=== PATIENT | female | born 1950 | race Hispanic/Latino ===

== ENCOUNTER 2018-08-18 08:43 | Inpatient (IN) | payer OTHER ==
[2018-08-18 09:17] LABS: Basophils % 0.2 % (0-1.3); Eosinophils % 0.4 % (0-4.4); Hematocrit 36.1 % (36.0-45.0); Lymphocytes % 44.2 % (15.3-44.8); Monocytes % 10.4 % (3.3-12.3); RBC Red Blood Cell Count 4.43 M/uL (3.86-4.86)
[2018-08-18 09:39] LABS: Albumin 2.5 g/dL (3.4-5.0); Bilirubin Direct 0.2 mg/dL (0-0.2); Bilirubin Total 0.6 mg/dL (0.2-1.0); Potassium 3.6 mmol/L (3.5-5.1); Protein, Total 7.6 g/dL (6.4-8.2)
[2018-08-18] MEDS ORDERED: ONDANSETRON 4 MG/2 ML VIAL ONE (10:20)
[2018-08-18] MEDS ORDERED: NA CHLORIDE 0.9% 500 ML ONE ×2 (10:20→11:58)
[2018-08-18] MEDS ORDERED: MORPHINE 2 MG/ML SYR ONE (10:20)
[2018-08-18 10:33] LABS: Urine Blood 3+ (NEG); Urine Glucose NEGATIVE (NEG); Urine Protein 2+ (NEG); Urine Specific Gravity 1.015 (1.005-1.030)
[2018-08-18 10:40] LABS: Platelet Estimate ADEQ
[2018-08-18 10:41] LABS: Blood Morphology Comment NOT SEEN (NOT SEEN)
--- NOTE | 2018-08-18 11:13 | RAD REPORT ---
EXAM DESCRIPTION: CT - Abdomen Pelvis W Contrast - 08/18/2018 10:42 am CLINICAL HISTORY: Abdominal pain with nausea. COMPARISON: none. TECHNIQUE: Computed axial tomography of the abdomen pelvis was obtained. 100 cc Isovue-300 was admin istered intravenously. Oral contrast was not requested which limits evaluation of bowel. All CT scans are performed using dose optimization technique as appropriate and may include automated exposure control or mA/KV adjustment according to patient size. FINDINGS: Fatty liver Spleen, pancreas, adrenal and right kidney appear unremarkable. A left ureteral stent has been placed with decompression of the hydronephrosis. The stranding adjacent to the sigmoid colon has diminished. 5 centimeter fluid collection abutting th e left aspect of the the sigmoid has diminished in size. Previously it measured 5.7 centimeters. A 2. 4 centimeter fluid collection to the right of the cecum has also diminished in size. 3 centimeter flu id collection superior to the sigmoid has mildly diminished in size. Extraluminal air adjacent to the sigmoid is without significant change. Free-flowing pneumoperitoneum is not seen. IMPRESSION: Improvement in the sigmoid diverticulitis. The thin wall fluid collections have mildly d ecreased in size. Extraluminal air is without significant change. No free-flowing pneumoperitoneum se en.
--- NOTE | 2018-08-18 14:15 | ER ---
Nurse's Notes [facility] Name: Madeline Celaya Age: 67 yrs Sex: Female : 1950 Arrival Date: 08/18/2018 Time: 08:46 Bed 13 Private MD: None, None Diagnosis: Abdominal and pelvic pain Presentation: 08/18 09:02 Presenting complaint: Patient states: Sent by Dr. Lock after follow up appointment ss for probable dehydration. Patient was recently diagnosed with diverticulitis and has finished oral antibiotic therapy, but reports she is still weak, and began having N/V and sweating last night. Patient states that the pain subsided in her LLQ until she began vomiting last night. Transition of care: Dr. Lock's office. Onset of symptoms was August 11, 2018. Risk Assessment: Do you want to hurt yourself or someone else? Patient reports no desire to harm self or others. Initial Sepsis Screen: Does the patient meet any 2 criteria? HR > 90 bpm. Does the patient have a suspected source of infection? Yes: No. Patient's initial sepsis screen is negative. Care prior to arrival: None. 09:02 Method Of Arrival: Wheelchair ss 09:02 Acuity: RUBEN 3 ss Historical: - Allergies: 09:06 Amoxicillin; ss - PMHx: 09:06 osteoarthritis; Diverticulitis; ss - PSHx: 09:06 Tubal ligation; bunionectomy; ss - Immunization history:: Adult Immunizations up to date. - Social history:: Smoking status: Patient/guardian denies using tobacco. - Ebola Screening: : Patient denies exposure to infectious person Patient denies travel to an Ebola-affected area in the 21 days before illness onset. Screenin:30 Abuse screen: Denies threats or abuse. Denies injuries from another. Nutritional sg screening: No deficits noted. Tuberculosis screening: No symptoms or risk factors identified. Never had TB. Fall Risk None identified. Assessment: 09:29 General: Appears in no apparent distress. uncomfortable, ill, slender, well groomed, sg well developed, well nourished, Behavior is calm, cooperative, appropriate for age. Pain: Complains of pain in left lower quadrant Quality of pain is described as sore, began after vomiting. Neuro: Level of Consciousness is awake, alert, obeys commands, Oriented to person, place, time, situation. Cardiovascular: Capillary refill is brisk in bilateral fingers Patient's skin is warm and dry. Respiratory: Airway is patent Respiratory effort is even, unlabored, Respiratory pattern is regular, symmetrical. GI: Abdomen is flat, non-distended, Bowel sounds present X 4 quads. Abd is soft and non tender X 4 quads. Reports. GI: Reports nausea, vomiting. : No signs and/or symptoms were reported regarding the genitourinary system. EENT: No signs and/or symptoms were reported regarding the EENT system. Derm: Skin is intact, is healthy with good turgor, Skin is dry, Skin is pale, Skin temperature is warm. Musculoskeletal: No signs and/or symptoms reported regarding the musculoskeletal system. 10:51 Reassessment: Patient appears in no apparent distress at this time. pt requesting sg glycerin mouth swabs at this time, swabs provided, feels better per pt. 11:36 Reassessment: Patient appears in no apparent distress at this time. Patient and/or sg family updated on plan of care and expected duration. Pain level reassessed. Patient is alert, oriented x 3, equal unlabored respirations, skin warm/dry/pink. Vital Signs: 09:06 BP 102 / 71; Pulse 115; Resp 19; Temp 98.0(TE); Pulse Ox 98% on R/A; Weight 62.6 kg; ss Height 5 ft. 4 in. (162.56 cm); 10:52 Pulse 96; Resp 16; Pulse Ox 96% on R/A; sg 11:30 BP 112 / 70; Pulse 86; Resp 18; Temp 98.0; Pulse Ox 98% on R/A; sg 12:30 BP 102 / 64; Pulse 82; Resp 17; Pulse Ox 98% on R/A; sg 13:30 BP 104 / 62; Pulse 82; Resp 18; Pulse Ox 98% on R/A; sg 16:13 BP 96 / 63; Pulse 95; Resp 16; Pulse Ox 97% on R/A; Pain 3/10; ss 09:06 Body Mass Index 23.69 (62.60 kg, 162.56 cm) ED Course: 08:46 Patient arrived in ED. as 08:47 None, None is Private Physician. as 08:49 Jose Daniels MD is Attending Physician. kdr 08:57 Kenroy Bedoya, RN is Primary Nurse. sg 09:05 Triage completed. ss 09:06 Arm band placed on right wrist. ss 09:11 Initial lab(s) drawn, by me, sent to lab. Inserted saline lock: 22 gauge in left jb1 antecubital area, using aseptic technique. Blood collected. 09:29 Patient has correct armband on for positive identification. Bed in low position. Call sg light in reach. Side rails up X2. Pulse ox on. NIBP on. 10:[address] via stretcher. [email or web address] 10:46 CT Abd/Pelvis - IV Contrast Only In Process Unspecified. EDMS 14:14 Aidee Richmond MD is Hospitalizing Provider. kdr Administered Medications: 10:15 Drug: morphine 2 mg Route: IVP; Site: left antecubital; sg 11:34 Follow up: Response: No adverse reaction sg 10:15 Drug: Zofran 4 mg Route: IVP; Site: left antecubital; sg 11:30 Follow up: Response: No adverse reaction sg 10:15 Drug: NS 0.9% 500 ml Route: IV; Rate: bolus; Site: left antecubital; sg 11:33 Follow up: Response: No adverse reaction; IV Status: Completed infusion; IV Intake: sg 500ml 11:48 Drug: NS 0.9% 500 ml Route: IV; Rate: bolus; Site: left antecubital; sg Intake: 11:33 IV: 500ml; Total: 500ml. sg Outcome: 14:15 Decision to Hospitalize by Provider. kdr 16:32 Patient left the ED. sg Signatures: Dispatcher [employer] EDMS German Jo [email or web address] Kenroy Bedoya RN RN Jose Daniels MD MD kdr Dorothy Kuo Shelby, RN RN Meenakshi Pepe [email or web address]
--- NOTE | 2018-08-18 14:16 | EDPHYS ---
Physician Documentation [facility] Name: Madeline Celaya Age: 67 yrs Sex: Female : 1950 Arrival Date: 08/18/2018 Time: 08:46 Bed 13 Private MD: None, None ED Physician Jose Daniels HPI: 08/18 10:06 This 67 yrs old Female presents to ER via Wheelchair with complaints of kdr Abdominal Pain, Nausea. 10:06 The patient presents to the emergency department with nausea, that is mild, abdominal kdr pain, of the left lower quadrant. Onset: The symptoms/episode began/occurred This is an ongoing problem that became worse today when she had n/v. She went to Dr. Lock's office and was then sent to the ED for re-evaluation of possible worsening of a diverticular abscess. Possible causes: unknown, Diverticulitis. The symptoms are aggravated by movement, pressure, The symptoms are alleviated by nothing. Associated signs and symptoms: Pertinent positives: abdominal pain, No BM in three days. Severity of symptoms: At their worst the symptoms were mild in the emergency department the symptoms are unchanged. The patient has experienced similar episodes in the past, Recently admitted for same problem and had . Historical: - Allergies: 09:06 Amoxicillin; ss - PMHx: 09:06 osteoarthritis; Diverticulitis; ss - PSHx: 09:06 Tubal ligation; bunionectomy; ss - Immunization history:: Adult Immunizations up to date. - Social history:: Smoking status: Patient/guardian denies using tobacco. - Ebola Screening: : Patient denies exposure to infectious person Patient denies travel to an Ebola-affected area in the 21 days before illness onset. ROS: 10:47 Constitutional: Negative for fever, chills, and weight loss, Eyes: Negative for injury, kdr pain, redness, and discharge, ENT: Negative for injury, pain, and discharge, Neck: Negative for injury, pain, and swelling, Cardiovascular: Negative for chest pain, palpitations, and edema, Respiratory: Negative for shortness of breath, cough, wheezing, and pleuritic chest pain, Back: Negative for injury and pain, MS/Extremity: Negative for injury and deformity, Skin: Negative for injury, rash, and discoloration, Neuro: Negative for headache, weakness, numbness, tingling, and seizure activity. Psych: Negative for depression, anxiety, suicide ideation, homicidal ideation, and hallucinations, Allergy/Immunology: Negative for hives, rash, and allergies, Endocrine: Negative for neck swelling, polydipsia, polyuria, polyphagia, and marked weight changes, Hematologic/Lymphatic: Negative for swollen nodes, abnormal bleeding, and unusual bruising. 10:47 Abdomen/GI: Positive for abdominal pain, nausea, constipation, Negative for vomiting, diarrhea, abdominal cramps, abdominal distension, anorexia, dysphagia, hematemesis, black/tarry stool, rectal pain, rectal bleeding, bowel incontinence. Exam: 10:47 Constitutional: This is a well developed, well nourished patient who is awake, alert, kdr and in no acute distress. Head/Face: Normocephalic, atraumatic. Eyes: Pupils equal round and reactive to light, extra-ocular motions intact. Lids and lashes normal. Conjunctiva and sclera are non-icteric and not injected. Cornea within normal limits. Periorbital areas with no swelling, redness, or edema. Neck: Trachea midline, no thyromegaly or masses palpated, and no cervical lymphadenopathy. Supple, full range of motion without nuchal rigidity, or vertebral point tenderness. No Meningismus. Chest/axilla: Normal chest wall appearance and motion. Nontender with no deformity. No lesions are appreciated. Cardiovascular: Regular rate and rhythm with a normal S1 and S2. No gallops, murmurs, or rubs. Normal PMI, no JVD. No pulse deficits. Respiratory: Lungs have equal breath sounds bilaterally, clear to auscultation and percussion. No rales, rhonchi or wheezes noted. No increased work of breathing, no retractions or nasal flaring. Back: No spinal tenderness. No costovertebral tenderness. Full range of motion. Skin: Warm, dry with normal turgor. Normal color with no rashes, no lesions, and no evidence of cellulitis. MS/ Extremity: Pulses equal, no cyanosis. Neurovascular intact. Full, normal range of motion. Neuro: Awake and alert, GCS 15, oriented to person, place, time, and situation. Cranial nerves II-XII grossly intact. Motor strength 5/5 in all extremities. Sensory grossly intact. Cerebellar exam normal. Normal gait. Psych: Awake, alert, with orientation to person, place and time. Behavior, mood, and affect are within normal limits. 10:47 Abdomen/GI: Inspection: abdomen appears normal, Bowel sounds: diminished, in all quadrants, Palpation: soft, mild abdominal tenderness, in the left lower quadrant, mass, is not appreciated, rebound tenderness, is not appreciated, voluntary guarding, is not appreciated. Vital Signs: 09:06 BP 102 / 71; Pulse 115; Resp 19; Temp 98.0(TE); Pulse Ox 98% on R/A; Weight 62.6 kg; ss Height 5 ft. 4 in. (162.56 cm); 10:52 Pulse 96; Resp 16; Pulse Ox 96% on R/A; sg 11:30 BP 112 / 70; Pulse 86; Resp 18; Temp 98.0; Pulse Ox 98% on R/A; sg 12:30 BP 102 / 64; Pulse 82; Resp 17; Pulse Ox 98% on R/A; sg 13:30 BP 104 / 62; Pulse 82; Resp 18; Pulse Ox 98% on R/A; sg 16:13 BP 96 / 63; Pulse 95; Resp 16; Pulse Ox 97% on R/A; Pain 3/10; ss 09:06 Body Mass Index 23.69 (62.60 kg, 162.56 cm) ss MDM: 10:47 Data reviewed: vital signs, nurses notes, lab test result(s), radiologic studies. kdr Counseling: I had a detailed discussion with the patient and/or guardian regarding: the historical points, exam findings, and any diagnostic results supporting the discharge/admit diagnosis, lab results, radiology results. 14:15 Patient medically screened. kdr 08/18 08:49 Order name: Basic Metabolic Panel; Complete Time: 09:59 kdr 08/18 08:49 Order name: CBC with Diff; Complete Time: 10:46 kdr 08/18 08:49 Order name: Creatinine for Radiology; Complete Time: 09:42 kdr 08/18 08:49 Order name: Hepatic Function; Complete Time: 09:59 kdr 08/18 08:49 Order name: Lipase; Complete Time: 09:59 kdr 08/18 10:29 Order name: Urine Dipstick--Ancillary (enter results); Complete Time: 10:46 ms 08/18 08:49 Order name: IV Saline Lock; Complete Time: 09:11 kdr 08/18 08:49 Order name: Labs collected and sent; Complete Time: : kdr 08/18 09:31 Order name: CT Abd/Pelvis - IV Contrast Only; Complete Time: 11:30 kdr 08/18 10:42 Order name: Manual Differential; Complete Time: 10:46 EDMS Administered Medications: 10:15 Drug: morphine 2 mg Route: IVP; Site: left antecubital; sg 11:34 Follow up: Response: No adverse reaction sg 10:15 Drug: Zofran 4 mg Route: IVP; Site: left antecubital; sg 11:30 Follow up: Response: No adverse reaction sg 10:15 Drug: NS 0.9% 500 ml Route: IV; Rate: bolus; Site: left antecubital; sg 11:33 Follow up: Response: No adverse reaction; IV Status: Completed infusion; IV Intake: sg 500ml 11:48 Drug: NS 0.9% 500 ml Route: IV; Rate: bolus; Site: left antecubital; sg Disposition: 08/18/18 14:15 Hospitalization ordered by Aidee Richmond for Observation. Preliminary diagnosis is Abdominal and pelvic pain. - Bed requested for Telemetry/MedSurg (observation). - Status is Observation. sg - Condition is Fair. - Problem is an acute exacerbation. - Symptoms have improved. UTI on Admission? No Signatures: Dispatcher [employer] EDMS Kenroy Bedoya RN RN Jose Daniels MD MD [facility] Leonor Johnson, FINGER LIFT OPERATOR-C FINGER LIFT OPERATOR-[employer] Ivett Marks RN RN Corrections: (The following items were deleted from the chart) 15:56 14:15 Hospitalization Ordered by Aidee Richmond MD for Observation. Preliminary diagnosis sg is Abdominal and pelvic pain. Bed requested for Telemetry/MedSurg (observation). Status is Observation. Condition is Fair. Problem is an acute exacerbation. Symptoms have improved. UTI on Admission? No. kdr 16:32 15:56 08/18/2018 14:15 Hospitalization Ordered by Aidee Richmond MD for Observation. sg Preliminary diagnosis is Abdominal and pelvic pain. Bed requested for Telemetry/MedSurg (observation). Status is Observation. Condition is Fair. Problem is an acute exacerbation. Symptoms have improved. UTI on Admission? No. sg
[2018-08-18] MEDS ORDERED: MORPHINE 2 MG/ML SYR IV PRN (16:38)
[2018-08-18] MEDS ORDERED: ACETAMINOPHEN 650MG/RECT SUPP PR PRN (16:38)
[2018-08-18] MEDS ORDERED: Meropenem 1000 MG/VIAL IV SCH (17:00)
[2018-08-18 17:29] VITALS: BMI 23.6
[2018-08-18] MEDS: Meropenem 1,000 MG in NA CHLORIDE 0.9% 100 ML IV SCH (17:41)
[2018-08-18] MEDS: ENOXAPARIN 40 MG/0.4 ML SQ SCH (17:42)
[2018-08-18] MEDS: D5 0.45 NS 1,000 ML IV SCH (17:42)
[2018-08-18] MEDS ORDERED: KCL 20 MEQ/100 mL IVPB 20 MEQ/100 ML BAG IV SCH (21:00)
[2018-08-19] MEDS: Meropenem 1,000 MG in NA CHLORIDE 0.9% 100 ML IV SCH ×3 (01:20→17:55)
--- NOTE | 2018-08-19 03:26 | HP ---
Date of Admission: 08/18/2018 Consultants: Dr. Lock with General Surgery. Chief Complaint: Abdominal pain, nausea, vomiting, fever. Code Status: Full. History Of Present Illness: The patient is a 67-year-old female with past medical history of osteoarthritis, recent admission for diverticulitis with abscess. The patient has been going through multiple episodes of diverticulitis with treatment and recurrent abdominal pain. She was last discharged on 08/05/2018, on oral antibiotics prior to that. All of her symptoms have started in the beginning of July. The patient was seen by the surgeon yesterday for a followup from the hospital stay and was found to be dehydrated, tachycardic, appearing ill and therefore was sent to the ER for further evaluation. The patient had completed her antibiotics. Son stated that the Flagyl gave her significant amount of nausea and the antibiotics combined including the Levaquin caused significant amount of diarrhea. The patient since then has not been able to eat a significant amount of food. Her p.o. intake has decreased recently in the past couple of days. She also had some episodes of nausea and vomiting along with fever as high as 103, night prior to admission. The patient's symptoms are constant, moderate, progressively worsening. Therefore, the patient came into the ER for further evaluation. She does report some abdominal pain and discomfort largely along the left lower quadrant, especially after vomiting. In the ER, her workup revealed white count of 11.4. Her liver enzymes were significantly elevated. UA was positive. CT scan of the abdomen showed improvement in the sigmoid diverticulitis. Thin-walled collections have mildly decreased in size. Extraluminal areas without significant change. No free-flowing pneumoperitoneum seen. When seen in the ER, she was awake, alert, oriented x3, in some mild distress. Past Medical History: Osteoarthritis and diverticulitis. Past Surgical History: None. Allergies: TO AMOXICILLIN WHICH CAUSES HIVES. Medications: List reviewed. Social History: The patient denies any tobacco use, alcohol use, or illicit drug use. The patient is , has a son. Independent in her activities of daily living. Review of Systems: Ten-point system reviewed, negative except as per HPI. Physical Examination: Vital Signs: T-max was 101 at home. T current is 98. Respirations 19, pulse 115, blood pressure 102/71, O2 98% on room air. General: Awake, alert, oriented x3. Elderly female, ill-appearing. HEENT: Normocephalic, atraumatic. PERRLA. EOMI. Dry mucous membranes. Oropharynx is clear. Poor dentition. Conjunctivae are anicteric. Neck: Supple. No JVD. Trachea midline. CV: S1, S2. Sinus tachycardia. Peripheral pulses present. Respiratory: Moving air well bilaterally. No wheezing or stridor. No use of accessory muscles. Gastrointestinal: Abdomen is soft. Tenderness to palpation in the left lower quadrant. No rebound or guarding. No rigidity. Bowel sounds are hyperactive. Extremities: No clubbing, cyanosis, or edema. No calf tenderness. Neuro: Cranial nerves 2-12 intact grossly. No focal neurological deficit. Speech is normal. Laboratory Data: UA; 3+ blood, positive nitrite, 2+ leukocyte esterase. Microscopy is pending. Sodium 136, potassium 3.6, chloride 98, CO2 30, BUN 8, creatinine 0.71, glucose 162, calcium 8.1. AST 714, ALT 444, total bilirubin 0.2. Alkaline phosphatase is 210, albumin 2.5, lipase 89. WBC 11.4, H and H 11.7 and 36.1, platelets 235, neutrophils 44%, 2% bands. CT scan of the abdomen and pelvis shows improvement in the sigmoid diverticulitis. Thin- walled fluid collections have mildly decreased in size. Extraluminal areas without significant change. No free-flowing pneumoperitoneum seen. Assessment And Plan: A 67-year-old female with: 1. Subacute sigmoid diverticulitis with abscess. Compared to previous, the abscess have improved. However, the patient continues to have intractable nausea, vomiting, fever, chills, and has an elevated white count with bandemia. Due to the patient's adverse reaction to Flagyl and allergies to penicillin, we will start on meropenem. Surgical consultation with Dr. Lock. He did not recommend percutaneous drainage at this time. We will keep n.p.o. for now. Start on IV fluids and pain medications. 2. Generalized osteoarthritis. 3. Elevated liver enzymes, unclear etiology. CT scan did not show any abnormalities of the liver. Bilirubin is normal. Doubt obstruction 4. Hyperglycemia, likely acute phase reactant. 5. Moderate protein-calorie malnutrition. Albumin is 2.5. 6. DVT prophylaxis with Lovenox. Admit the patient to med/surg, place as inpatient. Length of stay, greater than 2 midnights. FABY Voice ID: [id number] KARYNA
[2018-08-19 04:36] LABS: Absolute Lymphocytes (CBC) 3.2 K/uL (0.7-4.9); Basophils % 0.7 % (0-1.3); Eosinophils % 0.1 % (0-4.4); Hematocrit 32.3 % (36.0-45.0); MPV 9.1 fL (7.6-11.3); Monocytes % 12.7 % (3.3-12.3); RBC Red Blood Cell Count 3.95 M/uL (3.86-4.86)
[2018-08-19 04:47] LABS: Lymphocytes % 30.4 % (15.3-44.8)
[2018-08-19 05:05] LABS: Albumin 2.1 g/dL (3.4-5.0); Alkaline Phosphatase 233 U/L (45-117); BUN Blood Urea Nitrogen 6 mg/dL (7-18); Bicarbonate 31 mmol/L (21-32); Bilirubin Total 0.6 mg/dL (0.2-1.0); Glucose Level 136 mg/dL (74-106); Magnesium 2.3 mg/dL (1.8-2.4); Phosphorus 2.4 mg/dL (2.5-4.9); Potassium 4.2 mmol/L (3.5-5.1); Protein, Total 6.4 g/dL (6.4-8.2); Sodium Level 142 mmol/L (136-145)
[2018-08-19 05:06] LABS: ALT/SGPT 393 U/L (12-78); AST/SGOT 651 U/L (15-37)
[2018-08-19] MEDS: D5 0.45 NS 1,000 ML IV SCH ×2 (05:17→17:54)
[2018-08-19 08:27] VITALS: O2SAT 93
[2018-08-19] MEDS: ENOXAPARIN 40 MG/0.4 ML SQ SCH (10:36)
--- NOTE | 2018-08-19 12:32 | RAD REPORT ---
EXAM DESCRIPTION: MRI - Cholangiogram - 08/19/2018 12:21 pm CLINICAL HISTORY: elevated transaminases, normal biliruben Abdominal pain COMPARISON: Abdomen Pelvis W Contrast dated 08/18/2018; Abdomen Pelvis W Contrast dated 07/30/2018 FINDINGS: Three-dimensional MRCP was performed using maximum intensity projection reconstruction on the same work station. No intrahepatic biliary tree dilatation is seen. Several small 4-5 mm filling defects seen in within the distal common bile duct is suspicious for choledocholithiasis. The pancreatic duct is not patholo gically dilated. Small amount of fluid is seen near the pancreatic head. Multiple gallstones are present in the gallbladder with gallbladder distention identified. Hydronephrosis of the left kidney is noted. Trace amount of free fluid is seen about the hepatic edge . IMPRESSION: Cholelithiasis with gallbladder distention. Multiple small stones in the distal common b ile duct seen compatible with choledocholithiasis. Moderate left hydronephrosis.
--- NOTE | 2018-08-19 13:06 | CON ---
Date of Consultation: 08/19/2018 Brief History Of Present Illness: The patient is a 67-year-old, female with a history of os teoarthritis, recently admitted several weeks ago with diverticulitis with diverticular abscess in th e pelvis. She has been having multiple episodes of diverticulitis treatment with recurrent abdominal pain. She was discharged on 08/05/2018 on oral antibiotic. She had been doing quite well for the f irst 10 days. She states after discharge, but as of the last 3 or 4 day, she started having addition al left lower quadrant abdominal pain and some nausea and vomiting. She states that she has been anup ble to tolerate much p.o. intake and has been feeling weak and fatigued. She came to my office on with the above-stated complaints and as such I saw and evaluated her, found her to be what appear ed to be quite dehydrated and I sent her to the emergency room. I recommend she go to the emergency room by ambulance; however, her son took her to the emergency room manually in his car. She was admi tted and had a CT scan of the abdomen and pelvis, which showed actual improvement of the abscess in t he left lower quadrant. No other acute findings. However, her liver enzymes were significantly elev ated. Past Medical History: Significant for osteoarthritis and diverticulitis. Past Surgical History: Negative. Allergies: TO AMOXICILLIN, WHICH CAUSES HIVES. Social History: She denies smoking, alcohol, or recreational drug use. Home Medications: Included Cipro, clindamycin, dicyclomine, Levaquin, Flagyl and Zofran. Review of Systems: Other than HPI she denies. She actually feels quite better today and significant improvement of her left lower quadrant abdomina l pain and has some minimal soreness in the epigastrium, but she states no pain specifically and this is only with nausea. Physical Examination: Vital Signs: Her vital Signs at time of my examination were pulse of 103, respiratory rate is 18, tem perature 98.9. She has been afebrile since admission. Blood pressure 104/59. General: She is awake, alert, and oriented. Psychiatric: She is appropriate and conversive HEENT: She is normocephalic. Sclerae icteric. Muco us membranes are moist. Oropharynx clear. Neck: Supple. No JVD. Chest: Normal expansion and excursion. Cardiovascular: Regular rate and rhythm. Pulmonary: Clear to auscultation bilaterally. Abdomen: Soft with minimal epigastric tenderness to deep palpation. Negative right upper quadrant t enderness to palpation. Negative Smart sign. She does have tenderness to the left lower quadrant; however, it is mild and there is no focal peritonitis. No rebound. No guarding. She does not have a surgical abdomen at this time. Extremities: No clubbing, cyanosis, or edema. Laboratory Data: Reveals a white blood count of 10.5, hemoglobin 10.5, hematocrit 32.3, platelet cou nt is 196. Her sodium was 142, potassium 4.2, chloride 106, carbon dioxide 31, BUN 6, creatinine 0.6 . Her glucose was 136. Her calcium 7.6. Her phos was 2.4, magnesium 2.3, total bilirubin was 0.6, direct component 0.2. Her AST was 714 on admission, now 651. Her ALT was 444, now 393. Her alkalin e phosphatase was 210 now 233. Her lipase was 89 on admission. She had 3+ blood, positive nitrites, 2+ leukocyte esterase, 2+ protein in her urine. She had a CT scan performed of the abdomen and pelv is, which was officially read as improvement in the sigmoid diverticulitis. The thin wall fluid david ections are mildly decreased in size. Extraluminal air is without significant change. No free flowi ng pneumoperitoneum seen. A left ureteral stent has been placed with decompression of the hydronephr osis. The stranding in the sigmoid colon has diminished. A 5 cm fluid collection abuts the left asp ect of the sigmoid colon, dimension size previously 5.7 cm, now 5 cm. A 2.4 cm fluid collection to t he cecum has also diminished. A 3 cm fluid collection. It was appeared that the sigmoid colon was 3 cm prior. Extraluminal air adjacent to the sigmoid colon without significant change. Free-flowing pneumoperitoneum is not seen. Assessment And Plan: This is a 67-year-old woman who comes into the hospital with what appears to be dehydration and elevation of her liver transaminases, but improvement of her diverticulitis and/dive rticular abscesses. 1.IV fluid hydration. 2.Antibiotic coverage. 3.I recommend GI consultation for elevation of LFTs. 4.We will get an MRCP to evaluate the biliary tree. I do not find that the patient has evidence of cholecystitis; however, we will get MRCP to better evaluate the right upper quadrant, liver and bilia ry system. 5.I have explained the risks, benefits, and alternatives of the above stated plan. The patient agre es to proceed as indicated. One of my colleagues will be covering for me this weekend. I have expla ined the risks, benefits, and alternatives and the above-stated plan to the patient. They agree to p roceed as indicated. KRISHNA/CRISTELA Voice ID: [id number] Report ID: [id number]
[2018-08-19] MEDS: ONDANSETRON 4 MG/2 ML VIAL IV PRN ×2 (14:20→19:16)
[2018-08-19] MEDS ORDERED: NA CHLORIDE 0.9% 500 ML IV SCH (15:00)
--- NOTE | 2018-08-19 16:27 | PN ---
Date of Progress Note: 08/19/2018 Subjective: The patient seen and examined. Chart reviewed and case discussed with RN. The patient doing better today, still complaining of some pain, has some nausea but no vomiting. The patient flagging for sepsis due to her elevated heart rate. Lactate was normal. Medications: List reviewed. Physical Examination: Vital Signs: Temperature 99.8, heart rate 107, blood pressure 116/61, respirations 20, O2 94% on room air. General: Awake, alert, and oriented x3. Elderly female, mild distress. CV: S1 and S2. No murmurs. Respiratory: Moving air well bilaterally. Abdomen: Soft. Tenderness to palpation. No rebound or guarding. Mildly distended. Positive bowel sounds. Extremities: No clubbing, cyanosis, or edema. Neurologic: Nonfocal. Laboratory Data: Sodium 142, potassium 4.2, chloride 106, CO2 31, BUN 6, creatinine 0.61, glucose 136, lactate 1, calcium 7.6, phosphorus 2.4, magnesium 2.3. AST 661, ALT 393, alkaline phosphatase 33, albumin 2.1. WBC 10.5, H and H 10.5 and 32.3, platelets 196, neutrophils 56%. Assessment And Plan: A 67-year-old female with: 1. Subacute sigmoid diverticulitis with abscess, improving. The patient still has mild pain and nausea. We will start on clear liquids. Appreciate Dr. Lock's input. No surgical intervention at this time. 2. Severe protein-calorie malnutrition. Albumin is 2.1. 3. Elevated liver enzymes along with alkaline phosphatase elevation, unclear etiology, possible malignancy. The patient certainly needs a colonoscopy, unfortunately no GI is available and regardless with her current diverticulitis , she is not a candidate for scope at this time. She will need a scope once the infection has subsided in the next 6-8 weeks, minimum. 4. Generalized osteoarthritis. 5. Acute cystitis with hematuria. Nitrite and leukocyte esterase positive. We will continue on antibiotics and follow up on urine culture. ADDENDUM: MRCP positive for ductal stones. Spoke w Dr. Lock he agrees with transfer to higher level of care for ERCP. No GI electronics mechanic or available for procedure. Family agrees with transfer. Charge nurse Cher at bedside while discussing options with family including son and . /CRISTELA Voice ID: [id number] Report ID: [id number] KARYNA
[2018-08-19] MEDS ORDERED: KETOROLAC 30 MG/ML INJ IV ONE (19:58)
[2018-08-19 21:19] VITALS: BP 105/66; TEMP 99.1
--- NOTE | 2018-08-21 05:09 | DS ---
Date of Discharge: 08/20/2018 Consultants: Dr. Lock with General Surgery. Procedures: None. Admitting Diagnoses: 1.Subacute sigmoid diverticulitis with abscess. 2.Abdominal pain, generalized. 3.Generalized osteoarthritis. 4.Elevated liver enzymes. 5.Hyperglycemia. Discharge Diagnoses: 1.Choledocholithiasis. 2.Subacute sigmoid diverticulitis with abscess. 3.Severe protein-calorie malnutrition, albumin 2.1. 4.Elevated liver enzymes secondary to choledocholithiasis. 5.Generalized osteoarthritis. 6.UTI, acute cystitis with hematuria. Hospital Course: The patient is a 67-year-old female with past medical history of osteoarthritis and diverticulitis, who comes in after being recently discharged on 08/05/2018 and completing oral cours e of antibiotics after discharge with nausea, vomiting, and recurrent abdominal pain. The patient wa s having some loose bowel movement, unable to tolerate p.o., had abdominal pain. CT scan of the abdo men was repeated, which showed improvement in the sigmoid diverticulitis and abscess collections, whi ch were improving. UA was positive for UTI and the patient was started on IV antibiotics. As she polk d recently completed a course of Levaquin and Flagyl, she was placed on meropenem due to her allergie s to penicillin excluding Zosyn for treatment. The patient responded well. Her WBC count normalized . Her pain improved, however, she continued to have abdominal pain and elevated liver enzymes. Ther efore, MRCP was done to evaluate her biliary function. There were no signs of acute cholecystitis. No abnormality seen on CT of the abdomen. Dr. Lock with General Surgery was also consulted. He d id not recommend any surgical intervention for the diverticulitis or abscess as they were improving a nd decreasing in size. The MRCP showed multiple small stones in the common bile duct and the patient would require ERCP. No GI was available orthodontic assistant and reached out to GI, Dr. Pat, who stated that he was leaving town, therefore would not be able to perform the procedure. Therefore, the family was informed regarding option of transfer to [facility] for higher level of care. Family under stands that the patient requires ERCP which the GI doctor from [facility] and Dr. Lock agreed with . The patient understands that not having ERCP may lead to further worsening of her condition, sepsi s, bacteremia, possible perforation, and even . They understood the risks versus benefits, agre ed to be transferred to [facility] for further evaluation and treatment and ERCP. They were also giv en the option of transfer to [facility] or other [facility], however, they agreed with [facility]. The patient was then accepted by GI and hospitalist service at [facility] and was tra nsferred in a stable condition. For physical exam findings, please see progress note dictated on day of discharge. Total time spent transferring the patient was 45 minutes. /CRISTELA Voice ID: [id number] Report ID: [id number]
[2018-08-21 14:55] LABS: HBsAG Nonreactive (Nonreactive); Hepatitis A IgM Antibody Nonreactive
== END 2018-08-20 00:36 | disposition short-term general hospital (02) | DRG 391 ==
LOC: ER 08:43 → ERHOLD 14:23 → 4TH 16:19
PROVIDERS: ADMIT Family Medicine; ATTEND Family Medicine
DX: K57.20 Diverticulitis of large intestine with perforation and abscess without bleeding (principal); E43 Unspecified severe protein-calorie malnutrition; N30.01 Acute cystitis with hematuria; K80.50 Calculus of bile duct without cholangitis or cholecystitis without obstruction; E86.0 Dehydration; M15.9 Polyosteoarthritis, unspecified; R73.9 Hyperglycemia, unspecified; Z68.23 Body mass index [BMI] 23.0-23.9, adult; Z88.0 Allergy status to penicillin
CPT/HCPCS: 36415; 74177; 74181; 80048; 80053; 80074; 80076; 81003; 82962; 83605; 83690; 83735; 84100; 85025; 87040; 94760; 96361; 96374; 96375; 99284; J1650; J2270; J2405; Q9967

== ENCOUNTER 2018-10-05 20:42 | Emergency (ER) | payer OTHER, SELFPAY ==
--- OUTSIDE RECORDS SUMMARY | 2018-10-05 20:47 | XMS REPORT | Clinical Summary ---
:1950 Author Organization [facility] Address [address] [place] [address] Care Team Providers Name Role Phone Unavailable Primary Care Provider Unavailable Allergies Active Allergy Reactions Severity Noted Date Comments Amoxicillin Hives Low 08/20/2018 Ciprofloxacin 09/02/2018 Drug induced liver injury Milk Containing Products 08/20/2018 Medications Medication Sig Dispensed Refills Start Date End Date Status lidocaine (LIDODERM) Place 1 patch 30 patch 0 09/14/2018 Active 5 % patch onto the skin 9 daily for 30 days Remove & Discard patch within 12 hours or as directed by MD. pantoprazole Take 1 tablet 30 tablet 0 09/14/2018 Active (PROTONIX) 40 MG (40 mg total) tablet by mouth daily. senna (SENOKOT) 8.6 Take 1 tablet 30 tablet 0 09/13/2018 Active mg tablet (8.6 mg total) 0 by mouth every night as needed for Constipation. ibuprofen Take 200 mg by 0 Discontinued (ADVIL,MOTRIN) 200 MG mouth every 6 9 tablet (six) hours as needed for Pain. cyclobenzaprine Take 1 tablet 30 tablet 0 09/13/2018 (FLEXERIL) 10 MG (10 mg total) 9 tablet by mouth 3 (three) times daily as needed for Muscle spasms for up to 10 days. ondansetron Take 1 tablet 20 tablet 0 09/13/2018 (ZOFRAN-ODT) 4 MG (4 mg total) 9 disintegrating tablet by mouth every 4 (four) hours as needed for up to 7 days. traMADol (ULTRAM) 50 Take 1 tablet 30 tablet 0 09/13/2018 mg tablet (50 mg total) 9 by mouth every 6 (six) hours as needed for up to 10 days. Max Daily Amount: 200 mg Active Problems Problem Noted Date Osteoarthritis 08/23/2018 Hydronephrosis 08/23/2018 Colonic diverticular abscess 08/23/2018 Acute diverticulitis 08/23/2018 Severe protein-calorie malnutrition 08/23/2018 Anemia 08/23/2018 Hyponatremia 08/23/2018 Hypocalcemia 08/23/2018 Transaminitis 08/23/2018 Choledocholithiasis 08/20/2018 Encounters Date Type Specialty Care Team Description 10/01/2018 Abstract Hepatology Patricia Theodore RN 09/29/2018 Telephone Hepatology Patricia Theodore, labs needed RN 09/29/2018 Telephone Hepatology Patricia Theodore, Labs Only RN 09/15/2018 Documentation Hepatology Romina Edwards PA-C 09/09/2018 Orders Only Hepatology Romina Edwards Abnormal liver RICHARD Welsh function test (Primary Dx) 09/07/2018 Travel 09/03/2018 Surgery Naseem Jimenez COLECTOMY,SIGMOID MD Galileo 09/03/2018 Anesthesia Event Adam Contreras MD 09/01/2018 Orders Only Hepatology Garcia Sousa MD (Primary Dx) 08/31/2018 Anesthesia Event Génesis Li 08/26/2018 Anesthesia Event Griffin Gonzales MD 08/26/2018 Surgery Chiquita Liu CHOLECY F., MD STECTOMY 08/20/2018 Anesthesia Event Gastroenterology Quoc Liz MD 08/20/2018 Surgery Gastroenterology Timothy Paula ERCP,PAPILLOTOMY Gail 08/20/2018 Hospital Encounter General Internal Naheed Gonsalves Choledocholithiasis; - Clemente El MD Diverticulitis of both large and small intestine with abscess without bleeding ; 09/14/2018 Brann, Other urinary incontinence; Blu Acute diverticulitis; MD Jason Severe protein-calorie malnutrition (HCC); [place], Transaminitis; MD Sabas Colonic diverticular abscess; Anitha Kaur Calculus of gallbladder and bile duct with obstruction without cholecystitis; MD Hortencia Drug-induced liver injury John Callejas MD 08/19/2018 Documentation Gastroenterology Timothy Paulaed after 10/04/2017 Family History Medical History Relation Name Comments Diabetes Father Relation Name Status Comments Father Social History Tobacco Use Types Packs/Day Years Used Date Never Smoker Smokeless Tobacco: Never Used Alcohol Use Drinks/Week oz/Week Comments No Alcohol Habits Answer Date Recorded How often do you have a drink containing alcohol? Never 08/20/2018 How many drinks containing alcohol do you have on a typical Not asked day when you are drinking? How often do you have six or more drinks on one occasion? Not asked Sex Assigned at Date Recorded Not on file Job Start Date Occupation Industry Not on file Not on file Not on file Travel History Travel Start Travel End No recent travel history available. Last Filed Vital Signs Vital Sign Reading Time Taken Blood Pressure 117/64 09/14/2018 12:45 PM CDT Pulse 85 09/14/2018 12:45 PM CDT Temperature 36.3 C (97.3 F) 09/14/2018 12:45 PM CDT Respiratory Rate 20 09/14/2018 12:45 PM CDT Oxygen Saturation 98% 09/14/2018 12:45 PM CDT Inhaled Oxygen Concentration 21% 08/31/2018 5:34 PM CDT Weight 64.8 kg (142 lb 13.7 oz) 09/13/2018 5:55 AM CDT Height 162.6 cm (5' 4") 08/21/2018 4:49 AM CDT Body Mass Index 24.52 09/13/2018 5:55 AM CDT Plan of Treatment Date Type Specialty Care Team Description 10/07/2018 Office Visit Hepatology Garcia Sousa MD [address] [address] [phone] Resource, [facility] D Procedures Procedure Name Priority Date/Time Associated Diagnosis Comments RHYTHM STRIP - SCAN 09/16/2018 10:21 AM CDT POCT-GLUCOSE METER Routine 09/14/2018 Results for 12:38 PM CDT this procedure are in the results section. POCT-GLUCOSE METER Routine 09/14/2018 Results for 8:35 AM CDT this procedure are in the results section. CBC W/PLT COUNT & AUTO STAT 09/14/2018 Results for DIFFERENTIAL 5:29 AM CDT this procedure are in the results section. HEPATIC FUNCTION PANEL Routine 09/14/2018 Results for 5:29 AM CDT this procedure are in the results section. BASIC METABOLIC PANEL Routine 09/14/2018 Results for (7) 5:29 AM CDT this procedure are in the results section. MAGNESIUM Routine 09/14/2018 Results for 5:29 AM CDT this procedure are in the results section. PHOSPHORUS Routine 09/14/2018 Results for 5:29 AM CDT this procedure are in the results section. CBC W/PLT COUNT & AUTO STAT 09/14/2018 Results for DIFFERENTIAL 5:29 AM CDT this procedure are in the results section. POCT-GLUCOSE METER Routine 09/13/2018 Results for 9:26 PM CDT this procedure are in the results section. POCT-GLUCOSE METER Routine 09/13/2018 Results for 4:45 PM CDT this procedure are in the results section. POCT-GLUCOSE METER Routine 09/13/2018 Results for 11:42 AM CDT this procedure are in the results section. POCT-GLUCOSE METER Routine 09/13/2018 Results for 7:11 AM CDT this procedure are in the results section. CBC W/PLT COUNT & AUTO STAT 09/13/2018 Results for DIFFERENTIAL 6:27 AM CDT this procedure are in the results section. HEPATIC FUNCTION PANEL Routine 09/13/2018 Results for 6:27 AM CDT this procedure are in the results section. BASIC METABOLIC PANEL Routine 09/13/2018 Results for (7) 6:27 AM CDT this procedure are in the results section. MAGNESIUM Routine 09/13/2018 Results for 6:27 AM CDT this procedure are in the results section. PHOSPHORUS Routine 09/13/2018 Results for 6:27 AM CDT this procedure are in the results section. CBC W/PLT COUNT & AUTO STAT 09/13/2018 Results for DIFFERENTIAL 6:27 AM CDT this procedure are in the results section. POCT-GLUCOSE METER Routine 09/12/2018 Results for 11:20 PM CDT this procedure are in the results section. POCT-GLUCOSE METER Routine 09/12/2018 Results for 4:59 PM CDT this procedure are in the results section. POCT-GLUCOSE METER Routine 09/12/2018 Results for 11:33 AM CDT this procedure are in the results section. CBC W/PLT COUNT & AUTO STAT 09/12/2018 Results for DIFFERENTIAL 4:07 AM CDT this procedure are in the results section. HEPATIC FUNCTION PANEL Routine 09/12/2018 Results for 4:07 AM CDT this procedure are in the results section. BASIC METABOLIC PANEL Routine 09/12/2018 Results for (7) 4:07 AM CDT this procedure are in the results section. MAGNESIUM Routine 09/12/2018 Results for 4:07 AM CDT this procedure are in the results section. PHOSPHORUS Routine 09/12/2018 Results for 4:07 AM CDT this procedure are in the results section. CBC W/PLT COUNT & AUTO STAT 09/12/2018 Results for DIFFERENTIAL 4:07 AM CDT this procedure are in the results section. POCT-GLUCOSE METER Routine 09/11/2018 Results for 5:08 PM CDT this procedure are in the results section. POCT-GLUCOSE METER Routine 09/11/2018 Results for 12:07 PM CDT this procedure are in the results section. POCT-GLUCOSE METER Routine 09/11/2018 Results for 4:49 AM CDT this procedure are in the results section. CBC W/PLT COUNT & AUTO STAT 09/11/2018 Results for DIFFERENTIAL 4:22 AM CDT this procedure are in the results section. CBC W/PLT COUNT & AUTO STAT 09/11/2018 Results for DIFFERENTIAL 4:22 AM CDT this procedure are in the results section. HEPATIC FUNCTION PANEL Routine 09/11/2018 Results for 4:21 AM CDT this procedure are in the results section. BASIC METABOLIC PANEL Routine 09/11/2018 Results for (7) 4:21 AM CDT this procedure are in the results section. MAGNESIUM Routine 09/11/2018 Results for 4:21 AM CDT this procedure are in the results section. PHOSPHORUS Routine 09/11/2018 Results for 4:21 AM CDT this procedure are in the results section. POCT-GLUCOSE METER Routine 09/11/2018 Results for 12:34 AM CDT this procedure are in the results section. URINALYSIS W/ REFLEX Routine 09/10/2018 Results for URINE CULTURE 1:43 PM CDT this procedure are in the results section. POCT-GLUCOSE METER Routine 09/10/2018 Results for 12:36 PM CDT this procedure are in the results section. POCT-GLUCOSE METER Routine 09/10/2018 Results for 8:09 AM CDT this procedure are in the results section. POCT-GLUCOSE METER Routine 09/10/2018 Results for 5:57 AM CDT this procedure are in the results section. HEPATIC FUNCTION PANEL Routine 09/10/2018 Results for 4:45 AM CDT this procedure are in the results section. BASIC METABOLIC PANEL Routine 09/10/2018 Results for (7) 4:45 AM CDT this procedure are in the results section. MAGNESIUM Routine 09/10/2018 Results for 4:45 AM CDT this procedure are in the results section. PHOSPHORUS Routine 09/10/2018 Results for 4:45 AM CDT this procedure are in the results section. CT ABDOMEN/PELVIS WITH STAT 09/10/2018 Results for IV CONTRAST 2:30 AM CDT this procedure are in the results section. (CELLAVISION MANUAL STAT 09/10/2018 Results for DIFF) 2:06 AM CDT this procedure are in the results section. CBC W/PLT COUNT & AUTO STAT 09/10/2018 Results for DIFFERENTIAL 2:06 AM CDT this procedure are in the results section. CBC W/PLT COUNT & AUTO STAT 09/10/2018 Results for DIFFERENTIAL 2:06 AM CDT this procedure are in the results section. POCT-GLUCOSE METER Routine 09/09/2018 Results for 11:29 PM CDT this procedure are in the results section. POCT-GLUCOSE METER Routine 09/09/2018 Results for 6:43 PM CDT this procedure are in the results section. POCT-GLUCOSE METER Routine 09/09/2018 Results for 3:17 PM CDT this procedure are in the results section. POCT-GLUCOSE METER Routine 09/09/2018 Results for 12:32 PM CDT this procedure are in the results section. HEPATIC FUNCTION PANEL Routine 09/09/2018 Results for 8:05 AM CDT this procedure are in the results section. BASIC METABOLIC PANEL Routine 09/09/2018 Results for (7) 8:05 AM CDT this procedure are in the results section. MAGNESIUM Routine 09/09/2018 Results for 8:05 AM CDT this procedure are in the results section. PHOSPHORUS Routine 09/09/2018 Results for 8:05 AM CDT this procedure are in the results section. (MANUAL DIFFERENTIAL) Routine 09/09/2018 Results for 6:40 AM CDT this procedure are in the results section. CBC W/PLT COUNT & AUTO STAT 09/09/2018 Results for DIFFERENTIAL 6:40 AM CDT this procedure are in the results section. CBC W/PLT COUNT & AUTO STAT 09/09/2018 Results for DIFFERENTIAL 6:40 AM CDT this procedure are in the results section. POCT-GLUCOSE METER Routine 09/08/2018 Results for 9:17 PM CDT this procedure are in the results section. POCT-GLUCOSE METER Routine 09/08/2018 Results for 6:41 PM CDT this procedure are in the results section. POCT-GLUCOSE METER Routine 09/08/2018 Results for 4:55 PM CDT this procedure are in the results section. POCT-GLUCOSE METER Routine 09/08/2018 Results for 12:16 PM CDT this procedure are in the results section. POCT-GLUCOSE METER Routine 09/08/2018 Results for 8:55 AM CDT this procedure are in the results section. XR ABDOMEN 1 VIEW Routine 09/08/2018 Results for 8:06 AM CDT this procedure are in the results section. (CELLAVISION MANUAL STAT 09/08/2018 Results for DIFF) 4:21 AM CDT this procedure are in the results section. CBC W/PLT COUNT & AUTO STAT 09/08/2018 Results for DIFFERENTIAL 4:21 AM CDT this procedure are in the results section. BASIC METABOLIC PANEL STAT 09/08/2018 Results for (7) 4:21 AM CDT this procedure are in the results section. MAGNESIUM Routine 09/08/2018 Results for 4:21 AM CDT this procedure are in the results section. PHOSPHORUS Routine 09/08/2018 Results for 4:21 AM CDT this procedure are in the results section. CBC W/PLT COUNT & AUTO STAT 09/08/2018 Results for DIFFERENTIAL 4:21 AM CDT this procedure are in the results section. POCT-GLUCOSE METER Routine 09/07/2018 Results for 9:40 PM CDT this procedure are in the results section. POCT-GLUCOSE METER Routine 09/07/2018 Results for 5:26 PM CDT this procedure are in the results section. POCT-GLUCOSE METER Routine 09/07/2018 Results for 11:50 AM CDT this procedure are in the results section. POCT-GLUCOSE METER Routine 09/07/2018 Results for 7:58 AM CDT this procedure are in the results section. (CELLAVISION MANUAL STAT 09/07/2018 Results for DIFF) 4:08 AM CDT this procedure are in the results section. CBC W/PLT COUNT & AUTO STAT 09/07/2018 Results for DIFFERENTIAL 4:08 AM CDT this procedure are in the results section. MAGNESIUM Routine 09/07/2018 Results for 4:08 AM CDT this procedure are in the results section. PHOSPHORUS Routine 09/07/2018 Results for 4:08 AM CDT this procedure are in the results section. CBC W/PLT COUNT & AUTO STAT 09/07/2018 Results for DIFFERENTIAL 4:08 AM CDT this procedure are in the results section. POCT-GLUCOSE METER Routine 09/06/2018 Results for 9:02 PM CDT this procedure are in the results section. TROPONIN I Routine 09/06/2018 Results for 6:01 PM CDT this procedure are in the results section. POCT-GLUCOSE METER Routine 09/06/2018 Results for 4:21 PM CDT this procedure are in the results section. POCT-GLUCOSE METER Routine 09/06/2018 Results for 11:36 AM CDT this procedure are in the results section. POCT-GLUCOSE METER Routine 09/06/2018 Results for 8:36 AM CDT this procedure are in the results section. (MANUAL DIFFERENTIAL) Routine 09/06/2018 Results for 4:45 AM CDT this procedure are in the results section. CBC W/PLT COUNT & AUTO STAT 09/06/2018 Results for DIFFERENTIAL 4:45 AM CDT this procedure are in the results section. MAGNESIUM Routine 09/06/2018 Results for 4:45 AM CDT this procedure are in the results section. PHOSPHORUS Routine 09/06/2018 Results for 4:45 AM CDT this procedure are in the results section. COMPREHENSIVE Routine 09/06/2018 Results for METABOLIC PANEL 4:45 AM CDT this procedure are in the results section. CBC W/PLT COUNT & AUTO STAT 09/06/2018 Results for DIFFERENTIAL 4:45 AM CDT this procedure are in the results section. POCT-GLUCOSE METER Routine 09/05/2018 Results for 9:19 PM CDT this procedure are in the results section. PHOSPHORUS STAT 09/05/2018 Results for 6:28 PM CDT this procedure are in the results section. MAGNESIUM STAT 09/05/2018 Results for 6:28 PM CDT this procedure are in the results section. TRANSFUSION SERVICE 09/05/2018 REPORT - SCAN 5:50 PM CDT POCT-GLUCOSE METER Routine 09/05/2018 Results for 4:25 PM CDT this procedure are in the results section. POCT-GLUCOSE METER Routine 09/05/2018 Results for 12:49 PM CDT this procedure are in the results section. POCT-GLUCOSE METER Routine 09/05/2018 Results for 9:23 AM CDT this procedure are in the results section. (CELLAVISION MANUAL STAT 09/05/2018 Results for DIFF) 5:30 AM CDT this procedure are in the results section. CBC W/PLT COUNT & AUTO STAT 09/05/2018 Results for DIFFERENTIAL 5:30 AM CDT this procedure are in the results section. COMPREHENSIVE Routine 09/05/2018 Results for METABOLIC PANEL 5:30 AM CDT this procedure are in the results section. CBC W/PLT COUNT & AUTO STAT 09/05/2018 Results for DIFFERENTIAL 5:30 AM CDT this procedure are in the results section. POCT-GLUCOSE METER Routine 09/05/2018 Results for 12:11 AM CDT this procedure are in the results section. PREPARE RBC STAT 09/04/2018 Results for 11:54 PM CDT this procedure are in the results section. POCT-GLUCOSE METER Routine 09/04/2018 Results for 6:26 PM CDT this procedure are in the results section. TRANSFUSION SERVICE 09/04/2018 REPORT - SCAN 5:50 PM CDT POCT-GLUCOSE METER Routine 09/04/2018 Results for 12:06 PM CDT this procedure are in the results section. POCT-GLUCOSE METER Routine 09/04/2018 Results for 5:50 AM CDT this procedure are in the results section. (CELLAVISION MANUAL STAT 09/04/2018 Results for DIFF) 3:52 AM CDT this procedure are in the results section. CBC W/PLT COUNT & AUTO STAT 09/04/2018 Results for DIFFERENTIAL 3:52 AM CDT this procedure are in the results section. COMPREHENSIVE Routine 09/04/2018 Results for METABOLIC PANEL 3:52 AM CDT this procedure are in the results section. CBC W/PLT COUNT & AUTO STAT 09/04/2018 Results for DIFFERENTIAL 3:52 AM CDT this procedure are in the results section. POCT-GLUCOSE METER Routine 09/03/2018 Results for 11:30 PM CDT this procedure are in the results section. TRANSFUSION SERVICE 09/03/2018 REPORT - SCAN 5:50 PM CDT HEMOGLOBIN AND Routine 09/03/2018 Results for HEMATOCRIT 5:43 PM CDT this procedure are in the results section. BLOOD GAS, ARTERIAL STAT 09/03/2018 Results for 5:41 PM CDT this procedure are in the results section. TRANSFUSE Routine 09/03/2018 LEUKO-REDUCED RED 4:55 PM CDT BLOOD CELLS CALCIUM, IONIZED STAT 09/03/2018 Results for 4:15 PM CDT this procedure are in the results section. BLOOD GAS, ARTERIAL STAT 09/03/2018 Results for 4:15 PM CDT this procedure are in the results section. HGB/HCT (H&H) - STAT STAT 09/03/2018 Results for LAB 4:15 PM CDT this procedure are in the results section. GLUCOSE-STAT LAB STAT 09/03/2018 Results for 4:15 PM CDT this procedure are in the results section. POTASSIUM-STAT LAB STAT 09/03/2018 Results for 4:15 PM CDT this procedure are in the results section. SODIUM NA-STAT LAB STAT 09/03/2018 Results for 4:15 PM CDT this procedure are in the results section. TRANSFUSE Routine 09/03/2018 LEUKO-REDUCED RED 3:46 PM CDT BLOOD CELLS CALCIUM, IONIZED STAT 09/03/2018 Results for 2:57 PM CDT this procedure are in the results section. HGB/HCT (H&H) - STAT Routine 09/03/2018 Results for LAB 2:57 PM CDT this procedure are in the results section. GLUCOSE-STAT LAB Routine 09/03/2018 Results for 2:57 PM CDT this procedure are in the results section. POTASSIUM-STAT LAB Routine 09/03/2018 Results for 2:57 PM CDT this procedure are in the results section. SODIUM NA-STAT LAB Routine 09/03/2018 Results for 2:57 PM CDT this procedure are in the results section. BLOOD GAS, ARTERIAL Routine 09/03/2018 Results for 2:57 PM CDT this procedure are in the results section. RRL CRITICAL LABS Routine 09/03/2018 Results for (ABG,NA,K,H&H,GLUCOSE) 2:57 PM CDT this procedure are in the results section. TISSUE EXAM AP Routine 09/03/2018 Results for 1:47 PM CDT this procedure are in the results section. POCT-GLUCOSE METER Routine 09/03/2018 Results for 1:06 PM CDT this procedure are in the results section. SURGICALLY OBTAINED Routine 09/03/2018 Results for CULTURE + GRAM STAIN 12:10 PM CDT this procedure are in the results section. FUNGUS CULTURE + Routine 09/03/2018 Results for SMEAR 12:10 PM CDT this procedure are in the results section. ANAEROBIC CULTURE Routine 09/03/2018 Results for 12:10 PM CDT this procedure are in the results section. RESECTION,SMALL 09/03/2018 Diverticulitis INTESTINE 12:00 PM CDT RESECTION,ILIO-CECUM 09/03/2018 Diverticulitis 12:00 PM CDT COLECTOMY,SIGMOID 09/03/2018 Diverticulitis 12:00 PM CDT POCT-GLUCOSE METER Routine 09/03/2018 Results for 11:03 AM CDT this procedure are in the results section. POCT-GLUCOSE METER Routine 09/03/2018 Results for 9:41 AM CDT this procedure are in the results section. (CELLAVISION MANUAL STAT 09/03/2018 Results for DIFF) 4:51 AM CDT this procedure are in the results section. CBC W/PLT COUNT & AUTO STAT 09/03/2018 Results for DIFFERENTIAL 4:51 AM CDT this procedure are in the results section. CBC W/PLT COUNT & AUTO STAT 09/03/2018 Results for DIFFERENTIAL 4:51 AM CDT this procedure are in the results section. COMPREHENSIVE Routine 09/03/2018 Results for METABOLIC PANEL 4:50 AM CDT this procedure are in the results section. POCT-GLUCOSE METER Routine 09/02/2018 Results for 9:33 PM CDT this procedure are in the results section. POCT-GLUCOSE METER Routine 09/02/2018 Results for 4:24 PM CDT this procedure are in the results section. POCT-GLUCOSE METER Routine 09/02/2018 Results for 12:21 PM CDT this procedure are in the results section. POCT-GLUCOSE METER Routine 09/02/2018 Results for 9:22 AM CDT this procedure are in the results section. TYPE AND SCREEN, Routine 09/02/2018 Results for AUTOMATED 4:59 AM CDT this procedure are in the results section. URINE CULTURE Routine 09/02/2018 Results for 4:59 AM CDT this procedure are in the results section. (CELLAVISION MANUAL STAT 09/02/2018 Results for DIFF) 4:58 AM CDT this procedure are in the results section. CBC W/PLT COUNT & AUTO STAT 09/02/2018 Results for DIFFERENTIAL 4:58 AM CDT this procedure are in the results section. COMPREHENSIVE Routine 09/02/2018 Results for METABOLIC PANEL 4:58 AM CDT this procedure are in the results section. CBC W/PLT COUNT & AUTO STAT 09/02/2018 Results for DIFFERENTIAL 4:58 AM CDT this procedure are in the results section. POCT-GLUCOSE METER Routine 09/01/2018 Results for 9:56 PM CDT this procedure are in the results section. POCT-GLUCOSE METER Routine 09/01/2018 Results for 8:51 AM CDT this procedure are in the results section. URINALYSIS W/ REFLEX Routine 09/01/2018 Results for URINE CULTURE 6:21 AM CDT this procedure are in the results section. BLOOD CULTURE Routine 09/01/2018 Results for 3:54 AM CDT this procedure are in the results section. MISCELLANEOUS LAB Routine 09/01/2018 ORDER 3:42 AM CDT MISCELLANEOUS LAB Routine 09/01/2018 ORDER 3:42 AM CDT (CELLAVISION MANUAL STAT 09/01/2018 Results for DIFF) 3:40 AM CDT this procedure are in the results section. CBC W/PLT COUNT & AUTO STAT 09/01/2018 Results for DIFFERENTIAL 3:40 AM CDT this procedure are in the results section. EBV VIRAL LOAD Routine 09/01/2018 Results for 3:40 AM CDT this procedure are in the results section. CMV PCR, QUANTITATIVE Routine 09/01/2018 Results for 3:40 AM CDT this procedure are in the results section. CBC W/PLT COUNT & AUTO STAT 09/01/2018 Results for DIFFERENTIAL 3:40 AM CDT this procedure are in the results section. COMPREHENSIVE Routine 09/01/2018 Results for METABOLIC PANEL 3:40 AM CDT this procedure are in the results section. HEPATITIS E ABS Routine 09/01/2018 Results for IGG/IGM EIA 3:39 AM CDT this procedure are in the results section. HERPES VIRUS ANTIBODY, Routine 09/01/2018 Results for IGM 3:39 AM CDT this procedure are in the results section. HSV 1 AND 2 IGG Routine 09/01/2018 Results for 3:39 AM CDT this procedure are in the results section. EBV ANTIBODY, IGM Routine 09/01/2018 Results for 3:39 AM CDT this procedure are in the results section. EBV ANTIBODY, IGG Routine 09/01/2018 Results for 3:39 AM CDT this procedure are in the results section. CYTOMEGALOVIRUS Routine 09/01/2018 Results for ANTIBODY, IGM 3:39 AM CDT this procedure are in the results section. CYTOMEGALOVIRUS Routine 09/01/2018 Results for ANTIBODY, IGG 3:39 AM CDT this procedure are in the results section. BLOOD CULTURE Routine 09/01/2018 Results for 3:38 AM CDT this procedure are in the results section. POCT-GLUCOSE METER Routine 08/31/2018 Results for 10:45 PM CDT this procedure are in the results section. POCT-GLUCOSE METER Routine 08/31/2018 Results for 4:43 PM CDT this procedure are in the results section. POCT-GLUCOSE METER Routine 08/31/2018 Results for 11:51 AM CDT this procedure are in the results section. POCT-GLUCOSE METER Routine 08/31/2018 Results for 8:29 AM CDT this procedure are in the results section. CBC W/PLT COUNT & AUTO STAT 08/31/2018 Results for DIFFERENTIAL 4:27 AM CDT this procedure are in the results section. CBC W/PLT COUNT & AUTO STAT 08/31/2018 Results for DIFFERENTIAL 4:27 AM CDT this procedure are in the results section. COMPREHENSIVE Routine 08/31/2018 Results for METABOLIC PANEL 4:27 AM CDT this procedure are in the results section. CT ABDOMEN/PELVIS WITH [place] 08/31/2018 Results for IV CONTRAST 12:36 AM CDT this procedure are in the results section. POCT-GLUCOSE METER Routine 08/30/2018 Results for 9:14 PM CDT this procedure are in the results section. SOLUBLE LIVER ANTIGEN Routine 08/30/2018 Results for (SLA) 6:44 PM CDT this procedure are in the results section. LIVER-KIDNEY MICROSOME Routine 08/30/2018 Results for AB 6:44 PM CDT this procedure are in the results section. POCT-GLUCOSE METER Routine 08/30/2018 Results for 4:33 PM CDT this procedure are in the results section. POCT-GLUCOSE METER Routine 08/30/2018 Results for 11:33 AM CDT this procedure are in the results section. POCT-GLUCOSE METER Routine 08/30/2018 Results for 7:52 AM CDT this procedure are in the results section. CBC W/PLT COUNT & AUTO STAT 08/30/2018 Results for DIFFERENTIAL 6:11 AM CDT this procedure are in the results section. CBC W/PLT COUNT & AUTO STAT 08/30/2018 Results for DIFFERENTIAL 6:11 AM CDT this procedure are in the results section. COMPREHENSIVE Routine 08/30/2018 Results for METABOLIC PANEL 2:54 AM CDT this procedure are in the results section. POCT-GLUCOSE METER Routine 08/29/2018 Results for 8:49 PM CDT this procedure are in the results section. POCT-GLUCOSE METER Routine 08/29/2018 Results for 5:21 PM CDT this procedure are in the results section. POCT-GLUCOSE METER Routine 08/29/2018 Results for 11:52 AM CDT this procedure are in the results section. POCT-GLUCOSE METER Routine 08/29/2018 Results for 8:55 AM CDT this procedure are in the results section. CBC (HEMOGRAM ONLY) Routine 08/29/2018 Results for 7:54 AM CDT this procedure are in the results section. COMPREHENSIVE Routine 08/29/2018 Results for METABOLIC PANEL 6:21 AM CDT this procedure are in the results section. PHOSPHORUS Routine 08/29/2018 Results for 6:21 AM CDT this procedure are in the results section. MAGNESIUM Routine 08/29/2018 Results for 6:21 AM CDT this procedure are in the results section. POCT-GLUCOSE METER Routine 08/28/2018 Results for 9:03 PM CDT this procedure are in the results section. POCT-GLUCOSE METER Routine 08/28/2018 Results for 5:25 PM CDT this procedure are in the results section. POCT-GLUCOSE METER Routine 08/28/2018 Results for 12:32 PM CDT this procedure are in the results section. POCT-GLUCOSE METER Routine 08/28/2018 Results for 8:51 AM CDT this procedure are in the results section. COMPREHENSIVE Routine 08/28/2018 Results for METABOLIC PANEL 4:51 AM CDT this procedure are in the results section. PHOSPHORUS Routine 08/28/2018 Results for 4:51 AM CDT this procedure are in the results section. MAGNESIUM Routine 08/28/2018 Results for 4:51 AM CDT this procedure are in the results section. POCT-GLUCOSE METER Routine 08/27/2018 Results for 11:53 PM CDT this procedure are in the results section. POCT-GLUCOSE METER Routine 08/27/2018 Results for 5:16 PM CDT this procedure are in the results section. POCT-GLUCOSE METER Routine 08/27/2018 Results for 12:12 PM CDT this procedure are in the results section. (CELLAVISION MANUAL Routine 08/27/2018 Results for DIFF) 4:31 AM CDT this procedure are in the results section. CBC W/PLT COUNT & AUTO Routine 08/27/2018 Results for DIFFERENTIAL 4:31 AM CDT this procedure are in the results section. COMPREHENSIVE Routine 08/27/2018 Results for METABOLIC PANEL 4:31 AM CDT this procedure are in the results section. CBC W/PLT COUNT & AUTO Routine 08/27/2018 Results for DIFFERENTIAL 4:31 AM CDT this procedure are in the results section. MAGNESIUM Routine 08/27/2018 Results for 4:31 AM CDT this procedure are in the results section. PHOSPHORUS Routine 08/27/2018 Results for 4:31 AM CDT this procedure are in the results section. POCT-GLUCOSE METER Routine 08/26/2018 Results for 10:58 PM CDT this procedure are in the results section. POCT-GLUCOSE METER Routine 08/26/2018 Results for 1:13 PM CDT this procedure are in the results section. TISSUE EXAM AP Routine 08/26/2018 Results for 12:25 PM CDT this procedure are in the results section. BIOPSY,LIVER 08/26/2018 Choledocholithiasis 9:55 AM CDT LAPAROSCOPY,CHOLECYSTE 08/26/2018 Choledocholithiasis CTOMY 9:55 AM CDT POCT-GLUCOSE METER Routine 08/26/2018 Results for 5:37 AM CDT this procedure are in the results section. (CELLAVISION MANUAL Routine 08/26/2018 Results for DIFF) 4:04 AM CDT this procedure are in the results section. CBC W/PLT COUNT & AUTO Routine 08/26/2018 Results for DIFFERENTIAL 4:04 AM CDT this procedure are in the results section. COMPREHENSIVE Routine 08/26/2018 Results for METABOLIC PANEL 4:04 AM CDT this procedure are in the results section. CBC W/PLT COUNT & AUTO Routine 08/26/2018 Results for DIFFERENTIAL 4:04 AM CDT this procedure are in the results section. US ABDOMEN LIMITED [place] 08/26/2018 Results for 12:45 AM CDT this procedure are in the results section. POCT-GLUCOSE METER Routine 08/25/2018 Results for 10:31 PM CDT this procedure are in the results section. POCT-GLUCOSE METER Routine 08/25/2018 Results for 5:42 PM CDT this procedure are in the results section. POCT-GLUCOSE METER Routine 08/25/2018 Results for 12:19 PM CDT this procedure are in the results section. POCT-GLUCOSE METER Routine 08/25/2018 Results for 5:41 AM CDT this procedure are in the results section. CBC W/PLT COUNT & AUTO Routine 08/25/2018 Results for DIFFERENTIAL 3:47 AM CDT this procedure are in the results section. CALCIUM, IONIZED Routine 08/25/2018 Results for 3:47 AM CDT this procedure are in the results section. TRIGLYCERIDES Routine 08/25/2018 Results for 3:47 AM CDT this procedure are in the results section. MAGNESIUM Routine 08/25/2018 Results for 3:47 AM CDT this procedure are in the results section. PHOSPHORUS Routine 08/25/2018 Results for 3:47 AM CDT this procedure are in the results section. COMPREHENSIVE Routine 08/25/2018 Results for METABOLIC PANEL 3:47 AM CDT this procedure are in the results section. CBC W/PLT COUNT & AUTO Routine 08/25/2018 Results for DIFFERENTIAL 3:47 AM CDT this procedure are in the results section. POCT-GLUCOSE METER Routine 08/24/2018 Results for 11:04 PM CDT this procedure are in the results section. FERRITIN Routine 08/24/2018 Results for 6:51 PM CDT this procedure are in the results section. IRON, TIBC, % SAT. Routine 08/24/2018 Results for (WITHOUT FERRITIN) 6:51 PM CDT this procedure are in the results section. IMMUNOGLOBULIN G (IGG) Routine 08/24/2018 Results for 6:51 PM CDT this procedure are in the results section. ALPHA FETOPROTEIN Routine 08/24/2018 Results for (AFP), TUMOR MARKER 6:51 PM CDT this procedure are in the results section. CERULOPLASMIN Routine 08/24/2018 Results for 6:51 PM CDT this procedure are in the results section. HEPATITIS C ANTIBODY Routine 08/24/2018 Results for 6:51 PM CDT this procedure are in the results section. HEPATITIS A ANTIBODY, Routine 08/24/2018 Results for IGM 6:51 PM CDT this procedure are in the results section. HEPATITIS B CORE Routine 08/24/2018 Results for ANTIBODY, IGM 6:51 PM CDT this procedure are in the results section. HEPATITIS B SURFACE Routine 08/24/2018 Results for ANTIGEN 6:51 PM CDT this procedure are in the results section. HEPATITIS B SURFACE Routine 08/24/2018 Results for ANTIBODY 6:51 PM CDT this procedure are in the results section. HEPATITIS A ANTIBODY, Routine 08/24/2018 Results for IGG 6:51 PM CDT this procedure are in the results section. ACTIN (SMOOTH MUSCLE) Routine 08/24/2018 Results for ANTIBODY, IGG 6:51 PM CDT this procedure are in the results section. ANTI-NUCLEAR ANTIBODY Routine 08/24/2018 Results for (ALINE) 6:51 PM CDT this procedure are in the results section. TSELV-4-ZNUDNAQVDLY\\, Routine 08/24/2018 Results for SERUM 6:50 PM CDT this procedure are in the results section. ANTI-MITOCHONDRIAL AB, Routine 08/24/2018 Results for REFLEX TO TITER 6:50 PM CDT this procedure are in the results section. TRANSFUSION SERVICE 08/24/2018 REPORT - SCAN 6:00 PM CDT (CELLAVISION MANUAL Routine 08/24/2018 Results for DIFF) 5:35 AM CDT this procedure are in the results section. CBC W/PLT COUNT & AUTO Routine 08/24/2018 Results for DIFFERENTIAL 5:35 AM CDT this procedure are in the results section. AMYLASE Routine 08/24/2018 Results for 5:35 AM CDT this procedure are in the results section. LIPASE Routine 08/24/2018 Results for 5:35 AM CDT this procedure are in the results section. COMPREHENSIVE Routine 08/24/2018 Results for METABOLIC PANEL 5:35 AM CDT this procedure are in the results section. CBC W/PLT COUNT & AUTO Routine 08/24/2018 Results for DIFFERENTIAL 5:35 AM CDT this procedure are in the results section. C. DIFFICILE GDH TOXIN Routine 08/23/2018 Results for 1:47 PM CDT this procedure are in the results section. ABORH, MANUAL STAT 08/23/2018 Results for 7:08 AM CDT this procedure are in the results section. TYPE AND SCREEN, Routine 08/23/2018 Results for AUTOMATED 5:04 AM CDT this procedure are in the results section. CT ABDOMEN/PELVIS WITH Routine 08/22/2018 Results for IV CONTRAST 4:39 PM CDT this procedure are in the results section. URINALYSIS W/ REFLEX Routine 08/22/2018 Results for URINE CULTURE 2:31 PM CDT this procedure are in the results section. (CELLAVISION MANUAL Routine 08/22/2018 Results for DIFF) 3:37 AM CDT this procedure are in the results section. CBC W/PLT COUNT & AUTO Routine 08/22/2018 Results for DIFFERENTIAL 3:37 AM CDT this procedure are in the results section. CBC W/PLT COUNT & AUTO Routine 08/22/2018 Results for DIFFERENTIAL 3:37 AM CDT this procedure are in the results section. PROTHROMBIN TIME/INR Routine 08/22/2018 Results for 3:37 AM CDT this procedure are in the results section. HEPATIC FUNCTION PANEL Routine 08/22/2018 Results for 3:37 AM CDT this procedure are in the results section. BASIC METABOLIC PANEL Routine 08/22/2018 Results for (7) 3:37 AM CDT this procedure are in the results section. (CELLAVISION MANUAL Routine 08/21/2018 Results for DIFF) 5:26 AM CDT this procedure are in the results section. CBC W/PLT COUNT & AUTO Routine 08/21/2018 Results for DIFFERENTIAL 5:26 AM CDT this procedure are in the results section. PHOSPHORUS Routine 08/21/2018 Results for 5:26 AM CDT this procedure are in the results section. MAGNESIUM Routine 08/21/2018 Results for 5:26 AM CDT this procedure are in the results section. CBC W/PLT COUNT & AUTO Routine 08/21/2018 Results for DIFFERENTIAL 5:26 AM CDT this procedure are in the results section. PROTHROMBIN TIME/INR Routine 08/21/2018 Results for 5:26 AM CDT this procedure are in the results section. HEPATIC FUNCTION PANEL Routine 08/21/2018 Results for 5:26 AM CDT this procedure are in the results section. BASIC METABOLIC PANEL Routine 08/21/2018 Results for (7) 5:26 AM CDT this procedure are in the results section. REPORT OF PROCEDURE - 08/20/2018 ENDOSCOPY URL 5:50 PM CDT FL ERCP Routine 08/20/2018 Results for 3:45 PM CDT this procedure are in the results section. ERCP,BALLOON SWEEPING 08/20/2018 Bile duct obstruction 2:00 PM CDT Special Needs ercp w/ anes and fluoro PROCEDURE W/ C-ARM 08/20/2018 2:00 PM CDT Bile duct obstruction Special Needs ercp w/ anes and fluoro ERCP,PAPILLOTOMY 08/20/2018 2:00 PM CDT Bile duct obstruction Special Needs ercp w/ anes and fluoro BLOOD CULTURE Routine 08/20/2018 4:32 AM CDT (CELLAVISION MANUAL DIFF) Routine 08/20/2018 4:23 AM CDT CBC W/PLT COUNT & AUTO Routine 08/20/2018 4:23 AM CDT Results for this DIFFERENTIAL procedure are in the results section. CBC W/PLT COUNT & AUTO Routine 08/20/2018 4:23 AM CDT Results for this DIFFERENTIAL procedure are in the results section. PROTHROMBIN TIME/INR Routine 08/20/2018 4:23 AM CDT HEPATIC FUNCTION PANEL Routine 08/20/2018 4:23 AM CDT BASIC METABOLIC PANEL (7) Routine 08/20/2018 4:23 AM CDT BLOOD CULTURE Routine 08/20/2018 4:23 AM CDT after 10/04/2017 Results RHYTHM STRIP - SCAN (09/16/2018 10:21 AM CDT) Narrative Performed At POC-Glucose meter (09/14/2018 12:38 PM CDT)Only the most recent of78 resultswithin the time period is included. POC-Glucose Meter 102Comment: TESTED AT 70 - 110 mg/dL [facility] [address] [facility] [id number] Specimen Blood Performing Organization Address City/State/Zipcode Phone Number [address] [address] [phone] CENTER CBC with platelet count + automated diff (09/14/2018 5:29 AM CDT)Only the most recent of23 resultswithin the time period is included. WBC 7.7 3.5 - 10.5 K/L [facility] RBC 3.44 (L) 3.93 - 5.22 M/L [facility] Hemoglobin 9.6 (L) 11.2 - 15.7 GM/DL [facility] Hematocrit 31.5 (L) 34.1 - 44.9 % [facility] MCV 91.6 79.4 - 94.8 fL [facility] MCH 27.9 25.6 - 32.2 pg [facility] MCHC 30.5 (L) 32.2 - 35.5 GM/DL [facility] RDW 18.3 (H) 11.7 - 14.4 % [facility] Platelets 270 150 - 450 K/CU MM [facility] MPV 9.8 9.4 - 12.3 fL [facility] nRBC 0 0 - 0 /100 WBC [facility] % Neutros 55 % [facility] % Lymphs 30 % [facility] % Monos 9 % [facility] % Eos 4 % [facility] % Baso 1 % [facility] # Neutros 4.26 1.56 - 6.13 K/L [facility] # Lymphs 2.30 1.18 - 3.74 K/L [facility] # Monos 0.66 (H) 0.24 - 0.36 K/L [facility] # Eos 0.34 0.04 - 0.36 K/L [facility] # Baso 0.08 0.01 - 0.08 K/L [facility] Immature Granulocytes-Relative 1 0 - 1 % [facility] Specimen Blood Performing Organization Address City/State/Zipcode Phone Number [facility] [address] [place] [address] CENTER Phosphorus (09/14/2018 5:29 AM CDT)Only the most recent of15 resultswithin the time period is included. Phosphorus 2.3 2.3 - 4.7 mg/dL [facility] Specimen Blood Performing Organization Address City/[facility]/[place] Phone Number [address] [address] CENTER Magnesium (09/14/2018 5:29 AM CDT)Only the most recent of15 resultswithin the time period is included. Magnesium 1.7 1.6 - 2.6 mg/dL [facility] Specimen Blood Performing Organization Address [facility] Phone Number [address] [address] [place] Hepatic function panel (09/14/2018 5:29 AM CDT)Only the most recent of9 resultswithin the time period is included. Protein, Total 5.4 (L) 6.0 - 8.3 gm/dL [facility] Albumin 1.9 (L) 3.5 - 5.0 g/dL [facility] Total Bilirubin 1.0 0.2 - 1.2 mg/dL [facility] Bilirubin, Direct 0.7 (H) 0.1 - 0.5 mg/dL [facility] Alkaline Phosphatase 201 (H) 40 - 150 U/L [facility] AST 142 (H) 5 - 34 U/L [facility] ALT 70 (H) 6 - 55 U/L [facility] Specimen Blood Performing Organization Address City/[facility]/[place] Phone Number [address] [address] [phone] [place] Basic Metabolic Panel (09/14/2018 5:29 AM CDT)Only the most recent of10 resultswithin the time period is included. Sodium 136 136 - 145 meq/L [facility] Potassium 3.9 3.5 - 5.1 meq/L [facility] Chloride 107 98 - 107 meq/L [facility] CO2 27 22 - 29 meq/L [facility] BUN 3 (L) 7 - 21 mg/dL [facility] Creatinine 0.49 (L) 0.57 - 1.25 mg/dL [facility] Glucose 105 70 - 105 mg/dL [facility] Calcium 7.3 (L) 8.4 - 10.2 mg/dL [facility] EGFR 126Comment: ESTIMATED GFR IS mL/min/1.73 sq m [facility] NOT ACCURATE CREATININE [facility] CENTER CLEARANCE IN PREDICTING GLOMERULAR FILTRATION RATE. ESTIMATED GFR IS NOT APPLICABLE FOR DIALYSIS PATIENTS. Specimen Blood Performing Organization Address City/State/Zipcode Phone Number [facility] [address] [place] [phone] CENTER Urinalysis w/Microscopic + Reflex to Culture (09/10/2018 1:43 PM CDT)Only the most recent of3 resultswithin the time period is included. Color, UA Yellow [facility] Clarity, UA Clear [facility] Specific [place], UA 1.016 1.001 - 1.035 [facility] pH, UA 8.0 5.0 - 8.0 [facility] Protein, UA 10 mg/dL (A) Negative [facility] Glucose, UA Negative Negative [facility] Ketones, UA Negative Negative [facility] Bilirubin, UA Negative Negative [facility] Blood, UA Small (A) Negative [facility] Nitrite, UA Negative Negative [facility] Leukocytes, UA Negative Negative [facility] Urobilinogen, UA 0.2 0.2 - 1.0 mg/dL [facility] RBC, UA 29 /HPF [facility] WBC, UA 2 /HPF [facility] Mucus Rare [facility] Squam Epithel, UA 1 /HPF [facility] Specimen Source [facility] Specimen Urine Performing Organization Address City/State/Zipcode Phone Number [facility] [address] [place] [address] abdomen/pelvis with IV contrast (09/10/2018 2:30 AM CDT)Only the most recent of3 resultswithin the time period is included. Specimen Narrative Performed At FINAL REPORT [facility] TECHNIQUE: CT of the abdomen and pelvis WITH intravenous contrast and WITH oral contrast. Dose modulation, iterative reconstruction, and/or weight-based adjustment of the mA/kV was utilized to reduce the radiation dose to as low as reasonably achievable. INDICATION: Abdominal pain and emesis. History of complicated diverticulitis status post bowel resection. COMPARISON: 08/31/2018 CT. FINDINGS: LOWER THORAX: Small left greater than right pleural effusions with associated mild passive atelectasis. HEPATOBILIARY: No focal hepatic lesions. Mild periportal edema similar to prior. Postsurgical changes from cholecystectomy with small amount of pneumobilia within the common bile duct and intrahepatic biliary ducts suggestive of prior sphincterectomy. No biliary ductal dilatation. SPLEEN: No splenomegaly. PANCREAS: No focal masses or ductal dilatation. ADRENALS: No adrenal nodules. KIDNEYS/URETERS: Unchanged caliber of the mildly dilated right renal collecting system and interval decreased left hydronephroureter. The left ureteral stent is satisfactory in position. PELVIC ORGANS/BLADDER: Bladder is unremarkable. Unchanged cystic structure in the left pelvis with axial dimensions of 4.3 x 3.5 cm likely representing a left ovarian cyst. PERITONEUM/RETROPERITONEUM: There is a small amount of free air within the dependent pelvis and lower abdomen likely related to recent postsurgical changes. A left percutaneous drain tip terminates in the right aspect of the pelvis. Interval decreased size of the pelvic ring-enhancing collections. There is a residual fluid collection extending from the presacral region superiorly with measurements of approximately 1.5 x 2.3 x 6.8 cm (axial images [id number]). LYMPH NODES: No lymphadenopathy. VESSELS: Mild atherosclerosis. GI TRACT: Extensive postsurgical changes from resection of the sigmoid colon and low anterior resection as well as evidence of small bowel resection with several bowel anastomoses and diverting ileostomy in the right lower quadrant. There are several loops of mildly dilated proximal small bowel loops in the left upper quadrant with tapering distally. The residual colon is filled with fluid and is decompressed. BONES AND SOFT TISSUES: Postsurgical subcutaneous gas is within the abdominal soft tissues. Mild anasarca. Osseous structures are unremarkable. IMPRESSION: 1. Postsurgical changes from sigmoidectomy, small bowel resections, and right lower quadrant diverting ileostomy. A left percutaneous drain terminates in the pelvis with interval decreased size of the rim-enhancing pelvic collections. There is residual small organizing fluid collection extending superiorly from the presacral region which may be postsurgical related or residual abscess. 2. Mildly dilated loops of small bowel in the left upper quadrant with tapering distally suggestive of adynamic ileus versus a low-grade obstruction. 3. Orthotopic left ureteral stent with interval decreased mild left hydronephroureter. 4. Postsurgical changes from cholecystectomy and ERCP. 5. Unchanged circumscribed cystic lesion in the left pelvis likely arising from the left adnexa. Signed: Zoran Chase MD Report Verified Date/Time:09/10/2018 03:30:03 Reading Location: [address] Transitional Reading Room Procedure Note Interface, External Ris In - 09/10/2018 3:32 AM CDT FINAL REPORT TECHNIQUE: CT of the abdomen and pelvis WITH intravenous contrast and WITH oral contrast. Dose modulation, iterative reconstruction, and/or weight-based adjustment of the mA/kV was utilized to reduce the radiation dose to as low as reasonably achievable. INDICATION: Abdominal pain and emesis. History of complicated diverticulitis status post bowel resection. COMPARISON: 08/31/2018 CT. FINDINGS: LOWER THORAX: Small left greater than right pleural effusions with associated mild passive atelectasis. HEPATOBILIARY: No focal hepatic lesions. Mild periportal edema similar to prior. Postsurgical changes from cholecystectomy with small amount of pneumobilia within the common bile duct and intrahepatic biliary ducts suggestive of prior sphincterectomy. No biliary ductal dilatation. SPLEEN: No splenomegaly. PANCREAS: No focal masses or ductal dilatation. ADRENALS: No adrenal nodules. KIDNEYS/URETERS: Unchanged caliber of the mildly dilated right renal collecting system and interval decreased left hydronephroureter. The left ureteral stent is satisfactory in position. PELVIC ORGANS/BLADDER: Bladder is unremarkable. Unchanged cystic structure in the left pelvis with axial dimensions of 4.3 x 3.5 cm likely representing a left ovarian cyst. PERITONEUM/RETROPERITONEUM: There is a small amount of free air within the dependent pelvis and lower abdomen likely related to recent postsurgical changes. A left percutaneous drain tip terminates in the right aspect of the pelvis. Interval decreased size of the pelvic ring-enhancing collections. There is a residual fluid collection extending from the presacral region superiorly with measurements of approximately 1.5 x 2.3 x 6.8 cm (axial images 53-66). LYMPH NODES: No lymphadenopathy. VESSELS: Mild atherosclerosis. GI TRACT: Extensive postsurgical changes from resection of the sigmoid colon and low anterior resection as well as evidence of small bowel resection with several bowel anastomoses and diverting ileostomy in the right lower quadrant. There are several loops of mildly dilated proximal small bowel loops in the left upper quadrant with tapering distally. The residual colon is filled with fluid and is decompressed. BONES AND SOFT TISSUES: Postsurgical subcutaneous gas is within the abdominal soft tissues. Mild anasarca. Osseous structures are unremarkable. IMPRESSION: 1. Postsurgical changes from sigmoidectomy, small bowel resections, and right lower quadrant diverting ileostomy. A left percutaneous drain terminates in the pelvis with interval decreased size of the rim-enhancing pelvic collections. There is residual small organizing fluid collection extending superiorly from the presacral region which may be postsurgical related or residual abscess. 2. Mildly dilated loops of small bowel in the left upper quadrant with tapering distally suggestive of adynamic ileus versus a low-grade obstruction. 3. Orthotopic left ureteral stent with interval decreased mild left hydronephroureter. 4. Postsurgical changes from cholecystectomy and ERCP. 5. Unchanged circumscribed cystic lesion in the left pelvis likely arising from the left adnexa. Signed: Zoran Chase MD Report Verified Date/Time: 09/10/2018 03:30:03 Reading Location: [facility] [id number] Transitional Reading Room Performing Organization Address City/State/Zipcode Phone Number GE RIS Manual Differential (09/10/2018 2:06 AM CDT)Only the most recent of14 resultswithin the time period is included. % Neutros 65 % [facility] % Lymphs 6 % [facility] % Monos 6 % [facility] % Eos 2 % [facility] % Myelo 1 (H) 0 - 0 % [facility] % Bands 17 (H) 0 - 10 % [facility] % Atypical Lymphs 2 (H) 0 - 0 % [facility] # Neutros 6.63 (H) 1.56 - 6.13 K/ul [facility] # Lymphs 0.61 (L) 1.18 - 3.74 K/ul [facility] # Monos 0.61 (H) 0.24 - 0.36 K/uL [facility] # Eos 0.20 0.04 - 0.36 K/uL [facility] # Myelo 0.10 (H) 0.00 - 0.00 K/uL [facility] # Bands 1.73 (H) 0.00 - 0.80 K/uL [facility] # Atypical Lymphs 0.20 (H) 0.00 - 0.00 K/uL [facility] Total Counted 100 [facility] Smudge Cells Present [facility] Giant Platelet Present [facility] Polychromasia 3+ many [facility] Hypochromia 1+ few [facility] Anisocytosis 1+ few [facility] Poikilocytes 2+ moderate [facility] Target Cells 1+ few [facility] Elliptocytes 1+ few [facility] Tear Drop Cells 1+ few [facility] Stomatocytes 1+ few [facility] Platelet Conc Adequate [facility] Specimen Blood Narrative Performed At Received comment: [facility] User comments: Slide comments: Performing Organization Address City/State/Zipcode Phone Number [facility] [address] [place] [address] CENTER Manual Differential (09/09/2018 6:40 AM CDT)Only the most recent of2 resultswithin the time period is included. % Neutros (manual) 68 % [facility] % Lymphs (manual) 14 % [facility] % Monos (manual) 9 % [facility] % Eos (manual) 1 % [facility] % Metamyelo (manual) 2 (H) 0 - 0 % [facility] % Myelo (manual) 3 (H) 0 - 0 % [facility] % Bands (manual) 3 0 - 10 % [facility] # Neutros (manual) 6.05 1.80 - 8.00 K/L [facility] # Lymphs (manual) 1.25 (L) 1.48 - 4.50 K/L [facility] # Monos (manual) 0.80 0.00 - 1.30 K/L [facility] # Eos (manual) 0.09 0.00 - 0.50 K/L [facility] # Metamyelo (manual) 0.18 (H) 0.00 - 0.00 K/L [facility] # Bands (manual) 0.3 0.0 - 0.8 K/L [facility] # Myelo (manual) 0.27 (H) 0.00 - 0.00 K/L [facility] Total Counted 100 [facility] Bands plus Segmented 6.32 [facility] Neutrophils [facility] WBC Morphology Normal [facility] Platelet Morphology Normal [facility] RBC Morphology Normal [facility] Specimen Blood Performing Organization Address City/State/Zipcode Phone Number [facility] [address] [place] [address] CENTER XR abdomen / KUB 1 view (09/08/2018 8:06 AM CDT) Specimen Narrative Performed At FINAL REPORT RIS RAD, ABDOMEN/KUB, 1 VIEW AP CLINICAL INDICATION: abd distention, vomiting COMPARISON: CT abdomen and pelvis 08/31/2018 TECHNIQUE: AP supine view of the abdomen FINDINGS: Left nephroureteral stent, right upper quadrant surgical clips, and pelvic drains in place. Supine positioning limits evaluation for free air. There is an air-filled mildly distended loop of small bowel in the left upper abdomen. Transverse colon is also air-filled without significant stool burden. Air is present distally in the rectum. No acute osseous abnormality. Extensive soft tissue swelling/anasarca, more than expected based on prior CT. IMPRESSION: 1.Mildly distended air-filled loop of small bowel within the left upper abdomen, overall nonobstructive bowel gas pattern. 2.Interval development of marked abdominal wall soft tissue swelling/anasarca. Signed: Jet Jaramillo MD Report Verified Date/Time:09/08/2018 08:46:30 Reading Location: [facility] Radiology Reading Room Procedure Note Interface, External Ris In - 09/08/2018 8:48 AM CDT FINAL REPORT RAD, ABDOMEN/KUB, 1 VIEW AP CLINICAL INDICATION: abd distention, vomiting COMPARISON: CT abdomen and pelvis 08/31/2018 TECHNIQUE: AP supine view of the abdomen FINDINGS: Left nephroureteral stent, right upper quadrant surgical clips, and pelvic drains in place. Supine positioning limits evaluation for free air. There is an air-filled mildly distended loop of small bowel in the left upper abdomen. Transverse colon is also air-filled without significant stool burden. Air is present distally in the rectum. No acute osseous abnormality. Extensive soft tissue swelling/anasarca, more than expected based on prior CT. IMPRESSION: 1.Mildly distended air-filled loop of small bowel within the left upper abdomen, overall nonobstructive bowel gas pattern. 2.Interval development of marked abdominal wall soft tissue swelling/anasarca. Signed: Jet Jaramillo MD Report Verified Date/Time: 09/08/2018 08:46:30 Reading Location: [facility] Radiology Reading Room Performing Organization Address City/State/Zipcode Phone Number GE RIS Troponin I (09/06/2018 6:01 PM CDT) Troponin I <0.01 0.00 - 0.03 ng/mL [facility] Specimen Blood Narrative Performed At Troponin I (TnI) levels must be interpreted [facility] in the context of the presenting symptoms and the clinical findings. Elevated TnI levels indicate myocardial damage, but are not specific for ischemic heart disease. Elevated TnI levels are seen in patients with other cardiac conditions (including myocarditis and congestive heart failure), and slight TnI elevations occur in patients with other conditions, including sepsis, renal failure, acidosis, acute neurological disease, and persistent tachyarrhythmia. Performing Organization Address City/State/Zipcode Phone Number [address] [address] [phone] CENTER Comprehensive metabolic panel (09/06/2018 4:45 AM CDT)Only the most recent of14 resultswithin the time period is included. Protein, Total 4.7 (L) 6.0 - 8.3 gm/dL [facility] Albumin 2.1 (L) 3.5 - 5.0 g/dL [facility] Alkaline Phosphatase 197 (H) 40 - 150 U/L [facility] Total Bilirubin 1.1 0.2 - 1.2 mg/dL [facility] Sodium 135 (L) 136 - 145 meq/L [facility] Potassium 3.4 (L) 3.5 - 5.1 meq/L [facility] Chloride 106 98 - 107 meq/L [facility] CO2 25 22 - 29 meq/L [facility] BUN 6 (L) 7 - 21 mg/dL [facility] Creatinine 0.44 (L) 0.57 - 1.25 mg/dL [facility] Glucose 78 70 - 105 mg/dL [facility] Calcium 7.4 (L) 8.4 - 10.2 mg/dL [facility] AST 258 (H) 5 - 34 U/L [facility] ALT 150 (H) 6 - 55 U/L [facility] EGFR 142Comment: ESTIMATED mL/min/1.73 sq m [facility] GFR IS NOT ACCURATE [facility] CREATININE CLEARANCE IN PREDICTING GLOMERULAR FILTRATION RATE. ESTIMATED GFR IS NOT APPLICABLE FOR DIALYSIS PATIENTS. Specimen Blood Performing Organization Address City/State/Zipcode Phone Number [facility] [address] [place] [address] CENTER TRANSFUSION SERVICE REPORT - SCAN (09/05/2018 5:50 PM CDT)Only the most recent of4 resultswithin the time period is included. Narrative Performed At Prepare RBC (09/04/2018 11:54 PM CDT) CROSSMATCH COMPATIBLE [place] Unit ABO O Pos [facility] [place] UNIT NUMBER [id number] [place] Status TX_TIMEINCHART [facility] [place] Blood Bank Product RED BLOOD CELLS [place] PRODUCT CODE [id number] [facility] [place] CROSSMATCH COMPATIBLE SAFETRACE TX Unit ABO O Pos [facility]ETR[facility] TX UNIT NUMBER [id number] SAFETRACE TX Status TX_TIMEINCHART [facility] [place] Blood Bank Product RED BLOOD CELLS [place] PRODUCT CODE [id number] [facility] [place] Performing Organization Address [facility] Phone Number SAFETRACE [place] Hemoglobin and hematocrit (09/03/2018 5:43 PM CDT) Hemoglobin 10.4 (L) 11.2 - 15.7 GM/DL [facility] Hematocrit 32.3 (L) 34.1 - 44.9 % [facility] Specimen Blood Performing Organization Address [facility] Phone Number [address] [address] [place] Blood gas, arterial (09/03/2018 5:41 PM CDT)Only the most recent of3 resultswithin the time period is included. pH, Arterial 7.40 7.35 - 7.45 [facility] pCO2, Arterial 37 35 - 45 mmHg [facility] pO2, Arterial 280 (H) 80 - 90 mmHg [facility] O2 Sat, Arterial 99.7 (H) 96.0 - 97.0 % [facility] HCO3, Arterial 23 21 - 29 mmol/L [facility] Base Excess, Arterial -2.1 (L) -2.0 - 3.0 mmol/L [facility] Patient Temperature 36.6 C [facility] FIO2 44.0 % [facility] Specimen Blood, Arterial Performing Organization Address [facility] Phone Number [address] [address] CENTER Transfuse Leuko-Red RBC (09/03/2018 4:55 PM CDT)Only the most recent of3 resultswithin the time period is included.Potassium-Stat Lab (09/03/2018 4:15 PM CDT)Only the most recent of2 resultswithin the time period is included. Potassium 3.9 3.6 - 5.5 meq/L [facility] Specimen Blood, Arterial Narrative Performed At [address] [place] [address] Performing Organization Address [facility]/[place] Phone Number [address] [address] [place] Sodium Na-Stat Lab (09/03/2018 4:15 PM CDT)Only the most recent of2 resultswithin the time period is included. Sodium 134 (L) 135 - 148 meq/L [facility] Specimen Blood, Arterial Narrative Performed At [address] [place] [address] Performing Organization Address [facility]/[place] Phone Number [address] [address] [phone] [place] Glucose-Stat Lab (09/03/2018 4:15 PM CDT)Only the most recent of2 resultswithin the time period is included. Glucose 151 (H) 70 - 110 mg/dL [facility] Specimen Blood, Arterial Narrative Performed At [address] [place] [address] Performing Organization Address [facility]/[place] Phone Number [address] [address] [place] HGB/HCT (H&H)-Stat Lab (09/03/2018 4:15 PM CDT)Only the most recent of2 resultswithin the time period is included. Hemoglobin 10.1 (L) 12.0 - 15.0 g/dL [facility] Hematocrit 30.0 (L) 36.0 - 45.0 % [facility] Specimen Blood, Arterial Narrative Performed At 36.6 [facility] Performing Organization Address [facility]/Zipcode Phone Number [facility] [address] [place] [address] [place] Calcium, Ionized (09/03/2018 4:15 PM CDT)Only the most recent of3 resultswithin the time period is included. Calcium, Ion 1.26 1.12 - 1.27 mmol/L [facility] pH, Blood 7.22 [facility] Specimen Blood Performing Organization Address City/[facility]/Zipcode Phone Number [facility] [address] [place] [address] [place] Tissue Exam (09/03/2018 1:47 PM CDT)Only the most recent of2 resultswithin the time period is included. Case Report Surgical Pathology Report Case: [id number] [facility] Authorizing Provider:Naseem Jimenez MD Collected: 09/03/2018 1347 [facility] Ordering Location: [facility] PERIOPERATIVE Received: 09/03/2018 1636 SERVICES Pathologist: Stella Krishnan MD Specimens: A) - Small Bowel, NOS B) - Large Intestine, Colon - Sigmoid DIAGNOSIS A. SMALL BOWEL, SEGMENTAL RESECTION: [facility] - ABSCESSES, GRANULATION TISSUE, CHRONIC INFLAMMATION AND FOREIGNJ BODY REACTION TO EXOGENOUS MATERIAL [facility] - FAT NECROSIS IN SUBSEROSAL FAT - SEROSAL ADHESIONS - ONE MARGIN OF RESECTION WITH SEROSAL ADHESIONS - A BENIGN LYMPH NODE - NEGATIVE FOR DYSPLASIA OR MALIGNANCY B. SIGMOID COLON, RESECTION: - RUPTURED DIVERTICULITIS WITH ABSCESSES, ACUTE AND CHRONIC INFLAMMATION, GRANULATION TISSUE, FOREIGN BODY REACTION AND FIBROSIS - DIVERTICULOSIS - SEROSAL ADHESIONS - UNREMARKABLE SURGICAL MARGINS - FIFTEEN BENIGN LYMPH NODES (0/15) - NEGATIVE FOR DYSPLASIA OR MALIGNANCY Signing Pathologist Direct Phone Line: [phone] CPT Code(s) 87463 X 2 [facility] CLINICAL HISTORY Diverticulitis [facility] SPECIMEN SOURCE A. Small bowel. B. Large [facility] intestine, colon-sigmoid [facility] GROSS DESCRIPTION A. Received fresh labeled with the patient's name, accession number and "small bowel, NOS" is an unoriented segment of small bowel measuring 15 cm in length and 2.5 cm in diameter. There is a moderate amount of attached mesenteric adipose tissue. [facility] There is an area of adhesion surrounded by hemorrhage on the mesenteric side extending to the serosa. This area is 5 cm from one margin and 6 cm from the opposite margin. The remaining serosa is dusky, lavender to maroon and smooth to shaggy. No perforation site is identified. The specimen is opened to reveal mock-pink smooth mucosa with normal architecture. There is fat necrosis present in the mesente ry adjacent to the area of adhesion. There is one possible pink lymph node measuring 0.4 x 0.3 x 0.3 cm. [employer] sections are submitted. Section code: A1, margin closest to area of adhesion, en face, in its entirety A2, margin further away from area of adhesion, en face, in its entirety A3-A4, field representatives director of area of adhesion A5-A6, field representatives director of area of adhesion to mucosa A7, uninvolved mucosa and one possible lymph node bisected B. Received fresh labeled with the patient's name, accession number and "large intestine, colon-sigmoid" is a 29.5 cm in length x 3.5 cm in diameter segment of colon. There is a minimal amount of attached mesenteric adipose tissue. The serosa displays a focal area of adhesions surrounded by hemorrhage and exudate located 6.5 cm from the proximal margin. Located 3 cm distal to this area is a firm area with adhesions, which is 10.5 cm from the proximal margin and 8.5 cm from the distal margin. The remaining serosa is dusky, lavender-pink and smooth to shaggy. The specimen is opened to reveal numerous diverticula throughout. The di verticula involve both areas of adhesions. The wall is markedly thickened, up to 1.6 cm. No areas of perforation are identified. The remaining mucosa is mock-pink and smooth with normal architecture. The re are multiple pink-rogel lymph nodes ranging 0.3-0.8 cm. [employer] sections are submitted. Ink code: Blue-area of adhesion closest to proximal margin, black-area of adhesion closest to distal margin. Section code: B1, field representatives director of proximal margin, en face B2, field representatives director of distal margin, en face B3-B4, field representatives director of diverticula with area of adhesion closest to proximal margin, full-thickness B5-B6, field representatives director of diverticula with area of adhesion closest to proximal margin, full-thickness B7-B8, field representatives director of diverticula with area of adhesion closest to distal margin, full-thickness B9-B10, field representatives director of diverticula with area of adhesion closest to distal margin, full-thickness B11, uninvolved mucosa B12-B18, one lymph node bisected in each cassette B19, four possible intact lymph nodes B20, two possible intact lymph nodes CG/ew MICROSCOPIC DESCRIPTION performed [facility] Specimen Tissue Tissue - Sigmoid colon structure (body structure) Performing Organization Address City/State/[place] Phone Number [address] [address] [place] Anaerobic culture (09/03/2018 12:10 PM CDT) Result No anaerobes isolated [facility] Specimen Abscess Performing Organization Address City/State/Zipcode Phone Number [facility] [address] [place] [address] CENTER Surgically obtained culture + gram stain (09/03/2018 12:10 PM CDT) Result <1+ Escherichia coli (A) [facility] Result <1+ Omaira albicans (A) [facility] Result <1+ Enterococcus avium (A) [facility] Result 2+ Lactobacillus species (A) [facility] Gram Stain Result <1+ WBCs [facility] Gram Stain Result No organisms seen [facility] Specimen Abscess Narrative Performed At [facility] Organism Antibiotic Method Susceptibility Escherichia coli Amikacin <=2: Susceptible Escherichia coli Ampicillin + Sulbactam 4: Susceptible Escherichia coli Aztreonam <=1: Susceptible Escherichia coli Cefepime <=1: Susceptible Escherichia coli Cefoxitin 16: Resistant Escherichia coli Ceftazidime <=1: Susceptible Escherichia coli Ceftriaxone <=1: Susceptible Escherichia coli Ertapenem <=0.5: Susceptible Escherichia coli Gentamicin <=1: Susceptible Escherichia coli Levofloxacin >=8: Resistant Escherichia coli Meropenem <=0.25: Susceptible Escherichia coli Piperacillin + Tazobactam <=4: Susceptible Escherichia coli Tetracycline >=16: Resistant Escherichia coli Tobramycin <=1: Susceptible Escherichia coli Trimethoprim + Sulfamethoxazole <=20: Susceptible Enterococcus avium Ampicillin 2: Susceptible Enterococcus avium Daptomycin 0.5: Susceptible Enterococcus avium Linezolid 2.0: Susceptible Enterococcus avium Vancomycin 0.75: Susceptible Performing Organization Address City/[facility]/[place] Phone Number [address] [address] [phone] CENTER Fungus culture + smear (09/03/2018 12:10 PM CDT) Result <1+ Omaira albicans (A) [facility] Fungus Smear No fungi seen [facility] Specimen Abscess Performing Organization Address City/[facility]/[place] Phone Number [address] [address] [phone] CENTER Type and screen, automated (09/02/2018 4:59 AM CDT)Only the most recent of2 resultswithin the time period is included. ABO/RH AUTOMATED (BEAKER) O POSITIVE [facility] Ab Scrn NEGATIVE [facility] Specimen Blood Performing Organization Address City/[facility]/[place] Phone Number [address] [address] Urine culture (09/02/2018 4:59 AM CDT) Result No growth [facility] Gram Stain Result No White blood cells seen [facility] Gram Stain Result No organisms seen [facility] Specimen Urine Performing Organization Address City/[facility]/Zipcode Phone Number [address] [address] CENTER Blood Culture - Routine (Left Venipuncture) (09/01/2018 3:54 AM CDT)Only the most recent of4 resultswithin the time period is included. Result No growth in 5 days [facility] Specimen Blood Performing Organization Address City/State/Zipcode Phone Number [facility] [address] [place] [address] [place] HSV 1/2 PCR (09/01/2018 3:42 AM CDT)Only the most recent of2 resultswithin the time period is included. Scan Result [facility] Specimen Blood Narrative Performed At Performing Organization Address City/State/Zipcode Phone Number [facility] [address] [place], [place] EBV VIRAL LOAD (09/01/2018 3:40 AM CDT) EBV Viral Load Negative or below the linear [facility] range of the assay (<500 [facility] copies/mL) Specimen Blood Narrative Performed At "The blood volume for this specimen did not [facility] meet the minimum threshold (3 mL) and, therefore, may affect result accuracy. Correlation with other clinical results are recommended for this specimen." This assay was performed by real-time PCR for the detection of the Katarina-Stokes virus (EBV) gene EBNA-1.The test is composed of (1) DNA extraction from patient specimen, and (2) real-time PCR amplification and detection with [id number] primers and probes. A well-conserved region of the EBNA-1 gene is targeted, along with an internal control sequence used to confirm PCR amplification. Asymptomatic carriers and viral genetic variation, among other factors, can affect the accuracy of nucleic acid testing; therefore, results should be interpreted in light of clinical data. This test was developed and its performance characteristics determined by the [facility] Pathology Department, Section of Molecular Pathology. It has not been cleared or approved by the U.S. Food and Drug Administration (FDA), since FDA approval is not required for clinical use of the test. Validation was done as required by The Clinical Laboratory Improvement Amendments of 1988. This assay was performed by real-time PCR for the detection of the Katarina-Stokes virus (EBV) gene EBNA-1.The test is composed of (1) DNA extraction from patient specimen, and (2) real-time PCR amplification and detection with [id number] primers and probes. A well-conserved region of the EBNA-1 gene is targeted, along with an internal control sequence used to confirm PCR amplification. Asymptomatic carriers and viral genetic variation, among other factors, can affect the accuracy of nucleic acid testing; therefore, results should be interpreted in light of clinical data. This test was developed and its performance characteristics determined by the [facility] Pathology Department, Section of Molecular Pathology. It has not been cleared or approved by the U.S. Food and Drug Administration (FDA), since FDA approval is not required for clinical use of the test. Validation was done as required by The Clinical Laboratory Improvement Amendments of 1987. Performing Organization Address City/State/Zipcode Phone Number [facility] [address] [place] [address] CENTER CMV PCR, quantitative (09/01/2018 3:40 AM CDT) CMV DNA Viral Load Negative or below the linear [facility] range of the assay (<375 [facility] copies/mL) Specimen Blood Narrative Performed At Cytomegalovirus (CMV) infection can cause [facility] significant disease in immunosuppressed patients. However, it is common for CMV to manifest as a limited infection which is of no clinical significance in immunosuppressed patients or in healthy individuals. Viral load measurements are helpful to identify clinical CMV infection and to guide the pre-emptive management of antiviral therapy.For treatment of CMV infection due to reactivation in transplant recipients, a threshold between 4,000 and 5,000 copies/mL is suggested.For treatment of primary CMV infection, a lower threshold can be used. CMV infection may also be monitored using weekly serial measurements. Serial measurements of CMV DNA viral load can be evaluated by identifying a 10-fold change, as well as assessing the CMV DNA viral load and the clinical context for each patient. The plasma CMV DNA viral load was detected using quantitative polymerase chain reaction and fluorescent monitoring of a specific hybridized probe. Genetic variation and other factors can affect the accuracy of nucleic acid testing. Therefore, the results should be interpreted in light of clinical data. A negative result may not exclude the presence of CMV disease. This test was developed and its performance characteristics determined by the [facility] Pathology Department, Section of Molecular Pathology. It has not been cleared or approved by the U.S. Food and Drug Administration (FDA), since FDA approval is not required for clinical use of the test. Validation was done as required by The Clinical Laboratory Improvement Amendments of 1988. Performing Organization Address City/State/Zipcode Phone Number [address] [address] [phone] [place] Herpes virus antibody, IgG (09/01/2018 3:39 AM CDT) HSV1 IgG >8.0 (H) <0.9 Al [facility] HSV2 IgG 5.9 (H) <0.9 Al [facility] Specimen Blood Narrative Performed At Herpes Simplex Virus 1 IgG Result [facility] Interpretation: <0.9 Al Normal 0.9-1.0 Al [place] >/=1.1 Al Positive Herpes Simplex Virus 2 IgG Result Interpretation <0.9 Al Normal 0.9-1.0 Al [place] >/=1.1 Al Positive Performing Organization Address City/[facility]/[place] Phone Number [address] [address] [place] HEPATITIS E ABS IGG/IGM EIA (09/01/2018 3:39 AM CDT) HEV IgG NOT DETECTED [facility] HEV IgM NOT DETECTED [facility] Comment: REFERENCE RANGE: NOT DETECTED Hepatitis E virus (HEV) is a major cause of enteric non-A hepatitis worldwide. Both HEV IgM and IgG are typically detected within one month after infection; IgM persists for about two months, whereas IgG levels persist for months to years after recovery. Approximately 20% of the [place] population is positive for HEV IgG, indicating that HEV exposure is more common than previously thought. This test was developed and its analytical performance characteristics have been determined by [email or web address]. It has not been cleared or approved by FDA. This assay has been validated pursuant to the CLIA regulations and is used for clinical purposes. Specimen Blood Narrative Performed At Performing Lab [facility] *QDID [email or web address] [address] [place] [address] Mick Odom MD Performing Organization Address City/[facility]/[place] Phone Number [place] [address] INCORPORATED [address] [facility] Cytomegalovirus antibody, IgM (09/01/2018 3:39 AM CDT) CMV IGM Negative Negative, Equivocal [facility] Specimen Blood Narrative Performed At CMV IgM Result Interpretation: [facility] </=0.8 Al Negative 0.9-1.0 Al [place] >/=1.1 Al Positive Performing Organization Address [facility]/[place] Phone Number [address] [address] [place] Herpes virus antibody, IgM (09/01/2018 3:39 AM CDT) Herpes Virus IGM Negative [facility] Specimen Blood Narrative Performed At TEST PERFORMED BY [employer] [facility] Performing Organization Address City/[facility]/[place] Phone Number [address] [address] [place] EBV-VCA antibody, IgM (09/01/2018 3:39 AM CDT) [facility]IR[facility] CAPSID Negative Negative, Equivocal [facility] ANTIGEN IGM [facility] Specimen Blood Narrative Performed At Katarina Stokes Viral Capsid Antigen IgM Result [facility] Interpretation: </=0.8 Al Negative 0.9-1.0 Al [place] >/=1.1 Al Positive Performing Organization Address [facility]/[place] Phone Number [address] [address] [phone] [place] EBV-VCA antibody, IgG (09/01/2018 3:39 AM CDT) [facility] STOK[facility] VIRAL CAPSID Positive (A) Negative, Equivocal [facility] ANTIGEN IGG [facility] CENTER Specimen Blood Narrative Performed At Katarina Stokes Viral Capsid Antigen IgG Result [facility] Interpretation: </=0.8 Al Negative 0.9-1.0 Al [place] >/=1.1 Al Positive Performing Organization Address [facility] Phone Number [address] [address] [phone] [place] Cytomegalovirus antibody, IgG (09/01/2018 3:39 AM CDT) CYTOMEGALOVIRUS, IGG Positive (A) Negative, Equivocal [facility] Specimen Blood Narrative Performed At CMV IgG Result Interpretation: [facility] </=0.8 Al Negative 0.9-1.0 Al [place] >/=1.1 AlPositive Performing Organization Address [facility] Phone Number [address] [address] [place] LIVER-KIDNEY MICROSOME AB (08/30/2018 6:44 PM CDT) LKM-1 Antibody (IgG) <20.0 See Note: [facility] Comment: [facility] Reference Range: <=20.0 NEGATIVE 20.1-24.9EQUIVOCAL >=25.0 POSITIVE Anti-liver/kidney microsomal antibodies (Anti-LKM-1) were previously tested by indirect immunofluorescence (IF) using rodent liver/kidney substrate. Identification of a specific antibody target as cytochrome P450 IID6 has led to the current recombinant based JANEEN. Antibodies to this cytochrome are present in approximately 70% of patients with autoimmune hepatitis type 2. This antibody is also present in approximately 10% of patients with hepatitis C infection. Specimen Blood Narrative Performed At Performing Lab [facility] [place] [id number] [place] [address] Nando Jacobs MD, PhD, THOM Performing Organization Address [facility] Phone Number [facility] [place] [address] [place] [address] SOLUBLE LIVER ANTIGEN (SLA) (08/30/2018 6:44 PM CDT) Soluble Liver Antigen <20.1 See Note: [facility] (SLA) [facility] Comment: INCORPORATED Reference Range: NEGATIVE:0.0-20.0 EQUIVOCAL:20.1-24.9 POSITIVE:>=25.0 Antibodies to soluble liver antigen (SLA) appear to be directed against the UGA-suppressor tRNA associated protein. These antibodies are highly specific for autoimmune hepatitis (AIH) and may, rarely, be the only autoantibodies detected in serum from such patients. Antibodies to SLA are most closely associated with AIH type 1; the presence of these antibodies in patients with cryptogenic hepatitis suggests that these patients may have AIH type 1. Anti-SLA antibodies may be detected in some patients with the primary biliary cirrhosis-AIH overlap syndrome, but not in healthy controls. Specimen Blood Narrative Performed At Performing Lab [email or web address] [address] [address] Nando Jacobs MD, PhD, THOM Performing Organization Address City/State/Zipcode Phone [place] [address] [place] [address] CBC (Hemogram only) (08/29/2018 7:54 AM CDT) WBC 6.5 3.5 - 10.5 K/L [facility] RBC 4.11 3.93 - 5.22 M/L [facility] Hemoglobin 10.8 (L) 11.2 - 15.7 GM/DL [facility] Hematocrit 34.5 34.1 - 44.9 % [facility] MCV 83.9 79.4 - 94.8 fL [facility] MCH 26.3 25.6 - 32.2 pg [facility] MCHC 31.3 (L) 32.2 - 35.5 GM/DL [facility] RDW 16.5 (H) 11.7 - 14.4 % [facility] Platelets 263 150 - 450 K/CU MM [facility] MPV 9.5 9.4 - 12.3 fL [facility] nRBC 0 0 - 0 /100 WBC [facility] Specimen Blood Performing Organization Address City/State/Zipcode Phone Number [facility] [address] [place] [address] [phone] CENTER US abdomen limited (08/26/2018 12:45 AM CDT) Specimen Narrative Performed At FINAL REPORT [facility] INDICATION: rising LFTs, recent ERCP with sphincterotomy; eval GB for signs of cholecystitis, CBD size, ?intrahepatic bile duct dilation seen on recent CT scan, thanks COMPARISON: None. TECHNIQUE:Real-time transabdominal rogel scale and color Doppler ultrasound of the abdomen. FINDINGS: Liver: Size: 13.9cm. Echogenicity: Normal. Masses/lesions: None. Surface Nodularity: None. Intrahepatic bile ducts: Normal. Common bile duct: 0.4 cm. MPV: 1.3cm. Gallbladder: Stones: Multiple echogenic stones are seen within the gallbladder lumen. Sludge: None. Wall thickness: 0.3 cm. The gallbladder is distended. Pericholecystic fluid: Trace pericholecystic fluid. Sonographic Smart's sign: No sonographic Smart's sign. Pancreas: Head and uncinate process: Not well-seen secondary to poor acoustic windowing. Body and tail: Not well-seen. Right kidney: Size: 12.3 x 4.6 x 4.9 cm. Parenchyma: Normal echogenicity. No cysts. No stones. Hydronephrosis: None. Ascites: None. Regional Vasculature: The visible abdominal aorta, IVC and hepatic veins are patent. The aorta measures 2.1 cm proximally, 1.5 cm in the midportion 1.3 cm distally. Additional findings: None. IMPRESSION: Cholelithiasis with gallbladder wall thickening and trace pericholecystic fluid. Findings are concerning for acute cholecystitis. HIDA scan could be helpful for confirmation. No intra or extrahepatic biliary ductal dilatation is identified as clinically queried. Signed: Ronna Le MD Report Verified Date/Time:08/26/2018 02:54:13 Procedure Note Interface, External Ris In - 08/26/2018 2:56 AM CDT FINAL REPORT INDICATION: rising LFTs, recent ERCP with sphincterotomy; eval GB for signs of cholecystitis, CBD size, ?intrahepatic bile duct dilation seen on recent CT scan, thanks COMPARISON: None. TECHNIQUE: Real-time transabdominal rogel scale and color Doppler ultrasound of the abdomen. FINDINGS: Liver: Size: 13.9cm. Echogenicity: Normal. Masses/lesions: None. Surface Nodularity: None. Intrahepatic bile ducts: Normal. Common bile duct: 0.4 cm. MPV: 1.3cm. Gallbladder: Stones: Multiple echogenic stones are seen within the gallbladder lumen. Sludge: None. Wall thickness: 0.3 cm. The gallbladder is distended. Pericholecystic fluid: Trace pericholecystic fluid. Sonographic Smart's sign: No sonographic Smart's sign. Pancreas: Head and uncinate process: Not well-seen secondary to poor acoustic windowing. Body and tail: Not well-seen. Right kidney: Size: 12.3 x 4.6 x 4.9 cm. Parenchyma: Normal echogenicity. No cysts. No stones. Hydronephrosis: None. Ascites: None. Regional Vasculature: The visible abdominal aorta, IVC and hepatic veins are patent. The aorta measures 2.1 cm proximally, 1.5 cm in the midportion 1.3 cm distally. Additional findings: None. IMPRESSION: Cholelithiasis with gallbladder wall thickening and trace pericholecystic fluid. Findings are concerning for acute cholecystitis. HIDA scan could be helpful for confirmation. No intra or extrahepatic biliary ductal dilatation is identified as clinically queried. Signed: Ronna Le MD Report Verified Date/Time: 08/26/2018 02:54:13 Performing Organization Address City/State/Zipcode Phone Number [place] [facility] Triglycerides (08/25/2018 3:47 AM CDT) Triglycerides 169 mg/dL [facility] Specimen Blood Narrative Performed At TRIGLYCERIDE REFERENCE RANGE [facility] Low Risk<150 Borderline Risk 150-199 High [id number] Very High Risk >=500 Performing Organization Address [facility]/Zipcode Phone Number [address] [address] [place] Hepatitis A antibody, IgG (08/24/2018 6:51 PM CDT) Hep A IgG Reactive (A) Nonreactive [facility] Specimen Blood Performing Organization Address City/[facility]/[place] Phone Number [facility] [address] [place] [address] CENTER Iron, TIBC, % sat. (without ferritin) (08/24/2018 6:51 PM CDT) Iron 33.0 (L) 40.0 - 160.0 ug/dL [facility] TIBC 153 (L) 250 - 450 ug/dL [facility] Iron % Saturation 22 20 - 55 % [facility] Specimen Blood Performing Organization Address [facility]/[place] Phone Number [address] [address] [place] Hepatitis C antibody (08/24/2018 6:51 PM CDT) Hepatitis C Ab Nonreactive Nonreactive [facility] Specimen Blood Performing Organization Address [facility]/[place] Phone Number [address] [address] [phone] [place] Actin (Smooth Muscle) Antibody, IgG (08/24/2018 6:51 PM CDT) Anti-Smooth Muscle Ab <20 See Note: U [facility] Comment: INC[facility]PORATED Reference Range: <20 NEGATIVE > OR=20 POSITIVE Antibodies recognizing actin are the main component of smooth muscle antibodies associated with autoimmune liver disease. Actin antibodies are found in approximately 75% of patients with autoimmune hepatitis (AIH) type 1, approximately 65% of patients with autoimmune cholangitis, approximately 30% of patients with primary biliary cirrhosis, and approximately 2% of healthy people. High values are closely correlated with AIH type 1. Specimen Blood Narrative Performed At Performing Lab [facility] [place] [address] [place] [address] Nando Jacobs MD, PhD, THOM Performing Organization Address City/State/Zipcode Phone Number [place] [address] INCORPORATED [address] [facility] Hepatitis A antibody, IgM (08/24/2018 6:51 PM CDT) Hep A IgM Nonreactive Nonreactive [facility] Specimen Blood Performing Organization Address [facility]/[place] Phone Number [facility] [address] [place] [address] [phone] CENTER Ceruloplasmin (08/24/2018 6:51 PM CDT) Ceruloplasmin 35 18 - 53 mg/dL [facility] Comment: Adults:Males: 18-36 mg/dL Females: 18-53 mg/dL Pediatrics:Males (mg/dL)Females (mg/dL) 0-30 Days 8-25 3-28 31 Days-11 Month [id number] 1-3 [id number] 4-6 [id number] 7-9 Lugxa27-0435-89 10-12 [id number] 13-15 [id number] 16-18 [id number] The pediatric ranges are derived from the following criteria: Surendra SJ, Leah OROURKE, Angelika J et al Pediatric reference ranges for Camv-7-Gfekhmdlonxpt and ceruloplasmin. Clin. Chem 1997; 43:S1999 Pediatric Reference Ranges, 2nd., [place] Surendraet al. editors. [employer], [place], [place] 1997. Specimen Blood Narrative Performed At Performing Lab [facility] *SPL [facility], [address] [place] [phone] Parth Enciso MD, PhD Performing Organization Address [facility]/[place] Phone Number [place] [address] INCORPORATED [address] [facility] Alpha fetoprotein (AFP), tumor marker (08/24/2018 6:51 PM CDT) Alpha-Fetoprotein 3.0 <10.0 ng/mL [facility] Specimen Blood Performing Organization Address City/[facility]/Zipcode Phone Number [address] [address] [phone] [place] Hepatitis B core antibody, IgM (08/24/2018 6:51 PM CDT) Hep B C IgM Nonreactive Nonreactive [facility] Specimen Blood Performing Organization Address City/[facility]/[place] Phone Number [address] [address] [phone] [place] Hepatitis B surface antibody (08/24/2018 6:51 PM CDT) Hep B S Ab <8.0 <8.0 mIU/mL [facility] Specimen Blood Performing Organization Address [facility]/[place] Phone Number [address] [address] [phone] [place] Hepatitis B surface antigen (08/24/2018 6:51 PM CDT) hepatitis B Surface Ag Nonreactive Nonreactive [facility] Specimen Blood Performing Organization Address [facility]/[place] Phone Number [address] [address] [place] Anti-Nuclear Antibody (ALINE) (08/24/2018 6:51 PM CDT) ALINE Negative Negative [facility] Specimen Blood Narrative Performed At Test performed by IFA method. [facility] Performing Organization Address City/[facility]/[place] Phone Number [address] [address] [phone] CENTER Immunoglobulin G (IgG) (08/24/2018 6:51 PM CDT) IgG 1,722 540-1,822 mg/dL [facility] Specimen Blood Performing Organization Address [facility]/[place] Phone Number [address] [address] CENTER Ferritin (08/24/2018 6:51 PM CDT) Ferritin 8,721 (H) 5 - 275 ng/mL [facility] Specimen Blood Performing Organization Address [facility]/[place] Phone Number [address] [address] CENTER Anti-Mitochondrial Ab, reflex to titer (08/24/2018 6:50 PM CDT) Anti-Mitochond Abs NEGATIVE NEGATIVE [facility] Comment: INC[facility]PORATED This test was developed and its analytical performance characteristics have been determined by [facility]. It has not been cleared or approved by FDA. This assay has been validated pursuant to the CLIA regulations and is used for clinical purposes. Mitochondrial Ab Titer TNP <1:20 [facility] Comment: INC[facility]PORATED Test Not Performed. Screening test Negative or Not Detected. Titer not performed. Specimen Blood Narrative Performed At Performing Lab [facility] [address] [address] Nando Jacobs MD, PhD, THOM Performing Organization Address [facility] Phone Number [place] [address] [place] [address] [id number] (08/24/2018 6:50 PM CDT) A-1 Antitrypsin 211.10 (H) 90.00 - 200.00 mg/dL [facility] Specimen Blood Performing Organization Address [facility]/[place] Phone Number [address] [address] [phone] CENTER Lipase (08/24/2018 5:35 AM CDT) Lipase 12 8 - 78 U/L [facility] Specimen Blood Narrative Performed At Run on blood drawn this am [facility] Performing Organization Address [facility]/Zipcode Phone Number [address] [address] CENTER Amylase (08/24/2018 5:35 AM CDT) Amylase 35 25 - 125 U/L [facility] Specimen Blood Narrative Performed At Run on blood drawn this am [facility] Performing Organization Address [facility]/[place] Phone Number [address] [address] [phone] CENTER Clostridium difficile [facility] Toxin (08/23/2018 1:47 PM CDT) C. Difficle Toxin Negative Negative [facility] C. Difficile [facility] Antigen Positive (A)Comment: C. Negative [facility] difficile present but toxin [facility] not detected. Indicates colonization with non-toxigenic strain or level of toxin below detectable levels. No need for enteric isolation. Treatment is rarely needed (only when strong clinical suspicion for Clostridium difficile infection) Specimen Stool Narrative Performed At Testing performed by [employer] [facility] Assay.For [facility], published sensitivity of the assay is 98.7% compared to cytotoxicity testing.For Toxin AB, published sensitivity is 87.8% and specificity 99.4% compared to cytotoxicity testing. Verification of kit performance was done by the [facility] Microbiology Lab prior to clinical use. Performing Organization Address [facility]/[place] Phone Number [address] [address] [phone] CENTER ABORH, manual (08/23/2018 7:08 AM CDT) ABO Grouping O [facility] Rh Factor POS [facility] Specimen Blood Performing Organization Address City/[facility]/[place] Phone Number [address] [address] [phone] Prothrombin time/INR (08/22/2018 3:37 AM CDT)Only the most recent of3 resultswithin the time period is included. Protime 15.9 (H) 11.9 - 14.2 seconds [facility] INR 1.3 <=5.9 [facility] Specimen Blood Narrative Performed At Effective 07/07/2018: PT Reference Range [facility] Change New: 11.9-14.2Previous: 11.7-14.7 RECOMMENDED COUMADIN/WARFARIN INR THERAPY RANGES STANDARD DOSE: 2.0-3.0Includes: PROPHYLAXIS for venous thrombosis, systemic embolization; TREATMENT for venous thrombosis and/or pulmonary embolus. HIGH RISK: Target INR is 2.5-3.5 for patients wiht mechanical heart valves. Performing Organization Address City/State/Zipcode Phone Number [facility] [address] [place] [address] [phone] CENTER REPORT OF PROCEDURE - ENDOSCOPY URL (08/20/2018 5:50 PM CDT) Narrative Performed At [place] Endoscopic Retrograde Cholangiopancreatography (08/20/2018 3:45 PM CDT) Specimen Narrative Performed At FINAL REPORT [facility] ERCP, 08/20/2018 Seven images of the abdomen are submitted along with an information images indicates a fluoroscopy time of 184 seconds. Contrast was injected into the distal common bile duct with opacification of what appears to be a normal biliary system without dilatation. The gallbladder is not opacified. There are images indicating a sweeping of the common bile duct with a balloon. Signed: Renetta Davenport MD Report Verified Date/Time:08/20/2018 18:02:08 Reading Location: [address] Consult Reading Room Procedure Note Interface, External Ris In - 10/05/2018 9:57 AM CDT FINAL REPORT [facility], 08/20/2018 Seven images of the abdomen are submitted along with an information images indicates a fluoroscopy time of 184 seconds. Contrast was injected into the distal common bile duct with opacification of what appears to be a normal biliary system without dilatation. The gallbladder is not opacified. There are images indicating a sweeping of the common bile duct with a balloon. Signed: Renetta Davenport MD Report Verified Date/Time: 08/20/2018 18:02:08 Reading Location: [address] Consult Reading Room Performing Organization Address City/State/Zipcode Phone Number [place] R[place] after 10/04/2017 Insurance Payer Benefit Plan / Group Subscriber ID Type Phone Address MEDICARE MEDICARE PART A xxxxxxxxxxx Medicare Advance Directives For more information, please contact:[address] [phone] Code Status Date Activated Date Inactivated Comments Full Code 08/20/2018 3:46 AM 09/14/2018 5:21 PM This code status was determined by: Patient
--- OUTSIDE RECORDS SUMMARY | 2018-10-05 20:50 | XMS REPORT ---
:1950 [facility] Address [address] [place] [address] Care Team Providers Name Role Phone ANTON HERNANDEZ BIA Unavailable Unavailable Problems This patient has no known problems. Allergies, Adverse Reactions, Alerts This patient has no known allergies or adverse reactions. Medications This patient has no known medications. Results Test Description Test Time Test Comments Text Results Atomic Results Result Comments FUNGUS CULTURE + SMEAR 2018-09-14 17:45:00 Test Item Value Reference Range Comments CULTURE (BEAKER) (test iiyf=6854) <1+ Omaira albicans FUNGUS SMEAR (BEAKER) (test rrcl=4256) No fungi seen POCT-GLUCOSE [id number] 12:40:00 Test Item Value Reference Range Comments POC-GLUCOSE METER (BEAKER) 102 mg/dL 70-[address] [facility] [address] [facility] (test fgwk=9167) [facility] [address] POCT-GLUCOSE [id number] 08:37:00 Test Item Value Reference Range Comments POC-GLUCOSE METER (BEAKER) 112 mg/dL 70-[address] [facility] [address] [facility] (test hktm=8038) [facility] [address] HEPATIC FUNCTION [id number] 06:49:00 Test Item Value Reference Range Comments TOTAL PROTEIN (BEAKER) (test tigb=006) 5.4 gm/dL 6.0-8.3 ALBUMIN (BEAKER) (test ukok=7111) 1.9 g/dL 3.5-5.0 BILIRUBIN TOTAL (BEAKER) (test hlyr=695) 1.0 mg/dL 0.2-1.2 BILIRUBIN DIRECT (BEAKER) (test eiin=724) 0.7 mg/dL 0.1-0.5 ALKALINE PHOSPHATASE (BEAKER) (test fxwm=864) 201 U/L 40-150 AST (SGOT) (BEAKER) (test mafm=208) 142 U/L 5-34 ALT (SGPT) (BEAKER) (test oyoi=009) 70 U/L 6-55 BASIC METABOLIC [id number] 06:49:00 Test Item Value Reference Range Comments SODIUM (BEAKER) (test 136 meq/L 136-145 amke=190) POTASSIUM (BEAKER) (test 3.9 meq/L 3.5-5.1 jqnt=204) CHLORIDE (BEAKER) (test 107 meq/L 98-107 mgli=756) CO2 (BEAKER) (test 27 meq/L 22-29 tpko=079) BLOOD UREA NITROGEN 3 mg/dL 7-21 (BEAKER) (test lowp=331) CREATININE (BEAKER) (test 0.49 mg/dL 0.57-1.25 wlru=217) GLUCOSE RANDOM (BEAKER) 105 mg/dL 70-105 (test ntwq=770) CALCIUM (BEAKER) (test 7.3 mg/dL 8.4-10.2 nmmi=926) EGFR (BEAKER) (test 126 mL/min/1.73 sq m ESTIMATED GFR IS NOT uwca=6424) ACCURATE CREATININE CLEARANCE IN PREDICTING GLOMERULAR FILTRATION RATE. ESTIMATED GFR IS NOT APPLICABLE FOR DIALYSIS PATIENTS. [id number] 06:48:00 Test Item Value Reference Range Comments PHOSPHORUS (BEAKER) (test crfg=112) 2.3 mg/dL 2.3-4.7 [id number] 06:48:00 Test Item Value Reference Range Comments MAGNESIUM (BEAKER) (test nvgl=572) 1.7 mg/dL 1.6-2.6 CBC W/PLT COUNT & AUTO [id number] 05:46:00 Test Item Value Reference Range Comments WHITE BLOOD CELL COUNT (BEAKER) (test djpx=867) 7.7 K/ L 3.5-10.5 RED BLOOD CELL COUNT (BEAKER) (test jjbv=215) 3.44 M/ L 3.93-5.22 HEMOGLOBIN (BEAKER) (test oixu=686) 9.6 GM/DL 11.2-15.7 HEMATOCRIT (BEAKER) (test tyjw=260) 31.5 % 34.1-44.9 MEAN CORPUSCULAR VOLUME (BEAKER) (test qund=734) 91.6 fL 79.4-94.8 MEAN CORPUSCULAR HEMOGLOBIN (BEAKER) (test 27.9 pg 25.6-32.2 jecw=239) MEAN CORPUSCULAR HEMOGLOBIN CONC (BEAKER) (test 30.5 GM/DL 32.2-35.5 qlgw=966) RED CELL DISTRIBUTION WIDTH (BEAKER) (test 18.3 % 11.7-14.4 svyb=791) PLATELET COUNT (BEAKER) (test bjpa=676) 270 K/CU MM 150-450 MEAN PLATELET VOLUME (BEAKER) (test emfu=918) 9.8 fL 9.4-12.3 NUCLEATED RED BLOOD CELLS (BEAKER) (test 0 /100 WBC 0-0 yfhd=979) NEUTROPHILS RELATIVE PERCENT (BEAKER) (test 55 % utai=832) LYMPHOCYTES RELATIVE PERCENT (BEAKER) (test 30 % arsf=255) MONOCYTES RELATIVE PERCENT (BEAKER) (test 9 % sjlv=919) EOSINOPHILS RELATIVE PERCENT (BEAKER) (test 4 % xfgh=213) BASOPHILS RELATIVE PERCENT (BEAKER) (test 1 % bewg=203) NEUTROPHILS ABSOLUTE COUNT (BEAKER) (test 4.26 K/ L 1.56-6.13 sqom=931) LYMPHOCYTES ABSOLUTE COUNT (BEAKER) (test 2.30 K/ L 1.18-3.74 wfuy=877) MONOCYTES ABSOLUTE COUNT (BEAKER) (test 0.66 K/ L 0.24-0.36 difd=699) EOSINOPHILS ABSOLUTE COUNT (BEAKER) (test 0.34 K/ L 0.04-0.36 eqnv=980) BASOPHILS ABSOLUTE COUNT (BEAKER) (test 0.08 K/ L 0.01-0.08 volx=225) IMMATURE GRANULOCYTES-RELATIVE PERCENT (BEAKER) 1 % 0-1 (test qqht=5677) POCT-GLUCOSE [id number] 21:37:00 Test Item Value Reference Range Comments POC-GLUCOSE METER (BEAKER) 101 mg/dL 70-110 TESTED AT [address] (test bljj=6649) [facility] [address] POCT-GLUCOSE [id number] 16:58:00 Test Item Value Reference Range Comments POC-GLUCOSE METER (BEAKER) 107 mg/dL 70-110 TESTED AT [address] (test yhuu=5068) [place] [id number] POCT-GLUCOSE [id number] 13:05:00 Test Item Value Reference Range Comments POC-GLUCOSE METER (BEAKER) 99 mg/dL 70-[address] [facility] [address] [facility] (test sajx=1437) [facility] [address] BASIC METABOLIC [id number] 07:40:00 Test Item Value Reference Range Comments SODIUM (BEAKER) (test 135 meq/L 136-145 nukn=661) POTASSIUM (BEAKER) (test 3.7 meq/L 3.5-5.1 vdcf=652) CHLORIDE (BEAKER) (test 107 meq/L 98-107 utab=705) CO2 (BEAKER) (test 25 meq/L 22-29 wtly=579) BLOOD UREA NITROGEN 4 mg/dL 7-21 (BEAKER) (test rdfc=138) CREATININE (BEAKER) (test 0.50 mg/dL 0.57-1.25 tcif=195) GLUCOSE RANDOM (BEAKER) 105 mg/dL 70-105 (test owqk=298) CALCIUM (BEAKER) (test 7.2 mg/dL 8.4-10.2 kalb=469) EGFR (BEAKER) (test 123 mL/min/1.73 sq m ESTIMATED GFR IS NOT nbun=5406) ACCURATE CREATININE CLEARANCE IN PREDICTING GLOMERULAR FILTRATION RATE. ESTIMATED GFR IS NOT APPLICABLE FOR DIALYSIS PATIENTS. HEPATIC FUNCTION [id number] 07:40:00 Test Item Value Reference Range Comments TOTAL PROTEIN (BEAKER) (test ecti=277) 5.3 gm/dL 6.0-8.3 ALBUMIN (BEAKER) (test nkuv=5715) 1.9 g/dL 3.5-5.0 BILIRUBIN TOTAL (BEAKER) (test skwn=685) 1.0 mg/dL 0.2-1.2 BILIRUBIN DIRECT (BEAKER) (test oahg=280) 0.8 mg/dL 0.1-0.5 ALKALINE PHOSPHATASE (BEAKER) (test pift=519) 184 U/L 40-150 AST (SGOT) (BEAKER) (test rtsd=295) 135 U/L 5-34 ALT (SGPT) (BEAKER) (test mtbh=544) 69 U/L 6-55 [id number] 07:39:00 Test Item Value Reference Range Comments PHOSPHORUS (BEAKER) (test vcsv=753) 2.4 mg/dL 2.3-4.7 [id number] 07:39:00 Test Item Value Reference Range Comments MAGNESIUM (BEAKER) (test wpmt=328) 1.8 mg/dL 1.6-2.6 POCT-GLUCOSE [id number] 07:13:00 Test Item Value Reference Range Comments POC-GLUCOSE METER (BEAKER) 109 mg/dL 70-[address] [facility] [address] [facility] (test dlub=6498) [place] [address] CBC W/PLT COUNT & AUTO [id number] 06:45:00 Test Item Value Reference Range Comments WHITE BLOOD CELL COUNT (BEAKER) (test bvwh=100) 8.1 K/ L 3.5-10.5 RED BLOOD CELL COUNT (BEAKER) (test xgys=940) 3.34 M/ L 3.93-5.22 HEMOGLOBIN (BEAKER) (test rofw=645) 9.4 GM/DL 11.2-15.7 HEMATOCRIT (BEAKER) (test khek=802) 30.3 % 34.1-44.9 MEAN CORPUSCULAR VOLUME (BEAKER) (test gfys=604) 90.7 fL 79.4-94.8 MEAN CORPUSCULAR HEMOGLOBIN (BEAKER) (test 28.1 pg 25.6-32.2 xxvl=907) MEAN CORPUSCULAR HEMOGLOBIN CONC (BEAKER) (test 31.0 GM/DL 32.2-35.5 owjc=079) RED CELL DISTRIBUTION WIDTH (BEAKER) (test 18.6 % 11.7-14.4 oclz=012) PLATELET COUNT (BEAKER) (test gaac=360) 267 K/CU MM 150-450 MEAN PLATELET VOLUME (BEAKER) (test xlgm=851) 9.5 fL 9.4-12.3 NUCLEATED RED BLOOD CELLS (BEAKER) (test 0 /100 WBC 0-0 cfaa=471) NEUTROPHILS RELATIVE PERCENT (BEAKER) (test 56 % qvfh=540) LYMPHOCYTES RELATIVE PERCENT (BEAKER) (test 30 % bgnc=952) MONOCYTES RELATIVE PERCENT (BEAKER) (test 8 % efcz=624) EOSINOPHILS RELATIVE PERCENT (BEAKER) (test 5 % lgak=373) BASOPHILS RELATIVE PERCENT (BEAKER) (test 1 % keeh=949) NEUTROPHILS ABSOLUTE COUNT (BEAKER) (test 4.49 K/ L 1.56-6.13 qxqv=843) LYMPHOCYTES ABSOLUTE COUNT (BEAKER) (test 2.39 K/ L 1.18-3.74 tauj=776) MONOCYTES ABSOLUTE COUNT (BEAKER) (test 0.67 K/ L 0.24-0.36 rtkc=447) EOSINOPHILS ABSOLUTE COUNT (BEAKER) (test 0.38 K/ L 0.04-0.36 umti=130) BASOPHILS ABSOLUTE COUNT (BEAKER) (test 0.07 K/ L 0.01-0.08 ybji=998) IMMATURE GRANULOCYTES-RELATIVE PERCENT (BEAKER) 1 % 0-1 (test sinp=2568) POCT-GLUCOSE [id number] 23:36:00 Test Item Value Reference Range Comments POC-GLUCOSE METER (BEAKER) 109 mg/dL 70-110 TESTED AT [address] (test mgds=8616) [facility] [address] POCT-GLUCOSE [id number] 17:11:00 Test Item Value Reference Range Comments POC-GLUCOSE METER (BEAKER) 126 mg/dL 70-110 TESTED AT [address] (test ukae=1682) [facility] [address] POCT-GLUCOSE [id number] 12:17:00 Test Item Value Reference Range Comments POC-GLUCOSE METER (BEAKER) 119 mg/dL 70-110 TESTED AT [address] (test rtcm=6971) [facility] [address] BASIC METABOLIC [id number] 08:25:00 Test Item Value Reference Range Comments SODIUM (BEAKER) (test 139 meq/L 136-145 wkgv=288) POTASSIUM (BEAKER) (test 4.0 meq/L 3.5-5.1 Specimen slightly seim=191) hemolyzed CHLORIDE (BEAKER) (test 111 meq/L 98-107 cryh=352) CO2 (BEAKER) (test 25 meq/L 22-29 vchs=488) BLOOD UREA NITROGEN 3 mg/dL 7-21 (BEAKER) (test nrpz=151) CREATININE (BEAKER) (test 0.46 mg/dL 0.57-1.25 Specimen slightly ieje=078) hemolyzed GLUCOSE RANDOM (BEAKER) 98 mg/dL 70-105 (test lwiz=346) CALCIUM (BEAKER) (test 7.4 mg/dL 8.4-10.2 dqvs=154) EGFR (BEAKER) (test 135 mL/min/1.73 sq m ESTIMATED GFR IS NOT locc=5386) ACCURATE CREATININE CLEARANCE IN PREDICTING GLOMERULAR FILTRATION RATE. ESTIMATED GFR IS NOT APPLICABLE FOR DIALYSIS PATIENTS. HEPATIC FUNCTION [id number] 08:25:00 Test Item Value Reference Range Comments TOTAL PROTEIN (BEAKER) (test 5.5 gm/dL 6.0-8.3 Specimen slightly hemolyzed sdqz=763) ALBUMIN (BEAKER) (test 1.9 g/dL 3.5-5.0 Specimen slightly hemolyzed spjm=1382) BILIRUBIN TOTAL (BEAKER) (test 1.1 mg/dL 0.2-1.2 Specimen slightly hemolyzed fown=339) BILIRUBIN DIRECT (BEAKER) (test 0.6 mg/dL 0.1-0.5 Specimen slightly hemolyzed ojxj=673) ALKALINE PHOSPHATASE (BEAKER) 156 U/L 40-150 (test pqlm=051) AST (SGOT) (BEAKER) (test 111 U/L 5-34 Specimen slightly hemolyzed qvmh=752) ALT (SGPT) (BEAKER) (test 71 U/L 6-55 Specimen slightly hemolyzed kssv=048) [id number] 08:22:00 Test Item Value Reference Range Comments MAGNESIUM (BEAKER) (test 2.2 mg/dL 1.6-2.6 Specimen slightly hemolyzed wdze=297) [id number] 08:22:00 Test Item Value Reference Range Comments PHOSPHORUS (BEAKER) (test 2.7 mg/dL 2.3-4.7 Specimen slightly hemolyzed yxqv=446) CBC W/PLT COUNT & AUTO [id number] 05:53:00 Test Item Value Reference Range Comments WHITE BLOOD CELL COUNT (BEAKER) (test ztsu=165) 7.9 K/ L 3.5-10.5 RED BLOOD CELL COUNT (BEAKER) (test sbbu=461) 3.50 M/ L 3.93-5.22 HEMOGLOBIN (BEAKER) (test uikf=653) 9.8 GM/DL 11.2-15.7 HEMATOCRIT (BEAKER) (test guhl=639) 31.8 % 34.1-44.9 MEAN CORPUSCULAR VOLUME (BEAKER) (test nvik=215) 90.9 fL 79.4-94.8 MEAN CORPUSCULAR HEMOGLOBIN (BEAKER) (test 28.0 pg 25.6-32.2 iftq=317) MEAN CORPUSCULAR HEMOGLOBIN CONC (BEAKER) (test 30.8 GM/DL 32.2-35.5 xbry=632) RED CELL DISTRIBUTION WIDTH (BEAKER) (test 18.9 % 11.7-14.4 njyw=945) PLATELET COUNT (BEAKER) (test gebp=383) 179 K/CU MM 150-450 MEAN PLATELET VOLUME (BEAKER) (test effm=851) 11.1 fL 9.4-12.3 NUCLEATED RED BLOOD CELLS (BEAKER) (test 0 /100 WBC 0-0 omij=943) NEUTROPHILS RELATIVE PERCENT (BEAKER) (test 62 % hucg=133) LYMPHOCYTES RELATIVE PERCENT (BEAKER) (test 25 % jplg=207) MONOCYTES RELATIVE PERCENT (BEAKER) (test 9 % xcms=232) EOSINOPHILS RELATIVE PERCENT (BEAKER) (test 3 % mtak=776) BASOPHILS RELATIVE PERCENT (BEAKER) (test 1 % anol=851) NEUTROPHILS ABSOLUTE COUNT (BEAKER) (test 4.84 K/ L 1.56-6.13 pcgk=038) LYMPHOCYTES ABSOLUTE COUNT (BEAKER) (test 1.93 K/ L 1.18-3.74 ykrg=521) MONOCYTES ABSOLUTE COUNT (BEAKER) (test 0.73 K/ L 0.24-0.36 wgqk=259) EOSINOPHILS ABSOLUTE COUNT (BEAKER) (test 0.22 K/ L 0.04-0.36 vwul=440) BASOPHILS ABSOLUTE COUNT (BEAKER) (test 0.07 K/ L 0.01-0.08 zfhi=786) IMMATURE GRANULOCYTES-RELATIVE PERCENT (BEAKER) 1 % 0-1 (test mujg=4545) POCT-GLUCOSE [id number] 17:47:00 Test Item Value Reference Range Comments POC-GLUCOSE METER (BEAKER) 120 mg/dL 70-110 TESTED AT [address] (test eetn=8669) [facility] [address] POCT-GLUCOSE [id number] 12:41:00 Test Item Value Reference Range Comments POC-GLUCOSE METER (BEAKER) 123 mg/dL 70-110 TESTED AT [address] (test rpfl=0192) [facility] [address] SURGICALLY OBTAINED CULTURE + GRAM [id number] 09:30:00 Test Item Value Reference Range Comments CULTURE (BEAKER) (test ESCHERICHIA COLI <1+ Escherichia coli ugmw=6004) Amikacin (test code=1) Ampicillin + Sulbactam (test code=6) Aztreonam (test code=32) Cefepime (test code=51) Cefoxitin (test code=68) Ceftazidime (test code=27) Ceftriaxone (test code=52) Ertapenem (test code=38) Gentamicin (test code=18) Levofloxacin (test code=22) Meropenem (test code=34) Nitrofurantoin (test code=23) Piperacillin + Tazobactam (test code=29) Tetracycline (test code=2) Tobramycin (test code=25) Trimethoprim + Sulfamethoxazole (test code=47) CULTURE (BEAKER) (test <1+ Omaira albicans mzsa=9280) CULTURE (BEAKER) (test <1+ Enterococcus avium bldc=9713) CULTURE (BEAKER) (test 2+ Lactobacillus species rgsp=6182) GRAM STAIN RESULT (BEAKER) <1+ WBCs (test oisd=7030) GRAM STAIN RESULT (BEAKER) No organisms seen (test twzb=841392) BASIC METABOLIC [id number] 06:19:00 Test Item Value Reference Range Comments SODIUM (BEAKER) (test 137 meq/L 136-145 eznq=808) POTASSIUM (BEAKER) (test 3.6 meq/L 3.5-5.1 fsgs=455) CHLORIDE (BEAKER) (test 107 meq/L 98-107 vzhf=165) CO2 (BEAKER) (test 27 meq/L 22-29 kqrl=120) BLOOD UREA NITROGEN 3 mg/dL 7-21 (BEAKER) (test lnyi=194) CREATININE (BEAKER) (test 0.47 mg/dL 0.57-1.25 wyad=782) GLUCOSE RANDOM (BEAKER) 123 mg/dL 70-105 (test muto=766) CALCIUM (BEAKER) (test 7.0 mg/dL 8.4-10.2 qpcj=042) EGFR (BEAKER) (test 132 mL/min/1.73 sq m ESTIMATED GFR IS NOT anxe=7073) ACCURATE CREATININE CLEARANCE IN PREDICTING GLOMERULAR FILTRATION RATE. ESTIMATED GFR IS NOT APPLICABLE FOR DIALYSIS PATIENTS. HEPATIC FUNCTION [id number] 06:19:00 Test Item Value Reference Range Comments TOTAL PROTEIN (BEAKER) (test kncm=657) 4.9 gm/dL 6.0-8.3 ALBUMIN (BEAKER) (test fqbe=3646) 1.8 g/dL 3.5-5.0 BILIRUBIN TOTAL (BEAKER) (test bffc=124) 0.9 mg/dL 0.2-1.2 BILIRUBIN DIRECT (BEAKER) (test auul=660) 0.6 mg/dL 0.1-0.5 ALKALINE PHOSPHATASE (BEAKER) (test zdny=707) 160 U/L 40-150 AST (SGOT) (BEAKER) (test paih=152) 72 U/L 5-34 ALT (SGPT) (BEAKER) (test qnbb=659) 64 U/L 6-55 POCT-GLUCOSE [id number] 06:18:00 Test Item Value Reference Range Comments POC-GLUCOSE METER (BEAKER) 127 mg/dL 70-[address] [facility] [address] [facility] (test xqum=0561) [facility] [address] [id number] 06:12:00 Test Item Value Reference Range Comments PHOSPHORUS (BEAKER) (test pkit=696) 2.0 mg/dL 2.3-4.7 [id number] 06:12:00 Test Item Value Reference Range Comments MAGNESIUM (BEAKER) (test aavn=817) 1.7 mg/dL 1.6-2.6 CBC W/PLT COUNT & AUTO [id number] 04:53:00 Test Item Value Reference Range Comments WHITE BLOOD CELL COUNT (BEAKER) (test fecy=839) 8.2 K/ L 3.5-10.5 RED BLOOD CELL COUNT (BEAKER) (test bcpq=905) 3.23 M/ L 3.93-5.22 HEMOGLOBIN (BEAKER) (test wpmk=392) 9.1 GM/DL 11.2-15.7 HEMATOCRIT (BEAKER) (test nrtq=995) 28.7 % 34.1-44.9 MEAN CORPUSCULAR VOLUME (BEAKER) (test dnes=796) 88.9 fL 79.4-94.8 MEAN CORPUSCULAR HEMOGLOBIN (BEAKER) (test 28.2 pg 25.6-32.2 rbjm=621) MEAN CORPUSCULAR HEMOGLOBIN CONC (BEAKER) (test 31.7 GM/DL 32.2-35.5 hoou=531) RED CELL DISTRIBUTION WIDTH (BEAKER) (test 18.6 % 11.7-14.4 lhdk=587) PLATELET COUNT (BEAKER) (test qvdy=181) 293 K/CU MM 150-450 MEAN PLATELET VOLUME (BEAKER) (test uqwx=890) 9.5 fL 9.4-12.3 NUCLEATED RED BLOOD CELLS (BEAKER) (test 0 /100 WBC 0-0 yopi=545) NEUTROPHILS RELATIVE PERCENT (BEAKER) (test 60 % ovzw=200) LYMPHOCYTES RELATIVE PERCENT (BEAKER) (test 25 % igap=874) MONOCYTES RELATIVE PERCENT (BEAKER) (test 9 % imxf=150) EOSINOPHILS RELATIVE PERCENT (BEAKER) (test 3 % sinx=541) BASOPHILS RELATIVE PERCENT (BEAKER) (test 1 % qfbm=658) NEUTROPHILS ABSOLUTE COUNT (BEAKER) (test 4.91 K/ L 1.56-6.13 jazi=695) LYMPHOCYTES ABSOLUTE COUNT (BEAKER) (test 2.06 K/ L 1.18-3.74 gfnj=193) MONOCYTES ABSOLUTE COUNT (BEAKER) (test 0.77 K/ L 0.24-0.36 xpev=634) EOSINOPHILS ABSOLUTE COUNT (BEAKER) (test 0.24 K/ L 0.04-0.36 ikde=827) BASOPHILS ABSOLUTE COUNT (BEAKER) (test 0.08 K/ L 0.01-0.08 tgps=444) IMMATURE GRANULOCYTES-RELATIVE PERCENT (BEAKER) 1 % 0-1 (test qvsk=9996) POCT-GLUCOSE [id number] 00:46:00 Test Item Value Reference Range Comments POC-GLUCOSE METER (BEAKER) 130 mg/dL 70-[address] [facility] [address] [facility] (test ylsb=8930) [facility] [address] URINALYSIS W/ REFLEX URINE [id number] 14:46:00 Test Item Value Reference Range Comments COLOR (BEAKER) (test pcwy=073) Yellow CLARITY (BEAKER) (test kbeu=508) Clear SPECIFIC GRAVITY UA (BEAKER) (test lzma=606) 1.016 1.001-1.035 PH UA (BEAKER) (test vsie=095) 8.0 5.0-8.0 PROTEIN UA (BEAKER) (test hbvl=343) 10 mg/dL Negative GLUCOSE UA (BEAKER) (test kkbp=173) Negative Negative KETONES UA (BEAKER) (test zucb=050) Negative Negative BILIRUBIN UA (BEAKER) (test grpf=662) Negative Negative BLOOD UA (BEAKER) (test mlbe=940) Small Negative NITRITE UA (BEAKER) (test qxbw=800) Negative Negative LEUKOCYTE ESTERASE UA (BEAKER) (test zmfi=115) Negative Negative UROBILINOGEN UA (BEAKER) (test rngb=413) 0.2 mg/dL 0.2-1.0 RBC UA (BEAKER) (test jeui=730) 29 /HPF WBC UA (BEAKER) (test xwnq=356) 2 /HPF MUCUS (BEAKER) (test grus=3073) Rare SQUAMOUS EPITHELIAL (BEAKER) (test frho=742) 1 /HPF SOURCE(BEAKER) (test umku=3943) POCT-GLUCOSE [id number] 12:47:00 Test Item Value Reference Range Comments POC-GLUCOSE METER (BEAKER) 141 mg/dL 70-110 TESTED AT [address] (test gvet=7531) [place] [address] POCT-GLUCOSE [id number] 09:07:00 Test Item Value Reference Range Comments POC-GLUCOSE METER (BEAKER) 131 mg/dL 70-110 TESTED AT [address] (test sdsm=2826) [place] [address] BASIC METABOLIC [id number] 06:19:00 Test Item Value Reference Range Comments SODIUM (BEAKER) (test 134 meq/L 136-145 jzju=562) POTASSIUM (BEAKER) (test 3.3 meq/L 3.5-5.1 civf=514) CHLORIDE (BEAKER) (test 102 meq/L 98-107 hfif=299) CO2 (BEAKER) (test 25 meq/L 22-29 kdpa=431) BLOOD UREA NITROGEN 3 mg/dL 7-21 (BEAKER) (test gekp=457) CREATININE (BEAKER) (test 0.47 mg/dL 0.57-1.25 iwao=148) GLUCOSE RANDOM (BEAKER) 132 mg/dL 70-105 (test refs=789) CALCIUM (BEAKER) (test 7.2 mg/dL 8.4-10.2 jtnb=622) EGFR (BEAKER) (test 132 mL/min/1.73 sq m ESTIMATED GFR IS NOT zbff=9896) ACCURATE CREATININE CLEARANCE IN PREDICTING GLOMERULAR FILTRATION RATE. ESTIMATED GFR IS NOT APPLICABLE FOR DIALYSIS PATIENTS. HEPATIC FUNCTION [id number] 06:19:00 Test Item Value Reference Range Comments TOTAL PROTEIN (BEAKER) (test bpaa=587) 5.1 gm/dL 6.0-8.3 ALBUMIN (BEAKER) (test cnuo=8419) 1.9 g/dL 3.5-5.0 BILIRUBIN TOTAL (BEAKER) (test woxm=876) 1.1 mg/dL 0.2-1.2 BILIRUBIN DIRECT (BEAKER) (test zwey=133) 0.8 mg/dL 0.1-0.5 ALKALINE PHOSPHATASE (BEAKER) (test hhbv=932) 177 U/L 40-150 AST (SGOT) (BEAKER) (test lkkk=292) 85 U/L 5-34 ALT (SGPT) (BEAKER) (test ilpy=553) 75 U/L 6-55 [id number] 06:18:00 Test Item Value Reference Range Comments PHOSPHORUS (BEAKER) (test jwoz=096) 1.9 mg/dL 2.3-4.7 [id number] 06:18:00 Test Item Value Reference Range Comments MAGNESIUM (BEAKER) (test gjdf=588) 1.8 mg/dL 1.6-2.6 POCT-GLUCOSE [id number] 06:06:00 Test Item Value Reference Range Comments POC-GLUCOSE METER (BEAKER) 139 mg/dL 70-[address] [facility] [address] [facility] (test jbcm=9679) [place] [address] CBC W/PLT COUNT & AUTO [id number] 03:40:00 Test Item Value Reference Range Comments WHITE BLOOD CELL COUNT (BEAKER) (test cjvo=953) 10.2 K/ L 3.5-10.5 RED BLOOD CELL COUNT (BEAKER) (test iipc=535) 3.78 M/ L 3.93-5.22 HEMOGLOBIN (BEAKER) (test sane=483) 10.7 GM/DL 11.2-15.7 HEMATOCRIT (BEAKER) (test lpne=128) 33.4 % 34.1-44.9 MEAN CORPUSCULAR VOLUME (BEAKER) (test ykdw=485) 88.4 fL 79.4-94.8 MEAN CORPUSCULAR HEMOGLOBIN (BEAKER) (test 28.3 pg 25.6-32.2 cifd=495) MEAN CORPUSCULAR HEMOGLOBIN CONC (BEAKER) (test 32.0 GM/DL 32.2-35.5 qnet=231) RED CELL DISTRIBUTION WIDTH (BEAKER) (test 18.4 % 11.7-14.4 qibj=535) PLATELET COUNT (BEAKER) (test bzbd=045) 341 K/CU MM 150-450 MEAN PLATELET VOLUME (BEAKER) (test ijmo=234) 9.1 fL 9.4-12.3 NUCLEATED RED BLOOD CELLS (BEAKER) (test 0 /100 WBC 0-0 ebzh=770) (CELLAVISION MANUAL DIFF)[id number] 03:40:00 Test Item Value Reference Range Comments NEUTROPHILS - REL (CELLAVISION)(BEAKER) (test 65 % fqpq=5690) LYMPHOCYTES - REL (CELLAVISION)(BEAKER) (test 6 % czmp=4727) MONOCYTES - REL (CELLAVISION)(BEAKER) (test 6 % xxbj=9982) EOSINOPHILS - REL (CELLAVISION)(BEAKER) (test 2 % qomp=2726) MYELOCYTES - REL (CELLAVISION)(BEAKER) (test 1 % 0-0 slqs=6837) BANDS - REL (CELLAVISION)(BEAKER) (test 17 % 0-10 sabs=1453) ATYPICAL LYMPHOCYTES - REL (CELLAVISION)(BEAKER) 2 % 0-0 (test qwxs=3016) NEUTROPHILS - ABS (CELLAVISION)(BEAKER) (test 6.63 K/ul 1.56-6.13 iqxs=8350) LYMPHOCYTES - ABS (CELLAVISION)(BEAKER) (test 0.61 K/ul 1.18-3.74 rjpf=7940) MONOCYTES - ABS (CELLAVISION)(BEAKER) (test 0.61 K/uL 0.24-0.36 fmtd=2887) EOSINOPHILS - ABS (CELLAVISION)(BEAKER) (test 0.20 K/uL 0.04-0.36 hihp=4051) MYELOCYTES-ABS (CELLAVISION)(BEAKER) (test 0.10 K/uL 0.00-0.00 dqdm=8225) BANDS - ABS (CELLAVISION)(BEAKER) (test 1.73 K/uL 0.00-0.80 woei=8409) ATYPICAL LYMPHOCYTES - ABS (CELLAVISION)(BEAKER) 0.20 K/uL 0.00-0.00 (test mcib=8236) TOTAL COUNTED (BEAKER) (test vems=3187) 100 SMUDGE CELLS (BEAKER) (test edkp=8427) Present GIANT PLATELETS (BEAKER) (test liwa=253) Present POLYCHROMATOPHILLIC RBCS(BEAKER) (test lnef=977) 3+ many HYPOCHROMIA (BEAKER) (test shrf=250) 1+ few ANISOCYTOSIS (BEAKER) (test ztyx=596) 1+ few POIKILOCYTES (BEAKER) (test egyb=017) 2+ moderate TARGET CELLS (BEAKER) (test uuds=374) 1+ few ELLIPTOCYTES (BEAKER) (test migf=971) 1+ few TEAR DROP CELLS (BEAKER) (test zwtf=325) 1+ few STOMATOCYTES (BEAKER) (test sbyy=994) 1+ few PLATELET CONCENTRATION (CELLAVISION)(BEAKER) Adequate (test xhdx=3416) Received comment: User comments: Slide comments:CT, [id number] 03:30: 00FINAL REPORT TECHNIQUE: CT of the abdomen and [...] ducts suggestive of prior sphincterectomy. No biliary ductaldilatation.SPLEEN: No splenomegaly.PANCREAS: No focal masses or ductal dilatation. ADRENALS: No adrenal nodules.KIDNEYS/URETERS: Unchanged caliber of the mildly dilated right renal collecting system and interval decreased left hydronephroureter. The left ureteral stent is satisfactory in position.PELVIC ORGANS/BLADDER: Bladder is unremarkable. Unchanged cystic structure in the left pelvis with axial dimensions of 4.3 x 3.5 cm likely representing a left ovarian cyst. PERITONEUM/ RETROPERITONEUM: Thereis a small amount of free air within the dependent pelvis and lower abdomen likely related to recentpostsurgical changes. A left percutaneous drain tip terminates in the right aspect of the pelvis. Interval decreased size of the pelvic ring-enhancing collections. There is a residual fluid collection extending from the presacral region superiorly with measurements of approximately 1.5 x 2.3 x 6.8 cm (axial images 53-66).LYMPH NODES: No lymphadenopathy.VESSELS: Mild atherosclerosis. GI TRACT: Extensive postsurgical changes [...] tissues. Mild anasarca. Osseous structures are unremarkable. IMPRESSION:1. Postsurgical changes from sigmoidectomy, small bowel resections , and right lower quadrant diverting ileostomy. A left percutaneous drain terminates in the pelvis with interval decreased size of the rim-enhancing pelvic collections. There is residual small organizing fluid collection extending superiorly from the presacral region which may be postsurgical related or residual abscess.2. Mildly dilated loops of small bowel in the left upper quadrant with tapering distally suggestive of adynamic ileus versus a low- grade obstruction.3. Orthotopic left ureteral stent with interval decreased mild left hydronephroureter.4. Postsurgical changes from cholecystectomy and ERCP.5. Unchanged circumscribed cystic lesion in the left pelvis likely arising from theleft adnexa. Signed: Zoran Chase MDReport Verified Date/Time: 2018 03:30:03 Reading Location: [facility] C013T Transitional Reading Room POCT-GLUCOSE [id number] 23:32:00 Test Item Value Reference Range Comments POC-GLUCOSE METER (BEAKER) 123 mg/dL 70-110 TESTED AT [address] (test lebp=7982) [facility] [address] POCT-GLUCOSE [id number] 18:48:00 Test Item Value Reference Range Comments POC-GLUCOSE METER (BEAKER) 113 mg/dL 70-110 TESTED AT [address] (test mjup=7247) [facility] [address] POCT-GLUCOSE [id number] 16:18:00 Test Item Value Reference Range Comments POC-GLUCOSE METER (BEAKER) 99 mg/dL 70-110 TESTED AT [address] (test ehjv=8970) [facility] [id number] POCT-GLUCOSE [id number] 12:50:00 Test Item Value Reference Range Comments POC-GLUCOSE METER (BEAKER) 46 mg/dL 70-110 TESTED AT [address] (test ftcr=9490) [facility] [address] CBC W/PLT COUNT & AUTO [id number] 09:22:00 Test Item Value Reference Range Comments WHITE BLOOD CELL COUNT (BEAKER) (test nlri=599) 8.9 K/ L 3.5-10.5 RED BLOOD CELL COUNT (BEAKER) (test zfww=031) 3.21 M/ L 3.93-5.22 HEMOGLOBIN (BEAKER) (test venz=115) 8.9 GM/DL 11.2-15.7 HEMATOCRIT (BEAKER) (test joiw=148) 30.0 % 34.1-44.9 MEAN CORPUSCULAR VOLUME (BEAKER) (test avup=039) 93.5 fL 79.4-94.8 MEAN CORPUSCULAR HEMOGLOBIN (BEAKER) (test 27.7 pg 25.6-32.2 xznm=702) MEAN CORPUSCULAR HEMOGLOBIN CONC (BEAKER) (test 29.7 GM/DL 32.2-35.5 eehd=671) RED CELL DISTRIBUTION WIDTH (BEAKER) (test 18.2 % 11.7-14.4 elkb=681) PLATELET COUNT (BEAKER) (test gnex=863) 235 K/CU MM 150-450 MEAN PLATELET VOLUME (BEAKER) (test eikv=692) 9.9 fL 9.4-12.3 NUCLEATED RED BLOOD CELLS (BEAKER) (test 0 /100 WBC 0-0 uujy=605) (MANUAL DIFFERENTIAL)2018-09-09 09:22:00 Test Item Value Reference Range Comments NEUTROPHILS - REL (DIFF) (BEAKER) (test hhsk=1704) 68 % LYMPHOCYTES - REL (DIFF) (BEAKER) (test jcig=5031) 14 % MONOCYTES - REL (DIFF) (BEAKER) (test hani=0101) 9 % EOSINOPHILS - REL (DIFF) (BEAKER) (test elws=9651) 1 % METAMYELOCYTES-REL (DIFF) (BEAKER) (test wxmq=374) 2 % 0-0 MYELOCYTES-REL (DIFF) (BEAKER) (test xbah=0326) 3 % 0-0 BANDS - REL (DIFF) (BEAKER) (test hxzl=7688) 3 % 0-10 NEUTROPHILS - ABS (DIFF) (BEAKER) (test gksb=9304) 6.05 K/ L 1.80-8.00 LYMPHOCYTES - ABS (DIFF) (BEAKER) (test aqdf=0240) 1.25 K/ L 1.48-4.50 MONOCYTES - ABS (DIFF) (BEAKER) (test jnab=7573) 0.80 K/ L 0.00-1.30 EOSINOPHILS - ABS (DIFF) (BEAKER) (test ogek=6738) 0.09 K/ L 0.00-0.50 METAMYELOCTYES - ABS (DIFF) (BEAKER) (test 0.18 K/ L 0.00-0.00 sfnh=096) BANDS-ABS (DIFF) (BEAKER) (test xwcp=3922) 0.3 K/ L 0.0-0.8 MYELOCYTES-ABS (DIFF) (BEAKER) (test ttct=8044) 0.27 K/ L 0.00-0.00 TOTAL COUNTED (BEAKER) (test ugmx=2318) 100 BANDS + SEGMENTED NEUTROPHILS (BEAKER) (test 6.32 gdmv=3829) WBC MORPHOLOGY (BEAKER) (test aroz=037) Normal PLT MORPHOLOGY (BEAKER) (test opkx=868) Normal RBC MORPHOLOGY (BEAKER) (test fdtw=047) Normal HEPATIC FUNCTION [id number] 09:00:00 Test Item Value Reference Range Comments TOTAL PROTEIN (BEAKER) (test epdk=005) 4.9 gm/dL 6.0-8.3 ALBUMIN (BEAKER) (test mchd=4759) 1.9 g/dL 3.5-5.0 BILIRUBIN TOTAL (BEAKER) (test jdmb=721) 1.2 mg/dL 0.2-1.2 BILIRUBIN DIRECT (BEAKER) (test itco=412) 0.8 mg/dL 0.1-0.5 ALKALINE PHOSPHATASE (BEAKER) (test eabx=360) 193 U/L 40-150 AST (SGOT) (BEAKER) (test bizp=501) 129 U/L 5-34 ALT (SGPT) (BEAKER) (test hbiz=832) 95 U/L 6-55 BASIC METABOLIC [id number] 09:00:00 Test Item Value Reference Range Comments SODIUM (BEAKER) (test 138 meq/L 136-145 tmbj=041) POTASSIUM (BEAKER) (test 3.4 meq/L 3.5-5.1 affi=682) CHLORIDE (BEAKER) (test 101 meq/L 98-107 udrr=511) CO2 (BEAKER) (test 31 meq/L 22-29 ijak=658) BLOOD UREA NITROGEN 4 mg/dL 7-21 (BEAKER) (test byvy=298) CREATININE (BEAKER) (test 0.41 mg/dL 0.57-1.25 toub=083) GLUCOSE RANDOM (BEAKER) 79 mg/dL 70-105 (test beeh=432) CALCIUM (BEAKER) (test 7.3 mg/dL 8.4-10.2 xipf=793) EGFR (BEAKER) (test 154 mL/min/1.73 sq m ESTIMATED GFR IS NOT ceug=2812) ACCURATE CREATININE CLEARANCE IN PREDICTING GLOMERULAR FILTRATION RATE. ESTIMATED GFR IS NOT APPLICABLE FOR DIALYSIS PATIENTS. [id number] 08:46:00 Test Item Value Reference Range Comments PHOSPHORUS (BEAKER) (test ijfg=967) 2.5 mg/dL 2.3-4.7 [id number] 08:46:00 Test Item Value Reference Range Comments MAGNESIUM (BEAKER) (test viwp=100) 1.5 mg/dL 1.6-2.6 POCT-GLUCOSE [id number] 21:21:00 Test Item Value Reference Range Comments POC-GLUCOSE METER (BEAKER) 90 mg/dL 70-110 TESTED AT [address] (test jqnk=7201) [facility] [address] POCT-GLUCOSE [id number] 18:45:00 Test Item Value Reference Range Comments POC-GLUCOSE METER (BEAKER) 97 mg/dL 70-110 TESTED AT [address] (test qnlg=2332) [facility] [address] POCT-GLUCOSE [id number] 16:59:00 Test Item Value Reference Range Comments POC-GLUCOSE METER (BEAKER) 100 mg/dL 70-110 TESTED AT [address] (test kejd=4812) [place] [id number] POCT-GLUCOSE [id number] 12:33:00 Test Item Value Reference Range Comments POC-GLUCOSE METER (BEAKER) 95 mg/dL 70-110 TESTED AT [address] (test xddo=5541) [facility] [address] BASIC METABOLIC [id number] 09:41:00 Test Item Value Reference Range Comments SODIUM (BEAKER) (test 137 meq/L 136-145 qkxn=407) POTASSIUM (BEAKER) (test 3.4 meq/L 3.5-5.1 ahex=526) CHLORIDE (BEAKER) (test 100 meq/L 98-107 mtji=070) CO2 (BEAKER) (test 29 meq/L 22-29 ltbu=954) BLOOD UREA NITROGEN 4 mg/dL 7-21 (BEAKER) (test igvz=095) CREATININE (BEAKER) (test 0.48 mg/dL 0.57-1.25 grzz=352) GLUCOSE RANDOM (BEAKER) 114 mg/dL 70-105 (test ipax=156) CALCIUM (BEAKER) (test 7.6 mg/dL 8.4-10.2 hskv=714) EGFR (BEAKER) (test 129 mL/min/1.73 sq m ESTIMATED GFR IS NOT wnma=1680) ACCURATE CREATININE CLEARANCE IN PREDICTING GLOMERULAR FILTRATION RATE. ESTIMATED GFR IS NOT APPLICABLE FOR DIALYSIS PATIENTS. POCT-GLUCOSE [id number] 08:58:00 Test Item Value Reference Range Comments POC-GLUCOSE METER (BEAKER) 102 mg/dL 70-[address] [facility] [address] (test xxxr=0625) [facility] [address] RAD, ABDOMEN/KUB, 1 VIEW [id number] 08:46:00Include stomach \\T\\ rectumReason for exam:->abd distention, vomitingShould this be performed at the bedside?-& gt;YesFINAL REPORT RAD, ABDOMEN/KUB, 1 VIEW AP CLINICAL INDICATION: abd distention,vomiting COMPARISON: CT abdomen and pelvis 08/31/2018 TECHNIQUE: AP supine view of the abdomen FINDINGS: Left nephroureteral stent, right upper quadrant surgical clips, and pelvic drains in place. Supine positioning limits evaluation for free air. There is an air-filled mildly distended loop of small bowel in the left upper abdomen. Transverse colon is also air-filled without significant stool burden.Air is present distally in the rectum. No acute osseous abnormality. Extensive soft tissue swelling/anasarca, more than expected based on prior CT. IMPRESSION:1.Mildly distended air-filled loop of small bowel within the left upper abdomen, overall nonobstructive bowel gas pattern.2.Interval development of marked abdominal wall soft tissue swelling /anasarca. Signed: Jet Jaramillo Verified Date/Time: 09/08/2018 08:46 :30 Reading Location: [facility] Radiology Reading Room [id number] 07:53:00 Test Item Value Reference Range Comments MAGNESIUM (BEAKER) (test kqbn=805) 1.6 mg/dL 1.6-2.6 [id number] 07:53:00 Test Item Value Reference Range Comments PHOSPHORUS (BEAKER) (test dlmk=009) 2.6 mg/dL 2.3-4.7 CBC W/PLT COUNT & AUTO [id number] 07:05:00 Test Item Value Reference Range Comments WHITE BLOOD CELL COUNT 14.1 K/ L 3.5-10.5 (BEAKER) (test jwjz=195) RED BLOOD CELL COUNT (BEAKER) 3.87 M/ L 3.93-5.22 (test eorj=034) HEMOGLOBIN (BEAKER) (test 11.0 GM/DL 11.2-15.7 ezff=099) HEMATOCRIT (BEAKER) (test 34.3 % 34.1-44.9 rcye=332) MEAN CORPUSCULAR VOLUME 88.6 fL 79.4-94.8 (BEAKER) (test kxrr=440) MEAN CORPUSCULAR HEMOGLOBIN 28.4 pg 25.6-32.2 (BEAKER) (test vtph=082) MEAN CORPUSCULAR HEMOGLOBIN 32.1 GM/DL 32.2-35.5 CONC (BEAKER) (test ttbi=090) RED CELL DISTRIBUTION WIDTH 17.6 % 11.7-14.4 (BEAKER) (test ekoj=243) PLATELET COUNT (BEAKER) (test 399 K/CU MM 150-450 Discordant PLT results zjxb=369) compared to previous results; clinical correlation required. MEAN PLATELET VOLUME (BEAKER) 9.8 fL 9.4-12.3 (test qnyq=121) NUCLEATED RED BLOOD CELLS 0 /100 WBC 0-0 (BEAKER) (test szsk=572) (CELLAVISION MANUAL DIFF)2018-09-08 07:05:00 Test Item Value Reference Range Comments NEUTROPHILS - REL (CELLAVISION)(BEAKER) (test 87 % utqz=2257) LYMPHOCYTES - REL (CELLAVISION)(BEAKER) (test 6 % bebg=1544) MONOCYTES - REL (CELLAVISION)(BEAKER) (test 4 % ychw=2131) EOSINOPHILS - REL (CELLAVISION)(BEAKER) (test 2 % igal=9599) ATYPICAL LYMPHOCYTES - REL (CELLAVISION)(BEAKER) 1 % 0-0 (test hcos=3100) NEUTROPHILS - ABS (CELLAVISION)(BEAKER) (test 12.27 K/ul 1.56-6.13 gptx=2153) LYMPHOCYTES - ABS (CELLAVISION)(BEAKER) (test 0.85 K/ul 1.18-3.74 dfmg=1027) MONOCYTES - ABS (CELLAVISION)(BEAKER) (test 0.56 K/uL 0.24-0.36 lvup=3755) EOSINOPHILS - ABS (CELLAVISION)(BEAKER) (test 0.28 K/uL 0.04-0.36 axac=9524) ATYPICAL LYMPHOCYTES - ABS (CELLAVISION)(BEAKER) 0.14 K/uL 0.00-0.00 (test idcj=7979) TOTAL COUNTED (BEAKER) (test fqra=4197) 100 MANUAL NRBC PER 100 CELLS (BEAKER) (test 1 /100 WBC 0-0 jjlg=4233) WBC MORPHOLOGY (BEAKER) (test deqi=869) Normal PLT MORPHOLOGY (BEAKER) (test mbct=879) Normal POLYCHROMATOPHILLIC RBCS(BEAKER) (test bwnx=156) 1+ few ARTIFACT (CELLAVISION)(BEAKER) (test mqho=0617) Present PLATELET CONCENTRATION (CELLAVISION)(BEAKER) Adequate (test twnu=9702) Received comment: User comments: Slide comments:POCT-GLUCOSE [id number] 22: 12:00 Test Item Value Reference Range Comments POC-GLUCOSE METER (BEAKER) 128 mg/dL 70-110 TESTED AT [address] (test smge=5873) [place] [address] POCT-GLUCOSE [id number] 17:32:00 Test Item Value Reference Range Comments POC-GLUCOSE METER (BEAKER) 154 mg/dL 70-110 TESTED AT [address] (test dpvk=4766) [place] [address] TISSUE [id number] 15:41:00Surgical Pathology Report Case: [id number] Authorizing Provider: Naseem Jimenez MD Collected: 09/03/2018 1347 Ordering Location: [facility] PERIOPERATIVE Received: 09/03/2018 1636 SERVICES Pathologist: Stella Krishnan MD Specimens: A) - Small Bowel, NOS B) - Large Intestine, Colon - Sigmoid A. SMALL BOWEL, SEGMENTAL RESECTION: - ABSCESSES, GRANULATION TISSUE, CHRONIC INFLAMMATION AND FOREIGNJ BODY REACTION TO EXOGENOUS MATERIAL - FAT NECROSIS IN SUBSEROSAL FAT- SEROSAL ADHESIONS- ONE MARGIN OF RESECTION WITH SEROSAL ADHESIONS- A BENIGN LYMPH NODE- NEGATIVE FOR DYSPLASIA OR MALIGNANCYB. SIGMOID COLON, RESECTION:- RUPTURED DIVERTICULITIS WITH ABSCESSES, ACUTE AND CHRONIC INFLAMMATION, GRANULATION TISSUE, FOREIGN BODY REACTION AND FIBROSIS - DIVERTICULOSIS - SEROSAL ADHESIONS - UNREMARKABLE SURGICAL MARGINS - FIFTEEN BENIGN LYMPH NODES (0/15) - NEGATIVE FOR DYSPLASIA OR MALIGNANCY Signing Pathologist Direct Phone Line: [phone]. Small bowel. B. Large intestine, colon-sigmoidA. Received fresh labeled with the patient's name, accession number and "small bowel, NOS" is an unoriented segment of smallbowel measuring 15 cm in length and 2.5 cm in diameter. There is a moderate amount of attached mesenteric adipose tissue.There is an area of adhesion surrounded by [...] There is fat necrosis present in the mesentery adjacent to the area of adhesion. There is one possible pink lymph node measuring 0.4 x 0.3 x 0.3 cm. Event Security Officer sections are submitted.Section code:A1, margin closest to area of adhesion, en face, in its entirety A2, margin further away from area of adhesion, en face, in its entirety A3-A4, guest experience representative of area of adhesionA5-A6, guest experience representative of area of adhesion to mucosa A7, uninvolved mucosa and one possible lymph node bisected B. Received fresh labeled with the patient's name, accession number and "large intestine, colon-sigmoid" is a 29.5 cm in length x 3.5 cm in diameter segment of colon. There is a minimal amount of attached mesenteric adipose tissue.The serosadisplays a focal area of adhesions surrounded by hemorrhage and exudate located 6.5 cm from the proximal margin. Located 3 cm distal to this area is a firm area with adhesions, which is 10.5 cm from the proximal margin and 8.5 cm from the distal margin. The remaining serosa is dusky , lavender-pink andsmooth to shaggy. The specimen is opened to reveal numerous diverticula throughout. The diverticula involve both areas of adhesions. The wall is markedly thickened, up to 1.6 cm. No areas of perforation are identified. The remaining mucosa is mock-pink and smooth with normal architecture. There are multiple pink-rogel lymph nodes ranging 0.3-0.8 cm. Event Security Officer sections are submitted.Ink code: Blue-area of adhesion closest to proximal margin, black-area of adhesion closest to distal margin.Section code :B1, guest experience representative of proximal margin, en faceB2, guest experience representative of distal margin, en faceB3-B4,guest experience representative of diverticula with area of adhesion closest to proximal margin, full-thickness B5-B6, guest experience representative of diverticula with area of adhesion closest to proximal margin, full-thickness B7-B8, guest experience representative of diverticula with area of adhesion closest to distal margin, mljk-snoztituuM8-R40, guest experience representative of diverticula with area of adhesion closest to distal margin, full-mhvrkfbfqZ06, uninvolved injqgqA77-I62, one lymph node bisected in each spvvbeibG49, four possible intact lymph zrmbiJ28, two possible intact lymph nodes CG/ew performedPOCT-GLUCOSE [id number] 11: 57:00 Test Item Value Reference Range Comments POC-GLUCOSE METER ([facility]) 110 mg/dL 70-110 TESTED AT [address] (test kixq=0244) [facility] [address] POCT-GLUCOSE [id number] 08:09:00 Test Item Value Reference Range Comments POC-GLUCOSE METER ([facility]) 84 mg/dL 70-110 TESTED AT [address] (test wbdx=5220) [facility] [address] HERPES VIRUS ANTIBODY, [id number] 07:20:00 Test Item Value Reference Range Comments HERPES VIRUS IGM ([facility]) (test vzhr=3287) Negative [facility] & AUTO [id number] 06:48:00 Test Item Value Reference Range Comments WHITE BLOOD CELL COUNT ([facility]) (test afja=478) 7.9 K/ L 3.5-10.5 RED BLOOD CELL COUNT ([facility]) (test fckw=801) 3.14 M/ L 3.93-5.22 HEMOGLOBIN (AKER) (test cdrp=081) 8.8 GM/DL 11.2-15.7 HEMATOCRIT ([facility]) (test evjl=873) 27.9 % 34.1-44.9 MEAN CORPUSCULAR VOLUME ([facility]) (test djry=060) 88.9 fL 79.4-94.8 MEAN CORPUSCULAR HEMOGLOBIN (BEAKER) (test 28.0 pg 25.6-32.2 xzra=499) MEAN CORPUSCULAR HEMOGLOBIN CONC (BEAKER) (test 31.5 GM/DL 32.2-35.5 bhml=693) RED CELL DISTRIBUTION WIDTH (BEAKER) (test 17.3 % 11.7-14.4 ctem=830) PLATELET COUNT (BEAKER) (test hfzr=368) 246 K/CU MM 150-450 MEAN PLATELET VOLUME (BEAKER) (test uqqp=090) 9.7 fL 9.4-12.3 NUCLEATED RED BLOOD CELLS (BEAKER) (test 0 /100 WBC 0-0 rptz=227) (CELLAVISION MANUAL DIFF)2018-09-07 06:48:00 Test Item Value Reference Range Comments NEUTROPHILS - REL (CELLAVISION)(BEAKER) (test 67 % gxjw=2544) LYMPHOCYTES - REL (CELLAVISION)(BEAKER) (test 4 % lczt=2415) EOSINOPHILS - REL (CELLAVISION)(BEAKER) (test 5 % dxme=9314) METAMYELOCYTES - REL (CELLAVISION)(BEAKER) (test 5 % 0-0 nvod=7598) MYELOCYTES - REL (CELLAVISION)(BEAKER) (test 1 % 0-0 unic=6042) PROMYELOCYTES - REL (CELLAVSION)(BEAKER) (test 1 % 0-0 oden=5903) BANDS - REL (CELLAVISION)(BEAKER) (test exjg=5811) 15 % 0-10 ATYPICAL LYMPHOCYTES - REL (CELLAVISION)(BEAKER) 1 % 0-0 (test qvkp=4312) NEUTROPHILS - ABS (CELLAVISION)(BEAKER) (test 5.29 K/ul 1.56-6.13 xvas=3259) LYMPHOCYTES - ABS (CELLAVISION)(BEAKER) (test 0.32 K/ul 1.18-3.74 trnb=3953) EOSINOPHILS - ABS (CELLAVISION)(BEAKER) (test 0.40 K/uL 0.04-0.36 gewu=2811) METAMYELOCYTES - ABS (CELLAVISION)(BEAKER) (test 0.40 K/uL 0.00-0.00 thgg=5234) MYELOCYTES-ABS (CELLAVISION)(BEAKER) (test 0.08 K/uL 0.00-0.00 ygsn=9719) PROMYELOCYTES - ABS (CELLAVISION)(BEAKER) (test 0.08 K/uL 0.00-0.00 iluf=6035) BANDS - ABS (CELLAVISION)(BEAKER) (test ianr=0201) 1.19 K/uL 0.00-0.80 ATYPICAL LYMPHOCYTES - ABS (CELLAVISION)(BEAKER) 0.08 K/uL 0.00-0.00 (test vjoi=2739) TOTAL COUNTED (BEAKER) (test qcxk=9613) 100 SMUDGE CELLS (BEAKER) (test zsxc=6633) Present GIANT PLATELETS (BEAKER) (test olez=871) Present POLYCHROMATOPHILLIC RBCS(BEAKER) (test zywl=731) 1+ few HYPOCHROMIA (BEAKER) (test oywu=611) 1+ few ANISOCYTOSIS (BEAKER) (test gdyh=661) 1+ few POIKILOCYTES (BEAKER) (test uxpi=407) 1+ few ARTIFACT (CELLAVISION)(BEAKER) (test znjb=8704) Present PLATELET CONCENTRATION (CELLAVISION)(BEAKER) (test Adequate xuvg=9871) Received comment: User comments: Slide comments:[id number] 05:07:00 Test Item Value Reference Range Comments PHOSPHORUS (BEAKER) (test okeq=407) 2.4 mg/dL 2.3-4.7 [id number] 05:07:00 Test Item Value Reference Range Comments MAGNESIUM (BEAKER) (test zjuc=465) 1.6 mg/dL 1.6-2.6 POCT-GLUCOSE [id number] 21:06:00 Test Item Value Reference Range Comments POC-GLUCOSE METER (BEAKER) 102 mg/dL 70-[address] [facility] [address] (test fcus=5599) [place] [address] TROPONIN [id number] 18:38:00 Test Item Value Reference Range Comments TROPONIN I (BEAKER) (test njuw=882) < ng/mL 0.00-0.03 Troponin I (TnI) levels must be interpreted in the context of the presenting symptoms and the clinical findings. Elevated TnI levels indicate myocardial damage, but are not specific for ischemic heart disease. Elevated TnI levels are seen in patients with other cardiac conditions (including myocarditis and congestive heart failure), and slight TnI elevations occur in patients with other conditions, including sepsis, renal failure, acidosis, acute neurological disease, and persistent tachyarrhythmia.ANAEROBIC [id number] 18:25:00 Test Item Value Reference Range Comments CULTURE (BEAKER) (test eang=7809) No anaerobes isolated POCT-GLUCOSE [id number] 17:10:00 Test Item Value Reference Range Comments POC-GLUCOSE METER (BEAKER) 112 mg/dL 70-110 TESTED AT [address] (test yfdq=6445) [place] [address] POCT-GLUCOSE [id number] 12:00:00 Test Item Value Reference Range Comments POC-GLUCOSE METER (BEAKER) 112 mg/dL 70-110 TESTED AT [address] (test siyi=1432) [place] [address] MISCELLANEOUS LAB [id number] 11:54:00 Test Item Value Reference Range Comments SCAN RESULT (test mfsk=[id number]) POCT-GLUCOSE [id number] 08:57:00 Test Item Value Reference Range Comments POC-GLUCOSE METER (BEAKER) 94 mg/dL 70-110 TESTED AT [address] (test oyzk=9610) [place] [address] CBC W/PLT COUNT & AUTO [id number] 08:18:00 Test Item Value Reference Range Comments WHITE BLOOD CELL COUNT (BEAKER) (test aqoi=378) 8.6 K/ L 3.5-10.5 RED BLOOD CELL COUNT (BEAKER) (test mjjm=250) 2.88 M/ L 3.93-5.22 HEMOGLOBIN (BEAKER) (test ecdn=970) 8.1 GM/DL 11.2-15.7 HEMATOCRIT (BEAKER) (test satc=466) 25.6 % 34.1-44.9 MEAN CORPUSCULAR VOLUME (BEAKER) (test geqc=972) 88.9 fL 79.4-94.8 MEAN CORPUSCULAR HEMOGLOBIN (BEAKER) (test 28.1 pg 25.6-32.2 fcgl=784) MEAN CORPUSCULAR HEMOGLOBIN CONC (BEAKER) (test 31.6 GM/DL 32.2-35.5 rjni=566) RED CELL DISTRIBUTION WIDTH (BEAKER) (test 17.5 % 11.7-14.4 derl=335) PLATELET COUNT (BEAKER) (test mfhv=279) 226 K/CU MM 150-450 MEAN PLATELET VOLUME (BEAKER) (test hbqt=750) 9.5 fL 9.4-12.3 NUCLEATED RED BLOOD CELLS (BEAKER) (test 0 /100 WBC 0-0 safd=897) (MANUAL DIFFERENTIAL)2018-09-06 08:18:00 Test Item Value Reference Range Comments NEUTROPHILS - REL (DIFF) (BEAKER) (test uuxc=1998) 74 % LYMPHOCYTES - REL (DIFF) (BEAKER) (test gtqb=7041) 10 % MONOCYTES - REL (DIFF) (BEAKER) (test zrod=7503) 7 % EOSINOPHILS - REL (DIFF) (BEAKER) (test knpn=9324) 4 % BASOPHILS - REL (DIFF) (BEAKER) (test prew=3705) 0 % METAMYELOCYTES-REL (DIFF) (BEAKER) (test jsfx=136) 2 % 0-0 MYELOCYTES-REL (DIFF) (BEAKER) (test tasn=3438) 2 % 0-0 BANDS - REL (DIFF) (BEAKER) (test anbj=7886) 1 % 0-10 NEUTROPHILS - ABS (DIFF) (BEAKER) (test ovfw=0408) 6.36 K/ L 1.80-8.00 LYMPHOCYTES - ABS (DIFF) (BEAKER) (test ttgl=8165) 0.86 K/ L 1.48-4.50 MONOCYTES - ABS (DIFF) (BEAKER) (test csfc=1736) 0.60 K/ L 0.00-1.30 EOSINOPHILS - ABS (DIFF) (BEAKER) (test hbzn=3120) 0.34 K/ L 0.00-0.50 BASOPHILS - ABS (DIFF) (BEAKER) (test vjot=5661) 0.00 K/ L 0.00-0.20 METAMYELOCTYES - ABS (DIFF) (BEAKER) (test 0.17 K/ L 0.00-0.00 haml=876) BANDS-ABS (DIFF) (BEAKER) (test bsje=0792) 0.1 K/ L 0.0-0.8 MYELOCYTES-ABS (DIFF) (BEAKER) (test luug=8069) 0.17 K/ L 0.00-0.00 TOTAL COUNTED (BEAKER) (test dymp=2454) 100 BANDS + SEGMENTED NEUTROPHILS (BEAKER) (test 6.45 ykcw=7098) WBC MORPHOLOGY (BEAKER) (test oxfn=539) Normal PLT MORPHOLOGY (BEAKER) (test stqd=678) Normal ANISOCYTOSIS (BEAKER) (test hycj=380) 1+ few HYPOCHROMIA (BEAKER) (test nafy=025) 1+ few POLYCHROMATOPHILLIC RBCS(BEAKER) (test vwfs=616) 1+ few BLOOD [id number] 08:01:00 Test Item Value Reference Range Comments CULTURE (BEAKER) (test qqmg=9715) No growth in 5 days BLOOD [id number] 08:01:00 Test Item Value Reference Range Comments CULTURE (BEAKER) (test cxti=6730) No growth in 5 days COMPREHENSIVE METABOLIC [id number] 05:56:00 Test Item Value Reference Range Comments TOTAL PROTEIN (BEAKER) 4.7 gm/dL 6.0-8.3 (test zlnq=332) ALBUMIN (BEAKER) (test 2.1 g/dL 3.5-5.0 zuip=2622) ALKALINE PHOSPHATASE 197 U/L 40-150 (BEAKER) (test ssuj=300) BILIRUBIN TOTAL (BEAKER) 1.1 mg/dL 0.2-1.2 (test vebo=953) SODIUM (BEAKER) (test 135 meq/L 136-145 qsjc=186) POTASSIUM (BEAKER) (test 3.4 meq/L 3.5-5.1 ldyh=884) CHLORIDE (BEAKER) (test 106 meq/L 98-107 fbnw=793) CO2 (BEAKER) (test 25 meq/L 22-29 bfqh=202) BLOOD UREA NITROGEN 6 mg/dL 7-21 (BEAKER) (test rxub=144) CREATININE (BEAKER) (test 0.44 mg/dL 0.57-1.25 sydb=287) GLUCOSE RANDOM (BEAKER) 78 mg/dL 70-105 (test lagw=297) CALCIUM (BEAKER) (test 7.4 mg/dL 8.4-10.2 zrsu=893) AST (SGOT) (BEAKER) (test 258 U/L 5-34 jobj=536) ALT (SGPT) (BEAKER) (test 150 U/L 6-55 zsam=638) EGFR (BEAKER) (test 142 mL/min/1.73 sq ESTIMATED GFR IS NOT zjbf=3777) m ACCURATE CREATININE CLEARANCE IN PREDICTING GLOMERULAR FILTRATION RATE. ESTIMATED GFR IS NOT APPLICABLE FOR DIALYSIS PATIENTS. [id number] 05:44:00 Test Item Value Reference Range Comments PHOSPHORUS (BEAKER) (test glxt=135) 2.5 mg/dL 2.3-4.7 [id number] 05:44:00 Test Item Value Reference Range Comments MAGNESIUM (BEAKER) (test ueoc=660) 2.0 mg/dL 1.6-2.6 POCT-GLUCOSE [id number] 21:24:00 Test Item Value Reference Range Comments POC-GLUCOSE METER (BEAKER) 102 mg/dL 70-110 TESTED AT [address] (test hiwr=7020) [place] [address] [id number] 19:00:00 Test Item Value Reference Range Comments PHOSPHORUS (BEAKER) (test tqbq=614) 2.6 mg/dL 2.3-4.7 [id number] 19:00:00 Test Item Value Reference Range Comments MAGNESIUM (BEAKER) (test nmrs=691) 1.4 mg/dL 1.6-2.6 POCT-GLUCOSE [id number] 16:29:00 Test Item Value Reference Range Comments POC-GLUCOSE METER (BEAKER) 113 mg/dL 70-110 TESTED AT [address] (test nnjs=1535) [facility] [address] POCT-GLUCOSE [id number] 12:57:00 Test Item Value Reference Range Comments POC-GLUCOSE METER (BEAKER) 97 mg/dL 70-110 TESTED AT [address] (test adsr=7351) [place] [id number] POCT-GLUCOSE [id number] 11:08:00 Test Item Value Reference Range Comments POC-GLUCOSE METER (BEAKER) 104 mg/dL 70-[address] [facility] [address] (test amrt=9824) [facility] [address] COMPREHENSIVE METABOLIC [id number] 09:16:00 Test Item Value Reference Range Comments TOTAL PROTEIN (BEAKER) 4.8 gm/dL 6.0-8.3 (test golu=148) ALBUMIN (BEAKER) (test 2.4 g/dL 3.5-5.0 nasv=6375) ALKALINE PHOSPHATASE 137 U/L 40-150 (BEAKER) (test zdbk=292) BILIRUBIN TOTAL (BEAKER) 1.2 mg/dL 0.2-1.2 (test ntty=640) SODIUM (BEAKER) (test 136 meq/L 136-145 ztvb=531) POTASSIUM (BEAKER) (test 3.8 meq/L 3.5-5.1 yfxh=196) CHLORIDE (BEAKER) (test 107 meq/L 98-107 kuak=240) CO2 (BEAKER) (test 23 meq/L 22-29 tfgc=527) BLOOD UREA NITROGEN 7 mg/dL 7-21 (BEAKER) (test lqsj=523) CREATININE (BEAKER) (test 0.53 mg/dL 0.57-1.25 zkhq=908) GLUCOSE RANDOM (BEAKER) 101 mg/dL 70-105 (test rvfo=458) CALCIUM (BEAKER) (test 7.6 mg/dL 8.4-10.2 gvhj=001) AST (SGOT) (BEAKER) (test 186 U/L 5-34 dtau=728) ALT (SGPT) (BEAKER) (test 148 U/L 6-55 svbr=627) EGFR (BEAKER) (test 115 mL/min/1.73 sq ESTIMATED GFR IS NOT hpma=0614) m ACCURATE CREATININE CLEARANCE IN PREDICTING GLOMERULAR FILTRATION RATE. ESTIMATED GFR IS NOT APPLICABLE FOR DIALYSIS PATIENTS. CBC W/PLT COUNT & AUTO [id number] 07:17:00 Test Item Value Reference Range Comments WHITE BLOOD CELL COUNT (BEAKER) (test puvm=969) 10.0 K/ L 3.5-10.5 RED BLOOD CELL COUNT (BEAKER) (test para=502) 3.16 M/ L 3.93-5.22 HEMOGLOBIN (BEAKER) (test cyrc=112) 8.8 GM/DL 11.2-15.7 HEMATOCRIT (BEAKER) (test tkla=017) 27.8 % 34.1-44.9 MEAN CORPUSCULAR VOLUME (BEAKER) (test uyaj=768) 88.0 fL 79.4-94.8 MEAN CORPUSCULAR HEMOGLOBIN (BEAKER) (test 27.8 pg 25.6-32.2 mvoe=808) MEAN CORPUSCULAR HEMOGLOBIN CONC (BEAKER) (test 31.7 GM/DL 32.2-35.5 yvrp=595) RED CELL DISTRIBUTION WIDTH (BEAKER) (test 17.8 % 11.7-14.4 uqrd=908) PLATELET COUNT (BEAKER) (test hlqq=881) 248 K/CU MM 150-450 MEAN PLATELET VOLUME (BEAKER) (test fuib=259) 9.4 fL 9.4-12.3 NUCLEATED RED BLOOD CELLS (BEAKER) (test 0 /100 WBC 0-0 emmr=849) (CELLAVISION MANUAL DIFF)2018-09-05 07:17:00 Test Item Value Reference Range Comments NEUTROPHILS - REL (CELLAVISION)(BEAKER) (test 81 % ezva=8180) LYMPHOCYTES - REL (CELLAVISION)(BEAKER) (test 7 % xtws=1213) MONOCYTES - REL (CELLAVISION)(BEAKER) (test 4 % jujj=7311) EOSINOPHILS - REL (CELLAVISION)(BEAKER) (test 2 % whic=2457) BASOPHILS - REL (CELLAVISION)(BEAKER) (test 2 % igyf=7786) BANDS - REL (CELLAVISION)(BEAKER) (test snib=7737) 3 % 0-10 NEUTROPHILS - ABS (CELLAVISION)(BEAKER) (test 8.10 K/ul 1.56-6.13 ddis=7850) LYMPHOCYTES - ABS (CELLAVISION)(BEAKER) (test 0.70 K/ul 1.18-3.74 blhi=8881) MONOCYTES - ABS (CELLAVISION)(BEAKER) (test 0.40 K/uL 0.24-0.36 bmtb=4661) EOSINOPHILS - ABS (CELLAVISION)(BEAKER) (test 0.20 K/uL 0.04-0.36 kult=7725) BASOPHILS - ABS (CELLAVISION)(BEAKER) (test 0.20 K/uL 0.01-0.08 lrfm=4951) BANDS - ABS (CELLAVISION)(BEAKER) (test vofx=9088) 0.30 K/uL 0.00-0.80 TOTAL COUNTED (BEAKER) (test hfhb=8992) 100 RBC MORPHOLOGY (BEAKER) (test xdgq=843) Normal WBC MORPHOLOGY (BEAKER) (test jxhq=910) Normal PLT MORPHOLOGY (BEAKER) (test qxln=226) Normal ARTIFACT (CELLAVISION)(BEAKER) (test erxf=4664) Present PLATELET CONCENTRATION (CELLAVISION)(BEAKER) (test Adequate oxub=8334) Received comment: User comments: Slide comments:POCT-GLUCOSE [id number] 00: 17:00 Test Item Value Reference Range Comments POC-GLUCOSE METER (BEAKER) 120 mg/dL 70-110 TESTED AT [address] (test ctgc=2379) [place] [address] POCT-GLUCOSE [id number] 18:46:00 Test Item Value Reference Range Comments POC-GLUCOSE METER (BEAKER) 139 mg/dL 70-110 TESTED AT [address] (test iszq=4674) [place] [id number] POCT-GLUCOSE [id number] 13:25:00 Test Item Value Reference Range Comments POC-GLUCOSE METER (BEAKER) 157 mg/dL 70-110 TESTED AT [address] (test ppem=6846) [place] [id number] POCT-GLUCOSE [id number] 05:55:00 Test Item Value Reference Range Comments POC-GLUCOSE METER (BEAKER) 162 mg/dL 70-110 TESTED AT [address] (test brij=2817) [place] [id number] CBC W/PLT COUNT & AUTO [id number] 05:17:00 Test Item Value Reference Range Comments WHITE BLOOD CELL COUNT (BEAKER) (test xndd=681) 8.7 K/ L 3.5-10.5 RED BLOOD CELL COUNT (BEAKER) (test zuft=937) 3.89 M/ L 3.93-5.22 HEMOGLOBIN (BEAKER) (test lkco=417) 10.8 GM/DL 11.2-15.7 HEMATOCRIT (BEAKER) (test kjwx=866) 33.7 % 34.1-44.9 MEAN CORPUSCULAR VOLUME (BEAKER) (test lshs=538) 86.6 fL 79.4-94.8 MEAN CORPUSCULAR HEMOGLOBIN (BEAKER) (test 27.8 pg 25.6-32.2 fomh=780) MEAN CORPUSCULAR HEMOGLOBIN CONC (BEAKER) (test 32.0 GM/DL 32.2-35.5 zrvy=952) RED CELL DISTRIBUTION WIDTH (BEAKER) (test 17.0 % 11.7-14.4 rkrh=560) PLATELET COUNT (BEAKER) (test ayoi=650) 293 K/CU MM 150-450 MEAN PLATELET VOLUME (BEAKER) (test urko=821) 9.5 fL 9.4-12.3 NUCLEATED RED BLOOD CELLS (BEAKER) (test 0 /100 WBC 0-0 cppa=636) (CELLAVISION MANUAL DIFF)2018-09-04 05:17:00 Test Item Value Reference Range Comments NEUTROPHILS - REL (CELLAVISION)(BEAKER) (test 57 % jygo=0739) LYMPHOCYTES - REL (CELLAVISION)(BEAKER) (test 6 % zwlo=6538) MONOCYTES - REL (CELLAVISION)(BEAKER) (test 14 % kqkt=1662) METAMYELOCYTES - REL (CELLAVISION)(BEAKER) (test 2 % 0-0 cyfk=0040) PROMYELOCYTES - REL (CELLAVSION)(BEAKER) (test 2 % 0-0 wfmb=2081) BANDS - REL (CELLAVISION)(BEAKER) (test 19 % 0-10 gwyu=3721) NEUTROPHILS - ABS (CELLAVISION)(BEAKER) (test 4.96 K/ul 1.56-6.13 zwji=7349) LYMPHOCYTES - ABS (CELLAVISION)(BEAKER) (test 0.52 K/ul 1.18-3.74 mzhq=5127) MONOCYTES - ABS (CELLAVISION)(BEAKER) (test 1.22 K/uL 0.24-0.36 svol=7430) METAMYELOCYTES - ABS (CELLAVISION)(BEAKER) (test 0.17 K/uL 0.00-0.00 tijc=3779) PROMYELOCYTES - ABS (CELLAVISION)(BEAKER) (test 0.17 K/uL 0.00-0.00 cgkr=9001) BANDS - ABS (CELLAVISION)(BEAKER) (test 1.65 K/uL 0.00-0.80 gtmw=3969) TOTAL COUNTED (BEAKER) (test lqop=6377) 100 PLT MORPHOLOGY (BEAKER) (test yvhs=416) Normal SMUDGE CELLS (BEAKER) (test qmkb=3970) Present POIKILOCYTES (BEAKER) (test diir=408) 2+ moderate SCHISTOCYTES (BEAKER) (test dsnk=152) 1+ few SPHEROCYTES (BEAKER) (test wirf=109) 1+ few ELLIPTOCYTES (BEAKER) (test ypqj=643) 1+ few OVALOCYTES (BEAKER) (test dgrr=225) 1+ few STOMATOCYTES (BEAKER) (test lpwi=469) 1+ few ACANTHOCYTES (BEAKER) (test wtoq=516) 1+ few JACK CELLS (BEAKER) (test tspf=093) 1+ few PLATELET CONCENTRATION (CELLAVISION)(BEAKER) Adequate (test fbqj=1337) Received comment: User comments: Slide comments:COMPREHENSIVE METABOLIC [id number] 04:54:00 Test Item Value Reference Range Comments TOTAL PROTEIN (BEAKER) 5.1 gm/dL 6.0-8.3 (test vyka=202) ALBUMIN (BEAKER) (test 2.7 g/dL 3.5-5.0 snjy=5250) ALKALINE PHOSPHATASE 116 U/L 40-150 (BEAKER) (test wiek=787) BILIRUBIN TOTAL (BEAKER) 1.5 mg/dL 0.2-1.2 (test wdkl=965) SODIUM (BEAKER) (test 137 meq/L 136-145 ueuh=244) POTASSIUM (BEAKER) (test 4.0 meq/L 3.5-5.1 jpla=329) CHLORIDE (BEAKER) (test 109 meq/L 98-107 ntgu=853) CO2 (BEAKER) (test 20 meq/L 22-29 tmfm=319) BLOOD UREA NITROGEN 5 mg/dL 7-21 (BEAKER) (test rexc=822) CREATININE (BEAKER) (test 0.51 mg/dL 0.57-1.25 jmqh=206) GLUCOSE RANDOM (BEAKER) 176 mg/dL 70-105 (test onoh=411) CALCIUM (BEAKER) (test 8.0 mg/dL 8.4-10.2 qfsb=880) AST (SGOT) (BEAKER) (test 142 U/L 5-34 smhg=944) ALT (SGPT) (BEAKER) (test 164 U/L 6-55 scss=865) EGFR (BEAKER) (test 120 mL/min/1.73 sq ESTIMATED GFR IS NOT amkb=1637) m ACCURATE CREATININE CLEARANCE IN PREDICTING GLOMERULAR FILTRATION RATE. ESTIMATED GFR IS NOT APPLICABLE FOR DIALYSIS PATIENTS. POCT-GLUCOSE [id number] 00:04:00 Test Item Value Reference Range Comments POC-GLUCOSE METER (BEAKER) 185 mg/dL 70-[address] [facility] [address] [facility] (test lfqp=6781) [facility] [address] BLOOD GAS, [id number] 18:05:00 Test Item Value Reference Range Comments PH ARTERIAL (BEAKER) (test oiaa=036) 7.40 7.35-7.45 PCO2 ARTERIAL (BEAKER) (test mgdj=604) 37 mmHg 35-45 PO2 ARTERIAL (BEAKER) (test vyta=508) 280 mmHg 80-90 O2 SATURATION ARTERIAL (BEAKER) (test zgtu=480) 99.7 % 96.0-97.0 HCO3 ARTERIAL (BEAKER) (test ieur=678) 23 mmol/L 21-29 BASE EXCESS ARTERIAL (BEAKER) (test jdmv=771) -2.1 mmol/L -2.0-3.0 PATIENT TEMPERATURE (BEAKER) (test pjsc=1214) 36.6 C FIO2 (BEAKER) (test yaxr=3724) 44.0 % HEMOGLOBIN AND [id number] 18:02:00 Test Item Value Reference Range Comments HEMOGLOBIN (BEAKER) (test rqur=897) 10.4 GM/DL 11.2-15.7 HEMATOCRIT (BEAKER) (test ywwl=513) 32.3 % 34.1-44.9 SODIUM NA-STAT [id number] 16:28:00 Test Item Value Reference Range Comments SODIUM (BEAKER) (test uqjx=460) 134 meq/L 135-148 36.6GLUCOSE-STAT [id number] 16:28:00 Test Item Value Reference Range Comments GLUCOSE RANDOM (BEAKER) (test vmkh=824) 151 mg/dL 70-110 36.6HGB/HCT (H&H) - STAT [id number] 16:28:00 Test Item Value Reference Range Comments HEMOGLOBIN (BEAKER) (test lzpq=930) 10.1 g/dL 12.0-15.0 HEMATOCRIT (BEAKER) (test yxth=297) 30.0 % 36.0-45.0 36.6BLOOD GAS, [id number] 16:28:00 Test Item Value Reference Range Comments PH ARTERIAL (BEAKER) (test ohcc=927) 7.23 7.35-7.45 PCO2 ARTERIAL (BEAKER) (test oanq=806) 46 mmHg 35-45 PO2 ARTERIAL (BEAKER) (test otmc=320) 205 mmHg 80-90 O2 SATURATION ARTERIAL (BEAKER) (test pvna=462) 99.2 % 96.0-97.0 HCO3 ARTERIAL (BEAKER) (test yiga=641) 19 mmol/L 21-29 BASE EXCESS ARTERIAL (BEAKER) (test dxdt=743) -8.6 mmol/L -2.0-3.0 PATIENT TEMPERATURE (BEAKER) (test wnmm=4245) 36.6 C FIO2 (BEAKER) (test jqpv=7473) 50.0 % 36.6CALCIUM, [id number] 16:26:00 Test Item Value Reference Range Comments CALCIUM IONIZED (BEAKER) (test mkvg=495) 1.26 mmol/L 1.12-1.27 PH, BLOOD (BEAKER) (test bfmi=5140) 7.22 POTASSIUM-STAT [id number] 16:25:00 Test Item Value Reference Range Comments POTASSIUM (BEAKER) (test rtik=129) 3.9 meq/L 3.6-5.5 36.6CALCIUM, [id number] 15:12:00 Test Item Value Reference Range Comments CALCIUM IONIZED (BEAKER) (test kdgb=846) 1.09 mmol/L 1.12-1.27 PH, BLOOD (BEAKER) (test yvrs=2555) 7.37 BLOOD GAS, [id number] 15:12:00 Test Item Value Reference Range Comments PH ARTERIAL (BEAKER) (test askm=128) 7.38 7.35-7.45 PCO2 ARTERIAL (BEAKER) (test ilgx=682) 34 mmHg 35-45 PO2 ARTERIAL (BEAKER) (test mhix=994) 238 mmHg 80-90 O2 SATURATION ARTERIAL (BEAKER) (test nuxn=373) 99.5 % 96.0-97.0 HCO3 ARTERIAL (BEAKER) (test mzkd=446) 20 mmol/L 21-29 BASE EXCESS ARTERIAL (BEAKER) (test hezd=746) -5.2 mmol/L -2.0-3.0 PATIENT TEMPERATURE (BEAKER) (test clfg=6001) 36.7 C FIO2 (BEAKER) (test mhss=2607) 55.0 % SODIUM NA-STAT [id number] 15:12:00 Test Item Value Reference Range Comments SODIUM (BEAKER) (test vsvj=446) 133 meq/L 135-148 GLUCOSE-STAT [id number] 15:12:00 Test Item Value Reference Range Comments GLUCOSE RANDOM (BEAKER) (test ublu=044) 130 mg/dL 70-110 HGB/HCT (H&H) - STAT [id number] 15:12:00 Test Item Value Reference Range Comments HEMOGLOBIN (BEAKER) (test euzv=613) 7.3 g/dL 12.0-15.0 HEMATOCRIT (BEAKER) (test vzjq=623) 21.0 % 36.0-45.0 POTASSIUM-STAT [id number] 15:10:00 Test Item Value Reference Range Comments POTASSIUM (BEAKER) (test kwwl=793) 3.9 meq/L 3.6-5.5 POCT-GLUCOSE [id number] 13:09:00 Test Item Value Reference Range Comments POC-GLUCOSE METER (BEAKER) 98 mg/dL 70-110 TESTED AT [address] (test mvom=0538) [facility] [address] POCT-GLUCOSE [id number] 11:06:00 Test Item Value Reference Range Comments POC-GLUCOSE METER (BEAKER) 143 mg/dL 70-110 TESTED AT [address] (test eyem=2613) [facility] [address] POCT-GLUCOSE [id number] 09:43:00 Test Item Value Reference Range Comments POC-GLUCOSE METER (BEAKER) 68 mg/dL 70-[address] [facility] [address] (test bjlp=7410) [place] [address] URINE [id number] 09:10:00 Test Item Value Reference Range Comments CULTURE (BEAKER) (test ojno=9152) No growth GRAM STAIN RESULT (BEAKER) (test No White blood cells seen xuft=2214) GRAM STAIN RESULT (BEAKER) (test No organisms seen mnab=49625) CBC W/PLT COUNT & AUTO [id number] 07:07:00 Test Item Value Reference Range Comments WHITE BLOOD CELL COUNT (BEAKER) (test hqkt=660) 6.1 K/ L 3.5-10.5 RED BLOOD CELL COUNT (BEAKER) (test jajq=521) 3.53 M/ L 3.93-5.22 HEMOGLOBIN (BEAKER) (test uidf=440) 9.2 GM/DL 11.2-15.7 HEMATOCRIT (BEAKER) (test qtlg=762) 30.0 % 34.1-44.9 MEAN CORPUSCULAR VOLUME (BEAKER) (test dusm=704) 85.0 fL 79.4-94.8 MEAN CORPUSCULAR HEMOGLOBIN (BEAKER) (test 26.1 pg 25.6-32.2 kdut=648) MEAN CORPUSCULAR HEMOGLOBIN CONC (BEAKER) (test 30.7 GM/DL 32.2-35.5 tkfd=036) RED CELL DISTRIBUTION WIDTH (BEAKER) (test 17.5 % 11.7-14.4 mgjg=995) PLATELET COUNT (BEAKER) (test lwnc=866) 298 K/CU MM 150-450 MEAN PLATELET VOLUME (BEAKER) (test jtve=789) 9.8 fL 9.4-12.3 NUCLEATED RED BLOOD CELLS (BEAKER) (test 0 /100 WBC 0-0 owls=962) (CELLAVISION MANUAL DIFF)2018-09-03 07:07:00 Test Item Value Reference Range Comments NEUTROPHILS - REL (CELLAVISION)(BEAKER) (test 65 % gkqw=8065) LYMPHOCYTES - REL (CELLAVISION)(BEAKER) (test 15 % fuho=8255) MONOCYTES - REL (CELLAVISION)(BEAKER) (test 10 % hdmd=7178) BANDS - REL (CELLAVISION)(BEAKER) (test keyf=2699) 9 % 0-10 ATYPICAL LYMPHOCYTES - REL (CELLAVISION)(BEAKER) 1 % 0-0 (test lgqb=2165) NEUTROPHILS - ABS (CELLAVISION)(BEAKER) (test 3.97 K/ul 1.56-6.13 qmya=1878) LYMPHOCYTES - ABS (CELLAVISION)(BEAKER) (test 0.92 K/ul 1.18-3.74 tnqc=4006) MONOCYTES - ABS (CELLAVISION)(BEAKER) (test 0.61 K/uL 0.24-0.36 mpqs=2159) BANDS - ABS (CELLAVISION)(BEAKER) (test iiba=7716) 0.55 K/uL 0.00-0.80 ATYPICAL LYMPHOCYTES - ABS (CELLAVISION)(BEAKER) 0.06 K/uL 0.00-0.00 (test qhwu=1441) TOTAL COUNTED (BEAKER) (test hmdw=5807) 100 WBC MORPHOLOGY (BEAKER) (test ivrp=460) Normal PLT MORPHOLOGY (BEAKER) (test cfcn=309) Normal POLYCHROMATOPHILLIC RBCS(BEAKER) (test nzpn=948) 1+ few ANISOCYTOSIS (BEAKER) (test lgwg=816) 1+ few POIKILOCYTES (BEAKER) (test ctdu=797) 1+ few OVALOCYTES (BEAKER) (test gira=930) 1+ few TEAR DROP CELLS (BEAKER) (test lgdv=086) 1+ few ARTIFACT (CELLAVISION)(BEAKER) (test hkyi=2598) Present PLATELET CONCENTRATION (CELLAVISION)(BEAKER) (test Adequate hkbp=8485) Received comment: User comments: Slide comments: WBC: SEGMENTED WITH TOXIC GRANULATIONS PRESENTCOMPREHENSIVE METABOLIC [id number] 06:21:00 Test Item Value Reference Range Comments TOTAL PROTEIN (BEAKER) 6.1 gm/dL 6.0-8.3 (test lrlm=274) ALBUMIN (BEAKER) (test 2.5 g/dL 3.5-5.0 qchs=1832) ALKALINE PHOSPHATASE 236 U/L 40-150 (BEAKER) (test ztpc=116) BILIRUBIN TOTAL (BEAKER) 1.5 mg/dL 0.2-1.2 (test iyus=799) SODIUM (BEAKER) (test 131 meq/L 136-145 asjm=834) POTASSIUM (BEAKER) (test 3.9 meq/L 3.5-5.1 gafm=912) CHLORIDE (BEAKER) (test 100 meq/L 98-107 hwfk=211) CO2 (BEAKER) (test 23 meq/L 22-29 cion=237) BLOOD UREA NITROGEN 3 mg/dL 7-21 (BEAKER) (test qses=829) CREATININE (BEAKER) (test 0.49 mg/dL 0.57-1.25 gxik=894) GLUCOSE RANDOM (BEAKER) 73 mg/dL 70-105 (test vjvr=469) CALCIUM (BEAKER) (test 7.9 mg/dL 8.4-10.2 bdpo=055) AST (SGOT) (BEAKER) (test 412 U/L 5-34 jcww=943) ALT (SGPT) (BEAKER) (test 342 U/L 6-55 nnwa=571) EGFR (BEAKER) (test 126 mL/min/1.73 sq ESTIMATED GFR IS NOT pfmh=7469) m ACCURATE CREATININE CLEARANCE IN PREDICTING GLOMERULAR FILTRATION RATE. ESTIMATED GFR IS NOT APPLICABLE FOR DIALYSIS PATIENTS. POCT-GLUCOSE [id number] 21:43:00 Test Item Value Reference Range Comments POC-GLUCOSE METER (BEAKER) 88 mg/dL 70-110 TESTED AT [address] (test woup=2614) [place] [address] POCT-GLUCOSE [id number] 16:33:00 Test Item Value Reference Range Comments POC-GLUCOSE METER (BEAKER) 77 mg/dL 70-110 TESTED AT [address] (test anxu=0033) [place] [id number] POCT-GLUCOSE [id number] 12:44:00 Test Item Value Reference Range Comments POC-GLUCOSE METER (BEAKER) 88 mg/dL 70-110 TESTED AT [address] (test fnko=2326) [place] [address] POCT-GLUCOSE [id number] 09:34:00 Test Item Value Reference Range Comments POC-GLUCOSE METER (BEAKER) 96 mg/dL 70-110 TESTED AT [address] (test eodz=6890) [facility] [address] CBC W/PLT COUNT & AUTO [id number] 08:20:00 Test Item Value Reference Range Comments WHITE BLOOD CELL COUNT (BEAKER) (test nwxb=525) 5.3 K/ L 3.5-10.5 RED BLOOD CELL COUNT (BEAKER) (test lsch=215) 3.47 M/ L 3.93-5.22 HEMOGLOBIN (BEAKER) (test pnhv=660) 9.2 GM/DL 11.2-15.7 HEMATOCRIT (BEAKER) (test rvpt=839) 29.8 % 34.1-44.9 MEAN CORPUSCULAR VOLUME (BEAKER) (test gqre=476) 85.9 fL 79.4-94.8 MEAN CORPUSCULAR HEMOGLOBIN (BEAKER) (test 26.5 pg 25.6-32.2 eroa=734) MEAN CORPUSCULAR HEMOGLOBIN CONC (BEAKER) (test 30.9 GM/DL 32.2-35.5 zkfl=662) RED CELL DISTRIBUTION WIDTH (BEAKER) (test 17.7 % 11.7-14.4 zljh=855) PLATELET COUNT (BEAKER) (test dcut=346) 259 K/CU MM 150-450 MEAN PLATELET VOLUME (BEAKER) (test oojy=361) 10.1 fL 9.4-12.3 NUCLEATED RED BLOOD CELLS (BEAKER) (test 0 /100 WBC 0-0 lipf=240) (CELLAVISION MANUAL DIFF)2018-09-02 08:20:00 Test Item Value Reference Range Comments NEUTROPHILS - REL (CELLAVISION)(BEAKER) (test 71 % tonx=8831) LYMPHOCYTES - REL (CELLAVISION)(BEAKER) (test 11 % avjn=5569) MONOCYTES - REL (CELLAVISION)(BEAKER) (test 6 % tfmm=9327) EOSINOPHILS - REL (CELLAVISION)(BEAKER) (test 3 % wuul=6747) BASOPHILS - REL (CELLAVISION)(BEAKER) (test 4 % hdru=3049) PROMYELOCYTES - REL (CELLAVSION)(BEAKER) (test 1 % 0-0 zazz=1475) BANDS - REL (CELLAVISION)(BEAKER) (test 1 % 0-10 sgyl=0557) ATYPICAL LYMPHOCYTES - REL (CELLAVISION)(BEAKER) 2 % 0-0 (test wkxu=4154) NEUTROPHILS - ABS (CELLAVISION)(BEAKER) (test 3.76 K/ul 1.56-6.13 czzj=1829) LYMPHOCYTES - ABS (CELLAVISION)(BEAKER) (test 0.58 K/ul 1.18-3.74 ysnz=3491) MONOCYTES - ABS (CELLAVISION)(BEAKER) (test 0.32 K/uL 0.24-0.36 vljb=5644) EOSINOPHILS - ABS (CELLAVISION)(BEAKER) (test 0.16 K/uL 0.04-0.36 kupk=5029) BASOPHILS - ABS (CELLAVISION)(BEAKER) (test 0.21 K/uL 0.01-0.08 snvf=1963) PROMYELOCYTES - ABS (CELLAVISION)(BEAKER) (test 0.05 K/uL 0.00-0.00 dwso=4510) BANDS - ABS (CELLAVISION)(BEAKER) (test 0.05 K/uL 0.00-0.80 zpjw=3237) ATYPICAL LYMPHOCYTES - ABS (CELLAVISION)(BEAKER) 0.11 K/uL 0.00-0.00 (test hhpx=2048) TOTAL COUNTED (BEAKER) (test wagb=0269) 100 MANUAL NRBC PER 100 CELLS (BEAKER) (test 2 /100 WBC 0-0 voxm=1270) PLT MORPHOLOGY (BEAKER) (test qwes=516) Normal SMUDGE CELLS (BEAKER) (test bfdr=1332) Present HYPOCHROMIA (BEAKER) (test frns=113) 1+ few ANISOCYTOSIS (BEAKER) (test vesc=313) 1+ few SCHISTOCYTES (BEAKER) (test ikbf=095) 1+ few PLATELET CONCENTRATION (CELLAVISION)(BEAKER) Adequate (test vcrh=0177) Received comment: User comments: Slide comments:COMPREHENSIVE METABOLIC [id number] 06:19:00 Test Item Value Reference Range Comments TOTAL PROTEIN (BEAKER) 5.6 gm/dL 6.0-8.3 (test kbwb=419) ALBUMIN (BEAKER) (test 2.4 g/dL 3.5-5.0 cedp=3235) ALKALINE PHOSPHATASE 194 U/L 40-150 (BEAKER) (test ilbf=788) BILIRUBIN TOTAL (BEAKER) 1.4 mg/dL 0.2-1.2 (test ythb=196) SODIUM (BEAKER) (test 136 meq/L 136-145 tyyr=274) POTASSIUM (BEAKER) (test 4.2 meq/L 3.5-5.1 mnzs=637) CHLORIDE (BEAKER) (test 103 meq/L 98-107 ypkw=201) CO2 (BEAKER) (test 28 meq/L 22-29 jsoz=198) BLOOD UREA NITROGEN 3 mg/dL 7-21 (BEAKER) (test fllt=375) CREATININE (BEAKER) (test 0.48 mg/dL 0.57-1.25 ymkt=152) GLUCOSE RANDOM (BEAKER) 79 mg/dL 70-105 (test cccc=900) CALCIUM (BEAKER) (test 8.1 mg/dL 8.4-10.2 cido=360) AST (SGOT) (BEAKER) (test 595 U/L 5-34 eifr=805) ALT (SGPT) (BEAKER) (test 403 U/L 6-55 twds=347) EGFR (BEAKER) (test 129 mL/min/1.73 sq ESTIMATED GFR IS NOT vipl=8548) m ACCURATE CREATININE CLEARANCE IN PREDICTING GLOMERULAR FILTRATION RATE. ESTIMATED GFR IS NOT APPLICABLE FOR DIALYSIS PATIENTS. POCT-GLUCOSE [id number] 22:05:00 Test Item Value Reference Range Comments POC-GLUCOSE METER (BEAKER) 96 mg/dL 70-110 TESTED AT [address] (test fmwm=5812) [facility] [address] CMV PCR, [id number] 15:13:00 Test Item Value Reference Range Comments CMV VIRAL LOAD - NEGATIVE Negative or below the linear (BEAKER) (test oihq=9077) range of the assay (<375 copies/mL) Cytomegalovirus (CMV) infection can cause significant disease in immunosuppressed patients. However,it is common for CMV to manifest as a limited infection which is of no clinical significance in immunosuppressed patients or in healthy individuals.Viral load measurements are helpful to identify clinical CMV infection and to guide the pre-emptive management of antiviral therapy. For treatment of CMVinfection due to reactivation in transplant recipients, a threshold between 4,000 and 5,000 copies/mL is suggested. For treatment of primary CMV infection, a lower threshold can be used.CMV infection may also be monitored using weekly serial measurements. Serial measurements of CMV DNA viral load canbe evaluated by identifying a 10- fold change, as well as assessing the CMV DNA viral load and the clinical context for each patient.The plasma CMV DNA viral load was detected using quantitative polymerase chain reaction and fluorescent monitoring of a specific hybridized probe. Genetic variation and other factors can affect the accuracy of nucleic acid testing. Therefore, the results should be interpreted in light of clinical data. A negative result may not exclude the presence of CMV disease.This test was developed and its performance characteristics determined by the [facility] Pathology Department, Section of Molecular Pathology. It has not been cleared or approved by the U.S. Food and Drug Administration (FDA), since FDA approval is not required for clinical use of the test. Validation was done as required by The Clinical Laboratory Improvement Amendments of 1988.EBV VIRAL [id number] 14:46:00 Test Item Value Reference Range Comments EBV VIRAL LOAD - NEGATIVE Negative or below the linear (BEAKER) (test giny=5962) range of the assay (<500 copies/mL) "The blood volume for this specimen did not meet the minimum threshold (3 mL) and, therefore, may affect result accuracy. Correlation with other clinical results are recommended for this specimen."This assay was performed by real- time PCR for the detection of the Katarina-Stokes virus (EBV) gene EBNA-1. The test is composed of (1) DNA extraction from patient specimen, and (2) real-time PCR amplification and detection with CXQV-[id number] primers and probes. A well- conserved region of the EBNA-1 gene is targeted, along with an internal control sequence used to confirm PCR amplification. Asymptomatic carriers and viral genetic variation, among other factors, can affect the accuracy of nucleic acidtesting; therefore, results should be interpreted in light of clinical data.This test was developed and its performance characteristics determined by the [facility] Pathology Department,Section of Molecular Pathology. It has not been cleared or approved by the U.S. Food and Drug Administration (FDA), since FDA approval is not required for clinical use of the test. Validation was done as required by The Clinical Laboratory Improvement Amendments of 1988.This assay was performed by real-time PCR for the detection of the Katarina-Stokes virus (EBV) gene EBNA-1. The test is composed of (1) DNA extraction from patient specimen, and (2) real-time PCR amplification and detection with [id number]-[id number] primers and probes. A well- conserved region of the EBNA-1 gene is targeted, along with an internal control sequence used to confirm PCR amplification. Asymptomatic carriers and viral genetic variation, among other factors, can affect the accuracy of nucleic acid testing; therefore, results should be interpreted in light of clinical data.This test was developed and its performance characteristics determined by the [facility] Pathology Department, Section of Molecular Pathology. It has not been cleared or approved by the U.S. Food and Drug Administration (FDA), since FDA approval is not required for clinical use of the test. Validation was done as required by The Clinical Laboratory Improvement Amendments of 1988.POCT-GLUCOSE [id number] 08:56:00 Test Item Value Reference Range Comments POC-GLUCOSE METER (PricebetsAKER) 144 mg/dL 70-110 TESTED AT [address] (test bcyp=4614) [facility] [address] HSV 1 AND 2 [id number] 08:52:00 Test Item Value Reference Range Comments HERPES SIMPLEX VIRUS-1 IGG (BEAKER) (test eoaw=1963) > Al <0.9 HERPES SIMPLES VIRUS-2 IGG (BEAKER) (test tqcz=7980) 5.9 Al <0.9 Herpes Simplex Virus 1 IgG Result Interpretation: <0.9 Al Normal 0.9- 1.0 Al Equivocal >/=1.1 Al PositiveHerpes Simplex Virus 2 IgG Result Interpretation <0.9 Al Normal 0.9-1.0 Al Equivocal >/=1.1 Al PositiveCYTOMEGALOVIRUS ANTIBODY, [id number] 08:49:00 Test Item Value Reference Range Comments CYTOMEGALOVIRUS, IGG (BEAKER) (test cpey=8755) Positive Negative, Equivocal CMV IgG Result Interpretation: </=0.8 Al Negative 0.9-1.0 Al Equivocal &gt ;/=1.1 Al PositiveCYTOMEGALOVIRUS ANTIBODY, [id number] 08:49:00 Test Item Value Reference Range Comments CYTOMEGALOVIRUS IGM ANTIBODY (BEAKER) (test Negative Negative, Equivocal swkr=6833) CMV IgM Result Interpretation: </=0.8 Al Negative 0.9-1.0 Al Equivocal >/=1.1 Al PositiveEBV ANTIBODY, [id number] 08:49:00 Test Item Value Reference Range Comments KATARINA STOKES VIRAL CAPSID ANTIGEN IGG (BEAKER) Positive Negative, Equivocal (test ldpf=8484) Katarina Stokes Viral Capsid Antigen IgG Result Interpretation: </=0.8 Al Negative 0.9-1.0 Al Equivocal >/=1.1 Al PositiveEBV ANTIBODY, [id number] 08:49:00 Test Item Value Reference Range Comments KATARINA STOKES VIRAL CAPSID ANTIGEN IGM (BEAKER) Negative Negative, Equivocal (test ruet=5573) Katarina Stokes Viral Capsid Antigen IgM Result Interpretation: </=0.8 Al Negative 0.9-1.0 Al Equivocal >/=1.1 Al PositiveURINALYSIS W/ REFLEX URINE [id number] 07:10:00 Test Item Value Reference Range Comments COLOR (BEAKER) (test pdrk=955) Yellow CLARITY (BEAKER) (test qcbc=662) Clear SPECIFIC GRAVITY UA (BEAKER) (test zjpj=826) 1.004 1.001-1.035 PH UA (BEAKER) (test elgp=256) 7.0 5.0-8.0 PROTEIN UA (BEAKER) (test xtha=608) Negative Negative GLUCOSE UA (BEAKER) (test xsei=903) Negative Negative KETONES UA (BEAKER) (test pymi=940) 10 mg/dL Negative BILIRUBIN UA (BEAKER) (test msgw=770) Negative Negative BLOOD UA (BEAKER) (test vkmj=087) Trace Negative NITRITE UA (BEAKER) (test dgvr=345) Negative Negative LEUKOCYTE ESTERASE UA (BEAKER) (test nzll=337) Negative Negative UROBILINOGEN UA (BEAKER) (test eizu=714) 6.0 mg/dL 0.2-1.0 RBC UA (BEAKER) (test gpwf=082) 1 /HPF WBC UA (BEAKER) (test vhis=129) 2 /HPF MUCUS (BEAKER) (test ezlf=9267) Rare SQUAMOUS EPITHELIAL (BEAKER) (test kels=006) 1 /HPF SOURCE(BEAKER) (test oalq=1055) CBC W/PLT COUNT & AUTO [id number] 04:52:00 Test Item Value Reference Range Comments WHITE BLOOD CELL COUNT (BEAKER) (test wvyw=430) 6.7 K/ L 3.5-10.5 RED BLOOD CELL COUNT (BEAKER) (test rppl=827) 3.34 M/ L 3.93-5.22 HEMOGLOBIN (BEAKER) (test sebg=426) 9.0 GM/DL 11.2-15.7 HEMATOCRIT (BEAKER) (test rftp=334) 28.3 % 34.1-44.9 MEAN CORPUSCULAR VOLUME (BEAKER) (test rsvy=802) 84.7 fL 79.4-94.8 MEAN CORPUSCULAR HEMOGLOBIN (BEAKER) (test 26.9 pg 25.6-32.2 iwvk=716) MEAN CORPUSCULAR HEMOGLOBIN CONC (BEAKER) (test 31.8 GM/DL 32.2-35.5 kdxl=817) RED CELL DISTRIBUTION WIDTH (BEAKER) (test 17.3 % 11.7-14.4 xduw=054) PLATELET COUNT (BEAKER) (test kqqb=348) 248 K/CU MM 150-450 MEAN PLATELET VOLUME (BEAKER) (test fzrc=260) 9.8 fL 9.4-12.3 NUCLEATED RED BLOOD CELLS (BEAKER) (test 0 /100 WBC 0-0 wmna=167) (CELLAVISION MANUAL DIFF)2018-09-01 04:52:00 Test Item Value Reference Range Comments NEUTROPHILS - REL (CELLAVISION)(BEAKER) (test 49 % xftt=7770) LYMPHOCYTES - REL (CELLAVISION)(BEAKER) (test 12 % ttlz=7759) MONOCYTES - REL (CELLAVISION)(BEAKER) (test 6 % bswb=8414) EOSINOPHILS - REL (CELLAVISION)(BEAKER) (test 1 % yqcg=8977) PROMYELOCYTES - REL (CELLAVSION)(BEAKER) (test 1 % 0-0 rdzm=5081) BANDS - REL (CELLAVISION)(BEAKER) (test pkty=7325) 27 % 0-10 ATYPICAL LYMPHOCYTES - REL (CELLAVISION)(BEAKER) 4 % 0-0 (test weuw=5338) NEUTROPHILS - ABS (CELLAVISION)(BEAKER) (test 3.28 K/ul 1.56-6.13 rmle=1954) LYMPHOCYTES - ABS (CELLAVISION)(BEAKER) (test 0.80 K/ul 1.18-3.74 mvml=2986) MONOCYTES - ABS (CELLAVISION)(BEAKER) (test 0.40 K/uL 0.24-0.36 qrrd=1874) EOSINOPHILS - ABS (CELLAVISION)(BEAKER) (test 0.07 K/uL 0.04-0.36 vyuu=3252) PROMYELOCYTES - ABS (CELLAVISION)(BEAKER) (test 0.07 K/uL 0.00-0.00 tyqv=4788) BANDS - ABS (CELLAVISION)(BEAKER) (test kbzt=7470) 1.81 K/uL 0.00-0.80 ATYPICAL LYMPHOCYTES - ABS (CELLAVISION)(BEAKER) 0.27 K/uL 0.00-0.00 (test hkcd=3919) TOTAL COUNTED (BEAKER) (test kzja=7372) 100 SMUDGE CELLS (BEAKER) (test sudp=5639) Present GIANT PLATELETS (BEAKER) (test eeul=286) Present HYPOCHROMIA (BEAKER) (test whqc=988) 1+ few ANISOCYTOSIS (BEAKER) (test sxqm=519) 1+ few PLATELET CONCENTRATION (CELLAVISION)(BEAKER) (test Adequate aezf=4032) Received comment: User comments: Slide comments:COMPREHENSIVE METABOLIC [id number] 04:43:00 Test Item Value Reference Range Comments TOTAL PROTEIN (BEAKER) 6.1 gm/dL 6.0-8.3 (test fcre=860) ALBUMIN (BEAKER) (test 2.5 g/dL 3.5-5.0 uhfx=5571) ALKALINE PHOSPHATASE 199 U/L 40-150 (BEAKER) (test vuin=476) BILIRUBIN TOTAL (BEAKER) 1.3 mg/dL 0.2-1.2 (test xjwj=586) SODIUM (BEAKER) (test 135 meq/L 136-145 ovda=584) POTASSIUM (BEAKER) (test 3.8 meq/L 3.5-5.1 gboq=606) CHLORIDE (BEAKER) (test 103 meq/L 98-107 dudm=752) CO2 (BEAKER) (test 28 meq/L 22-29 ocxa=283) BLOOD UREA NITROGEN 5 mg/dL 7-21 (BEAKER) (test gvyd=523) CREATININE (BEAKER) (test 0.49 mg/dL 0.57-1.25 heyu=719) GLUCOSE RANDOM (BEAKER) 99 mg/dL 70-105 (test rgqo=652) CALCIUM (BEAKER) (test 7.9 mg/dL 8.4-10.2 gwxx=239) AST (SGOT) (BEAKER) (test 368 U/L 5-34 suvx=024) ALT (SGPT) (BEAKER) (test 349 U/L 6-55 rfwl=995) EGFR (BEAKER) (test 126 mL/min/1.73 sq ESTIMATED GFR IS NOT rxpp=7806) m ACCURATE CREATININE CLEARANCE IN PREDICTING GLOMERULAR FILTRATION RATE. ESTIMATED GFR IS NOT APPLICABLE FOR DIALYSIS PATIENTS. POCT-GLUCOSE [id number] 23:17:00 Test Item Value Reference Range Comments POC-GLUCOSE METER (BEAKER) 94 mg/dL 70-110 TESTED AT [address] (test yhkh=0935) [place] [address] POCT-GLUCOSE [id number] 17:38:00 Test Item Value Reference Range Comments POC-GLUCOSE METER (BEAKER) 99 mg/dL 70-110 TESTED AT [address] (test zcdz=7981) [place] [address] POCT-GLUCOSE [id number] 12:40:00 Test Item Value Reference Range Comments POC-GLUCOSE METER (BEAKER) 116 mg/dL 70-110 TESTED AT [address] (test lzoa=3425) [place] [address] POCT-GLUCOSE [id number] 09:05:00 Test Item Value Reference Range Comments POC-GLUCOSE METER (BEAKER) 124 mg/dL 70-110 TESTED AT [address] (test qnra=8418) [place] [id number] [place], [id number] 08:51:00FINAL REPORT CT abdomen and pelvis with contrast History: Abdominal pain and fever Comparison: 2018 Technique: serial axial imaging was performed following up to 100cc of non ionic iodinated intravenous contrast as per departmental protocol. Multiplanar images are reconstructed and reviewed when indicated. This CT examination is performed using one or more of the following dose reduction techniques: Automated exposure control, adjustment of the mA and /or kV according to patient size, and/or use of iterative reconstruction technique. Findings: Unremarkable appearance of pancreas and spleen. Questionable nodular hepatic contour. No hepatic mass is appreciated. No intrahepatic biliary dilation. Interval changes of cholecystectomy. No fluid collection within the cholecystectomy bed. A left ureteral stent is again noted in satisfactory position. There is moderate persistent hydronephrosis, slightly increased from the prior exam. . Again seen is extensive sigmoid diverticulosis with severe persistent wall thickening. There is a gas-containing complex collectioninvolving the superior presacral space which appears unchanged in size. These findings are probably best seen on axial images 63-68, with maximum dimensions of 3.4 x 2.7 cm in the axial plane. No definite contrast is contained within this collection. A second gas-containing collection is seen to the left of the mid sigmoid colon extending towards the left inguinal canal. This also appears unchanged in size and measures approximately 3.6 x 1.3 cm in the axial plane. This finding is probably best seenon axial image 71. There are stable circumscribed fluid density homogeneous lesions within the left adnexa which are probably related to the left ovary. These measure 3.9cm and 2.4 cm respectively in size. Subcutaneous emphysema is seen within the abdominal wall , likely related to the interval cholecystectomy. There is a small amount of pneumoperitoneum within the right upper quadrant. No free fluidor lymphadenopathy. No abdominal aortic aneurysm. No aggressive osseous lesion. Impression: 1. Persistent findings of complicated sigmoid diverticulitis , with stable gas-containing collection involving the superior presacral space and to the left of the mid sigmoid colon extending towards the leftinguinal canal.2. Stable circumscribed fluid density lesions within the left adnexa, likely related to the left ovary. These measure 3.9 cm and 2.4 cm respectively in size.3. Interval changes of cholecystectomy. Small amount of pneumoperitoneum in the right upper quadrant and subcutaneous emphysema within the abdominal wall are likely related to the recent surgery.4. Left ureteral stent in place, with moderate persistent hydronephrosis. The degree of hydronephrosis appears slightly increased from prior examination. Stent malfunction cannot be excluded. 5. Questionable nodular hepatic contour. Recommend correlation with liver function tests. Signed: Tien Bermudez MDReport Verified Date/Time: 08/31/2018 08:51:21 Reading Location: [facility] Diagnostic Imaging Reading Room - [place] [address] COMPREHENSIVE METABOLIC [id number] 05:47:00 Test Item Value Reference Range Comments TOTAL PROTEIN (BEAKER) 6.2 gm/dL 6.0-8.3 (test icus=008) ALBUMIN (BEAKER) (test 2.6 g/dL 3.5-5.0 wpnq=3301) ALKALINE PHOSPHATASE 223 U/L 40-150 (BEAKER) (test exzh=272) BILIRUBIN TOTAL (BEAKER) 1.4 mg/dL 0.2-1.2 (test mhis=695) SODIUM (BEAKER) (test 131 meq/L 136-145 ltti=122) POTASSIUM (BEAKER) (test 4.1 meq/L 3.5-5.1 mxmn=865) CHLORIDE (BEAKER) (test 101 meq/L 98-107 ynkp=087) CO2 (BEAKER) (test 27 meq/L 22-29 tvtt=065) BLOOD UREA NITROGEN 5 mg/dL 7-21 (BEAKER) (test fldj=498) CREATININE (BEAKER) (test 0.47 mg/dL 0.57-1.25 whae=812) GLUCOSE RANDOM (BEAKER) 100 mg/dL 70-105 (test pqvd=029) CALCIUM (BEAKER) (test 8.0 mg/dL 8.4-10.2 hfuw=177) AST (SGOT) (BEAKER) (test 446 U/L 5-34 tlzf=292) ALT (SGPT) (BEAKER) (test 451 U/L 6-55 ljjj=993) EGFR (BEAKER) (test 132 mL/min/1.73 sq ESTIMATED GFR IS NOT nkny=5351) m ACCURATE CREATININE CLEARANCE IN PREDICTING GLOMERULAR FILTRATION RATE. ESTIMATED GFR IS NOT APPLICABLE FOR DIALYSIS PATIENTS. CBC W/PLT COUNT & AUTO [id number] 05:07:00 Test Item Value Reference Range Comments WHITE BLOOD CELL COUNT (BEAKER) (test qyqf=659) 8.8 K/ L 3.5-10.5 RED BLOOD CELL COUNT (BEAKER) (test gihu=004) 3.59 M/ L 3.93-5.22 HEMOGLOBIN (BEAKER) (test zmgw=915) 9.5 GM/DL 11.2-15.7 HEMATOCRIT (BEAKER) (test dkyx=692) 30.4 % 34.1-44.9 MEAN CORPUSCULAR VOLUME (BEAKER) (test ozqi=589) 84.7 fL 79.4-94.8 MEAN CORPUSCULAR HEMOGLOBIN (BEAKER) (test 26.5 pg 25.6-32.2 nmrh=789) MEAN CORPUSCULAR HEMOGLOBIN CONC (BEAKER) (test 31.3 GM/DL 32.2-35.5 zfrx=746) RED CELL DISTRIBUTION WIDTH (BEAKER) (test 17.0 % 11.7-14.4 sokj=222) PLATELET COUNT (BEAKER) (test stji=268) 255 K/CU MM 150-450 MEAN PLATELET VOLUME (BEAKER) (test ngzd=903) 10.2 fL 9.4-12.3 NUCLEATED RED BLOOD CELLS (BEAKER) (test 0 /100 WBC 0-0 nvti=658) NEUTROPHILS RELATIVE PERCENT (BEAKER) (test 58 % hjww=327) LYMPHOCYTES RELATIVE PERCENT (BEAKER) (test 26 % kxkt=766) MONOCYTES RELATIVE PERCENT (BEAKER) (test 13 % mpmv=747) EOSINOPHILS RELATIVE PERCENT (BEAKER) (test 2 % vsss=503) BASOPHILS RELATIVE PERCENT (BEAKER) (test 1 % tjzo=287) NEUTROPHILS ABSOLUTE COUNT (BEAKER) (test 5.09 K/ L 1.56-6.13 mgbf=853) LYMPHOCYTES ABSOLUTE COUNT (BEAKER) (test 2.27 K/ L 1.18-3.74 wbjs=955) MONOCYTES ABSOLUTE COUNT (BEAKER) (test 1.15 K/ L 0.24-0.36 ywex=693) EOSINOPHILS ABSOLUTE COUNT (BEAKER) (test 0.16 K/ L 0.04-0.36 tmjx=096) BASOPHILS ABSOLUTE COUNT (BEAKER) (test 0.04 K/ L 0.01-0.08 qnjf=653) IMMATURE GRANULOCYTES-RELATIVE PERCENT (BEAKER) 1 % 0-1 (test jngi=3537) POCT-GLUCOSE [id number] 21:17:00 Test Item Value Reference Range Comments POC-GLUCOSE METER (BEAKER) 154 mg/dL 70-[address] [facility] [address] [facility] (test vgrq=3388) [facility] [address] POCT-GLUCOSE [id number] 16:44:00 Test Item Value Reference Range Comments POC-GLUCOSE METER (BEAKER) 122 mg/dL 70-[address] [facility] [address] [facility] (test wcvm=3498) [facility] [address] TISSUE [id number] 15:12:00Surgical Pathology Report Case: [id number] Authorizing Provider: Chiquita Liu MD Collected: 08/26/2018 1225 Ordering Location: [facility] PERIOPERATIVE Received: 08/26/2018 1449 SERVICES Pathologist: Reid Haq MD Specimens: A) - Biopsy, Liver B) -Gallbladder A. LIVER, INTRAOPERATIVE NEEDLE BIOPSIES- SEVERE ACTIVE HEPATITIS- see commentB. GALLBLADDER, CHOLECYSTECTOMY- CHRONIC CHOLECYSTITIS WITH FOCAL CHOLESTEROLOSIS- CHOLELITHIASIS Signing Pathologist Direct Phone Line: A. The histological features suggest an active viral hepatitis or a drug induced liver injury. [address], [address] X4, [id number] A. Biopsy, liver; B. Gallbladder A. The specimen is received fixed in formalin labeled with the patient's name and MRN as "liver biopsy" and contains core needle biopsy that is mock-brown and measures 2 cm in length x 0.5 x 0.1 cm. The specimen submitted entirely in cassette A1. SM/plB. Part B is labeled with the patient's name, date of , and accession number which corresponds to accompanying requisition page labeled with the same name and accession number. Part B received in formalin labeled "gallbladder" is a 10.5 x 4.5 x 2.0 cm intact gallbladder with an attached 1.5 cm long x1.0 cm in diameter cystic duct. No attached lymph node is identified.The serosa is mock-pink and smooth and hyperemic. The specimen is opened to reveal a mock-pink to mock-green velvety to roughened mucosa. The wall is 0.1 to 0.3 cm thick. There is 1 cc of green- brown viscus bile. There are four yellow ovoid finely nodular calculi ranging from 1.0 x 0.9 x 0.7 cm to 1.7 x 1.4 x 1.3 cm. There is a calculus lodged in the cystic duct. Event Security Officer sections are submitted. Ink code: Black, hepatic bed margin; Blue, cystic duct margin. Section code: B1-B2 guest experience representative sections with B1 to includecystic duct margin. RP/bc A. Section shows a single tissue core of liver parenchyma. The portal tracts show moderate to severe chronic lymphoplasmacytic inflammation with grade 2-3 interface hepatitis. The bile ducts are preserved and there is mild bile duct damage with rare focus of mild lymphocyticcholangitis. Mild ductular reaction with associated neutrophils is seen. There is lobular disarray and marked lobular inflammation with numerous acidophil bodies. There is kupffer cell hyperplasia and hypertrophy. Focal emperipolesis is seen. There is mild central venulitis and mild centrilobular congestion. There is minimal steatosis, mixed small droplet, medium droplet and large droplet type involving about 5% of liver parenchyma. No ballooning degeneration or Jacquelyn Denk hyaline is present. No cholestasis is seen. No fibrosis is seen (trichrome stain). Reticulin stain shows small foci of collapse. Iron stain shows 1+ staining of hepatocytes and there is iron accumulation in the kupffer cells.No hyaline globules are seen on PASD stain. B. There is no intestinal metaplasia, dysplasia or carcinoma.The interpretation of this case included the use of immunohistochemistry or special stains.Control Slides Examined: In-house known positive controls were evaluated along with the test tissue. These control slides run alongside of the patients sample show appropriate staining. Internal positive and negative controls when available are evaluated Immunohistochemistry technical testing was performed at [facility], Pathology Laboratory where it was developed and its performance characteristics were determined. It has not been cleared or approved by the U.S. Food and Drug Administration. The FDA has determined that such clearance or approval is not necessary. The test is usedfor clinical purposes. It should not be regarded as investigational or for research. This laboratoryis certified under the Clinical Laboratory Improvement Amendments of 1988 (CLIA-88) as qualified to perform high complexity clinical laboratory testing.POCT-GLUCOSE [id number] 11:55:00 Test Item Value Reference Range Comments POC-GLUCOSE METER (BEAKER) 130 mg/dL 70-110 [address] (test fudu=6346) [facility] [address] POCT-GLUCOSE [id number] 08:12:00 Test Item Value Reference Range Comments POC-GLUCOSE METER (BEAKER) 135 mg/dL 70-[address] [facility] [address] [facility] (test vasr=7259) [facility] [address] CBC W/PLT COUNT & AUTO [id number] 06:37:00 Test Item Value Reference Range Comments WHITE BLOOD CELL COUNT (BEAKER) (test lvoi=001) 11.9 K/ L 3.5-10.5 RED BLOOD CELL COUNT (BEAKER) (test gmtr=421) 4.45 M/ L 3.93-5.22 HEMOGLOBIN (BEAKER) (test raab=287) 11.6 GM/DL 11.2-15.7 HEMATOCRIT (BEAKER) (test kxev=526) 37.5 % 34.1-44.9 MEAN CORPUSCULAR VOLUME (BEAKER) (test idgm=941) 84.3 fL 79.4-94.8 MEAN CORPUSCULAR HEMOGLOBIN (BEAKER) (test 26.1 pg 25.6-32.2 exsa=599) MEAN CORPUSCULAR HEMOGLOBIN CONC (BEAKER) (test 30.9 GM/DL 32.2-35.5 qzjv=634) RED CELL DISTRIBUTION WIDTH (BEAKER) (test 17.3 % 11.7-14.4 zibk=929) PLATELET COUNT (BEAKER) (test rkvl=205) 340 K/CU MM 150-450 MEAN PLATELET VOLUME (BEAKER) (test fmru=666) 11.1 fL 9.4-12.3 NUCLEATED RED BLOOD CELLS (BEAKER) (test 0 /100 WBC 0-0 gdqq=260) NEUTROPHILS RELATIVE PERCENT (BEAKER) (test 65 % uriy=742) LYMPHOCYTES RELATIVE PERCENT (BEAKER) (test 22 % duit=096) MONOCYTES RELATIVE PERCENT (BEAKER) (test 12 % gaep=326) EOSINOPHILS RELATIVE PERCENT (BEAKER) (test 0 % dxvj=971) BASOPHILS RELATIVE PERCENT (BEAKER) (test 0 % yrzh=611) NEUTROPHILS ABSOLUTE COUNT (BEAKER) (test 7.66 K/ L 1.56-6.13 ymts=394) LYMPHOCYTES ABSOLUTE COUNT (BEAKER) (test 2.58 K/ L 1.18-3.74 usir=281) MONOCYTES ABSOLUTE COUNT (BEAKER) (test 1.45 K/ L 0.24-0.36 lnge=910) EOSINOPHILS ABSOLUTE COUNT (BEAKER) (test 0.04 K/ L 0.04-0.36 sfnh=167) BASOPHILS ABSOLUTE COUNT (BEAKER) (test 0.05 K/ L 0.01-0.08 ypmo=250) IMMATURE GRANULOCYTES-RELATIVE PERCENT (BEAKER) 1 % 0-1 (test jttd=2710) COMPREHENSIVE METABOLIC [id number] 04:47:00 Test Item Value Reference Range Comments TOTAL PROTEIN (BEAKER) 7.5 gm/dL 6.0-8.3 (test rcgu=319) ALBUMIN (BEAKER) (test 3.2 g/dL 3.5-5.0 jgbb=3187) ALKALINE PHOSPHATASE 339 U/L 40-150 (BEAKER) (test twlw=958) BILIRUBIN TOTAL (BEAKER) 1.6 mg/dL 0.2-1.2 (test wtsy=011) SODIUM (BEAKER) (test 134 meq/L 136-145 wooq=811) POTASSIUM (BEAKER) (test 4.3 meq/L 3.5-5.1 mlbr=097) CHLORIDE (BEAKER) (test 102 meq/L 98-107 fzzz=834) CO2 (BEAKER) (test 25 meq/L 22-29 xiia=434) BLOOD UREA NITROGEN 8 mg/dL 7-21 (BEAKER) (test tbbo=623) CREATININE (BEAKER) (test 0.56 mg/dL 0.57-1.25 enww=434) GLUCOSE RANDOM (BEAKER) 125 mg/dL 70-105 (test torm=244) CALCIUM (BEAKER) (test 8.8 mg/dL 8.4-10.2 lbbh=540) AST (SGOT) (BEAKER) (test 730 U/L 5-34 uepv=054) ALT (SGPT) (BEAKER) (test 652 U/L 6-55 hgqh=340) EGFR (BEAKER) (test 108 mL/min/1.73 sq ESTIMATED GFR IS NOT giaz=0986) m ACCURATE CREATININE CLEARANCE IN PREDICTING GLOMERULAR FILTRATION RATE. ESTIMATED GFR IS NOT APPLICABLE FOR DIALYSIS PATIENTS. POCT-GLUCOSE [id number] 20:54:00 Test Item Value Reference Range Comments POC-GLUCOSE METER (BEAKER) 129 mg/dL 70-110 TESTED AT [address] (test npqx=9923) [facility] [address] POCT-GLUCOSE [id number] 17:38:00 Test Item Value Reference Range Comments POC-GLUCOSE METER (BEAKER) 107 mg/dL 70-110 TESTED AT [address] (test nrjk=2299) [facility] [address] POCT-GLUCOSE [id number] 13:00:00 Test Item Value Reference Range Comments POC-GLUCOSE METER (BEAKER) 99 mg/dL 70-110 TESTED AT [address] (test dcsl=1200) [facility] [address] POCT-GLUCOSE [id number] 08:59:00 Test Item Value Reference Range Comments POC-GLUCOSE METER (BEAKER) 126 mg/dL 70-110 TESTED AT [address] (test oktr=9595) [facility] [address] CBC (HEMOGRAM ONLY)2018-08-29 08:11:00 Test Item Value Reference Range Comments WHITE BLOOD CELL COUNT (BEAKER) (test apxv=776) 6.5 K/ L 3.5-10.5 RED BLOOD CELL COUNT (BEAKER) (test kvnw=916) 4.11 M/ L 3.93-5.22 HEMOGLOBIN (BEAKER) (test fobm=506) 10.8 GM/DL 11.2-15.7 HEMATOCRIT (BEAKER) (test pxbl=531) 34.5 % 34.1-44.9 MEAN CORPUSCULAR VOLUME (BEAKER) (test dyrs=311) 83.9 fL 79.4-94.8 MEAN CORPUSCULAR HEMOGLOBIN (BEAKER) (test 26.3 pg 25.6-32.2 bnvw=690) MEAN CORPUSCULAR HEMOGLOBIN CONC (BEAKER) (test 31.3 GM/DL 32.2-35.5 unen=102) RED CELL DISTRIBUTION WIDTH (BEAKER) (test 16.5 % 11.7-14.4 cjki=216) PLATELET COUNT (BEAKER) (test tqfp=691) 263 K/CU MM 150-450 MEAN PLATELET VOLUME (BEAKER) (test hzwf=864) 9.5 fL 9.4-12.3 NUCLEATED RED BLOOD CELLS (BEAKER) (test 0 /100 WBC 0-0 gtml=092) [id number] 08:01:00 Test Item Value Reference Range Comments PHOSPHORUS (BEAKER) (test gdjs=994) 3.9 mg/dL 2.3-4.7 [id number] 08:01:00 Test Item Value Reference Range Comments MAGNESIUM (BEAKER) (test mgkx=874) 2.1 mg/dL 1.6-2.6 COMPREHENSIVE METABOLIC [id number] 08:01:00 Test Item Value Reference Range Comments TOTAL PROTEIN (BEAKER) 7.4 gm/dL 6.0-8.3 (test dguc=781) ALBUMIN (BEAKER) (test 3.0 g/dL 3.5-5.0 nteq=1646) ALKALINE PHOSPHATASE 337 U/L 40-150 (BEAKER) (test jihf=369) BILIRUBIN TOTAL (BEAKER) 1.3 mg/dL 0.2-1.2 (test mprb=032) SODIUM (BEAKER) (test 133 meq/L 136-145 dvhs=852) POTASSIUM (BEAKER) (test 4.6 meq/L 3.5-5.1 fnbc=379) CHLORIDE (BEAKER) (test 102 meq/L 98-107 ykxs=305) CO2 (BEAKER) (test 26 meq/L 22-29 ynaf=955) BLOOD UREA NITROGEN 7 mg/dL 7-21 (BEAKER) (test oosu=613) CREATININE (BEAKER) (test 0.52 mg/dL 0.57-1.25 ncbz=556) GLUCOSE RANDOM (BEAKER) 92 mg/dL 70-105 (test gsgq=873) CALCIUM (BEAKER) (test 8.9 mg/dL 8.4-10.2 kzqa=117) AST (SGOT) (BEAKER) (test 959 U/L 5-34 ssxp=340) ALT (SGPT) (BEAKER) (test 706 U/L 6-55 pbcb=874) EGFR (BEAKER) (test 117 mL/min/1.73 sq ESTIMATED GFR IS NOT jqxu=5703) m ACCURATE CREATININE CLEARANCE IN PREDICTING GLOMERULAR FILTRATION RATE. ESTIMATED GFR IS NOT APPLICABLE FOR DIALYSIS PATIENTS. POCT-GLUCOSE [id number] 21:31:00 Test Item Value Reference Range Comments POC-GLUCOSE METER (BEAKER) 89 mg/dL 70-110 TESTED AT [address] (test umtx=1518) [facility] [id number] POCT-GLUCOSE [id number] 17:30:00 Test Item Value Reference Range Comments POC-GLUCOSE METER (BEAKER) 88 mg/dL 70-110 TESTED AT [address] (test zdlh=4427) [facility] [id number] POCT-GLUCOSE [id number] 12:42:00 Test Item Value Reference Range Comments POC-GLUCOSE METER (BEAKER) 104 mg/dL 70-110 TESTED AT [address] (test eoyd=6557) [facility] [id number] POCT-GLUCOSE [id number] 09:00:00 Test Item Value Reference Range Comments POC-GLUCOSE METER (BEAKER) 103 mg/dL 70-110 TESTED AT [address] (test bzzh=0018) [facility] [id number] 06:34:00 Test Item Value Reference Range Comments PHOSPHORUS (BEAKER) (test kebp=749) 3.1 mg/dL 2.3-4.7 [id number] 06:34:00 Test Item Value Reference Range Comments MAGNESIUM (BEAKER) (test lfnh=398) 2.1 mg/dL 1.6-2.6 COMPREHENSIVE METABOLIC [id number] 06:34:00 Test Item Value Reference Range Comments TOTAL PROTEIN (BEAKER) 6.4 gm/dL 6.0-8.3 (test virc=658) ALBUMIN (BEAKER) (test 2.7 g/dL 3.5-5.0 dlha=2186) ALKALINE PHOSPHATASE 271 U/L 40-150 (BEAKER) (test qyah=353) BILIRUBIN TOTAL (BEAKER) 0.9 mg/dL 0.2-1.2 (test fbbz=113) SODIUM (BEAKER) (test 132 meq/L 136-145 xyeb=923) POTASSIUM (BEAKER) (test 4.3 meq/L 3.5-5.1 ztxj=435) CHLORIDE (BEAKER) (test 102 meq/L 98-107 olmc=418) CO2 (BEAKER) (test 25 meq/L 22-29 tfpw=885) BLOOD UREA NITROGEN 9 mg/dL 7-21 (BEAKER) (test geew=573) CREATININE (BEAKER) (test 0.48 mg/dL 0.57-1.25 wdwg=914) GLUCOSE RANDOM (BEAKER) 85 mg/dL 70-105 (test ocky=810) CALCIUM (BEAKER) (test 7.8 mg/dL 8.4-10.2 ljom=374) AST (SGOT) (BEAKER) (test 853 U/L 5-34 aqos=860) ALT (SGPT) (BEAKER) (test 579 U/L 6-55 hhob=556) EGFR (BEAKER) (test 129 mL/min/1.73 sq ESTIMATED GFR IS NOT mgfi=0907) m ACCURATE CREATININE CLEARANCE IN PREDICTING GLOMERULAR FILTRATION RATE. ESTIMATED GFR IS NOT APPLICABLE FOR DIALYSIS PATIENTS. POCT-GLUCOSE [id number] 00:38:00 Test Item Value Reference Range Comments POC-GLUCOSE METER (BEAKER) 91 mg/dL 70-110 TESTED AT [address] (test hevu=9444) [facility] [address] POCT-GLUCOSE [id number] 17:19:00 Test Item Value Reference Range Comments POC-GLUCOSE METER (BEAKER) 127 mg/dL 70-110 TESTED AT [address] (test zwnb=2534) [facility] [address] CBC W/PLT COUNT & AUTO [id number] 14:19:00 Test Item Value Reference Range Comments WHITE BLOOD CELL COUNT (BEAKER) (test uxzd=133) 7.1 K/ L 3.5-10.5 RED BLOOD CELL COUNT (BEAKER) (test boil=353) 3.55 M/ L 3.93-5.22 HEMOGLOBIN (BEAKER) (test jcha=247) 9.2 GM/DL 11.2-15.7 HEMATOCRIT (BEAKER) (test mfhd=153) 30.0 % 34.1-44.9 MEAN CORPUSCULAR VOLUME (BEAKER) (test fjzm=358) 84.5 fL 79.4-94.8 MEAN CORPUSCULAR HEMOGLOBIN (BEAKER) (test 25.9 pg 25.6-32.2 jjtd=686) MEAN CORPUSCULAR HEMOGLOBIN CONC (BEAKER) (test 30.7 GM/DL 32.2-35.5 lejj=013) RED CELL DISTRIBUTION WIDTH (BEAKER) (test 15.5 % 11.7-14.4 xkzs=934) PLATELET COUNT (BEAKER) (test uhnc=311) 190 K/CU MM 150-450 MEAN PLATELET VOLUME (BEAKER) (test indi=075) 10.2 fL 9.4-12.3 NUCLEATED RED BLOOD CELLS (BEAKER) (test 0 /100 WBC 0-0 wxrx=416) (CELLAVISION MANUAL DIFF)2018-08-27 14:19:00 Test Item Value Reference Range Comments NEUTROPHILS - REL (CELLAVISION)(BEAKER) (test 67 % goro=2754) LYMPHOCYTES - REL (CELLAVISION)(BEAKER) (test 28 % goib=2342) MONOCYTES - REL (CELLAVISION)(BEAKER) (test 4 % bmvp=4659) ATYPICAL LYMPHOCYTES - REL (CELLAVISION)(BEAKER) 1 % 0-0 (test ycir=6682) NEUTROPHILS - ABS (CELLAVISION)(BEAKER) (test 4.76 K/ul 1.56-6.13 mcqp=3535) LYMPHOCYTES - ABS (CELLAVISION)(BEAKER) (test 1.99 K/ul 1.18-3.74 ybnp=6716) MONOCYTES - ABS (CELLAVISION)(BEAKER) (test 0.28 K/uL 0.24-0.36 qomy=8711) ATYPICAL LYMPHOCYTES - ABS (CELLAVISION)(BEAKER) 0.07 K/uL 0.00-0.00 (test pqjg=9418) TOTAL COUNTED (BEAKER) (test kcen=9570) 100 WBC MORPHOLOGY (BEAKER) (test jgkb=099) Normal PLT MORPHOLOGY (BEAKER) (test hzoz=059) Normal ANISOCYTOSIS (BEAKER) (test siga=456) 1+ few POIKILOCYTES (BEAKER) (test tgpv=810) 1+ few OVALOCYTES (BEAKER) (test mptl=225) 1+ few JACK CELLS (BEAKER) (test afqe=427) 1+ few ARTIFACT (CELLAVISION)(BEAKER) (test axrn=0068) Present PLATELET CONCENTRATION (CELLAVISION)(BEAKER) (test Adequate mtcz=7714) Received comment: User comments: Slide comments: WBC: SEGMENTED WITH TOXIC GRANULATIONS PRESENTPOCT-GLUCOSE [id number] 12:24:00 Test Item Value Reference Range Comments POC-GLUCOSE METER (BEAKER) 147 mg/dL 70-[address] [facility] [address] [facility] (test ukpt=8839) [facility] [address] COMPREHENSIVE METABOLIC [id number] 06:55:00 Test Item Value Reference Range Comments TOTAL PROTEIN (BEAKER) 5.8 gm/dL 6.0-8.3 (test lhor=423) ALBUMIN (BEAKER) (test 2.6 g/dL 3.5-5.0 snqr=1559) ALKALINE PHOSPHATASE 230 U/L 40-150 (BEAKER) (test culk=308) BILIRUBIN TOTAL (BEAKER) 0.9 mg/dL 0.2-1.2 (test fldw=107) SODIUM (BEAKER) (test 136 meq/L 136-145 wbge=006) POTASSIUM (BEAKER) (test 4.3 meq/L 3.5-5.1 jwqy=027) CHLORIDE (BEAKER) (test 107 meq/L 98-107 yrwj=131) CO2 (BEAKER) (test 25 meq/L 22-29 ijcl=464) BLOOD UREA NITROGEN 7 mg/dL 7-21 (BEAKER) (test urei=349) CREATININE (BEAKER) (test 0.46 mg/dL 0.57-1.25 cdfq=079) GLUCOSE RANDOM (BEAKER) 125 mg/dL 70-105 (test xgbj=431) CALCIUM (BEAKER) (test 7.8 mg/dL 8.4-10.2 lbbn=088) AST (SGOT) (BEAKER) (test 991 U/L 5-34 znmu=383) ALT (SGPT) (BEAKER) (test 596 U/L 6-55 zkix=764) EGFR (BEAKER) (test 135 mL/min/1.73 sq ESTIMATED GFR IS NOT mhsf=5258) m ACCURATE CREATININE CLEARANCE IN PREDICTING GLOMERULAR FILTRATION RATE. ESTIMATED GFR IS NOT APPLICABLE FOR DIALYSIS PATIENTS. [id number] 05:44:00 Test Item Value Reference Range Comments PHOSPHORUS (BEAKER) (test ipzq=908) 1.6 mg/dL 2.3-4.7 [id number] 05:44:00 Test Item Value Reference Range Comments MAGNESIUM (BEAKER) (test fhvk=781) 2.2 mg/dL 1.6-2.6 POCT-GLUCOSE [id number] 23:04:00 Test Item Value Reference Range Comments POC-GLUCOSE METER (BEAKER) 111 mg/dL 70-110 TESTED AT [address] (test ihrw=4593) [facility] [address] POCT-GLUCOSE [id number] 13:16:00 Test Item Value Reference Range Comments POC-GLUCOSE METER (BEAKER) 213 mg/dL 70-110 TESTED AT [address] (test ishz=9115) [place] [id number] ANTI-NUCLEAR ANTIBODY (ALINE)2018-08-26 09:14:00 Test Item Value Reference Range Comments ANTI-NUCLEAR ANTIBODY (ALINE) (BEAKER) (test Negative Negative etvx=670) Test performed by IFA method.CBC W/PLT COUNT & AUTO [id number] 08:01:00 Test Item Value Reference Range Comments WHITE BLOOD CELL COUNT (BEAKER) (test txpi=043) 6.0 K/ L 3.5-10.5 RED BLOOD CELL COUNT (BEAKER) (test cqqm=285) 3.48 M/ L 3.93-5.22 HEMOGLOBIN (BEAKER) (test ghsu=149) 9.1 GM/DL 11.2-15.7 HEMATOCRIT (BEAKER) (test wael=438) 29.0 % 34.1-44.9 MEAN CORPUSCULAR VOLUME (BEAKER) (test cjcy=663) 83.3 fL 79.4-94.8 MEAN CORPUSCULAR HEMOGLOBIN (BEAKER) (test 26.1 pg 25.6-32.2 xaua=429) MEAN CORPUSCULAR HEMOGLOBIN CONC (BEAKER) (test 31.4 GM/DL 32.2-35.5 uwoq=723) RED CELL DISTRIBUTION WIDTH (BEAKER) (test 15.6 % 11.7-14.4 nxvk=684) PLATELET COUNT (BEAKER) (test cpwo=479) 185 K/CU MM 150-450 MEAN PLATELET VOLUME (BEAKER) (test zhmh=540) 9.9 fL 9.4-12.3 NUCLEATED RED BLOOD CELLS (BEAKER) (test 0 /100 WBC 0-0 ewgk=261) (CELLAVISION MANUAL DIFF)2018-08-26 08:01:00 Test Item Value Reference Range Comments NEUTROPHILS - REL (CELLAVISION)(BEAKER) (test 70 % pgcl=4198) LYMPHOCYTES - REL (CELLAVISION)(BEAKER) (test 17 % bhku=6688) MONOCYTES - REL (CELLAVISION)(BEAKER) (test 9 % noxf=2739) ATYPICAL LYMPHOCYTES - REL (CELLAVISION)(BEAKER) 4 % 0-0 (test vdxm=1651) NEUTROPHILS - ABS (CELLAVISION)(BEAKER) (test 4.20 K/ul 1.56-6.13 wvio=3415) LYMPHOCYTES - ABS (CELLAVISION)(BEAKER) (test 1.02 K/ul 1.18-3.74 zhmg=8351) MONOCYTES - ABS (CELLAVISION)(BEAKER) (test 0.54 K/uL 0.24-0.36 nbgi=2153) ATYPICAL LYMPHOCYTES - ABS (CELLAVISION)(BEAKER) 0.24 K/uL 0.00-0.00 (test ccyn=9205) TOTAL COUNTED (BEAKER) (test aauc=3449) 100 WBC MORPHOLOGY (BEAKER) (test ivyu=201) Normal PLT MORPHOLOGY (BEAKER) (test pmky=765) Normal POLYCHROMATOPHILLIC RBCS(BEAKER) (test ltxs=378) 1+ few HYPOCHROMIA (BEAKER) (test edyx=108) 1+ few ARTIFACT (CELLAVISION)(BEAKER) (test acla=5021) Present PLATELET CONCENTRATION (CELLAVISION)(BEAKER) (test Adequate synu=2313) Received comment: User comments: Slide comments:POCT-GLUCOSE [id number] 06: 05:00 Test Item Value Reference Range Comments POC-GLUCOSE METER (BEAKER) 131 mg/dL 70-[address] [facility] [address] [facility] (test rtlk=7908) [facility] [address] COMPREHENSIVE METABOLIC [id number] 05:18:00 Test Item Value Reference Range Comments TOTAL PROTEIN (BEAKER) 5.5 gm/dL 6.0-8.3 (test btaq=208) ALBUMIN (BEAKER) (test 2.2 g/dL 3.5-5.0 saoj=3843) ALKALINE PHOSPHATASE 268 U/L 40-150 (BEAKER) (test nqgh=809) BILIRUBIN TOTAL (BEAKER) 0.9 mg/dL 0.2-1.2 (test jkse=827) SODIUM (BEAKER) (test 133 meq/L 136-145 fdom=927) POTASSIUM (BEAKER) (test 3.7 meq/L 3.5-5.1 xpbu=840) CHLORIDE (BEAKER) (test 103 meq/L 98-107 ioge=480) CO2 (BEAKER) (test 28 meq/L 22-29 xskr=005) BLOOD UREA NITROGEN 7 mg/dL 7-21 (BEAKER) (test mxas=597) CREATININE (BEAKER) (test 0.48 mg/dL 0.57-1.25 hpwp=281) GLUCOSE RANDOM (BEAKER) 128 mg/dL 70-105 (test dwnu=289) CALCIUM (BEAKER) (test 7.3 mg/dL 8.4-10.2 ntyu=367) AST (SGOT) (BEAKER) (test 1104 U/L 5-34 aoeb=406) ALT (SGPT) (BEAKER) (test 601 U/L 6-55 omzr=125) EGFR (BEAKER) (test 129 mL/min/1.73 sq ESTIMATED GFR IS NOT vkob=4309) m ACCURATE CREATININE CLEARANCE IN PREDICTING GLOMERULAR FILTRATION RATE. ESTIMATED GFR IS NOT APPLICABLE FOR DIALYSIS PATIENTS. U/S, ABDOMINAL, [id number] 02:54:00Abdomen limited area? Add comment if clarification is needed.->Right upper quadrantReason for exam:->rising LFTs, recent ERCP with sphincterotomy; eval GB for signs of cholecystitis, CBD size, ?intrahepatic bile duct dilation seen on recent CT scan, thanksShould this be performed at the bedside?->YesBedside or department is fine, thanksFINAL REPORT INDICATION: rising LFTs, recent ERCP with sphincterotomy; eval GB for signs of cholecystitis, CBD size, ? intrahepatic bile duct dilation seen on recent CT scan, thanks COMPARISON: None. TECHNIQUE: Real-time transabdominal rogel scale and color Doppler ultrasound of the abdomen. FINDINGS:Liver: Size: 13.9cm. Echogenicity : Normal. Masses/lesions: None. Surface Nodularity: None. Intrahepatic bile ducts: Normal. Common bile duct: 0.4 cm.MPV: 1.3cm. Gallbladder: Stones: Multiple echogenic stones are [...] measures 2.1 cm proximally, 1.5 cm in themidportion 1.3 cm distally. Additional findings: None. IMPRESSION: Cholelithiasis with gallbladderwall thickening and trace pericholecystic fluid. Findings are concerning for acute cholecystitis. HIDA scan could be helpful for confirmation. No intra or extrahepatic biliary ductal dilatation is identified as clinically queried. Signed: Ronna Le [facility] Verified Date/Time: 08/26/2018 02:54:13 POCT-GLUCOSE [id number] 23:47:00 Test Item Value Reference Range Comments POC-GLUCOSE METER (BEAKER) 118 mg/dL 70-110 TESTED AT [address] (test ykhu=2297) [facility] [address] POCT-GLUCOSE [id number] 18:13:00 Test Item Value Reference Range Comments POC-GLUCOSE METER (BEAKER) 115 mg/dL 70-110 TESTED AT [address] (test ckjo=3105) [place] [id number] POCT-GLUCOSE [id number] 12:21:00 Test Item Value Reference Range Comments POC-GLUCOSE METER (BEAKER) 175 mg/dL 70-110 TESTED AT [address] (test gtbm=8556) [facility] [address] BLOOD [id number] 08:01:00 Test Item Value Reference Range Comments CULTURE (BEAKER) (test oxoh=8672) No growth in 5 days BLOOD [id number] 08:01:00 Test Item Value Reference Range Comments CULTURE (BEAKER) (test zocu=8996) No growth in 5 days [id number] 06:45:00 Test Item Value Reference Range Comments PHOSPHORUS (BEAKER) (test ulwf=798) 1.4 mg/dL 2.3-4.7 COMPREHENSIVE METABOLIC [id number] 06:44:00 Test Item Value Reference Range Comments TOTAL PROTEIN (BEAKER) 6.1 gm/dL 6.0-8.3 (test fbmk=307) ALBUMIN (BEAKER) (test 2.5 g/dL 3.5-5.0 oaru=7596) ALKALINE PHOSPHATASE 298 U/L 40-150 (BEAKER) (test psff=270) BILIRUBIN TOTAL (BEAKER) 1.1 mg/dL 0.2-1.2 (test awgi=029) SODIUM (BEAKER) (test 134 meq/L 136-145 yeaw=258) POTASSIUM (BEAKER) (test 3.9 meq/L 3.5-5.1 jwum=250) CHLORIDE (BEAKER) (test 101 meq/L 98-107 anrg=554) CO2 (BEAKER) (test 28 meq/L 22-29 bsmh=027) BLOOD UREA NITROGEN 7 mg/dL 7-21 (BEAKER) (test lcao=160) CREATININE (BEAKER) (test 0.51 mg/dL 0.57-1.25 bmpw=033) GLUCOSE RANDOM (BEAKER) 116 mg/dL 70-105 (test tert=722) CALCIUM (BEAKER) (test 7.7 mg/dL 8.4-10.2 ycai=568) AST (SGOT) (BEAKER) (test 1213 U/L 5-34 zzva=052) ALT (SGPT) (BEAKER) (test 623 U/L 6-55 kxzi=586) EGFR (BEAKER) (test 120 mL/min/1.73 sq ESTIMATED GFR IS NOT qfgx=6432) m ACCURATE CREATININE CLEARANCE IN PREDICTING GLOMERULAR FILTRATION RATE. ESTIMATED GFR IS NOT APPLICABLE FOR DIALYSIS PATIENTS. [id number] 06:41:00 Test Item Value Reference Range Comments TRIGLYCERIDES (BEAKER) (test mqyg=067) 169 mg/dL TRIGLYCERIDE REFERENCE RANGELow Risk <150Borderline Risk 150-199High Risk 200-499Very High Risk>=[id number] 06:41:00 Test Item Value Reference Range Comments MAGNESIUM (BEAKER) (test pxrc=337) 1.9 mg/dL 1.6-2.6 POCT-GLUCOSE [id number] 06:14:00 Test Item Value Reference Range Comments POC-GLUCOSE METER (BEAKER) 146 mg/dL 70-[address] [facility] [address] [facility] (test qbsu=3149) [place] [address] CBC W/PLT COUNT & AUTO [id number] 05:35:00 Test Item Value Reference Range Comments WHITE BLOOD CELL COUNT (BEAKER) (test fljs=441) 7.0 K/ L 3.5-10.5 RED BLOOD CELL COUNT (BEAKER) (test qywy=357) 3.94 M/ L 3.93-5.22 HEMOGLOBIN (BEAKER) (test eqhx=608) 10.1 GM/DL 11.2-15.7 HEMATOCRIT (BEAKER) (test mnqa=681) 33.0 % 34.1-44.9 MEAN CORPUSCULAR VOLUME (BEAKER) (test zsvt=722) 83.8 fL 79.4-94.8 MEAN CORPUSCULAR HEMOGLOBIN (BEAKER) (test 25.6 pg 25.6-32.2 ijzs=161) MEAN CORPUSCULAR HEMOGLOBIN CONC (BEAKER) (test 30.6 GM/DL 32.2-35.5 qdyj=815) RED CELL DISTRIBUTION WIDTH (BEAKER) (test 15.1 % 11.7-14.4 mpym=832) PLATELET COUNT (BEAKER) (test syut=537) 205 K/CU MM 150-450 MEAN PLATELET VOLUME (BEAKER) (test ihdi=715) 10.8 fL 9.4-12.3 NUCLEATED RED BLOOD CELLS (BEAKER) (test 0 /100 WBC 0-0 kpuq=774) NEUTROPHILS RELATIVE PERCENT (BEAKER) (test 43 % lrre=917) LYMPHOCYTES RELATIVE PERCENT (BEAKER) (test 42 % anfg=482) MONOCYTES RELATIVE PERCENT (BEAKER) (test 14 % qrel=902) EOSINOPHILS RELATIVE PERCENT (BEAKER) (test 1 % lmhx=894) BASOPHILS RELATIVE PERCENT (BEAKER) (test 1 % aopk=270) NEUTROPHILS ABSOLUTE COUNT (BEAKER) (test 2.98 K/ L 1.56-6.13 xqax=775) LYMPHOCYTES ABSOLUTE COUNT (BEAKER) (test 2.91 K/ L 1.18-3.74 nrys=868) MONOCYTES ABSOLUTE COUNT (BEAKER) (test 0.94 K/ L 0.24-0.36 yzbg=370) EOSINOPHILS ABSOLUTE COUNT (BEAKER) (test 0.06 K/ L 0.04-0.36 tuyz=982) BASOPHILS ABSOLUTE COUNT (BEAKER) (test 0.04 K/ L 0.01-0.08 gali=666) IMMATURE GRANULOCYTES-RELATIVE PERCENT (BEAKER) 1 % 0-1 (test lhfr=4402) CALCIUM, [id number] 04:03:00 Test Item Value Reference Range Comments CALCIUM IONIZED (BEAKER) (test uhql=495) 1.03 mmol/L 1.12-1.27 PH, BLOOD (BEAKER) (test dxrp=2284) 7.50 POCT-GLUCOSE [id number] 23:54:00 Test Item Value Reference Range Comments POC-GLUCOSE METER (BEAKER) 74 mg/dL 70-[address] [facility] [address] [place] [address] (test vmsn=9309) [facility] [address] [id number] 20:43:00 Test Item Value Reference Range Comments FERRITIN (BEAKER) (test jqjm=286) 8721 ng/mL 5-275 HEPATITIS A ANTIBODY, [id number] 19:56:00 Test Item Value Reference Range Comments HEPATITIS A IGG ANTIBODY (BEAKER) (test jfaq=7091) Reactive Nonreactive ALPHA FETOPROTEIN (AFP), TUMOR [id number] 19:52:00 Test Item Value Reference Range Comments ALPHA-FETOPROTEIN (BEAKER) (test qkum=0684) 3.0 ng/mL <10.0 HEPATITIS B CORE ANTIBODY, [id number] 19:52:00 Test Item Value Reference Range Comments HEPATITIS B CORE IGM ANTIBODY (BEAKER) (test Nonreactive Nonreactive tbkr=710) HEPATITIS A ANTIBODY, [id number] 19:52:00 Test Item Value Reference Range Comments HEPATITIS A IGM ANTIBODY (BEAKER) (test Nonreactive Nonreactive idon=241) HEPATITIS B SURFACE [id number] 19:42:00 Test Item Value Reference Range Comments HEPATITIS B SURFACE ANTIBODY (BEAKER) (test < mIU/mL <8.0 xrgc=522) HEPATITIS B SURFACE [id number] 19:41:00 Test Item Value Reference Range Comments HEPATITIS B SURFACE ANTIGEN (2) (BEAKER) (test Nonreactive Nonreactive wvkn=8551) HEPATITIS C [id number] 19:41:00 Test Item Value Reference Range Comments HEPATITIS C ANTIBODY (BEAKER) (test dsnm=280) Nonreactive Nonreactive [id number] 19:21:00 Test Item Value Reference Range Comments ALPHA-1 ANTITRYPSIN (BEAKER) (test luci=326) 211.10 mg/dL 90.00-200.00 IMMUNOGLOBULIN G (IGG)2018-08-24 19:19:00 Test Item Value Reference Range Comments IMMUNOGLOBULIN G (IGG) (BEAKER) (test qdog=694) 1722 mg/dL 540-1,822 IRON, TIBC, % SAT. (WITHOUT FERRITIN)2018-08-24 19:19:00 Test Item Value Reference Range Comments IRON (BEAKER) (test mvmg=843) 33.0 ug/dL 40.0-160.0 TOTAL IRON BINDING CAPACITY (BEAKER) (test 153 ug/dL 250-450 dvfv=306) IRON % SATURATION (2) (BEAKER) (test lvrz=7725) 22 % 20-55 CBC W/PLT COUNT & AUTO [id number] 09:40:00 Test Item Value Reference Range Comments WHITE BLOOD CELL COUNT (BEAKER) (test ztkk=538) 6.8 K/ L 3.5-10.5 RED BLOOD CELL COUNT (BEAKER) (test qngn=924) 3.61 M/ L 3.93-5.22 HEMOGLOBIN (BEAKER) (test hyka=557) 9.5 GM/DL 11.2-15.7 HEMATOCRIT (BEAKER) (test slku=147) 30.3 % 34.1-44.9 MEAN CORPUSCULAR VOLUME (BEAKER) (test ifjg=392) 83.9 fL 79.4-94.8 MEAN CORPUSCULAR HEMOGLOBIN (BEAKER) (test 26.3 pg 25.6-32.2 owuk=316) MEAN CORPUSCULAR HEMOGLOBIN CONC (BEAKER) (test 31.4 GM/DL 32.2-35.5 noau=545) RED CELL DISTRIBUTION WIDTH (BEAKER) (test 14.9 % 11.7-14.4 wifa=794) PLATELET COUNT (BEAKER) (test mbrb=306) 167 K/CU MM 150-450 MEAN PLATELET VOLUME (BEAKER) (test wgnk=481) 10.2 fL 9.4-12.3 NUCLEATED RED BLOOD CELLS (BEAKER) (test 0 /100 WBC 0-0 vyvk=392) (CELLAVISION MANUAL DIFF)2018-08-24 09:40:00 Test Item Value Reference Range Comments NEUTROPHILS - REL (CELLAVISION)(BEAKER) (test 73 % okmy=1781) LYMPHOCYTES - REL (CELLAVISION)(BEAKER) (test 12 % qnid=2732) MONOCYTES - REL (CELLAVISION)(BEAKER) (test 5 % xgqj=3607) EOSINOPHILS - REL (CELLAVISION)(BEAKER) (test 2 % opts=1929) BANDS - REL (CELLAVISION)(BEAKER) (test rovm=8133) 6 % 0-10 ATYPICAL LYMPHOCYTES - REL (CELLAVISION)(BEAKER) 2 % 0-0 (test ipit=5953) NEUTROPHILS - ABS (CELLAVISION)(BEAKER) (test 4.96 K/ul 1.56-6.13 jmie=7613) LYMPHOCYTES - ABS (CELLAVISION)(BEAKER) (test 0.82 K/ul 1.18-3.74 jatp=2790) MONOCYTES - ABS (CELLAVISION)(BEAKER) (test 0.34 K/uL 0.24-0.36 azkk=3413) EOSINOPHILS - ABS (CELLAVISION)(BEAKER) (test 0.14 K/uL 0.04-0.36 bxoz=9645) BANDS - ABS (CELLAVISION)(BEAKER) (test wxxn=9565) 0.41 K/uL 0.00-0.80 ATYPICAL LYMPHOCYTES - ABS (CELLAVISION)(BEAKER) 0.14 K/uL 0.00-0.00 (test cqzr=8680) TOTAL COUNTED (BEAKER) (test abhu=4414) 100 RBC MORPHOLOGY (BEAKER) (test eyfc=923) Normal PLT MORPHOLOGY (BEAKER) (test rfvc=588) Normal SMUDGE CELLS (BEAKER) (test qibi=3016) Present ARTIFACT (CELLAVISION)(BEAKER) (test tqga=4182) Present PLATELET CONCENTRATION (CELLAVISION)(BEAKER) (test Adequate zcqo=1664) Received comment: User comments: Slide comments:[id number] 09:23:00 Test Item Value Reference Range Comments LIPASE (BEAKER) (test vtdj=759) 12 U/L 8-78 Run on blood drawn this [id number] 09:23:00 Test Item Value Reference Range Comments AMYLASE (BEAKER) (test ydlo=069) 35 U/L 25-125 Run on blood drawn this amCOMPREHENSIVE METABOLIC [id number] 07:49:00 Test Item Value Reference Range Comments TOTAL PROTEIN (BEAKER) 5.2 gm/dL 6.0-8.3 (test gvgb=955) ALBUMIN (BEAKER) (test 2.2 g/dL 3.5-5.0 cday=3126) ALKALINE PHOSPHATASE 219 U/L 40-150 (BEAKER) (test hiym=402) BILIRUBIN TOTAL (BEAKER) 1.1 mg/dL 0.2-1.2 (test dcmv=412) SODIUM (BEAKER) (test 137 meq/L 136-145 nxoc=296) POTASSIUM (BEAKER) (test 3.5 meq/L 3.5-5.1 mcko=153) CHLORIDE (BEAKER) (test 102 meq/L 98-107 yamf=291) CO2 (BEAKER) (test 28 meq/L 22-29 ayqn=623) BLOOD UREA NITROGEN 5 mg/dL 7-21 (BEAKER) (test vstn=623) CREATININE (BEAKER) (test 0.47 mg/dL 0.57-1.25 xcpw=963) GLUCOSE RANDOM (BEAKER) 62 mg/dL 70-105 (test ahmu=901) CALCIUM (BEAKER) (test 7.7 mg/dL 8.4-10.2 zjzx=075) AST (SGOT) (BEAKER) (test 1177 U/L 5-34 cigo=373) ALT (SGPT) (BEAKER) (test 579 U/L 6-55 zpyq=364) EGFR (BEAKER) (test 132 mL/min/1.73 sq ESTIMATED GFR IS NOT vzjv=8521) m ACCURATE CREATININE CLEARANCE IN PREDICTING GLOMERULAR FILTRATION RATE. ESTIMATED GFR IS NOT APPLICABLE FOR DIALYSIS PATIENTS. C. DIFFICILE GDH [id number] 19:18:00 Test Item Value Reference Range Comments CDT TOXIN (test Negative Negative lgfo=[id number]) CDT GDH ANTIGEN (test Positive Negative C. difficile present but toxin hjjz=[id number]) not detected. Indicates colonization with non-toxigenic strain or level of toxin below detectable levels. No need for enteric isolation. Treatment is rarely needed (only when strong clinical suspicion for Clostridium difficile infection) Testing performed by [employer] Rapid Cassette Assay. For GDH, published sensitivity of the assay is 98.7% compared to cytotoxicity testing. For Toxin AB, published sensitivity is 87.8% and specificity 99.4% compared to cytotoxicity testing.Verification of kit performance was done by the [facility] prior to clinical use.CT, [id number] 17:25:00FINAL REPORT ABDOMINAL AND PELVIS CT DATED 08/22/2018 CLINICAL INFORMATION: diverticulitis with abscess TECHNIQUE: Axial images of the abdomen and pelvis were obtained from diaphragm to the pubic symphysis with GI and intravenous contrast. This exam was performed according toour departmental dose-optimization program, which includes automated exposure control, adjustment ofthe mA and/or kV according to patient size and/or use of interactive reconstruction technique. COMMENT: Liver and spleen are normal in size without focal abnormality. Gallbladder is distended. No gallstone or biliary dilatation is noted. Pancreas and adrenals are unremarkable. Both kidneys are normal in size and functioning. No hydronephrosis, hydroureter, urolithiasis is seen. A double-J ureteral stent is seen on the left. Diverticular disease is seen in the large bowel. There is wall thickening in the sigmoid colon consistent with diverticulitis. No peridiverticular abscess or pneumoperitoneum is noted. The small bowel is normal in caliber. Appendix is not visualized. Uterus is normal in size. Right ovary is unremarkable. A 3.4 x 4.4 cm cyst is seen in the left ovary. No mass, adenopathy orascites is present. IMPRESSION: 1. Sigmoid diverticulitis.2. Left ovarian cyst, almost certainly benign, recommend annual ultrasound follow-up. Signed: Zoran Harper MDReport Verified Date/Time: 08/22/2018 17:25:49 Reading Location: [facility] B1 C013Y CT Body Reading Room URINALYSIS W/ REFLEX URINE [id number] 14:54:00 Test Item Value Reference Range Comments COLOR (BEAKER) (test mmgn=640) Yellow CLARITY (BEAKER) (test zasj=114) Clear SPECIFIC GRAVITY UA (BEAKER) (test fabo=900) 1.008 1.001-1.035 PH UA (BEAKER) (test jede=162) 7.5 5.0-8.0 PROTEIN UA (BEAKER) (test jafz=351) 10 mg/dL Negative GLUCOSE UA (BEAKER) (test ilhw=086) Negative Negative KETONES UA (BEAKER) (test zlbf=486) 10 mg/dL Negative BILIRUBIN UA (BEAKER) (test fvvs=907) Negative Negative BLOOD UA (BEAKER) (test cibh=613) Small Negative NITRITE UA (BEAKER) (test mmjw=448) Negative Negative LEUKOCYTE ESTERASE UA (BEAKER) (test uabk=741) Large Negative UROBILINOGEN UA (BEAKER) (test fnim=655) 6.0 mg/dL 0.2-1.0 RBC UA (BEAKER) (test jngc=809) 2 /HPF WBC UA (BEAKER) (test hdbv=603) 8 /HPF BACTERIA (BEAKER) (test pvww=304) Rare MUCUS (BEAKER) (test cuml=2231) Rare SQUAMOUS EPITHELIAL (BEAKER) (test mpgp=365) 1 /HPF SOURCE(BEAKER) (test vajr=5932) CBC W/PLT COUNT & AUTO [id number] 10:13:00 Test Item Value Reference Range Comments WHITE BLOOD CELL COUNT (BEAKER) (test qrnn=079) 6.5 K/ L 3.5-10.5 RED BLOOD CELL COUNT (BEAKER) (test rwje=707) 4.09 M/ L 3.93-5.22 HEMOGLOBIN (BEAKER) (test cjdj=161) 10.7 GM/DL 11.2-15.7 HEMATOCRIT (BEAKER) (test lqfu=131) 34.2 % 34.1-44.9 MEAN CORPUSCULAR VOLUME (BEAKER) (test vlsg=062) 83.6 fL 79.4-94.8 MEAN CORPUSCULAR HEMOGLOBIN (BEAKER) (test 26.2 pg 25.6-32.2 baka=536) MEAN CORPUSCULAR HEMOGLOBIN CONC (BEAKER) (test 31.3 GM/DL 32.2-35.5 urdt=645) RED CELL DISTRIBUTION WIDTH (BEAKER) (test 14.6 % 11.7-14.4 njhg=198) PLATELET COUNT (BEAKER) (test vtjr=223) 189 K/CU MM 150-450 MEAN PLATELET VOLUME (BEAKER) (test qyss=387) 10.9 fL 9.4-12.3 NUCLEATED RED BLOOD CELLS (BEAKER) (test 0 /100 WBC 0-0 znoj=215) (CELLAVISION MANUAL DIFF)2018-08-22 10:13:00 Test Item Value Reference Range Comments NEUTROPHILS - REL (CELLAVISION)(BEAKER) (test 78 % xegu=6706) LYMPHOCYTES - REL (CELLAVISION)(BEAKER) (test 9 % uosq=3883) MONOCYTES - REL (CELLAVISION)(BEAKER) (test 8 % avfu=2866) BANDS - REL (CELLAVISION)(BEAKER) (test hjsd=8261) 5 % 0-10 NEUTROPHILS - ABS (CELLAVISION)(BEAKER) (test 5.07 K/ul 1.56-6.13 ddoo=2338) LYMPHOCYTES - ABS (CELLAVISION)(BEAKER) (test 0.59 K/ul 1.18-3.74 bylc=2828) MONOCYTES - ABS (CELLAVISION)(BEAKER) (test 0.52 K/uL 0.24-0.36 ffpr=6656) BANDS - ABS (CELLAVISION)(BEAKER) (test nurq=7304) 0.33 K/uL 0.00-0.80 TOTAL COUNTED (BEAKER) (test ugjp=0750) 100 WBC MORPHOLOGY (BEAKER) (test jybn=257) Normal PLT MORPHOLOGY (BEAKER) (test etwq=348) Normal POLYCHROMATOPHILLIC RBCS(BEAKER) (test fidl=664) 1+ few ARTIFACT (CELLAVISION)(BEAKER) (test qxhv=2866) Present PLATELET CONCENTRATION (CELLAVISION)(BEAKER) (test Adequate htyr=4813) Received comment: User comments: Slide comments:BASIC METABOLIC [id number] 06:12:00 Test Item Value Reference Range Comments SODIUM (BEAKER) (test 134 meq/L 136-145 vuyd=180) POTASSIUM (BEAKER) (test 4.2 meq/L 3.5-5.1 rxxe=309) CHLORIDE (BEAKER) (test 101 meq/L 98-107 wggg=741) CO2 (BEAKER) (test 25 meq/L 22-29 otif=388) BLOOD UREA NITROGEN 6 mg/dL 7-21 (BEAKER) (test vole=540) CREATININE (BEAKER) (test 0.60 mg/dL 0.57-1.25 sisf=973) GLUCOSE RANDOM (BEAKER) 89 mg/dL 70-105 (test jkdk=522) CALCIUM (BEAKER) (test 7.8 mg/dL 8.4-10.2 hywt=697) EGFR (BEAKER) (test 99 mL/min/1.73 sq m ESTIMATED GFR IS NOT zhan=6429) ACCURATE CREATININE CLEARANCE IN PREDICTING GLOMERULAR FILTRATION RATE. ESTIMATED GFR IS NOT APPLICABLE FOR DIALYSIS PATIENTS. HEPATIC FUNCTION [id number] 05:56:00 Test Item Value Reference Range Comments TOTAL PROTEIN (BEAKER) (test xgcu=946) 6.2 gm/dL 6.0-8.3 ALBUMIN (BEAKER) (test acdo=3594) 2.6 g/dL 3.5-5.0 BILIRUBIN TOTAL (BEAKER) (test uxcl=924) 0.8 mg/dL 0.2-1.2 BILIRUBIN DIRECT (BEAKER) (test gubk=657) 0.6 mg/dL 0.1-0.5 ALKALINE PHOSPHATASE (BEAKER) (test meja=726) 253 U/L 40-150 AST (SGOT) (BEAKER) (test hibt=425) 753 U/L 5-34 ALT (SGPT) (BEAKER) (test mgam=801) 415 U/L 6-55 PROTHROMBIN [id number] 05:26:00 Test Item Value Reference Range Comments PROTIME (BEAKER) (test rgdm=700) 15.9 seconds 11.9-14.2 INR (BEAKER) (test yfns=985) 1.3 <=5.9 Effective 07/07/2018: PT Reference Range ChangeNew: 11.9-14.2 Previous: 11.7- 14.7RECOMMENDED COUMADIN/WARFARIN INR THERAPY RANGESSTANDARD DOSE: 2.0-3.0 Includes: PROPHYLAXIS for venous thrombosis, systemic embolization; TREATMENT for venous thrombosis and/or pulmonary embolus.HIGH RISK: Target INR is2.5-3.5 for patients wiht mechanical heart valves.CBC W/PLT COUNT & AUTO [id number] 10:00:00 Test Item Value Reference Range Comments WHITE BLOOD CELL COUNT (BEAKER) (test qplb=654) 6.6 K/ L 3.5-10.5 RED BLOOD CELL COUNT (BEAKER) (test wkmm=419) 3.79 M/ L 3.93-5.22 HEMOGLOBIN (BEAKER) (test shci=666) 9.8 GM/DL 11.2-15.7 HEMATOCRIT (BEAKER) (test mjoh=333) 32.3 % 34.1-44.9 MEAN CORPUSCULAR VOLUME (BEAKER) (test yvny=521) 85.2 fL 79.4-94.8 MEAN CORPUSCULAR HEMOGLOBIN (BEAKER) (test 25.9 pg 25.6-32.2 mchv=162) MEAN CORPUSCULAR HEMOGLOBIN CONC (BEAKER) (test 30.3 GM/DL 32.2-35.5 tmkg=205) RED CELL DISTRIBUTION WIDTH (BEAKER) (test 14.5 % 11.7-14.4 slgj=402) PLATELET COUNT (BEAKER) (test dtkr=202) 164 K/CU MM 150-450 MEAN PLATELET VOLUME (BEAKER) (test uaup=277) 10.9 fL 9.4-12.3 NUCLEATED RED BLOOD CELLS (BEAKER) (test 0 /100 WBC 0-0 vyrh=192) (CELLAVISION MANUAL DIFF)2018-08-21 10:00:00 Test Item Value Reference Range Comments NEUTROPHILS - REL (CELLAVISION)(BEAKER) (test 77 % amgt=9294) LYMPHOCYTES - REL (CELLAVISION)(BEAKER) (test 8 % thlc=4512) MONOCYTES - REL (CELLAVISION)(BEAKER) (test 4 % pexo=3427) BANDS - REL (CELLAVISION)(BEAKER) (test 10 % 0-10 ozjl=9482) NEUTROPHILS - ABS (CELLAVISION)(BEAKER) (test 5.08 K/ul 1.56-6.13 hzsc=7849) LYMPHOCYTES - ABS (CELLAVISION)(BEAKER) (test 0.53 K/ul 1.18-3.74 rnkx=8983) MONOCYTES - ABS (CELLAVISION)(BEAKER) (test 0.26 K/uL 0.24-0.36 nvpy=9825) BANDS - ABS (CELLAVISION)(BEAKER) (test 0.66 K/uL 0.00-0.80 rxsl=7690) TOTAL COUNTED (BEAKER) (test qozj=3007) 100 WBC MORPHOLOGY (BEAKER) (test mtpo=532) Normal GIANT PLATELETS (BEAKER) (test exjn=763) Present POLYCHROMATOPHILLIC RBCS(BEAKER) (test mktb=454) 1+ few HYPOCHROMIA (BEAKER) (test lixn=764) 2+ moderate ANISOCYTOSIS (BEAKER) (test bvpr=151) 1+ few MACROCYTES (BEAKER) (test rlsv=248) 1+ few POIKILOCYTES (BEAKER) (test upuc=632) 1+ few ARTIFACT (CELLAVISION)(BEAKER) (test kwtf=9636) Present PLATELET CONCENTRATION (CELLAVISION)(BEAKER) Adequate (test boye=4834) Received comment: User comments: Slide comments:[id number] 07:11:00 Test Item Value Reference Range Comments PHOSPHORUS (BEAKER) (test mcfp=240) 2.7 mg/dL 2.3-4.7 [id number] 07:11:00 Test Item Value Reference Range Comments MAGNESIUM (BEAKER) (test kael=116) 1.9 mg/dL 1.6-2.6 BASIC METABOLIC [id number] 07:11:00 Test Item Value Reference Range Comments SODIUM (BEAKER) (test 138 meq/L 136-145 ulvm=099) POTASSIUM (BEAKER) (test 4.6 meq/L 3.5-5.1 cnzx=123) CHLORIDE (BEAKER) (test 108 meq/L 98-107 ucjn=737) CO2 (BEAKER) (test 25 meq/L 22-29 vdsq=746) BLOOD UREA NITROGEN 7 mg/dL 7-21 (BEAKER) (test wlqm=647) CREATININE (BEAKER) (test 0.48 mg/dL 0.57-1.25 dnde=816) GLUCOSE RANDOM (BEAKER) 114 mg/dL 70-105 (test gktd=479) CALCIUM (BEAKER) (test 8.1 mg/dL 8.4-10.2 jgyh=521) EGFR (BEAKER) (test 129 mL/min/1.73 sq m ESTIMATED GFR IS NOT qkjh=9815) ACCURATE CREATININE CLEARANCE IN PREDICTING GLOMERULAR FILTRATION RATE. ESTIMATED GFR IS NOT APPLICABLE FOR DIALYSIS PATIENTS. HEPATIC FUNCTION [id number] 07:11:00 Test Item Value Reference Range Comments TOTAL PROTEIN (BEAKER) (test tfzm=007) 5.7 gm/dL 6.0-8.3 ALBUMIN (BEAKER) (test btku=0192) 2.4 g/dL 3.5-5.0 BILIRUBIN TOTAL (BEAKER) (test unrs=800) 0.7 mg/dL 0.2-1.2 BILIRUBIN DIRECT (BEAKER) (test uhuq=115) 0.5 mg/dL 0.1-0.5 ALKALINE PHOSPHATASE (BEAKER) (test dgsh=208) 203 U/L 40-150 AST (SGOT) (BEAKER) (test rljy=882) 453 U/L 5-34 ALT (SGPT) (BEAKER) (test nvys=083) 362 U/L 6-55 PROTHROMBIN [id number] 05:52:00 Test Item Value Reference Range Comments PROTIME (BEAKER) (test rklq=881) 15.4 seconds 11.9-14.2 INR (BEAKER) (test vsop=503) 1.3 <=5.9 Effective 07/07/2018: PT Reference Range ChangeNew: 11.9-14.2 Previous: 11.7- 14.7RECOMMENDED COUMADIN/WARFARIN INR THERAPY RANGESSTANDARD DOSE: 2.0-3.0 Includes: PROPHYLAXIS for venous thrombosis, systemic embolization; TREATMENT for venous thrombosis and/or pulmonary embolus.HIGH RISK: Target INR is2.5-3.5 for patients wiht mechanical heart valves.FL, [id number] 18:02:00Reason for exam:->choledocholithiasisFINAL REPORT ERCP, 2018 Seven images of the abdomen are submitted along with an information images indicates a fluoroscopy time of 184 seconds. Contrast was injected into the distal common bile duct with opacification of what appears to be a normal biliary system without dilatation. The gallbladder is not opacified. There are images indicating a sweeping of the common bileduct with a balloon. Signed: Renetta Davenport MDReport Verified Date/Time: 08/20/2018 18:02:08 ReadingLocation : [facility] B1 [id number] Consult Reading Room CBC W/PLT COUNT & AUTO [id number] 10:15:00 Test Item Value Reference Range Comments WHITE BLOOD CELL COUNT (BEAKER) (test vvej=459) 8.0 K/ L 3.5-10.5 RED BLOOD CELL COUNT (BEAKER) (test hznj=753) 3.75 M/ L 3.93-5.22 HEMOGLOBIN (BEAKER) (test pttv=635) 9.7 GM/DL 11.2-15.7 HEMATOCRIT (BEAKER) (test nccv=975) 32.3 % 34.1-44.9 MEAN CORPUSCULAR VOLUME (BEAKER) (test ugvz=785) 86.1 fL 79.4-94.8 MEAN CORPUSCULAR HEMOGLOBIN (BEAKER) (test 25.9 pg 25.6-32.2 zlvl=658) MEAN CORPUSCULAR HEMOGLOBIN CONC (BEAKER) (test 30.0 GM/DL 32.2-35.5 hlmy=047) RED CELL DISTRIBUTION WIDTH (BEAKER) (test 14.6 % 11.7-14.4 cjlq=808) PLATELET COUNT (BEAKER) (test dszl=938) 167 K/CU MM 150-450 MEAN PLATELET VOLUME (BEAKER) (test vzan=501) 10.5 fL 9.4-12.3 NUCLEATED RED BLOOD CELLS (BEAKER) (test 0 /100 WBC 0-0 tejt=197) (CELLAVISION MANUAL DIFF)2018-08-20 10:15:00 Test Item Value Reference Range Comments NEUTROPHILS - REL (CELLAVISION)(BEAKER) (test 62 % szin=6616) LYMPHOCYTES - REL (CELLAVISION)(BEAKER) (test 19 % rfqs=6105) MONOCYTES - REL (CELLAVISION)(BEAKER) (test 6 % bucd=9270) EOSINOPHILS - REL (CELLAVISION)(BEAKER) (test 1 % nzns=2141) BANDS - REL (CELLAVISION)(BEAKER) (test eviw=0822) 7 % 0-10 ATYPICAL LYMPHOCYTES - REL (CELLAVISION)(BEAKER) 4 % 0-0 (test pugz=9124) NEUTROPHILS - ABS (CELLAVISION)(BEAKER) (test 4.96 K/ul 1.56-6.13 cwkd=6776) LYMPHOCYTES - ABS (CELLAVISION)(BEAKER) (test 1.52 K/ul 1.18-3.74 agzx=4252) MONOCYTES - ABS (CELLAVISION)(BEAKER) (test 0.48 K/uL 0.24-0.36 actm=1880) EOSINOPHILS - ABS (CELLAVISION)(BEAKER) (test 0.08 K/uL 0.04-0.36 ngom=5958) BANDS - ABS (CELLAVISION)(BEAKER) (test rhvt=9761) 0.56 K/uL 0.00-0.80 ATYPICAL LYMPHOCYTES - ABS (CELLAVISION)(BEAKER) 0.32 K/uL 0.00-0.00 (test usfu=9327) TOTAL COUNTED (BEAKER) (test vypf=6379) 100 RBC MORPHOLOGY (BEAKER) (test jlio=814) Normal WBC MORPHOLOGY (BEAKER) (test neuf=444) Normal PLT MORPHOLOGY (BEAKER) (test tmvi=816) Normal ARTIFACT (CELLAVISION)(BEAKER) (test nmco=9088) Present PLATELET CONCENTRATION (CELLAVISION)(BEAKER) (test Adequate chyf=5566) Received comment: User comments: Slide comments:BASIC METABOLIC [id number] 06:39:00 Test Item Value Reference Range Comments SODIUM (BEAKER) (test 134 meq/L 136-145 qmpl=446) POTASSIUM (BEAKER) (test 3.9 meq/L 3.5-5.1 gict=691) CHLORIDE (BEAKER) (test 105 meq/L 98-107 kjkd=069) CO2 (BEAKER) (test 24 meq/L 22-29 tdil=461) BLOOD UREA NITROGEN 7 mg/dL 7-21 (BEAKER) (test wdro=590) CREATININE (BEAKER) (test 0.54 mg/dL 0.57-1.25 tmeo=314) GLUCOSE RANDOM (BEAKER) 139 mg/dL 70-105 (test guka=001) CALCIUM (BEAKER) (test 7.7 mg/dL 8.4-10.2 mzfb=818) EGFR (BEAKER) (test 112 mL/min/1.73 sq m ESTIMATED GFR IS NOT izyp=2447) ACCURATE CREATININE CLEARANCE IN PREDICTING GLOMERULAR FILTRATION RATE. ESTIMATED GFR IS NOT APPLICABLE FOR DIALYSIS PATIENTS. HEPATIC FUNCTION [id number] 06:07:00 Test Item Value Reference Range Comments TOTAL PROTEIN (BEAKER) (test nwil=073) 6.2 gm/dL 6.0-8.3 ALBUMIN (BEAKER) (test wwju=4580) 2.6 g/dL 3.5-5.0 BILIRUBIN TOTAL (BEAKER) (test plir=425) 0.8 mg/dL 0.2-1.2 BILIRUBIN DIRECT (BEAKER) (test akic=989) 0.6 mg/dL 0.1-0.5 ALKALINE PHOSPHATASE (BEAKER) (test uuhp=790) 205 U/L 40-150 AST (SGOT) (BEAKER) (test jqag=298) 831 U/L 5-34 ALT (SGPT) (BEAKER) (test yeka=020) 453 U/L 6-55 PROTHROMBIN [id number] 04:56:00 Test Item Value Reference Range Comments PROTIME (BEAKER) (test cyzr=183) 16.4 seconds 11.9-14.2 INR (BEAKER) (test txpt=189) 1.4 <=5.9 Effective 07/07/2018: PT Reference Range ChangeNew: 11.9-14.2 Previous: 11.7- 14.7RECOMMENDED COUMADIN/WARFARIN INR THERAPY RANGESSTANDARD DOSE: 2.0-3.0 Includes: PROPHYLAXIS for venous thrombosis, systemic embolization; TREATMENT for venous thrombosis and/or pulmonary embolus.HIGH RISK: Target INR is2.5-3.5 for patients wiht mechanical heart valves.
--- OUTSIDE RECORDS SUMMARY | 2018-10-05 20:51 | XMS REPORT ---
:1950 Author Organization e[employer]Works Care Team Providers Name Role Phone MaubenitezNolan Provider Role Unavailable Allergies, Adverse Reactions, Alerts Substance Reaction Event Type Amoxicillin Info Not Available Drug Allergy Problems Problem Type Condition Code Onset Dates Condition Status Assessment Dehydration E86.0 Active Problem Loss of appetite R63.0 Active Problem Sigmoid diverticulitis K57.[address] scan, kidney R93.429 Active Problem Sigmoid diverticulosis K57.30 Active Problem Nausea R11.0 Active Problem Left lower quadrant pain R10.32 Active Problem Osteoporosis M81.0 Active Problem Weight loss R63.4 Active Medications Medication Code Code Instructions Start End Status Dosage System Date Date Ondansetron HCl ND 91826698853 4 MG Orally July 09, Active 1 tablet Every 4-6 hours 2018 as needed for nausea/vom iting Melatonin ND 70964891934 5 MG Orally Once Active 1 tablet a day at bedtime as needed with food Results No Known Results Summary Purpose eClinicalWorks Submission
--- OUTSIDE RECORDS SUMMARY | 2018-10-05 20:51 | XMS REPORT ---
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 Active Assessment S/P cholecystectomy Z90.49 Active Assessment Follow-up exam Z09 Active Problem Sigmoid diverticulitis K57.32 Active Assessment Abscess of sigmoid colon due to K57.20 Active diverticulitis Problem Follow-up exam Z09 Active Assessment Depression screening Z13.31 Active Problem Depression screening Z13.31 Active Problem Choledocholithiasis K80.50 Active Problem Abscess of sigmoid colon due to K57.20 Active diverticulitis Problem S/P cholecystectomy Z90.49 Active Problem 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 Active Assessment Choledocholithiasis K80.50 Active Assessment Elevated liver enzymes R74.8 Active Problem Elevated liver enzymes R74.8 Active Assessment Nausea and vomiting, intractability R11.2 Active of vomiting not specified, unspecified vomiting type Problem Nausea and vomiting, intractability R11.2 Active of vomiting not specified, unspecified vomiting type Problem Other specified postprocedural Z98.890 Active states Problem History of diverticulitis Z87.19 Active Problem Acquired absence of other specified Z90.49 Active parts of digestive tract Problem Nausea R11.0 Active Problem Weight loss R63.4 Active Problem Left lower quadrant pain R10.[address] scan, kidney R93.429 Active Problem Sigmoid diverticulosis K57.30 Active Problem Osteoporosis M81.0 Active Problem Loss of appetite R63.0 Active Medications Medication Code Code Instructions Start End Status Dosage System Date Date Melatonin ND 59472548886 5 MG Orally Once Active 1 tablet a day at bedtime as needed with food Ondansetron HCl NDC 37358445595 4 MG Orally July 09, Active 1 tablet Every 4-6 hours 2018 as needed for nausea/vom iting Results No Known Results Summary Purpose eClinicalWorks Submission
--- OUTSIDE RECORDS SUMMARY | 2018-10-05 20:51 | XMS REPORT ---
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
--- OUTSIDE RECORDS SUMMARY | 2018-10-05 20:51 | XMS REPORT ---
:1950 Author Organization e[employer]Works Care Team Providers Name Role Phone Yana Betsy Provider Role Unavailable Allergies No Known Allergies Problems Problem Type Condition Code Onset Dates Condition Status Problem Loss of appetite R63.0 Active Problem Sigmoid diverticulitis K57.[address] scan, kidney R93.429 Active Problem Sigmoid diverticulosis K57.30 Active Problem Nausea R11.0 Active Problem Left lower quadrant pain R10.32 Active Problem Osteoporosis M81.0 Active Problem Weight loss R63.4 Active Medications No Known Medications Results No Known Results Summary Purpose eClinicalWorks Submission
[2018-10-05] MEDS ORDERED: NA CHLORIDE 0.9% 1,000 ML ONE ×3 (21:19→23:05)
[2018-10-05] MEDS ORDERED: ONDANSETRON 4 MG/2 ML VIAL ONE (21:19)
[2018-10-05 21:30] LABS: Absolute Lymphocytes (CBC) 2.7 K/uL (0.7-4.9); Basophils % 0.4 % (0-1.3); Hematocrit 44.4 % (36.0-45.0); Lymphocytes % 15.5 % (15.3-44.8); RBC Red Blood Cell Count 5.11 M/uL (3.86-4.86)
[2018-10-05 21:46] LABS: Albumin 3.7 g/dL (3.4-5.0); Bilirubin Direct 0.4 mg/dL (0-0.2); Bilirubin Total 0.8 mg/dL (0.2-1.0); Potassium 4.9 mmol/L (3.5-5.1); Protein, Total 9.7 g/dL (6.4-8.2)
[2018-10-05] MEDS ORDERED: FENTANYL CITR 100 MCG/2 ML ONE (23:05)
[2018-10-06] MEDS ORDERED: CEFEPIME 1 GM/100 ML BAG IV ONE (01:12)
[2018-10-06] MEDS ORDERED: METRONIDAZOLE 500mg IVPB 500 MG/100 ML BAG IV ONE (01:12)
[2018-10-06] MEDS ORDERED: FENTANYL CITR 100 MCG/2 ML ONE (03:24)
--- NOTE | 2018-10-06 04:24 | ER ---
Nurse's Notes [facility] Name: Madeline Celaya Age: 67 yrs Sex: Female : 1950 Arrival Date: 10/05/2018 Time: 20:45 Bed 7 Private MD: Betsy Millan Diagnosis: Acute kidney failure Presentation: 10/05 20:50 Presenting complaint: Child states: Thursday/Thursday she started with constant la1 nausea/vomiting. Last night was the worse but when I came home today I could tell that she was dehydrated and not feeling well. Transition of care: patient was not received from another setting of care. Onset of symptoms was October 05, 2018. Risk Assessment: Do you want to hurt yourself or someone else? Patient reports no desire to harm self or others. Initial Sepsis Screen: Does the patient meet any 2 criteria? No. Patient's initial sepsis screen is negative. Does the patient have a suspected source of infection? No. Patient's initial sepsis screen is negative. Care prior to arrival: None. 20:50 Method Of Arrival: Ambulatory la1 20:50 Acuity: RUBEN 3 la1 Historical: - Allergies: 20:51 Amoxicillin; la1 20:51 Cipro; la1 - PMHx: 20:51 Diverticulitis; osteoarthritis; la1 - PSHx: 20:51 Cholecystectomy; colon resection; la1 - Immunization history:: Adult Immunizations up to date. - Social history:: Smoking status: Patient/guardian denies using tobacco. - Ebola Screening: : No symptoms or risks identified at this time. Screenin:00 Abuse screen: Denies threats or abuse. Denies injuries from another. Nutritional ca1 screening: No deficits noted. Tuberculosis screening: No symptoms or risk factors identified. Fall Risk IV access (20 points). Gait- Weak (10 pts.). Assessment: 21:00 General: Appears in no apparent distress. ill, slender, Behavior is calm, cooperative, ca1 appropriate for age. General: Reports fatigue for >3 days. Pain: Denies pain. Neuro: Level of Consciousness is awake, alert, obeys commands, Oriented to person, place, time, situation, Appropriate for age. Cardiovascular: Heart tones S1 S2 present Capillary refill < 3 seconds Patient's skin is warm and dry. Respiratory: Airway is patent Respiratory effort is even, unlabored, Respiratory pattern is regular, symmetrical, Breath sounds are clear bilaterally. GI: Abdomen is flat, non-distended, Colostomy site is clean and dry. Ostomy appliance is intact. Bowel sounds present X 4 quads. Abd is soft and non tender X 4 quads. Reports nausea, vomiting, since 3-4 days ago. : No deficits noted. No signs and/or symptoms were reported regarding the genitourinary system. EENT: No deficits noted. No signs and/or symptoms were reported regarding the EENT system. Derm: Skin is intact, is healthy with good turgor, Skin is pink, warm \T\ dry. Musculoskeletal: Circulation, motion, and sensation intact. Capillary refill < 3 seconds. 21:45 Reassessment: Patient appears in no apparent distress at this time. Patient and/or ca1 family updated on plan of care and expected duration. Pain level reassessed. Patient is alert, oriented x 3, equal unlabored respirations, skin warm/dry/pink. Attempted to urinate on bedpan, was unsuccessful. 22:27 Reassessment: Patient appears in no apparent distress at this time. Patient and/or ca1 family updated on plan of care and expected duration. Pain level reassessed. Patient is alert, oriented x 3, equal unlabored respirations, skin warm/dry/pink. EUGENIO Orourke at bedside. 23:31 Reassessment: jarvis cath was in placed, no urine output. relayed to EUGENIO Orourke. updated rv relatives on possible emergency dialysis. 10/06 00:44 Reassessment: pt appears to be sleeping, eyes closed, resp unlabored, no urine output bb to family matheus at bedside, awaiting disposition. 01:08 Reassessment: Parth BECKER at bedside for discussion of findings and recommendations pt bb to be transferred back to [facility] for continuity of care. Pt and family verbalized understanding of and agree to plan of care. 02:30 Reassessment: Patient is alert, oriented x 3, equal unlabored respirations, skin bb warm/dry/pink. pt notified she is awaiting transport to [facility] and no truck is available at this time it will be several hours pt aware of situation, family at bedside. 03:20 Reassessment: pt is A\T\O x 4, resp unlabored, states she is having pain again Dr Alivia peña notified new orders received pt medicated see APR. 03:57 Reassessment: report called to Ashile Luna RN at [facility] ICU. bb 04:18 Reassessment: [facility] at bedside for transport of pt to [facility], pt is A\T\O x bb 4, resp unlabored, IV site intact with no erythema or edema noted, spouse at bedside. Vital Signs: 10/05 20:52 BP 92 / 74; Pulse 120; Resp 18; Temp 97.4(O); Pulse Ox 98% on R/A; Weight 54.43 kg; la1 21:45 BP 108 / 86; Pulse 102; Resp 19 S; Pulse Ox 100% on R/A; ca1 22:27 BP 108 / 71; Pulse 91; Resp 18 S; Pulse Ox 100% on R/A; ca1 23:30 BP 115 / 67; Pulse 90; Resp 17; Pulse Ox 100% on R/A; rv 10/06 00:44 BP 108 / 65; Pulse 90; Resp 16 S; Pulse Ox 100% ; bb 02:00 BP 116 / 65; Pulse 90; Resp 16 S; Pulse Ox 100% on R/A; bb 03:00 BP 111 / 70; Pulse 92; Resp 16 S; Pulse Ox 99% on R/A; Pain 7/10; bb 03:58 BP 107 / 63; Pulse 94; Resp 17; Pulse Ox 97% on R/A; rr5 ED Course: 10/05 20:45 Patient arrived in ED. mr 20:46 Betsy Millan MD is Private Physician. mr 20:51 Triage completed. la1 20:52 Arm band placed on left wrist. la1 20:54 Jojo Velasco, RN is Primary Nurse. ca1 21:00 Patient has correct armband on for positive identification. Placed in gown. Bed in low ca1 position. Call light in reach. Side rails up X2. Pulse ox on. NIBP on. Warm blanket given. 21:04 Sharad Chi PA is PHCP. jr8 21:04 Adis Mcghee MD is Attending Physician. jr8 21:10 No provider procedures requiring assistance completed. Inserted saline lock: 22 gauge ca1 in right antecubital area, using aseptic technique. ,using aseptic technique. by Eliot Moran RN Blood collected. 22:57 Jarvis cath inserted, using sterile technique, 14 Fr., by nd, balloon inflated, to ca1 gravity drainage, urine specimen collected. Patient tolerated well. 10/06 00:37 CT Stone Protocol In Process Unspecified. EDMS 01:09 Patient transferred, IV remains in place. bb 01:25 CT completed. Patient tolerated procedure well. [facility] Administered Medications: 10/05 21:10 Drug: NS 0.9% 1000 ml Route: IV; Rate: 1000 ml; Site: right antecubital; ca1 23:35 Follow up: IV Status: Completed infusion; IV Intake: 1000ml ca1 21:10 Drug: Zofran 4 mg Route: IVP; Site: right antecubital; ca1 23:35 Follow up: Response: No adverse reaction; Nausea is decreased ca1 22:35 Drug: NS 0.9% 1000 ml Route: IV; Rate: 1000 ml; Site: right antecubital; ca1 23:35 Follow up: IV Status: Completed infusion; IV Intake: 1000ml ca1 23:10 Drug: fentaNYL (PF) 25 mcg {Note: rass 0.} Route: IVP; Site: right antecubital; rv 23:10 Drug: NS 0.9% 1000 ml Route: IV; Rate: 1 bolus; Site: right antecubital; rv 10/06 01:18 Drug: Flagyl 500 mg Volume: 100 ml; Route: IVPB; Rate: 200 ml/hr; Infused Over: 30 bb mins; Site: right antecubital; 01:50 Follow up: IV Status: Completed infusion; IV Intake: 100ml bb 01:52 Drug: Cefepime 1 grams Route: IVPB; Rate: 200 ml/hr; Infused Over: 30 mins; Site: right bb antecubital; 02:20 Follow up: IV Status: Completed infusion; IV Intake: 100ml bb 03:31 Drug: fentaNYL (PF) 50 mcg {Note: RASS 0.} Route: IVP; Site: right antecubital; bb Intake: 10/05 23:35 IV: 1000ml; Total: 1000ml. ca1 23:35 IV: 1000ml; Total: 2000ml. ca1 10/06 01:50 IV: 100ml; Total: 2100ml. bb 02:20 IV: 100ml; Total: 2200ml. bb Outcome: 01:09 Instructed on the need for transfer. bb 03:58 Transferred by ground EMS to [facility], Transfer form completed. bb X-rays sent w/ patient. 03:58 Condition: stable 04:21 ER care complete, transfer ordered by MD. bb 04:21 Patient left the ED. bb Signatures: Dispatcher [employer] TRACY Neo Aminta Cowan, Annie Monroe, RN RN bb Sharad Chi PA PA jr8 Attema, Lee RN RN la1 Xiang Moran RN ANATOLIY rv Noam Reyes RN RN rr5 Jojo Velasco RN RN ca1 Corrections: (The following items were deleted from the chart) 10/05 20:53 20:52 BP 92 / 74; Pulse 120bpm; Resp 18bpm; Pulse Ox 98% RA; Temp 97.4F; 54.43 kg; la1 la1
--- NOTE | 2018-10-06 04:24 | EDPHYS ---
Physician Documentation [facility] [place] Name: Madeline Celaya Age: 67 yrs Sex: Female : 1950 Arrival Date: 10/05/2018 Time: 20:45 Bed 7 Private MD: Betsy Millan ED Physician Adis Mcghee HPI: 10/05 22:53 This 67 yrs old Female presents to ER via Ambulatory with complaints of jr8 Nausea/Vomiting, Urinary Problem. 22:53 The patient presents to the emergency department with nausea, vomiting. Onset: The jr8 symptoms/episode began/occurred acutely, 3 day(s) ago. Possible causes: unknown. The symptoms are aggravated by nothing. The symptoms are alleviated by nothing. Associated signs and symptoms: Pertinent positives: decreased urination. Severity of symptoms: At their worst the symptoms were moderate. The patient has not experienced similar symptoms in the past. The patient has not recently seen a physician. Patient discharged from [facility] early this month from complicated diverticulitis case which resulted in colostomy and ureteral stent secondary to infection and abscess. Stated that three days ago started to have n/v with decreased fluid intake . Historical: - Allergies: 20:51 Amoxicillin; la1 20:51 Cipro; la1 - PMHx: 20:51 Diverticulitis; osteoarthritis; la1 - PSHx: 20:51 Cholecystectomy; colon resection; la1 - Immunization history:: Adult Immunizations up to date. - Social history:: Smoking status: Patient/guardian denies using tobacco. - Ebola Screening: : No symptoms or risks identified at this time. ROS: 22:59 Eyes: Negative for injury, pain, redness, and discharge, ENT: Negative for injury, jr8 pain, and discharge, Neck: Negative for injury, pain, and swelling, Cardiovascular: Negative for chest pain, palpitations, and edema, Respiratory: Negative for shortness of breath, cough, wheezing, and pleuritic chest pain, Back: Negative for injury and pain, MS/Extremity: Negative for injury and deformity, Skin: Negative for injury, rash, and discoloration, Neuro: Negative for headache, weakness, numbness, tingling, and seizure. 22:59 Abdomen/GI: Positive for nausea and vomiting, Negative for abdominal pain, abdominal distension, anorexia, dysphagia, hematemesis, black/tarry stool, rectal pain, rectal bleeding, bowel incontinence, flatulence. Exam: 22:59 Eyes: Pupils equal round and reactive to light, extra-ocular motions intact. Lids and jr8 lashes normal. Conjunctiva and sclera are non-icteric and not injected. Cornea within normal limits. Periorbital areas with no swelling, redness, or edema. ENT: Nares patent. No nasal discharge, no septal abnormalities noted. Tympanic membranes are normal and external auditory canals are clear. Oropharynx with no redness, swelling, or masses, exudates, or evidence of obstruction, uvula midline. Mucous membranes moist. Neck: Trachea midline, no thyromegaly or masses palpated, and no cervical lymphadenopathy. Supple, full range of motion without nuchal rigidity, or vertebral point tenderness. No Meningismus. Cardiovascular: Regular rate and rhythm with a normal S1 and S2. No gallops, murmurs, or rubs. Normal PMI, no JVD. No pulse deficits. Respiratory: Lungs have equal breath sounds bilaterally, clear to auscultation and percussion. No rales, rhonchi or wheezes noted. No increased work of breathing, no retractions or nasal flaring. Back: No spinal tenderness. No costovertebral tenderness. Full range of motion. Skin: Warm, dry with normal turgor. Normal color with no rashes, no lesions, and no evidence of cellulitis. MS/ Extremity: Pulses equal, no cyanosis. Neurovascular intact. Full, normal range of motion. Neuro: Awake and alert, GCS 15, oriented to person, place, time, and situation. Cranial nerves II-XII grossly intact. Motor strength 5/5 in all extremities. Sensory grossly intact. Cerebellar exam normal. Normal gait. 22:59 Abdomen/GI: Inspection: RLQ colostomy site noted with liquid stool present. No gross blood seen, Bowel sounds: active, all quadrants, Palpation: soft, in all quadrants, moderate abdominal tenderness, in the left upper quadrant and left lower quadrant, mass, is not appreciated, rebound tenderness, is not appreciated, voluntary guarding, is not appreciated, involuntary guarding, is not appreciated, no appreciated organomegaly, Indicators: McBurney's point is not tender, Smart's sign is negative, Rovsing's sign is negative, Liver: tenderness, is not appreciated. Vital Signs: 20:52 BP 92 / 74; Pulse 120; Resp 18; Temp 97.4(O); Pulse Ox 98% on R/A; Weight 54.43 kg; la1 21:45 BP 108 / 86; Pulse 102; Resp 19 S; Pulse Ox 100% on R/A; ca1 22:27 BP 108 / 71; Pulse 91; Resp 18 S; Pulse Ox 100% on R/A; ca1 23:30 BP 115 / 67; Pulse 90; Resp 17; Pulse Ox 100% on R/A; rv 10/06 00:44 BP 108 / 65; Pulse 90; Resp 16 S; Pulse Ox 100% ; bb 02:00 BP 116 / 65; Pulse 90; Resp 16 S; Pulse Ox 100% on R/A; bb 03:00 BP 111 / 70; Pulse 92; Resp 16 S; Pulse Ox 99% on R/A; Pain 7/10; bb 03:58 BP 107 / 63; Pulse 94; Resp 17; Pulse Ox 97% on R/A; rr5 MDM: 10/05 21:05 Patient medically screened. [facility] 10/06 01:16 Data reviewed: vital signs, nurses notes, lab test result(s), radiologic studies, CT 8 scan. Data interpreted: Pulse oximetry: on room air is 100 %. Interpretation: normal. Counseling: I had a detailed discussion with the patient and/or guardian regarding: the historical points, exam findings, and any diagnostic results supporting the discharge/admit diagnosis, lab results, radiology results, the need to transfer to another facility, continuity of care. 10/05 21:05 Order name: Basic Metabolic Panel; Complete Time: 22:21 [facility] 10/05 21:05 Order name: CBC with Diff; Complete Time: 22:21 [facility] 10/05 21:05 Order name: Creatinine for Radiology; Complete Time: 22:21 [facility] 10/05 21:05 Order name: Hepatic Function; Complete Time: 22:21 [facility] 10/05 21:05 Order name: Lipase; Complete Time: 22:21 10/05 22:28 Order name: CT Stone Protocol [facility] 10/05 21:05 Order name: IV Saline Lock; Complete Time: 21:18 [facility] 10/05 21:05 Order name: Labs collected and sent; Complete Time: 21:18 [facility] 08/27 22:28 Order name: Geraldine; Complete Time: 22:56 jr8 Administered Medications: 10/05 21:10 Drug: NS 0.9% 1000 ml Route: IV; Rate: 1000 ml; Site: right antecubital; ca1 23:35 Follow up: IV Status: Completed infusion; IV Intake: 1000ml ca1 21:10 Drug: Zofran 4 mg Route: IVP; Site: right antecubital; ca1 23:35 Follow up: Response: No adverse reaction; Nausea is decreased ca1 22:35 Drug: NS 0.9% 1000 ml Route: IV; Rate: 1000 ml; Site: right antecubital; ca1 23:35 Follow up: IV Status: Completed infusion; IV Intake: 1000ml ca1 23:10 Drug: fentaNYL (PF) 25 mcg {Note: rass 0.} Route: IVP; Site: right antecubital; rv 23:10 Drug: NS 0.9% 1000 ml Route: IV; Rate: 1 bolus; Site: right antecubital; rv 10/06 01:18 Drug: Flagyl 500 mg Volume: 100 ml; Route: IVPB; Rate: 200 ml/hr; Infused Over: 30 bb mins; Site: right antecubital; 01:50 Follow up: IV Status: Completed infusion; IV Intake: 100ml bb 01:52 Drug: Cefepime 1 grams Route: IVPB; Rate: 200 ml/hr; Infused Over: 30 mins; Site: right bb antecubital; 02:20 Follow up: IV Status: Completed infusion; IV Intake: 100ml bb 03:31 Drug: fentaNYL (PF) 50 mcg {Note: RASS 0.} Route: IVP; Site: right antecubital; bb Disposition: 08:26 Co-signature as Attending Physician, Adis Mcghee MD I agree with the assessment and aaron plan of care. Disposition: 10/06/18 04:21 Transfer ordered to [facility]. Diagnosis is Acute kidney failure. - Reason for transfer: Higher level of care. - Accepting physician is Jean. - Condition is Stable. Signatures: Dispatcher [employer] Adis Garcia MD MD cha Ballard, Brenda RN RN bb Sharad Chi PA PA jr8 Anjel Morse RN RN la1 Xiang Moran RN RN rv Acob, Jojo, RN RN ca1 Corrections: (The following items were deleted from the chart) 04:21 04:21 10/06/2018 04:21 Transfer ordered to [facility]. Diagnosis is bb Acute kidney failure. Reason for transfer: Higher level of care. Accepting physician is Jean. Condition is Stable. bb
[2018-10-06 05:07] VITALS: TEMP 97.4
[2018-10-06 05:16] VITALS: BP 107/63; O2SAT 97
--- NOTE | 2018-10-06 11:29 | RAD REPORT ---
EXAM DESCRIPTION: CT - Stone Protocol - 10/06/2018 5:54 am CLINICAL HISTORY: The patient is 67 years old and is Female; ABD PAIN TECHNIQUE: Axial computed tomography images of the abdomen and pelvis without intravenous contrast. Sagittal and coronal reformatted images were created and reviewed. This CT exam was performed usi ng one or more of the following dose reduction techniques: automated exposure control, adjustment o f the mA and/or kV according to patient size, and/or use of iterative reconstruction technique. COMPARISON: CT of the abdomen and pelvis August 18, 2018. FINDINGS: LUNG BASES: Unremarkable. No mass. No consolidation. ABDOMEN: LIVER: There is a diffuse decrease in hepatic parenchymal density, consistent with fatty infiltr ation. GALLBLADDER AND BILE DUCTS: Surgical clips are present in the right upper quadrant, consistent w ith previous cholecystectomy. PANCREAS: Unremarkable. No ductal dilation. SPLEEN: Unremarkable. ADRENALS: Unremarkable. No mass. KIDNEYS AND URETERS: Mild left hydroureteronephrosis is present. No obstructing renal or uretera l calculus is seen. The right kidney is normal. STOMACH AND BOWEL: The stomach is minimally distended. The small bowel is decompressed. Postsurg ical change of the bowel is noted with a right lower quadrant ileostomy is noted. Suture line at the level of the rectosigmoid colon is present. PELVIS: APPENDIX: No findings to suggest acute appendicitis. BLADDER: A Chandler catheter is present within the bladder which is not well distended. REPRODUCTIVE: Unremarkable as visualized. SUBPERITONEAL SPACE: Ill-defined soft tissue density in the presacral region is noted measuring approximately 4.7 x 3.3 cm. ABDOMEN and PELVIS: INTRAPERITONEAL SPACE: Unremarkable. No free air. No significant fluid collection. BONES/JOINTS: No acute fracture. SOFT TISSUES: The soft tissues are normal. VASCULATURE: Atherosclerosis of the vasculature is present. The vessels are normal in caliber. No abdominal aortic aneurysm. LYMPH NODES: Unremarkable. No enlarged lymph nodes. TUBES, LINES AND DEVICES: A left double-J ureteral stent is present. IMPRESSION: 1. Ill-defined presacral soft tissue density, this is new from prior exam. The etiolog y is uncertain and may be secondary to phlegmon versus soft tissue mass. Further evaluation/follow-up is warranted. 2. Postsurgical change of the bowel with associated right lower quadrant ostomy. No bowel obstructi on. 3. Right double-J ureteral stent in place with trace hydronephrosis. No obstructing calculus is see n. Electronically signed by: Sienna Coyle MD 10/06/2018 12:43 AM CDT Due to temporary technical issues with the PACS/Fluency reporting system, reports are being signed by the in house radiologist as a courtesy to ensure prompt reporting. The interpreting radiologist is f ully responsible for the content of the report.
== END 2018-10-06 04:21 | disposition short-term general hospital (02) ==
LOC: ER 20:42
DX: N17.9 Acute kidney failure, unspecified (principal); Z88.1 Allergy status to other antibiotic agents
CPT/HCPCS: 85025; 80048; 36415; 80076; 83690; 76377; 74176; J3010 ×2; J0692; J7030 ×3; J2405; 51702; 96361; 96365; 96367; 96375; 99285

== ENCOUNTER 2019-03-05 12:18 | Inpatient (IN) | payer OTHER ==
--- OUTSIDE RECORDS SUMMARY | 2019-03-05 12:34 | XMS REPORT ---
:1950 [facility] Address [address] [place] [address] Care Team Providers Name Role Phone DAVID DUPREE Unavailable Unavailable TIGRE WAITE KONG Unavailable Unavailable ENEDELIA LR Unavailable Unavailable ANTON HERNANDEZ Unavailable Unavailable Problems This patient has no known problems. Allergies, Adverse Reactions, Alerts This patient has no known allergies or adverse reactions. Medications This patient has no known medications. Results Test Description Test Time Test Comments Text Results Atomic Results Result Comments CT, ABDOMEN 2019-01-04 14:24:[address] of the abdomen and pelvis, with contrast Clinical History: Diverticulitis Technique: CT of the abdomen and pelvis is performed with intravenous contrast administration. This exam was performed according to our departmental dose optimization program which includes automated exposure control, adjustment of the mA and/or kV according to patient's size and/or use of iterative reconstructive technique. Comparison Film: November 09, 2018 and September 10, 2018 Discussion: The visualized lower thorax is unremarkable. No liver lesion is identified. Small hypodensity adjacent to falciform ligament probably represents focal fat. Status post cholecystectomy. No biliary ductal dilatation. The spleen, pancreas, adrenal glands are unremarkable. Kidneys demonstrate no hydronephrosis, radiopaque stone or mass. There is a left-sided ureteral stent. There is a right lower quadrant diverting ileostomy. Contrast has been administered rectally. Status post low anterior resection. No contrast extravasation is identified. Normal appendix. Small bowel also appears normal, no evidence of bowel obstruction. In the pelvis, bladder is decompressed and grossly unremarkable. Uterus and adnexa also appear unremarkable. There is presacral hypodensity with cystic rind of rim enhancement, measuring approximately 3 x 1.5 x 5.5 cm, smaller since the previous exam. It may represent a abscess or phlegmon. No free air, ascites or lymphadenopathy. There is abps-xg-ldjfzcyc vascular calcification. Osseous structures demonstrate degenerative changes. Impression: Status post low anterior resection, and diverting ileostomy. There is no contrast extravasation from the rectum. Rim-enhancing hypodense structure in presacral region appears smaller compared to the prior exams, and may represent a resolving abscess versus phlegmon. Left ureteral stent, no hydronephrosis. Signed: Sofi Yi MDReport Verified Date/Time: 01/04/2019 14:24:47 Reading Location: [facility] [id number] Ortho Consult Reading Room -CREATININE 2019-01-04 10:07:00 Test Item Value Reference Range Comments POC-CREATININE (BEAKER) (test 0.9 mg/dL 0.6-1.[address] [facility] 7[address] akyk=6874) [facility] [address] POC-EGFR (BEAKER) (test 62 mL/min/1.73M2 nacc=8972) [id number] 06:19:00 Test Item Value Reference Range Comments PHOSPHORUS (BEAKER) (test iwje=677) 3.5 mg/dL 2.3-4.7 [id number] 06:19:00 Test Item Value Reference Range Comments MAGNESIUM (BEAKER) (test dpvn=161) 1.6 mg/dL 1.6-2.6 BASIC METABOLIC [id number] 06:19:00 Test Item Value Reference Range Comments SODIUM (BEAKER) (test 141 meq/L 136-145 xxsm=840) POTASSIUM (BEAKER) (test 3.4 meq/L 3.5-5.1 boul=489) CHLORIDE (BEAKER) (test 109 meq/L 98-107 xeuh=916) CO2 (BEAKER) (test 28 meq/L 22-29 xtbj=125) BLOOD UREA NITROGEN 5 mg/dL 7-21 (BEAKER) (test lubq=394) CREATININE (BEAKER) (test 0.79 mg/dL 0.57-1.25 ldkl=539) GLUCOSE RANDOM (BEAKER) 77 mg/dL 70-105 (test fbpo=657) CALCIUM (BEAKER) (test 8.0 mg/dL 8.4-10.2 ynjq=362) EGFR (BEAKER) (test 72 mL/min/1.73 sq m ESTIMATED GFR IS NOT wlth=4274) ACCURATE CREATININE CLEARANCE IN PREDICTING GLOMERULAR FILTRATION RATE. ESTIMATED GFR IS NOT APPLICABLE FOR DIALYSIS PATIENTS. CBC (HEMOGRAM ONLY)2018-11-30 05:36:00 Test Item Value Reference Range Comments WHITE BLOOD CELL COUNT (BEAKER) (test nmxk=799) 5.4 K/ L 3.5-10.5 RED BLOOD CELL COUNT (BEAKER) (test cpxn=374) 2.85 M/ L 3.93-5.22 HEMOGLOBIN (BEAKER) (test nchb=922) 8.2 GM/DL 11.2-15.7 HEMATOCRIT (BEAKER) (test xqzq=892) 27.1 % 34.1-44.9 MEAN CORPUSCULAR VOLUME (BEAKER) (test qrtb=446) 95.1 fL 79.4-94.8 MEAN CORPUSCULAR HEMOGLOBIN (BEAKER) (test 28.8 pg 25.6-32.2 pzyw=772) MEAN CORPUSCULAR HEMOGLOBIN CONC (BEAKER) (test 30.3 GM/DL 32.2-35.5 aaxb=660) RED CELL DISTRIBUTION WIDTH (BEAKER) (test 14.6 % 11.7-14.4 veku=741) PLATELET COUNT (BEAKER) (test pugi=577) 231 K/CU MM 150-450 MEAN PLATELET VOLUME (BEAKER) (test vwek=582) 10.5 fL 9.4-12.3 NUCLEATED RED BLOOD CELLS (BEAKER) (test 0 /100 WBC 0-0 snuq=887) CBC (HEMOGRAM ONLY)2018-11-29 09:55:00 Test Item Value Reference Range Comments WHITE BLOOD CELL COUNT (BEAKER) (test aywr=993) 5.4 K/ L 3.5-10.5 RED BLOOD CELL COUNT (BEAKER) (test qdgt=088) 3.08 M/ L 3.93-5.22 HEMOGLOBIN (BEAKER) (test olez=780) 8.9 GM/DL 11.2-15.7 HEMATOCRIT (BEAKER) (test vsad=492) 28.9 % 34.1-44.9 MEAN CORPUSCULAR VOLUME (BEAKER) (test zyuz=105) 93.8 fL 79.4-94.8 MEAN CORPUSCULAR HEMOGLOBIN (BEAKER) (test 28.9 pg 25.6-32.2 ggvl=685) MEAN CORPUSCULAR HEMOGLOBIN CONC (BEAKER) (test 30.8 GM/DL 32.2-35.5 vbuu=373) RED CELL DISTRIBUTION WIDTH (BEAKER) (test 14.5 % 11.7-14.4 ytns=677) PLATELET COUNT (BEAKER) (test mjui=216) 250 K/CU MM 150-450 MEAN PLATELET VOLUME (BEAKER) (test mvwj=409) 10.2 fL 9.4-12.3 NUCLEATED RED BLOOD CELLS (BEAKER) (test 0 /100 WBC 0-0 yjue=158) BASIC METABOLIC [id number] 04:55:00 Test Item Value Reference Range Comments SODIUM (BEAKER) (test 140 meq/L 136-145 oyrv=169) POTASSIUM (BEAKER) (test 3.3 meq/L 3.5-5.1 jlht=493) CHLORIDE (BEAKER) (test 108 meq/L 98-107 rqkc=909) CO2 (BEAKER) (test 29 meq/L 22-29 wnvk=734) BLOOD UREA NITROGEN 4 mg/dL 7-21 (BEAKER) (test vfst=276) CREATININE (BEAKER) (test 0.73 mg/dL 0.57-1.25 dqiu=745) GLUCOSE RANDOM (BEAKER) 78 mg/dL 70-105 (test hutn=949) CALCIUM (BEAKER) (test 7.9 mg/dL 8.4-10.2 llif=311) EGFR (BEAKER) (test 79 mL/min/1.73 sq m ESTIMATED GFR IS NOT mxon=9504) ACCURATE CREATININE CLEARANCE IN PREDICTING GLOMERULAR FILTRATION RATE. ESTIMATED GFR IS NOT APPLICABLE FOR DIALYSIS PATIENTS. [id number] 04:51:00 Test Item Value Reference Range Comments PHOSPHORUS (BEAKER) (test vmre=708) 2.9 mg/dL 2.3-4.7 [id number] 04:51:00 Test Item Value Reference Range Comments MAGNESIUM (BEAKER) (test iiim=915) 1.9 mg/dL 1.6-2.6 [id number] 05:47:00 Test Item Value Reference Range Comments PHOSPHORUS (BEAKER) (test yjkx=354) 3.1 mg/dL 2.3-4.7 [id number] 05:47:00 Test Item Value Reference Range Comments MAGNESIUM (BEAKER) (test ishp=962) 1.5 mg/dL 1.6-2.6 BASIC METABOLIC [id number] 05:47:00 Test Item Value Reference Range Comments SODIUM (BEAKER) (test 138 meq/L 136-145 gwsf=380) POTASSIUM (BEAKER) (test 3.5 meq/L 3.5-5.1 pzvq=883) CHLORIDE (BEAKER) (test 106 meq/L 98-107 imtx=968) CO2 (BEAKER) (test 26 meq/L 22-29 qadu=147) BLOOD UREA NITROGEN 5 mg/dL 7-21 (BEAKER) (test vixb=898) CREATININE (BEAKER) (test 0.76 mg/dL 0.57-1.25 uhwn=126) GLUCOSE RANDOM (BEAKER) 81 mg/dL 70-105 (test wvcw=320) CALCIUM (BEAKER) (test 7.9 mg/dL 8.4-10.2 kxys=118) EGFR (BEAKER) (test 75 mL/min/1.73 sq m ESTIMATED GFR IS NOT mvgz=5161) ACCURATE CREATININE CLEARANCE IN PREDICTING GLOMERULAR FILTRATION RATE. ESTIMATED GFR IS NOT APPLICABLE FOR DIALYSIS PATIENTS. [id number] 06:11:00 Test Item Value Reference Range Comments PHOSPHORUS (BEAKER) (test lblf=695) 3.2 mg/dL 2.3-4.7 [id number] 06:11:00 Test Item Value Reference Range Comments MAGNESIUM (BEAKER) (test gncl=818) 1.7 mg/dL 1.6-2.6 BASIC METABOLIC [id number] 06:11:00 Test Item Value Reference Range Comments SODIUM (BEAKER) (test 138 meq/L 136-145 nkja=779) POTASSIUM (BEAKER) (test 3.4 meq/L 3.5-5.1 ukfk=242) CHLORIDE (BEAKER) (test 103 meq/L 98-107 bjdc=797) CO2 (BEAKER) (test 32 meq/L 22-29 lofm=730) BLOOD UREA NITROGEN 6 mg/dL 7-21 (BEAKER) (test ehgx=485) CREATININE (BEAKER) (test 0.75 mg/dL 0.57-1.25 gqxf=160) GLUCOSE RANDOM (BEAKER) 82 mg/dL 70-105 (test henq=594) CALCIUM (BEAKER) (test 8.1 mg/dL 8.4-10.2 ttum=488) EGFR (BEAKER) (test 77 mL/min/1.73 sq m ESTIMATED GFR IS NOT rrqk=8534) ACCURATE CREATININE CLEARANCE IN PREDICTING GLOMERULAR FILTRATION RATE. ESTIMATED GFR IS NOT APPLICABLE FOR DIALYSIS PATIENTS. [id number] 05:14:00 Test Item Value Reference Range Comments PHOSPHORUS (BEAKER) (test pjcs=897) 3.3 mg/dL 2.3-4.7 [id number] 05:14:00 Test Item Value Reference Range Comments MAGNESIUM (BEAKER) (test cwgp=919) 2.0 mg/dL 1.6-2.6 BASIC METABOLIC [id number] 05:14:00 Test Item Value Reference Range Comments SODIUM (BEAKER) (test 139 meq/L 136-145 xeba=515) POTASSIUM (BEAKER) (test 3.2 meq/L 3.5-5.1 tizs=029) CHLORIDE (BEAKER) (test 101 meq/L 98-107 vgrl=225) CO2 (BEAKER) (test 36 meq/L 22-29 jcrv=028) BLOOD UREA NITROGEN 5 mg/dL 7-21 (BEAKER) (test rwrr=601) CREATININE (BEAKER) (test 0.73 mg/dL 0.57-1.25 rmpf=493) GLUCOSE RANDOM (BEAKER) 86 mg/dL 70-105 (test txwy=035) CALCIUM (BEAKER) (test 8.1 mg/dL 8.4-10.2 ynoq=072) EGFR (BEAKER) (test 79 mL/min/1.73 sq m ESTIMATED GFR IS NOT wezo=4587) ACCURATE CREATININE CLEARANCE IN PREDICTING GLOMERULAR FILTRATION RATE. ESTIMATED GFR IS NOT APPLICABLE FOR DIALYSIS PATIENTS. URINALYSIS W/ REFLEX URINE [id number] 14:05:00 Test Item Value Reference Range Comments COLOR (BEAKER) (test kzku=961) Yellow CLARITY (BEAKER) (test cjqp=997) Hazy SPECIFIC GRAVITY UA (BEAKER) (test kbhk=943) 1.009 1.001-1.035 PH UA (BEAKER) (test obnt=367) 6.5 5.0-8.0 PROTEIN UA (BEAKER) (test cvet=515) 70 mg/dL Negative GLUCOSE UA (BEAKER) (test aycw=213) Negative Negative KETONES UA (BEAKER) (test wyyd=746) Negative Negative BILIRUBIN UA (BEAKER) (test gtdq=925) Negative Negative BLOOD UA (BEAKER) (test ylcf=690) Moderate Negative NITRITE UA (BEAKER) (test zzqw=209) Negative Negative LEUKOCYTE ESTERASE UA (BEAKER) (test asug=336) Large Negative UROBILINOGEN UA (BEAKER) (test wbnc=228) 0.2 mg/dL 0.2-1.0 RBC UA (BEAKER) (test rdya=464) 10 /HPF WBC UA (BEAKER) (test nkei=345) 313 /HPF BACTERIA (BEAKER) (test dqkk=947) Moderate MUCUS (BEAKER) (test nddm=4276) Rare SQUAMOUS EPITHELIAL (BEAKER) (test bnel=358) 1 /HPF YEAST (BEAKER) (test ixly=5294) Moderate SOURCE(BEAKER) (test tien=2313) [id number] 07:53:00 Test Item Value Reference Range Comments PHOSPHORUS (BEAKER) (test nsre=332) 3.5 mg/dL 2.3-4.7 [id number] 07:53:00 Test Item Value Reference Range Comments MAGNESIUM (BEAKER) (test zorh=819) 1.5 mg/dL 1.6-2.6 BASIC METABOLIC [id number] 07:53:00 Test Item Value Reference Range Comments SODIUM (BEAKER) (test 134 meq/L 136-145 zfdz=653) POTASSIUM (BEAKER) (test 3.6 meq/L 3.5-5.1 xxvv=108) CHLORIDE (BEAKER) (test 97 meq/L 98-107 zfcv=947) CO2 (BEAKER) (test 30 meq/L 22-29 vzga=867) BLOOD UREA NITROGEN 8 mg/dL 7-21 (BEAKER) (test shug=989) CREATININE (BEAKER) (test 0.78 mg/dL 0.57-1.25 fssv=537) GLUCOSE RANDOM (BEAKER) 88 mg/dL 70-105 (test uzrg=323) CALCIUM (BEAKER) (test 8.2 mg/dL 8.4-10.2 yiax=244) EGFR (BEAKER) (test 73 mL/min/1.73 sq m ESTIMATED GFR IS NOT acfw=1513) ACCURATE CREATININE CLEARANCE IN PREDICTING GLOMERULAR FILTRATION RATE. ESTIMATED GFR IS NOT APPLICABLE FOR DIALYSIS PATIENTS. [id number] 07:04:00 Test Item Value Reference Range Comments PHOSPHORUS (BEAKER) (test hpac=876) 3.0 mg/dL 2.3-4.7 [id number] 07:04:00 Test Item Value Reference Range Comments MAGNESIUM (BEAKER) (test oxla=505) 1.6 mg/dL 1.6-2.6 BASIC METABOLIC [id number] 07:04:00 Test Item Value Reference Range Comments SODIUM (BEAKER) (test 133 meq/L 136-145 tvgd=863) POTASSIUM (BEAKER) (test 3.9 meq/L 3.5-5.1 xuuo=359) CHLORIDE (BEAKER) (test 98 meq/L 98-107 uhkj=463) CO2 (BEAKER) (test 29 meq/L 22-29 zsal=230) BLOOD UREA NITROGEN 11 mg/dL 7-21 (BEAKER) (test jhfm=492) CREATININE (BEAKER) (test 0.80 mg/dL 0.57-1.25 okci=009) GLUCOSE RANDOM (BEAKER) 94 mg/dL 70-105 (test nmot=941) CALCIUM (BEAKER) (test 8.8 mg/dL 8.4-10.2 rxzz=866) EGFR (BEAKER) (test 71 mL/min/1.73 sq m ESTIMATED GFR IS NOT dwfv=2859) ACCURATE CREATININE CLEARANCE IN PREDICTING GLOMERULAR FILTRATION RATE. ESTIMATED GFR IS NOT APPLICABLE FOR DIALYSIS PATIENTS. POCT-GLUCOSE [id number] 17:46:00 Test Item Value Reference Range Comments POC-GLUCOSE METER (BEAKER) 97 mg/dL 70-110 TESTED AT [address] (test tseh=3190) [place] [address] POCT-GLUCOSE [id number] 07:41:00 Test Item Value Reference Range Comments POC-GLUCOSE METER (BEAKER) 86 mg/dL 70-110 TESTED AT [place] [id number] [facility] (test awqg=9499) [place] [address] [id number] 07:01:00 Test Item Value Reference Range Comments PHOSPHORUS (BEAKER) (test vpyx=297) 3.0 mg/dL 2.3-4.7 [id number] 07:01:00 Test Item Value Reference Range Comments MAGNESIUM (BEAKER) (test ezgr=481) 1.8 mg/dL 1.6-2.6 BASIC METABOLIC [id number] 07:01:00 Test Item Value Reference Range Comments SODIUM (BEAKER) (test 129 meq/L 136-145 yamj=439) POTASSIUM (BEAKER) (test 4.4 meq/L 3.5-5.1 bsqq=598) CHLORIDE (BEAKER) (test 102 meq/L 98-107 cylc=809) CO2 (BEAKER) (test 21 meq/L 22-29 mgmd=873) BLOOD UREA NITROGEN 15 mg/dL 7-21 (BEAKER) (test isca=052) CREATININE (BEAKER) (test 0.95 mg/dL 0.57-1.25 modg=721) GLUCOSE RANDOM (BEAKER) 91 mg/dL 70-105 (test nblf=169) CALCIUM (BEAKER) (test 9.0 mg/dL 8.4-10.2 cpdg=865) EGFR (BEAKER) (test 58 mL/min/1.73 sq m ESTIMATED GFR IS NOT knlp=1664) ACCURATE CREATININE CLEARANCE IN PREDICTING GLOMERULAR FILTRATION RATE. ESTIMATED GFR IS NOT APPLICABLE FOR DIALYSIS PATIENTS. POCT-GLUCOSE [id number] 17:58:00 Test Item Value Reference Range Comments POC-GLUCOSE METER (BEAKER) 94 mg/dL 70-110 TESTED AT [address] (test mblo=8891) [facility] [address] [id number] 07:07:00 Test Item Value Reference Range Comments PHOSPHORUS (BEAKER) (test wkth=397) 3.3 mg/dL 2.3-4.7 [id number] 07:07:00 Test Item Value Reference Range Comments MAGNESIUM (BEAKER) (test plad=275) 1.8 mg/dL 1.6-2.6 BASIC METABOLIC [id number] 07:07:00 Test Item Value Reference Range Comments SODIUM (BEAKER) (test 132 meq/L 136-145 xgrh=805) POTASSIUM (BEAKER) (test 4.8 meq/L 3.5-5.1 ptmn=332) CHLORIDE (BEAKER) (test 106 meq/L 98-107 bliz=832) CO2 (BEAKER) (test 23 meq/L 22-29 tclj=393) BLOOD UREA NITROGEN 13 mg/dL 7-21 (BEAKER) (test qpnv=184) CREATININE (BEAKER) (test 0.77 mg/dL 0.57-1.25 fnun=030) GLUCOSE RANDOM (BEAKER) 81 mg/dL 70-105 (test myfr=782) CALCIUM (BEAKER) (test 8.7 mg/dL 8.4-10.2 ovkq=451) EGFR (BEAKER) (test 74 mL/min/1.73 sq m ESTIMATED GFR IS NOT mydm=2482) ACCURATE CREATININE CLEARANCE IN PREDICTING GLOMERULAR FILTRATION RATE. ESTIMATED GFR IS NOT APPLICABLE FOR DIALYSIS PATIENTS. CBC (HEMOGRAM ONLY)2018-11-22 06:27:00 Test Item Value Reference Range Comments WHITE BLOOD CELL COUNT (BEAKER) (test twvz=451) 6.7 K/ L 3.5-10.5 RED BLOOD CELL COUNT (BEAKER) (test ybhv=786) 3.62 M/ L 3.93-5.22 HEMOGLOBIN (BEAKER) (test iidk=015) 10.5 GM/DL 11.2-15.7 HEMATOCRIT (BEAKER) (test lqkw=325) 32.3 % 34.1-44.9 MEAN CORPUSCULAR VOLUME (BEAKER) (test owmx=258) 89.2 fL 79.4-94.8 MEAN CORPUSCULAR HEMOGLOBIN (BEAKER) (test 29.0 pg 25.6-32.2 sxmn=145) MEAN CORPUSCULAR HEMOGLOBIN CONC (BEAKER) (test 32.5 GM/DL 32.2-35.5 qznr=150) RED CELL DISTRIBUTION WIDTH (BEAKER) (test 14.6 % 11.7-14.4 wbvo=354) PLATELET COUNT (BEAKER) (test qjrg=764) 274 K/CU MM 150-450 MEAN PLATELET VOLUME (BEAKER) (test inlj=568) 9.5 fL 9.4-12.3 NUCLEATED RED BLOOD CELLS (BEAKER) (test 0 /100 WBC 0-0 ishu=837) POCT-GLUCOSE [id number] 18:40:00 Test Item Value Reference Range Comments POC-GLUCOSE METER (BEAKER) 107 mg/dL 70-110 TESTED AT [address] (test towr=5831) [place] [id number] 07:06:00 Test Item Value Reference Range Comments PHOSPHORUS (BEAKER) (test zwbv=138) 3.0 mg/dL 2.3-4.7 [id number] 07:06:00 Test Item Value Reference Range Comments MAGNESIUM (BEAKER) (test zpvo=250) 1.9 mg/dL 1.6-2.6 BASIC METABOLIC [id number] 07:06:00 Test Item Value Reference Range Comments SODIUM (BEAKER) (test 131 meq/L 136-145 sdxk=966) POTASSIUM (BEAKER) (test 4.5 meq/L 3.5-5.1 qlqh=768) CHLORIDE (BEAKER) (test 108 meq/L 98-107 fwhm=423) CO2 (BEAKER) (test 19 meq/L 22-29 twgv=770) BLOOD UREA NITROGEN 14 mg/dL 7-21 (BEAKER) (test yghi=090) CREATININE (BEAKER) (test 0.77 mg/dL 0.57-1.25 balh=366) GLUCOSE RANDOM (BEAKER) 85 mg/dL 70-105 (test tgbg=256) CALCIUM (BEAKER) (test 8.6 mg/dL 8.4-10.2 recs=769) EGFR (BEAKER) (test 74 mL/min/1.73 sq m ESTIMATED GFR IS NOT pdsi=0709) ACCURATE CREATININE CLEARANCE IN PREDICTING GLOMERULAR FILTRATION RATE. ESTIMATED GFR IS NOT APPLICABLE FOR DIALYSIS PATIENTS. POCT-GLUCOSE [id number] 18:36:00 Test Item Value Reference Range Comments POC-GLUCOSE METER (BEAKER) 94 mg/dL 70-110 TESTED AT [address] (test iyyf=1717) [place] [id number] BASIC METABOLIC [id number] 14:28:00 Test Item Value Reference Range Comments SODIUM (BEAKER) (test 130 meq/L 136-145 znqr=585) POTASSIUM (BEAKER) (test 3.9 meq/L 3.5-5.1 dubi=228) CHLORIDE (BEAKER) (test 106 meq/L 98-107 nhvl=977) CO2 (BEAKER) (test 18 meq/L 22-29 fonv=474) BLOOD UREA NITROGEN 14 mg/dL 7-21 (BEAKER) (test chpv=132) CREATININE (BEAKER) (test 0.87 mg/dL 0.57-1.25 fjbk=859) GLUCOSE RANDOM (BEAKER) 122 mg/dL 70-105 (test zzmj=863) CALCIUM (BEAKER) (test 8.7 mg/dL 8.4-10.2 trrp=969) EGFR (BEAKER) (test 65 mL/min/1.73 sq m ESTIMATED GFR IS NOT bswn=3532) ACCURATE CREATININE CLEARANCE IN PREDICTING GLOMERULAR FILTRATION RATE. ESTIMATED GFR IS NOT APPLICABLE FOR DIALYSIS PATIENTS. POCT-GLUCOSE [id number] 06:41:00 Test Item Value Reference Range Comments POC-GLUCOSE METER (BEAKER) 77 mg/dL 70-[address] [facility] [address] [facility] (test nwuu=6560) [facility] [address] [id number] 05:36:00 Test Item Value Reference Range Comments PHOSPHORUS (BEAKER) (test plft=496) 3.0 mg/dL 2.3-4.7 [id number] 05:36:00 Test Item Value Reference Range Comments MAGNESIUM (BEAKER) (test qkor=855) 2.3 mg/dL 1.6-2.6 BASIC METABOLIC [id number] 05:36:00 Test Item Value Reference Range Comments SODIUM (BEAKER) (test 132 meq/L 136-145 ugry=924) POTASSIUM (BEAKER) (test 4.2 meq/L 3.5-5.1 amhd=256) CHLORIDE (BEAKER) (test 108 meq/L 98-107 rqgd=164) CO2 (BEAKER) (test 20 meq/L 22-29 edij=528) BLOOD UREA NITROGEN 15 mg/dL 7-21 (BEAKER) (test pzqw=146) CREATININE (BEAKER) (test 0.86 mg/dL 0.57-1.25 wcdb=827) GLUCOSE RANDOM (BEAKER) 81 mg/dL 70-105 (test mxbc=889) CALCIUM (BEAKER) (test 8.4 mg/dL 8.4-10.2 faoi=446) EGFR (BEAKER) (test 65 mL/min/1.73 sq m ESTIMATED GFR IS NOT bxmn=2246) ACCURATE CREATININE CLEARANCE IN PREDICTING GLOMERULAR FILTRATION RATE. ESTIMATED GFR IS NOT APPLICABLE FOR DIALYSIS PATIENTS. POCT-GLUCOSE [id number] 18:42:00 Test Item Value Reference Range Comments POC-GLUCOSE METER (BEAKER) 114 mg/dL 70-[address] [facility] [address] [facility] (test cfcm=1224) [facility] [address] [place], [id number] 18:08:00Please use gastrograffinReason for exam:->Assess colon prior to ileostomy reversalFINAL REPORT Gastrografin enema CLINICAL HISTORY: Assess colon, Prior to ileostomy reversal DISCUSSION: Business Transformation Manager film of the abdomen demonstrates nonobstructive bowel gas pattern After the rectal tube is advanced into the rectum and the balloon inflated (performed by the technologist), Gastrografin is infused into the rectum in a retrograde fashion via gravity, until the sigmoid colon is opacified. Exam is terminated due to patient discomfort. There is mild narrowing at the colorectal anastomosis. An irregular collection of extraluminal contrast is seen posterior to the bowel. Number of images obtained : 17 Fluoroscopy time: Two minutes IMPRESSION: Contrast extravasation posterior to the colorectal anastomosis. Signed: Sofi Yieport Verified Date /Time: 11/19/2018 18:08:35Reading Location: [facility] [address] [place] [address] Consult Reading Room [facility] METABOLIC [id number] 16:59:00 Test Item Value Reference Range Comments SODIUM (BEAKER) (test 130 meq/L 136-145 jouf=626) POTASSIUM (BEAKER) (test 4.2 meq/L 3.5-5.1 Specimen slightly toep=560) hemolyzed CHLORIDE (BEAKER) (test 109 meq/L 98-107 wufu=435) CO2 (BEAKER) (test 15 meq/L 22-29 knpr=423) BLOOD UREA NITROGEN 15 mg/dL 7-21 (BEAKER) (test dpjw=552) CREATININE (BEAKER) (test 0.91 mg/dL 0.57-1.25 Specimen slightly nnay=954) hemolyzed GLUCOSE RANDOM (BEAKER) 113 mg/dL 70-105 (test uupw=257) CALCIUM (BEAKER) (test 8.5 mg/dL 8.4-10.2 xxqs=240) EGFR (BEAKER) (test 61 mL/min/1.73 sq m ESTIMATED GFR IS NOT gewv=6001) ACCURATE CREATININE CLEARANCE IN PREDICTING GLOMERULAR FILTRATION RATE. ESTIMATED GFR IS NOT APPLICABLE FOR DIALYSIS PATIENTS. OSMOLALITY, [id number] 15:13:00 Test Item Value Reference Range Comments OSMOLALITY URINE (BEAKER) (test lbxh=876) 308 mOsm/kg 40-1,400 OSMOLALITY, [id number] 11:21:00 Test Item Value Reference Range Comments OSMOLALITY, SERUM (BEAKER) (test vzcj=012) 274 mOsm/kg 275-295 URIC [id number] 08:01:00 Test Item Value Reference Range Comments URIC ACID (BEAKER) (test qmdf=194) 4.8 mg/dL 2.6-7.2 [id number] 08:01:00 Test Item Value Reference Range Comments MAGNESIUM (BEAKER) (test jcwb=756) 1.9 mg/dL 1.6-2.6 [id number] 08:01:00 Test Item Value Reference Range Comments PHOSPHORUS (BEAKER) (test cwtd=027) 2.7 mg/dL 2.3-4.7 BASIC METABOLIC [id number] 08:01:00 Test Item Value Reference Range Comments SODIUM (BEAKER) (test 130 meq/L 136-145 bdpt=186) POTASSIUM (BEAKER) (test 4.4 meq/L 3.5-5.1 bbae=112) CHLORIDE (BEAKER) (test 108 meq/L 98-107 rugg=833) CO2 (BEAKER) (test 16 meq/L 22-29 cafv=496) BLOOD UREA NITROGEN 17 mg/dL 7-21 (BEAKER) (test atyb=729) CREATININE (BEAKER) (test 0.83 mg/dL 0.57-1.25 ipwr=799) GLUCOSE RANDOM (BEAKER) 78 mg/dL 70-105 (test ytao=820) CALCIUM (BEAKER) (test 8.6 mg/dL 8.4-10.2 iowe=850) EGFR (BEAKER) (test 68 mL/min/1.73 sq m ESTIMATED GFR IS NOT xdsi=1651) ACCURATE CREATININE CLEARANCE IN PREDICTING GLOMERULAR FILTRATION RATE. ESTIMATED GFR IS NOT APPLICABLE FOR DIALYSIS PATIENTS. SODIUM, RANDOM [id number] 07:24:00 Test Item Value Reference Range Comments SODIUM URINE (BEAKER) (test vgxe=729) < meq/L Reference Range: No NormalsCHLORIDE, RANDOM [id number] 07:16:00 Test Item Value Reference Range Comments CHLORIDE URINE (BEAKER) (test okje=982) 41 meq/L Reference Range: No NormalsPOTASSIUM, RANDOM [id number] 07:16:00 Test Item Value Reference Range Comments POTASSIUM URINE (BEAKER) (test lvkc=340) 7.8 meq/L Reference Range: No NormalsPOCT-GLUCOSE [id number] 06:37:00 Test Item Value Reference Range Comments POC-GLUCOSE METER (BEAKER) 84 mg/dL 70-110 TESTED AT [address] (test blmo=0359) [facility] [address] POCT-GLUCOSE [id number] 18:30:00 Test Item Value Reference Range Comments POC-GLUCOSE METER (BEAKER) 87 mg/dL 70-110 TESTED AT [address] (test socy=7508) [facility] [address] BASIC METABOLIC [id number] 16:11:00 Test Item Value Reference Range Comments SODIUM (BEAKER) (test 127 meq/L 136-145 ohbr=186) POTASSIUM (BEAKER) (test 3.9 meq/L 3.5-5.1 jtbp=496) CHLORIDE (BEAKER) (test 104 meq/L 98-107 vqjm=043) CO2 (BEAKER) (test 18 meq/L 22-29 kgxl=900) BLOOD UREA NITROGEN 20 mg/dL 7-21 (BEAKER) (test xlsz=839) CREATININE (BEAKER) (test 0.96 mg/dL 0.57-1.25 jwns=148) GLUCOSE RANDOM (BEAKER) 117 mg/dL 70-105 (test nlqn=259) CALCIUM (BEAKER) (test 8.5 mg/dL 8.4-10.2 ucyo=934) EGFR (BEAKER) (test 58 mL/min/1.73 sq m ESTIMATED GFR IS NOT pkgd=4363) ACCURATE CREATININE CLEARANCE IN PREDICTING GLOMERULAR FILTRATION RATE. ESTIMATED GFR IS NOT APPLICABLE FOR DIALYSIS PATIENTS. CORTISOL,60 [id number] 13:07:00 Test Item Value Reference Range Comments CORTISOL BASELINE NETWORKED (BEAKER) (test 7.1 mcg/dL kwbi=5775) CORTISOL 30 MINUTE NETWORKED (BEAKER) (test 18.9 mcg/dL jkez=7874) CORTISOL, 60 MINUTE (BEAKER) (test rstn=6285) 18.0 ug/dL ACTH STIMULATION TEST INTERPRETATION GUIDELINES(Synonyms: Cortrosyn Test, Cosyntropin or Corticotropin Stimulation Test)Adenocorticotropic hormone (ACTH) is a tropic hormone, made in the pituitary gland, which travels trhough the bloodstream and stimulates the cortex of the adrenal glands to release cortisol. Cortisol is a primary hormone, which aids the body's metabolism of fats, carbohydrates, and protein as well as sodium and potassium regulation.ACTH Stimulation Test: Exogenous administrationof biologically active ACTH stimulates the secretion of cortisol from the adrenal gland. This test is used to evaluate adrenal function by measuring cortisol levels at baseline and at 30 and 60 minutesafter the administration of 250 micrograms of cosyntropin (Cortrosyn). Patients who have received exogenous corticosteroids immediately prior to performing the ACTH Stimulation Test will often have elevated baseline cortisol levels, which may lead to erroneous interpretation of test results. The notable exception is with dexamethasone.Normal Response: An increase in cortisol after stimulation by ACTHis normal. Post-stimulation cortisol concentration should be greater than 20 mcg/dL or the rate of rise from baseline cortisol should be greater than or equal to 9 mcg/dL.Patients with sepsis or septicshock: According to a study by Devang et al (IRINA 2000,283( 8):1038-45), the ACTH Stimulation Test provides important prognostic information. This study defined 3 groups of patients with sepsis or septic shock : 1. Good Survival: Low basal cortisol (<or=34 mcg/dL) and high ACTH response (>9mcg/dL) 2. Intermediate Survival: Low basal cortisol (< 34 mcg/dL) and low response to ACTH (<or=9 mcg/dL) OR High basal cortisol (>34 mcg/dL) or high ACTH response (>9 mcg/dL) 3.Poor Survival: High basal cortisol (>34 mcg/dL) and low ACTH response (<or=9 mcg/dL) .Treatment of patients with relative adrenal dysfunction may be indicated based on test results and the clinical condition of the patient. Additional information, including treatment recommendations, is available in critically ill patients, approved by the Pharmacy, Nutrition, and Therapeutics Committee on 01/19/2004 and available through the Pharmacy Policy and Procedure Section on The Source.Do not run this test if systemic hydrocortisone, methylprednisolone, prednisolone or prednisone has been administered within the past 24 hours.Draw baseline cortisol level just prior to cosyntropin administration.Administer cosyntropin 1 mcg/mL via slow IV push over a period of 2 minutes. Flush the line after thedose to ensure the entire dose is delivered.Draw serum cortisol level 30 minutes after cosyntropin administration.Draw serum cortisol level 60 minutes after cosyntropin administration.CORTISOL,30 [id number] 12:41:00 Test Item Value Reference Range Comments CORTISOL BASELINE NETWORKED (BEAKER) (test 7.1 mcg/dL oykw=8670) CORTISOL, 30 MINUTE (BEAKER) (test yvjo=3120) 18.9 ug/dL ACTH STIMULATION TEST INTERPRETATION GUIDELINES(Synonyms: Cortrosyn Test, Cosyntropin or Corticotropin Stimulation Test)Adenocorticotropic hormone (ACTH) is a tropic hormone, made in the pituitary gland, which travels trhough the bloodstream and stimulates the cortex of the adrenal glands to release cortisol. Cortisol is a primary hormone, which aids the body's metabolism of fats, carbohydrates, and protein as well as sodium and potassium regulation.ACTH Stimulation Test: Exogenous administrationof biologically active ACTH stimulates the secretion of cortisol from the adrenal gland. This test is used to evaluate adrenal function by measuring cortisol levels at baseline and at 30 and 60 minutesafter the administration of 250 micrograms of cosyntropin (Cortrosyn). Patients who have received exogenous corticosteroids immediately prior to performing the ACTH Stimulation Test will often have elevated baseline cortisol levels, which may lead to erroneous interpretation of test results. The notable exception is with dexamethasone.Normal Response: An increase in cortisol after stimulation by ACTHis normal. Post-stimulation cortisol concentration should be greater than 20 mcg/dL or the rate of rise from baseline cortisol should be greater than or equal to 9 mcg/dL.Patients with sepsis or septicshock: According to a study by Devang et al (IRINA 2000,283( 8):1038-86), the ACTH Stimulation Test provides important prognostic information. This study defined 3 groups of patients with sepsis or septic shock : 1. Good Survival: Low basal cortisol (<or=34 mcg/dL) and high ACTH response (>9mcg/dL) 2. Intermediate Survival: Low basal cortisol (< 34 mcg/dL) and low response to ACTH (<or=9 mcg/dL) OR High basal cortisol (>34 mcg/dL) or high ACTH response (>9 mcg/dL) 3.Poor Survival: High basal cortisol (>34 mcg/dL) and low ACTH response (<or=9 mcg/dL) .Treatment of patients with relative adrenal dysfunction may be indicated based on test results and the clinical condition of the patient. Additional information, including treatment recommendations, is available in critically ill patients, approved by the Pharmacy, Nutrition, and Therapeutics Committee on 01/19/2004 and available through the Pharmacy Policy and Procedure Section on The Source.Do not run this test if systemic hydrocortisone, methylprednisolone, prednisolone or prednisone has been administered within the past 24 hours.Draw baseline cortisol level just prior to cosyntropin administration.Administer cosyntropin 1 mcg/mL via slow IV push over a period of 2 minutes. Flush the line after thedose to ensure the entire dose is delivered.Draw serum cortisol level 30 minutes after cosyntropin administration.Draw serum cortisol level 60 minutes after cosyntropin administration.OSMOLALITY, [id number] 12:40:00 Test Item Value Reference Range Comments OSMOLALITY URINE (BEAKER) (test whlz=679) 403 mOsm/kg 40-1,400 URINALYSIS W/ REFLEX URINE [id number] 11:57:00 Test Item Value Reference Range Comments COLOR (BEAKER) (test hodj=256) [place] CLARITY (BEAKER) (test wodv=821) Cloudy SPECIFIC GRAVITY UA (BEAKER) (test unok=034) 1.015 1.001-1.035 PH UA (BEAKER) (test hdik=113) 6.5 5.0-8.0 PROTEIN UA (BEAKER) (test linu=184) 200 mg/dL Negative GLUCOSE UA (BEAKER) (test zvve=059) Negative Negative KETONES UA (BEAKER) (test cnno=932) 10 mg/dL Negative BILIRUBIN UA (BEAKER) (test zudt=849) Negative Negative BLOOD UA (BEAKER) (test srtj=180) Large Negative NITRITE UA (BEAKER) (test tvnp=666) Negative Negative LEUKOCYTE ESTERASE UA (BEAKER) (test togn=581) Large Negative UROBILINOGEN UA (BEAKER) (test tcsu=420) 0.2 mg/dL 0.2-1.0 RBC UA (BEAKER) (test pysr=796) 1825 /HPF WBC UA (BEAKER) (test vmcx=531) 348 /HPF MUCUS (BEAKER) (test imow=0980) Few SOURCE(BEAKER) (test enpg=9211) SODIUM, RANDOM [id number] 11:46:00 Test Item Value Reference Range Comments SODIUM URINE (BEAKER) (test eoqx=210) 29 meq/L Reference Range: No NormalsCORTISOL,[id number] 11:46:00 Test Item Value Reference Range Comments CORTISOL, BASELINE (BEAKER) (test ldaj=7165) 7.1 ug/dL ACTH STIMULATION TEST INTERPRETATION GUIDELINES(Synonyms: Cortrosyn Test, Cosyntropin or Corticotropin Stimulation Test)Adenocorticotropic hormone (ACTH) is a tropic hormone, made in the pituitary gland, which travels trhough the bloodstream and stimulates the cortex of the adrenal glands to release cortisol. Cortisol is a primary hormone, which aids the body's metabolism of fats, carbohydrates, and protein as well as sodium and potassium regulation.ACTH Stimulation Test: Exogenous administrationof biologically active ACTH stimulates the secretion of cortisol from the adrenal gland. This test is used to evaluate adrenal function by measuring cortisol levels at baseline and at 30 and 60 minutesafter the administration of 250 micrograms of cosyntropin (Cortrosyn). Patients who have received exogenous corticosteroids immediately prior to performing the ACTH Stimulation Test will often have elevated baseline cortisol levels, which may lead to erroneous interpretation of test results. The notable exception is with dexamethasone.Normal Response: An increase in cortisol after stimulation by ACTHis normal. Post-stimulation cortisol concentration should be greater than 20 mcg/dL or the rate of rise from baseline cortisol should be greater than or equal to 9 mcg/dL.Patients with sepsis or septicshock: According to a study by Devang et al (IRINA 2000,283( 8):1038-65), the ACTH Stimulation Test provides important prognostic information. This study defined 3 groups of patients with sepsis or septic shock : 1. Good Survival: Low basal cortisol (<or=34 mcg/dL) and high ACTH response (>9mcg/dL) 2. Intermediate Survival: Low basal cortisol (< 34 mcg/dL) and low response to ACTH (<or=9 mcg/dL) OR High basal cortisol (>34 mcg/dL) or high ACTH response (>9 mcg/dL) 3.Poor Survival: High basal cortisol (>34 mcg/dL) and low ACTH response (<or=9 mcg/dL) .Treatment of patients with relative adrenal dysfunction may be indicated based on test results and the clinical condition of the patient. Additional information, including treatment recommendations, is available in critically ill patients, approved by the Pharmacy, Nutrition, and Therapeutics Committee on 01/19/2004 and available through the Pharmacy Policy and Procedure Section on The Source.Do not run this test if systemic hydrocortisone, methylprednisolone, prednisolone or prednisone has been administered within the past 24 hours.Draw baseline cortisol level just prior to cosyntropin administration.Administer cosyntropin 1 mcg/mL via slow IV push over a period of 2 minutes. Flush the line after thedose to ensure the entire dose is delivered.Draw serum cortisol level 30 minutes after cosyntropin administration.Draw serum cortisol level 60 minutes after cosyntropin administration.[id number] 11:26:00 Test Item Value Reference Range Comments PREALBUMIN (BEAKER) (test eboh=708) 17 mg/dL 14-45 [id number] 11:25:00 Test Item Value Reference Range Comments PHOSPHORUS (BEAKER) (test nsrs=292) 2.6 mg/dL 2.3-4.7 [id number] 11:25:00 Test Item Value Reference Range Comments MAGNESIUM (BEAKER) (test zrzt=904) 2.1 mg/dL 1.6-2.6 BASIC METABOLIC [id number] 11:25:00 Test Item Value Reference Range Comments SODIUM (BEAKER) (test 125 meq/L 136-145 jqxi=484) POTASSIUM (BEAKER) (test 3.9 meq/L 3.5-5.1 ymvh=626) CHLORIDE (BEAKER) (test 102 meq/L 98-107 kwjb=623) CO2 (BEAKER) (test 17 meq/L 22-29 hmas=237) BLOOD UREA NITROGEN 20 mg/dL 7-21 (BEAKER) (test rgia=957) CREATININE (BEAKER) (test 1.02 mg/dL 0.57-1.25 pnui=967) GLUCOSE RANDOM (BEAKER) 93 mg/dL 70-105 (test ywic=960) CALCIUM (BEAKER) (test 9.2 mg/dL 8.4-10.2 anur=290) EGFR (BEAKER) (test 54 mL/min/1.73 sq m ESTIMATED GFR IS NOT xjtq=6665) ACCURATE CREATININE CLEARANCE IN PREDICTING GLOMERULAR FILTRATION RATE. ESTIMATED GFR IS NOT APPLICABLE FOR DIALYSIS PATIENTS. [id number] 11:25:00 Test Item Value Reference Range Comments ALBUMIN (BEAKER) (test pcua=1181) 3.5 g/dL 3.5-5.0 POCT-GLUCOSE [id number] 10:04:00 Test Item Value Reference Range Comments POC-GLUCOSE METER (BEAKER) 79 mg/dL 70-110 TESTED AT [address] (test lcmv=1161) [place] [address] POCT-GLUCOSE [id number] 23:52:00 Test Item Value Reference Range Comments POC-GLUCOSE METER (BEAKER) 93 mg/dL 70-110 TESTED AT [address] (test gciu=7353) [place] [address] POCT-GLUCOSE [id number] 17:48:00 Test Item Value Reference Range Comments POC-GLUCOSE METER (BEAKER) 113 mg/dL 70-110 TESTED AT [address] (test kzxf=2874) [place] [address] TISSUE [id number] 16:56:00Surgical Pathology Report Case: [id number] Authorizing Provider: Deena Elise MD Collected: 11/16/2018 1452 Ordering Location: [address] Received: 11/17/2018 0830 Service Pathologist: James Roca MD Specimen: Stomach, random biopsy via frcp A. STOMACH, RANDOM BIOPSY- CHRONIC INACTIVE GASTRITIS, MILD- NO INTESTINAL METAPLASIA, DYSPLASIA OR INVASIVE CARCINOMA IDENTIIFIED- NO HELICOBACTER PYLORI LIKE ORGANISMS IDENTIFIED ON WARTHIN STARRY STAIN Signing Pathologist Direct Phone Line: [phone] signed by James Roca MD on 11/17/2018 at 4:56 [id number], [id number] pain stomachThe paperwork, container and cassette all match the patient's identification. The specimen is received in formalin labeled as "random stomach biopsy" andis a 1 x 1 x 0.2 cm aggregate of mock-pink soft tissue. The specimen is submitted entirely in cassette A1. WA/ ewPerformed.The interpretation of this case included the use of immunohistochemistry or special stains.Control Slides Examined: In-house known positive controls were evaluated along with the test tissue. These control slides run alongside of the patients sample show appropriate staining. Internal positive and negative controls when available are evaluated Immunohistochemistry technical testing was performed at [facility], Pathology Laboratory where it was developed and its performance characteristics were determined. It has not been cleared or approved by the U.S. Food and Drug Administration. The FDA has determined that such clearance or approval is not necessary. The test is used for clinical purposes. It should not be regarded as investigational or for research.This laboratory is certified under the Clinical Laboratory Improvement Amendments of 1988 (CLIA-88) as qualified to perform high complexity clinical laboratory testing.[facility],Department of Pathology, [address] [place] [address], [facility] , [address] [place] [address], [facility], [facility] of [facility], [address] [place] [address] , PXKR-GLUCOSE [id number] 12:08:00 Test Item Value Reference Range Comments POC-GLUCOSE METER (BEAKER) 107 mg/dL 70-110 TESTED AT [address] (test iqta=5023) [place] [address] [id number] 07:40:00 Test Item Value Reference Range Comments PHOSPHORUS (BEAKER) (test kwgp=491) 4.0 mg/dL 2.3-4.7 [id number] 07:40:00 Test Item Value Reference Range Comments MAGNESIUM (BEAKER) (test iavx=595) 1.9 mg/dL 1.6-2.6 BASIC METABOLIC [id number] 07:40:00 Test Item Value Reference Range Comments SODIUM (BEAKER) (test 127 meq/L 136-145 pwvr=484) POTASSIUM (BEAKER) (test 4.7 meq/L 3.5-5.1 esyy=628) CHLORIDE (BEAKER) (test 104 meq/L 98-107 fdhe=317) CO2 (BEAKER) (test 16 meq/L 22-29 mcem=760) BLOOD UREA NITROGEN 20 mg/dL 7-21 (BEAKER) (test ymsy=761) CREATININE (BEAKER) (test 0.99 mg/dL 0.57-1.25 ldee=041) GLUCOSE RANDOM (BEAKER) 89 mg/dL 70-105 (test ykyp=820) CALCIUM (BEAKER) (test 9.4 mg/dL 8.4-10.2 irct=213) EGFR (BEAKER) (test 56 mL/min/1.73 sq m ESTIMATED GFR IS NOT yedq=0819) ACCURATE CREATININE CLEARANCE IN PREDICTING GLOMERULAR FILTRATION RATE. ESTIMATED GFR IS NOT APPLICABLE FOR DIALYSIS PATIENTS. OSMOLALITY, [id number] 07:20:00 Test Item Value Reference Range Comments OSMOLALITY, SERUM (BEAKER) (test keou=073) 274 mOsm/kg 275-295 POCT-GLUCOSE [id number] 06:43:00 Test Item Value Reference Range Comments POC-GLUCOSE METER (BEAKER) 97 mg/dL 70-110 TESTED AT [address] (test ojzs=7133) [facility] [address] POCT-GLUCOSE [id number] 17:17:00 Test Item Value Reference Range Comments POC-GLUCOSE METER (BEAKER) 119 mg/dL 70-110 TESTED AT [address] (test nozl=6356) [facility] [address] POCT-GLUCOSE [id number] 15:40:00 Test Item Value Reference Range Comments POC-GLUCOSE METER (BEAKER) 118 mg/dL 70-110 TESTED AT [address] (test oxgi=5242) [facility] [address] POCT-GLUCOSE [id number] 12:11:00 Test Item Value Reference Range Comments POC-GLUCOSE METER (BEAKER) 97 mg/dL 70-[address] [facility] [address] [facility] (test qsti=8270) [facility] [address] [id number] 06:17:00 Test Item Value Reference Range Comments PHOSPHORUS (BEAKER) (test vhwp=310) 3.9 mg/dL 2.3-4.7 [id number] 06:17:00 Test Item Value Reference Range Comments MAGNESIUM (BEAKER) (test pyga=676) 2.1 mg/dL 1.6-2.6 BASIC METABOLIC [id number] 06:17:00 Test Item Value Reference Range Comments SODIUM (BEAKER) (test 128 meq/L 136-145 gkea=097) POTASSIUM (BEAKER) (test 4.0 meq/L 3.5-5.1 dipu=254) CHLORIDE (BEAKER) (test 103 meq/L 98-107 ddmy=439) CO2 (BEAKER) (test 18 meq/L 22-29 beup=040) BLOOD UREA NITROGEN 16 mg/dL 7-21 (BEAKER) (test fxru=580) CREATININE (BEAKER) (test 0.95 mg/dL 0.57-1.25 xbia=154) GLUCOSE RANDOM (BEAKER) 82 mg/dL 70-105 (test yjov=390) CALCIUM (BEAKER) (test 9.3 mg/dL 8.4-10.2 kvjr=620) EGFR (BEAKER) (test 58 mL/min/1.73 sq m ESTIMATED GFR IS NOT zrjk=2493) ACCURATE CREATININE CLEARANCE IN PREDICTING GLOMERULAR FILTRATION RATE. ESTIMATED GFR IS NOT APPLICABLE FOR DIALYSIS PATIENTS. POCT-GLUCOSE [id number] 05:27:00 Test Item Value Reference Range Comments POC-GLUCOSE METER (BEAKER) 90 mg/dL 70-[address] [facility] [address] [facility] (test ydiv=3149) [facility] [address] CBC (HEMOGRAM ONLY)2018-11-16 05:07:00 Test Item Value Reference Range Comments WHITE BLOOD CELL COUNT (BEAKER) (test ifzh=512) 9.0 K/ L 3.5-10.5 RED BLOOD CELL COUNT (BEAKER) (test yvkb=352) 4.32 M/ L 3.93-5.22 HEMOGLOBIN (BEAKER) (test jmsb=213) 12.3 GM/DL 11.2-15.7 HEMATOCRIT (BEAKER) (test prhy=461) 38.1 % 34.1-44.9 MEAN CORPUSCULAR VOLUME (BEAKER) (test hlcs=826) 88.2 fL 79.4-94.8 MEAN CORPUSCULAR HEMOGLOBIN (BEAKER) (test 28.5 pg 25.6-32.2 qfdk=467) MEAN CORPUSCULAR HEMOGLOBIN CONC (BEAKER) (test 32.3 GM/DL 32.2-35.5 lcgs=942) RED CELL DISTRIBUTION WIDTH (BEAKER) (test 14.7 % 11.7-14.4 tyop=568) PLATELET COUNT (BEAKER) (test zixw=810) 285 K/CU MM 150-450 MEAN PLATELET VOLUME (BEAKER) (test ryrx=852) 9.7 fL 9.4-12.3 NUCLEATED RED BLOOD CELLS (BEAKER) (test 0 /100 WBC 0-0 dbpq=143) POCT-GLUCOSE [id number] 00:31:00 Test Item Value Reference Range Comments POC-GLUCOSE METER (BEAKER) 83 mg/dL 70-110 TESTED AT [address] (test owzh=7556) [place] [id number] POCT-GLUCOSE [id number] 14:00:00 Test Item Value Reference Range Comments POC-GLUCOSE METER (BEAKER) 99 mg/dL 70-110 TESTED AT [address] (test fwnq=1351) [place] [id number] [id number] 08:51:00 Test Item Value Reference Range Comments MAGNESIUM (BEAKER) (test ysaz=861) 2.4 mg/dL 1.6-2.6 BASIC METABOLIC [id number] 08:51:00 Test Item Value Reference Range Comments SODIUM (BEAKER) (test 130 meq/L 136-145 hoil=772) POTASSIUM (BEAKER) (test 3.9 meq/L 3.5-5.1 qrhc=828) CHLORIDE (BEAKER) (test 107 meq/L 98-107 bgxa=598) CO2 (BEAKER) (test 16 meq/L 22-29 snsu=088) BLOOD UREA NITROGEN 13 mg/dL 7-21 (BEAKER) (test afgm=682) CREATININE (BEAKER) (test 0.89 mg/dL 0.57-1.25 bpxg=158) GLUCOSE RANDOM (BEAKER) 90 mg/dL 70-105 (test khpm=572) CALCIUM (BEAKER) (test 9.1 mg/dL 8.4-10.2 gcsu=370) EGFR (BEAKER) (test 63 mL/min/1.73 sq m ESTIMATED GFR IS NOT cpkf=4819) ACCURATE CREATININE CLEARANCE IN PREDICTING GLOMERULAR FILTRATION RATE. ESTIMATED GFR IS NOT APPLICABLE FOR DIALYSIS PATIENTS. POCT-GLUCOSE [id number] 06:42:00 Test Item Value Reference Range Comments POC-GLUCOSE METER (BEAKER) 100 mg/dL 70-110 TESTED AT [address] (test lnpa=8635) [place] [address] BLOOD [id number] 02:02:00 Test Item Value Reference Range Comments CULTURE (BEAKER) (test pvnw=6995) No growth in 5 days POCT-GLUCOSE [id number] 00:39:00 Test Item Value Reference Range Comments POC-GLUCOSE METER (BEAKER) 90 mg/dL 70-110 TESTED AT [address] (test ivle=0617) [place] [address] POCT-GLUCOSE [id number] 22:38:00 Test Item Value Reference Range Comments POC-GLUCOSE METER (BEAKER) 154 mg/dL 70-110 TESTED AT [address] (test wmwj=4806) [place] [address] BLOOD [id number] 20:01:00 Test Item Value Reference Range Comments CULTURE (BEAKER) (test wkqb=5312) No growth in 5 days POCT-GLUCOSE [id number] 12:51:00 Test Item Value Reference Range Comments POC-GLUCOSE METER (BEAKER) 90 mg/dL 70-110 TESTED AT [address] (test ifbc=3215) [place] [address] [id number] 07:16:00 Test Item Value Reference Range Comments MAGNESIUM (BEAKER) (test dayp=569) 1.6 mg/dL 1.6-2.6 BASIC METABOLIC [id number] 07:16:00 Test Item Value Reference Range Comments SODIUM (BEAKER) (test 132 meq/L 136-145 adtj=926) POTASSIUM (BEAKER) (test 4.1 meq/L 3.5-5.1 fjwn=346) CHLORIDE (BEAKER) (test 107 meq/L 98-107 qfvw=740) CO2 (BEAKER) (test 17 meq/L 22-29 esqh=675) BLOOD UREA NITROGEN 11 mg/dL 7-21 (BEAKER) (test xiqv=094) CREATININE (BEAKER) (test 0.83 mg/dL 0.57-1.25 pckt=771) GLUCOSE RANDOM (BEAKER) 82 mg/dL 70-105 (test xqyv=507) CALCIUM (BEAKER) (test 9.6 mg/dL 8.4-10.2 snvg=727) EGFR (BEAKER) (test 68 mL/min/1.73 sq m ESTIMATED GFR IS NOT irsc=5002) ACCURATE CREATININE CLEARANCE IN PREDICTING GLOMERULAR FILTRATION RATE. ESTIMATED GFR IS NOT APPLICABLE FOR DIALYSIS PATIENTS. POCT-GLUCOSE [id number] 06:18:00 Test Item Value Reference Range Comments POC-GLUCOSE METER (BEAKER) 87 mg/dL 70-110 TESTED AT [address] (test qody=1445) [place] [address] POCT-GLUCOSE [id number] 23:30:00 Test Item Value Reference Range Comments POC-GLUCOSE METER (BEAKER) 92 mg/dL 70-110 TESTED AT [address] (test wjhs=5407) [place] [address] POCT-GLUCOSE [id number] 13:44:00 Test Item Value Reference Range Comments POC-GLUCOSE METER (BEAKER) 112 mg/dL 70-110 TESTED AT [address] (test sqhu=7218) [place] [address] POCT-GLUCOSE [id number] 12:49:00 Test Item Value Reference Range Comments POC-GLUCOSE METER (BEAKER) 67 mg/dL 70-110 Notified ANATOLIY SUMMERS/TESTED AT [facility] (test wflq=8742) [address] [place] [address] CT, BRAIN, [id number] 12:10:00Reason for exam:->Persistent N/V; rule out brain massFINAL REPORT CT, BRAIN, WITHOUT \\T\\ WITH CONTRAST INDICATION: Persistent N/V;rule out brain massPersistent N/V; rule out mass TECHNIQUE: Pre and postcontrast axial imaging was obtained from the vertex to the skull base. Axial images were reconstructed using a bone algorithm. DOSE REDUCTION: Dose modulation, iterative reconstruction, and/or weight-based adjustment of the mA/kV was utilized to reduce the radiation dose to as low as reasonably achievable. COMPARISON: None. FINDINGS: Cerebral parenchyma: Diffuse parenchymal volume loss. Appearance of the white matter suggests chronic microvascular disease. No space-occupying lesion or abnormal postcontrast enhancement.Midline structures: Normally positioned.Cerebellum and brainstem: Commensurate volume loss.Ventricles: Normal volume.Extra-axial spaces: Unremarkable. Calvarium and skull base: Intact.Paranasal sinuses and mastoid air cells: Visible chambers are clear.Orbital contents: Included portions unremarkable. Additionalfindings: None. IMPRESSION: Chronic involutional changes without acute intracranial abnormality. Postcontrast series reveals no evidence of a space-occupying lesion. If there is persistent clinical concern for intracranial pathology, MR examination is recommended for further characterization. Signed: JR Townsend Robert MDReport Verified Date/Time : 11/13/2018 12:10:03 Reading Location: [address] Reading Room T4, [id number] 07:48:00 Test Item Value Reference Range Comments FREE T4 (BEAKER) (test rwfa=014) 0.77 ng/dL 0.70-1.48 [id number] 06:54:00 Test Item Value Reference Range Comments CORTISOL, TOTAL (BEAKER) (test hpbm=3515) 10.5 ug/dL 3.7-19.4 TSH/FREE T4 IF [id number] 06:51:00 Test Item Value Reference Range Comments THYROID STIMULATING HORMONE (BEAKER) (test 5.04 uIU/mL 0.35-4.94 uqxr=805) BASIC METABOLIC [id number] 06:38:00 Test Item Value Reference Range Comments SODIUM (BEAKER) (test 131 meq/L 136-145 qwpk=090) POTASSIUM (BEAKER) (test 4.1 meq/L 3.5-5.1 yojh=284) CHLORIDE (BEAKER) (test 108 meq/L 98-107 rulu=250) CO2 (BEAKER) (test 16 meq/L 22-29 ltib=181) BLOOD UREA NITROGEN 12 mg/dL 7-21 (BEAKER) (test dppd=348) CREATININE (BEAKER) (test 0.76 mg/dL 0.57-1.25 bcfk=467) GLUCOSE RANDOM (BEAKER) 78 mg/dL 70-105 (test uiyt=476) CALCIUM (BEAKER) (test 9.0 mg/dL 8.4-10.2 tpzj=107) EGFR (BEAKER) (test 76 mL/min/1.73 sq m ESTIMATED GFR IS NOT gkof=7760) ACCURATE CREATININE CLEARANCE IN PREDICTING GLOMERULAR FILTRATION RATE. ESTIMATED GFR IS NOT APPLICABLE FOR DIALYSIS PATIENTS. CBC (HEMOGRAM ONLY)2018-11-13 06:08:00 Test Item Value Reference Range Comments WHITE BLOOD CELL COUNT (BEAKER) (test ebrd=325) 10.2 K/ L 3.5-10.5 RED BLOOD CELL COUNT (BEAKER) (test zbmz=444) 3.92 M/ L 3.93-5.22 HEMOGLOBIN (BEAKER) (test toqc=339) 11.4 GM/DL 11.2-15.7 HEMATOCRIT (BEAKER) (test jkcc=927) 34.4 % 34.1-44.9 MEAN CORPUSCULAR VOLUME (BEAKER) (test xmeh=758) 87.8 fL 79.4-94.8 MEAN CORPUSCULAR HEMOGLOBIN (BEAKER) (test 29.1 pg 25.6-32.2 fbtp=958) MEAN CORPUSCULAR HEMOGLOBIN CONC (BEAKER) (test 33.1 GM/DL 32.2-35.5 nzyp=972) RED CELL DISTRIBUTION WIDTH (BEAKER) (test 15.3 % 11.7-14.4 nrgr=247) PLATELET COUNT (BEAKER) (test ynri=212) 260 K/CU MM 150-450 MEAN PLATELET VOLUME (BEAKER) (test ztgn=073) 10.3 fL 9.4-12.3 NUCLEATED RED BLOOD CELLS (BEAKER) (test 0 /100 WBC 0-0 ejif=757) POCT-GLUCOSE [id number] 05:28:00 Test Item Value Reference Range Comments POC-GLUCOSE METER (BEAKER) 94 mg/dL 70-[address] [facility] [address] [facility] (test vsbt=1550) [place] [address] POCT-GLUCOSE [id number] 23:23:00 Test Item Value Reference Range Comments POC-GLUCOSE METER (BEAKER) 89 mg/dL 70-110 TESTED AT [address] (test idok=6485) [place] [address] BASIC METABOLIC [id number] 13:39:00 Test Item Value Reference Range Comments SODIUM (BEAKER) (test 128 meq/L 136-145 orlc=255) POTASSIUM (BEAKER) (test 4.1 meq/L 3.5-5.1 qzjo=127) CHLORIDE (BEAKER) (test 106 meq/L 98-107 cxhv=059) CO2 (BEAKER) (test 16 meq/L 22-29 qrhw=771) BLOOD UREA NITROGEN 13 mg/dL 7-21 (BEAKER) (test shff=013) CREATININE (BEAKER) (test 0.79 mg/dL 0.57-1.25 hlqr=965) GLUCOSE RANDOM (BEAKER) 79 mg/dL 70-105 (test ezfh=371) CALCIUM (BEAKER) (test 8.7 mg/dL 8.4-10.2 oimd=139) EGFR (BEAKER) (test 72 mL/min/1.73 sq m ESTIMATED GFR IS NOT itcr=4590) ACCURATE CREATININE CLEARANCE IN PREDICTING GLOMERULAR FILTRATION RATE. ESTIMATED GFR IS NOT APPLICABLE FOR DIALYSIS PATIENTS. POCT-GLUCOSE [id number] 12:18:00 Test Item Value Reference Range Comments POC-GLUCOSE METER (BEAKER) 86 mg/dL 70-110 TESTED AT [address] (test wbel=2431) [place] [address] SODIUM, RANDOM [id number] 06:44:00 Test Item Value Reference Range Comments SODIUM URINE (BEAKER) (test obrm=878) < meq/L Reference Range: No NormalsPOCT-GLUCOSE [id number] 06:40:00 Test Item Value Reference Range Comments POC-GLUCOSE METER (BEAKER) 85 mg/dL 70-110 TESTED AT [address] (test dzuw=7888) [place] [id number] OSMOLALITY, [id number] 06:37:00 Test Item Value Reference Range Comments OSMOLALITY, SERUM (BEAKER) (test ykka=278) 283 mOsm/kg 275-295 OSMOLALITY, [id number] 06:37:00 Test Item Value Reference Range Comments OSMOLALITY URINE (BEAKER) (test dfmo=682) 186 mOsm/kg 40-1,400 BASIC METABOLIC [id number] 06:31:00 Test Item Value Reference Range Comments SODIUM (BEAKER) (test 127 meq/L 136-145 bmme=539) POTASSIUM (BEAKER) (test 4.1 meq/L 3.5-5.1 fpek=687) CHLORIDE (BEAKER) (test 106 meq/L 98-107 xypa=305) CO2 (BEAKER) (test 16 meq/L 22-29 zjyl=566) BLOOD UREA NITROGEN 14 mg/dL 7-21 (BEAKER) (test mpsc=436) CREATININE (BEAKER) (test 0.87 mg/dL 0.57-1.25 fwce=738) GLUCOSE RANDOM (BEAKER) 78 mg/dL 70-105 (test uwjr=606) CALCIUM (BEAKER) (test 8.8 mg/dL 8.4-10.2 adso=134) EGFR (BEAKER) (test 65 mL/min/1.73 sq m ESTIMATED GFR IS NOT toxg=9466) ACCURATE CREATININE CLEARANCE IN PREDICTING GLOMERULAR FILTRATION RATE. ESTIMATED GFR IS NOT APPLICABLE FOR DIALYSIS PATIENTS. CBC (HEMOGRAM ONLY)2018-11-12 05:58:00 Test Item Value Reference Range Comments WHITE BLOOD CELL COUNT (BEAKER) (test itak=012) 10.6 K/ L 3.5-10.5 RED BLOOD CELL COUNT (BEAKER) (test ljvh=549) 4.00 M/ L 3.93-5.22 HEMOGLOBIN (BEAKER) (test xpns=348) 11.5 GM/DL 11.2-15.7 HEMATOCRIT (BEAKER) (test ocef=484) 34.8 % 34.1-44.9 MEAN CORPUSCULAR VOLUME (BEAKER) (test clyj=762) 87.0 fL 79.4-94.8 MEAN CORPUSCULAR HEMOGLOBIN (BEAKER) (test 28.8 pg 25.6-32.2 bruc=261) MEAN CORPUSCULAR HEMOGLOBIN CONC (BEAKER) (test 33.0 GM/DL 32.2-35.5 nplv=382) RED CELL DISTRIBUTION WIDTH (BEAKER) (test 14.9 % 11.7-14.4 cxny=051) PLATELET COUNT (BEAKER) (test gvbb=596) 242 K/CU MM 150-450 MEAN PLATELET VOLUME (BEAKER) (test igzm=750) 9.7 fL 9.4-12.3 NUCLEATED RED BLOOD CELLS (BEAKER) (test 0 /100 WBC 0-0 plns=615) BASIC METABOLIC [id number] 23:52:00 Test Item Value Reference Range Comments SODIUM (BEAKER) (test 127 meq/L 136-145 azeh=706) POTASSIUM (BEAKER) (test 4.4 meq/L 3.5-5.1 aydv=172) CHLORIDE (BEAKER) (test 108 meq/L 98-107 lolm=010) CO2 (BEAKER) (test 13 meq/L 22-29 rzcx=807) BLOOD UREA NITROGEN 16 mg/dL 7-21 (BEAKER) (test lmvg=098) CREATININE (BEAKER) (test 0.88 mg/dL 0.57-1.25 bgej=916) GLUCOSE RANDOM (BEAKER) 87 mg/dL 70-105 (test ytqz=570) CALCIUM (BEAKER) (test 8.6 mg/dL 8.4-10.2 ijbc=968) EGFR (BEAKER) (test 64 mL/min/1.73 sq m ESTIMATED GFR IS NOT iqgq=1010) ACCURATE CREATININE CLEARANCE IN PREDICTING GLOMERULAR FILTRATION RATE. ESTIMATED GFR IS NOT APPLICABLE FOR DIALYSIS PATIENTS. POCT-GLUCOSE [id number] 23:37:00 Test Item Value Reference Range Comments POC-GLUCOSE METER (BEAKER) 90 mg/dL 70-110 TESTED AT [place] [id number] [facility] (test yzoo=3763) [place] [id number] POCT-GLUCOSE [id number] 19:00:00 Test Item Value Reference Range Comments POC-GLUCOSE METER (BEAKER) 97 mg/dL 70-[address] [facility] [address] [facility] (test hvtg=2777) [place] [address] BASIC METABOLIC [id number] 14:47:00 Test Item Value Reference Range Comments SODIUM (BEAKER) (test 123 meq/L 136-145 hyjk=646) POTASSIUM (BEAKER) (test 3.3 meq/L 3.5-5.1 olkl=447) CHLORIDE (BEAKER) (test 101 meq/L 98-107 cpeh=246) CO2 (BEAKER) (test 17 meq/L 22-29 juvo=954) BLOOD UREA NITROGEN 18 mg/dL 7-21 (BEAKER) (test unvp=379) CREATININE (BEAKER) (test 1.13 mg/dL 0.57-1.25 rgyl=162) GLUCOSE RANDOM (BEAKER) 117 mg/dL 70-105 (test ozwb=663) CALCIUM (BEAKER) (test 8.6 mg/dL 8.4-10.2 yrpc=387) EGFR (BEAKER) (test 48 mL/min/1.73 sq m ESTIMATED GFR IS NOT jhms=0018) ACCURATE CREATININE CLEARANCE IN PREDICTING GLOMERULAR FILTRATION RATE. ESTIMATED GFR IS NOT APPLICABLE FOR DIALYSIS PATIENTS. POCT-GLUCOSE [id number] 12:16:00 Test Item Value Reference Range Comments POC-GLUCOSE METER (BEAKER) 73 mg/dL 70-[address] [facility] [address] [facility] (test prri=7121) [facility] [address] CBC W/PLT COUNT & AUTO [id number] 07:10:00 Test Item Value Reference Range Comments WHITE BLOOD CELL COUNT (BEAKER) (test nqsf=654) 11.2 K/ L 3.5-10.5 RED BLOOD CELL COUNT (BEAKER) (test xcjj=873) 4.15 M/ L 3.93-5.22 HEMOGLOBIN (BEAKER) (test qvef=923) 11.8 GM/DL 11.2-15.7 HEMATOCRIT (BEAKER) (test icxc=592) 35.7 % 34.1-44.9 MEAN CORPUSCULAR VOLUME (BEAKER) (test kdqn=049) 86.0 fL 79.4-94.8 MEAN CORPUSCULAR HEMOGLOBIN (BEAKER) (test 28.4 pg 25.6-32.2 jdxp=657) MEAN CORPUSCULAR HEMOGLOBIN CONC (BEAKER) (test 33.1 GM/DL 32.2-35.5 qqam=441) RED CELL DISTRIBUTION WIDTH (BEAKER) (test 15.0 % 11.7-14.4 bmig=530) PLATELET COUNT (BEAKER) (test rdxo=362) 240 K/CU MM 150-450 MEAN PLATELET VOLUME (BEAKER) (test xaiu=233) 10.0 fL 9.4-12.3 NUCLEATED RED BLOOD CELLS (BEAKER) (test 0 /100 WBC 0-0 slck=260) NEUTROPHILS RELATIVE PERCENT (BEAKER) (test 72 % lhiu=935) LYMPHOCYTES RELATIVE PERCENT (BEAKER) (test 15 % nrwe=247) MONOCYTES RELATIVE PERCENT (BEAKER) (test 8 % sqws=663) EOSINOPHILS RELATIVE PERCENT (BEAKER) (test 4 % dkwf=226) BASOPHILS RELATIVE PERCENT (BEAKER) (test 1 % gldp=612) NEUTROPHILS ABSOLUTE COUNT (BEAKER) (test 8.11 K/ L 1.56-6.13 bzuq=799) LYMPHOCYTES ABSOLUTE COUNT (BEAKER) (test 1.65 K/ L 1.18-3.74 aupk=553) MONOCYTES ABSOLUTE COUNT (BEAKER) (test 0.89 K/ L 0.24-0.36 azsl=537) EOSINOPHILS ABSOLUTE COUNT (BEAKER) (test 0.45 K/ L 0.04-0.36 ewvm=344) BASOPHILS ABSOLUTE COUNT (BEAKER) (test 0.08 K/ L 0.01-0.08 mlnl=725) IMMATURE GRANULOCYTES-RELATIVE PERCENT (BEAKER) 0 % 0-1 (test fuqd=6689) BASIC METABOLIC [id number] 06:51:00 Test Item Value Reference Range Comments SODIUM (BEAKER) (test 126 meq/L 136-145 atgx=807) POTASSIUM (BEAKER) (test 3.6 meq/L 3.5-5.1 wmtz=824) CHLORIDE (BEAKER) (test 104 meq/L 98-107 nprb=187) CO2 (BEAKER) (test 17 meq/L 22-29 zmke=485) BLOOD UREA NITROGEN 18 mg/dL 7-21 (BEAKER) (test zyes=279) CREATININE (BEAKER) (test 1.08 mg/dL 0.57-1.25 eacv=869) GLUCOSE RANDOM (BEAKER) 90 mg/dL 70-105 (test fokk=833) CALCIUM (BEAKER) (test 8.8 mg/dL 8.4-10.2 xrki=219) EGFR (BEAKER) (test 50 mL/min/1.73 sq m ESTIMATED GFR IS NOT lnha=3999) ACCURATE CREATININE CLEARANCE IN PREDICTING GLOMERULAR FILTRATION RATE. ESTIMATED GFR IS NOT APPLICABLE FOR DIALYSIS PATIENTS. URINALYSIS W/ REFLEX URINE [id number] 06:48:00 Test Item Value Reference Range Comments COLOR (BEAKER) (test jtxz=626) Yellow CLARITY (BEAKER) (test aqga=993) Hazy SPECIFIC GRAVITY UA (BEAKER) (test dftd=268) 1.006 1.001-1.035 PH UA (BEAKER) (test hcgu=662) 6.0 5.0-8.0 PROTEIN UA (BEAKER) (test kaeu=323) 50 mg/dL Negative GLUCOSE UA (BEAKER) (test mfku=210) Negative Negative KETONES UA (BEAKER) (test qrlu=072) Negative Negative BILIRUBIN UA (BEAKER) (test ruhp=267) Negative Negative BLOOD UA (BEAKER) (test wmvu=258) Moderate Negative NITRITE UA (BEAKER) (test oktc=131) Negative Negative LEUKOCYTE ESTERASE UA (BEAKER) (test bmuu=687) Large Negative UROBILINOGEN UA (BEAKER) (test xstu=011) 12.0 mg/dL 0.2-1.0 RBC UA (BEAKER) (test nccg=251) 6 /HPF WBC UA (BEAKER) (test eocw=665) 57 /HPF MUCUS (BEAKER) (test ebkm=1640) Rare SQUAMOUS EPITHELIAL (BEAKER) (test uolx=387) < /HPF SOURCE(BEAKER) (test loao=4406) POCT-GLUCOSE [id number] 06:33:00 Test Item Value Reference Range Comments POC-GLUCOSE METER (BEAKER) 85 mg/dL 70-[address] [facility] [address] [facility] (test obxh=5234) [facility] [address] [id number] 06:22:00 Test Item Value Reference Range Comments PREALBUMIN (BEAKER) (test zmcc=781) 14 mg/dL 14-45 BASIC METABOLIC [id number] 01:44:00 Test Item Value Reference Range Comments SODIUM (BEAKER) (test 125 meq/L 136-145 segq=766) POTASSIUM (BEAKER) (test 3.6 meq/L 3.5-5.1 herl=308) CHLORIDE (BEAKER) (test 104 meq/L 98-107 sxrd=825) CO2 (BEAKER) (test 17 meq/L 22-29 diox=882) BLOOD UREA NITROGEN 21 mg/dL 7-21 (BEAKER) (test mlvb=448) CREATININE (BEAKER) (test 1.15 mg/dL 0.57-1.25 dwxw=377) GLUCOSE RANDOM (BEAKER) 83 mg/dL 70-105 (test zafp=066) CALCIUM (BEAKER) (test 8.5 mg/dL 8.4-10.2 edpy=742) EGFR (BEAKER) (test 47 mL/min/1.73 sq m ESTIMATED GFR IS NOT nfya=3272) ACCURATE CREATININE CLEARANCE IN PREDICTING GLOMERULAR FILTRATION RATE. ESTIMATED GFR IS NOT APPLICABLE FOR DIALYSIS PATIENTS. POCT-GLUCOSE [id number] 23:53:00 Test Item Value Reference Range Comments POC-GLUCOSE METER (BEAKER) 75 mg/dL 70-110 TESTED AT [address] (test wjsx=3681) [place] [address] BASIC METABOLIC [id number] 17:54:00 Test Item Value Reference Range Comments SODIUM (BEAKER) (test 131 meq/L 136-145 sjif=910) POTASSIUM (BEAKER) (test 3.1 meq/L 3.5-5.1 dzbo=025) CHLORIDE (BEAKER) (test 113 meq/L 98-107 qqan=653) CO2 (BEAKER) (test 13 meq/L 22-29 lukt=727) BLOOD UREA NITROGEN 21 mg/dL 7-21 (BEAKER) (test zanw=381) CREATININE (BEAKER) (test 1.03 mg/dL 0.57-1.25 xnkx=852) GLUCOSE RANDOM (BEAKER) 74 mg/dL 70-105 (test mfmq=270) CALCIUM (BEAKER) (test 6.9 mg/dL 8.4-10.2 royy=341) EGFR (BEAKER) (test 53 mL/min/1.73 sq m ESTIMATED GFR IS NOT hbhd=2894) ACCURATE CREATININE CLEARANCE IN PREDICTING GLOMERULAR FILTRATION RATE. ESTIMATED GFR IS NOT APPLICABLE FOR DIALYSIS PATIENTS. POCT-GLUCOSE [id number] 17:46:00 Test Item Value Reference Range Comments POC-GLUCOSE METER (BEAKER) 91 mg/dL 70-110 TESTED AT [address] (test cljs=8148) [place] [address] POCT-GLUCOSE [id number] 14:02:00 Test Item Value Reference Range Comments POC-GLUCOSE METER (BEAKER) 114 mg/dL 70-110 TESTED AT [address] (test igcr=8536) [place] [id number] BASIC METABOLIC [id number] 13:57:00 Test Item Value Reference Range Comments SODIUM (BEAKER) (test 122 meq/L 136-145 qgbb=468) POTASSIUM (BEAKER) (test 3.9 meq/L 3.5-5.1 Specimen slightly gbdd=098) hemolyzed CHLORIDE (BEAKER) (test 101 meq/L 98-107 xfbc=976) CO2 (BEAKER) (test 16 meq/L 22-29 wutq=636) BLOOD UREA NITROGEN 24 mg/dL 7-21 (BEAKER) (test bqoy=662) CREATININE (BEAKER) (test 1.35 mg/dL 0.57-1.25 Specimen slightly ccol=342) hemolyzed GLUCOSE RANDOM (BEAKER) 107 mg/dL 70-105 (test okbn=711) CALCIUM (BEAKER) (test 8.6 mg/dL 8.4-10.2 avwo=642) EGFR (BEAKER) (test 39 mL/min/1.73 sq m ESTIMATED GFR IS NOT zbzn=5631) ACCURATE CREATININE CLEARANCE IN PREDICTING GLOMERULAR FILTRATION RATE. ESTIMATED GFR IS NOT APPLICABLE FOR DIALYSIS PATIENTS. BASIC METABOLIC [id number] 09:19:00 Test Item Value Reference Range Comments SODIUM (BEAKER) (test 125 meq/L 136-145 mlsc=009) POTASSIUM (BEAKER) (test 4.1 meq/L 3.5-5.1 fhre=380) CHLORIDE (BEAKER) (test 101 meq/L 98-107 akky=295) CO2 (BEAKER) (test 17 meq/L 22-29 momj=167) BLOOD UREA NITROGEN 27 mg/dL 7-21 (BEAKER) (test fszx=032) CREATININE (BEAKER) (test 1.44 mg/dL 0.57-1.25 qcli=373) GLUCOSE RANDOM (BEAKER) 81 mg/dL 70-105 (test isyz=599) CALCIUM (BEAKER) (test 9.1 mg/dL 8.4-10.2 vrhx=154) EGFR (BEAKER) (test 36 mL/min/1.73 sq m ESTIMATED GFR IS NOT fqdf=6983) ACCURATE CREATININE CLEARANCE IN PREDICTING GLOMERULAR FILTRATION RATE. ESTIMATED GFR IS NOT APPLICABLE FOR DIALYSIS PATIENTS. BASIC METABOLIC [id number] 07:11:00 Test Item Value Reference Range Comments SODIUM (BEAKER) (test 122 meq/L 136-145 lnte=364) POTASSIUM (BEAKER) (test 3.7 meq/L 3.5-5.1 ryuz=683) CHLORIDE (BEAKER) (test 100 meq/L 98-107 qgpv=668) CO2 (BEAKER) (test 15 meq/L 22-29 ylio=408) BLOOD UREA NITROGEN 27 mg/dL 7-21 (BEAKER) (test xywv=539) CREATININE (BEAKER) (test 1.41 mg/dL 0.57-1.25 getj=707) GLUCOSE RANDOM (BEAKER) 79 mg/dL 70-105 (test ciie=649) CALCIUM (BEAKER) (test 8.7 mg/dL 8.4-10.2 pfbx=779) EGFR (BEAKER) (test 37 mL/min/1.73 sq m ESTIMATED GFR IS NOT ewis=3068) ACCURATE CREATININE CLEARANCE IN PREDICTING GLOMERULAR FILTRATION RATE. ESTIMATED GFR IS NOT APPLICABLE FOR DIALYSIS PATIENTS. POCT-GLUCOSE [id number] 06:06:00 Test Item Value Reference Range Comments POC-GLUCOSE METER (BEAKER) 81 mg/dL 70-110 TESTED AT [address] (test kvbo=5972) [facility] [address] POCT-GLUCOSE [id number] 05:35:00 Test Item Value Reference Range Comments POC-GLUCOSE METER (BEAKER) 80 mg/dL 70-110 TESTED AT [address] (test nngp=1793) [facility] [address] CBC W/PLT COUNT & AUTO [id number] 01:38:00 Test Item Value Reference Range Comments WHITE BLOOD CELL COUNT (BEAKER) (test hwgy=388) 12.1 K/ L 3.5-10.5 RED BLOOD CELL COUNT (BEAKER) (test igpf=177) 4.46 M/ L 3.93-5.22 HEMOGLOBIN (BEAKER) (test ckzo=873) 12.9 GM/DL 11.2-15.7 HEMATOCRIT (BEAKER) (test mwod=276) 37.7 % 34.1-44.9 MEAN CORPUSCULAR VOLUME (BEAKER) (test wqjo=844) 84.5 fL 79.4-94.8 MEAN CORPUSCULAR HEMOGLOBIN (BEAKER) (test 28.9 pg 25.6-32.2 npfp=434) MEAN CORPUSCULAR HEMOGLOBIN CONC (BEAKER) (test 34.2 GM/DL 32.2-35.5 iafy=696) RED CELL DISTRIBUTION WIDTH (BEAKER) (test 14.4 % 11.7-14.4 tbrm=193) PLATELET COUNT (BEAKER) (test dprc=599) 273 K/CU MM 150-450 MEAN PLATELET VOLUME (BEAKER) (test vssj=590) 10.2 fL 9.4-12.3 NUCLEATED RED BLOOD CELLS (BEAKER) (test 0 /100 WBC 0-0 aevl=086) NEUTROPHILS RELATIVE PERCENT (BEAKER) (test 78 % tcgn=251) LYMPHOCYTES RELATIVE PERCENT (BEAKER) (test 14 % myof=746) MONOCYTES RELATIVE PERCENT (BEAKER) (test 7 % ucpl=338) EOSINOPHILS RELATIVE PERCENT (BEAKER) (test 0 % tjlk=298) BASOPHILS RELATIVE PERCENT (BEAKER) (test 0 % auek=999) NEUTROPHILS ABSOLUTE COUNT (BEAKER) (test 9.47 K/ L 1.56-6.13 twys=354) LYMPHOCYTES ABSOLUTE COUNT (BEAKER) (test 1.64 K/ L 1.18-3.74 jjiw=709) MONOCYTES ABSOLUTE COUNT (BEAKER) (test 0.84 K/ L 0.24-0.36 offe=972) EOSINOPHILS ABSOLUTE COUNT (BEAKER) (test 0.04 K/ L 0.04-0.36 dbzg=880) BASOPHILS ABSOLUTE COUNT (BEAKER) (test 0.05 K/ L 0.01-0.08 azfv=337) IMMATURE GRANULOCYTES-RELATIVE PERCENT (BEAKER) 1 % 0-1 (test rtkd=0639) BASIC METABOLIC [id number] 01:26:00 Test Item Value Reference Range Comments SODIUM (BEAKER) (test 122 meq/L 136-145 vrgs=507) POTASSIUM (BEAKER) (test 4.1 meq/L 3.5-5.1 kill=167) CHLORIDE (BEAKER) (test 99 meq/L 98-107 edhz=856) CO2 (BEAKER) (test 16 meq/L 22-29 fncx=141) BLOOD UREA NITROGEN 30 mg/dL 7-21 (BEAKER) (test sdnc=495) CREATININE (BEAKER) (test 1.56 mg/dL 0.57-1.25 omdn=258) GLUCOSE RANDOM (BEAKER) 84 mg/dL 70-105 (test xvdr=243) CALCIUM (BEAKER) (test 8.9 mg/dL 8.4-10.2 capy=425) EGFR (BEAKER) (test 33 mL/min/1.73 sq m ESTIMATED GFR IS NOT jxty=7329) ACCURATE CREATININE CLEARANCE IN PREDICTING GLOMERULAR FILTRATION RATE. ESTIMATED GFR IS NOT APPLICABLE FOR DIALYSIS PATIENTS. POCT-GLUCOSE [id number] 00:51:00 Test Item Value Reference Range Comments POC-GLUCOSE METER (BEAKER) 92 mg/dL 70-[address] [facility] [address] [facility] (test cjhe=6444) [facility] [address] OSMOLALITY, [id number] 21:38:00 Test Item Value Reference Range Comments OSMOLALITY URINE (BEAKER) (test vjus=705) 212 mOsm/kg 40-1,400 SODIUM, RANDOM [id number] 21:08:00 Test Item Value Reference Range Comments SODIUM URINE (BEAKER) (test ygze=841) < meq/L Reference Range: No NormalsCREATININE, RANDOM [id number] 21:07:00 Test Item Value Reference Range Comments CREATININE URINE (BEAKER) (test juec=822) 62.1 mg/dL Reference Range: No NormalsURINALYSIS W/ [id number] 20:56:00 Test Item Value Reference Range Comments COLOR (BEAKER) (test izdf=284) Yellow CLARITY (BEAKER) (test zocc=521) Hazy SPECIFIC GRAVITY UA (BEAKER) (test 1.008 1.001-1.035 zkbw=046) PH UA (BEAKER) (test mztw=801) 6.0 5.0-8.0 PROTEIN UA (BEAKER) (test ayaq=966) 100 mg/dL Negative GLUCOSE UA (BEAKER) (test wtdi=829) Negative Negative KETONES UA (BEAKER) (test pmlv=157) Negative Negative BILIRUBIN UA (BEAKER) (test Negative Negative tdwj=772) BLOOD UA (BEAKER) (test csul=775) Moderate Negative NITRITE UA (BEAKER) (test glyl=207) Negative Negative LEUKOCYTE ESTERASE UA (BEAKER) Large Negative (test bfvv=316) UROBILINOGEN UA (BEAKER) (test 0.2 mg/dL 0.2-1.0 yqfl=562) RBC UA (BEAKER) (test dovr=462) 103 /HPF WBC UA (BEAKER) (test nhvh=980) 172 /HPF BACTERIA (BEAKER) (test ivif=774) Occasional SQUAMOUS EPITHELIAL (BEAKER) (test 1 /HPF jufc=079) SOURCE(BEAKER) (test tlqv=6403) Urine, Straight Catheter BASIC METABOLIC [id number] 20:35:00 Test Item Value Reference Range Comments SODIUM (BEAKER) (test 119 meq/L 136-145 nsmk=364) POTASSIUM (BEAKER) (test 4.1 meq/L 3.5-5.1 Specimen slightly klip=398) hemolyzed CHLORIDE (BEAKER) (test 97 meq/L 98-107 gtya=352) CO2 (BEAKER) (test 14 meq/L 22-29 pvqc=684) BLOOD UREA NITROGEN 32 mg/dL 7-21 (BEAKER) (test zcqz=977) CREATININE (BEAKER) (test 1.61 mg/dL 0.57-1.25 Specimen slightly jiaq=059) hemolyzed GLUCOSE RANDOM (BEAKER) 98 mg/dL 70-105 (test jrmc=526) CALCIUM (BEAKER) (test 8.8 mg/dL 8.4-10.2 smvv=662) EGFR (BEAKER) (test 32 mL/min/1.73 sq m ESTIMATED GFR IS NOT hsag=1194) ACCURATE CREATININE CLEARANCE IN PREDICTING GLOMERULAR FILTRATION RATE. ESTIMATED GFR IS NOT APPLICABLE FOR DIALYSIS PATIENTS. OSMOLALITY, [id number] 20:09:00 Test Item Value Reference Range Comments OSMOLALITY, SERUM (BEAKER) (test kinc=802) 262 mOsm/kg 275-295 CT, [id number] 18:55:00Reason for exam:->abdominal painWhat is the patient's sedation requirement?->No SedationFINAL REPORT CT scan of the abdomen and pelvis. MEDICAL HISTORY: Abdominal pain, vomiting. COMPARISON STUDY: September 10, 2018. TECHNIQUE: Contiguous helical slices were acquired through the abdomen and pelvis without the administration of contrast. This exam was performed according to our department dose optimization program which includes automated exposure control, adjustment of the mA and/or kV according to the patient's size and/or use of iterative reconstruction technique. FINDINGS: The lung bases are clear. The abdomen and pelvis are limited by lack of contrast. The liveris fatty in attenuation with no focal masses. The spleen, pancreas, adrenal glands and right kidney are unremarkable. A double pigtail catheter is seen in the left collecting system. Cholecystectomy clips are seen with no biliary dilatation. There are no dilated loops of bowel seen to suggest obstruction. Generalized colonic thickening is seen which a low-grade colitis cannot be excluded. There is a loop ileostomy in the right lower quadrant. Presacral thickening/edema is seen as on previous. There is a 4.8 x 2.5 cm presacral mass that previously measured 6.5 x 6.6 cm. A surgical anastomosis is seen in the rectal region. No free fluid or free air is seen. The aorta is normal in caliber. Atherosclerosis is identified. Postsurgical changes are noted throughout the bowel. Bone windows demonstrate degenerative changes. IMPRESSION:1. Fatty liver.2. Extensive postsurgical changes as detailed above including a loop ileostomy.3. Soft tissue lesion in the presacral space, slightly smaller than on previous.4. Incomplete distention of the colon versus a low-grade colitis.5. Study limited by lack of contrast. Signed: Bharathi Guzman MDReport Verified Date/Time: 11/09/2018 18:55:55 Reading Location: [facility] C013Y CT Body Reading Room BASIC METABOLIC [id number] 17 :20:00 Test Item Value Reference Range Comments SODIUM (BEAKER) (test 116 meq/L 136-145 azkw=054) POTASSIUM (BEAKER) (test 4.4 meq/L 3.5-5.1 Specimen moderately ulio=801) hemolyzed CHLORIDE (BEAKER) (test 92 meq/L 98-107 msqj=080) CO2 (BEAKER) (test 12 meq/L 22-29 oser=916) BLOOD UREA NITROGEN 36 mg/dL 7-21 (BEAKER) (test ievi=437) CREATININE (BEAKER) (test 2.02 mg/dL 0.57-1.25 Specimen moderately edqg=820) hemolyzed GLUCOSE RANDOM (BEAKER) 121 mg/dL 70-105 (test lssy=831) CALCIUM (BEAKER) (test 9.7 mg/dL 8.4-10.2 whsz=283) EGFR (BEAKER) (test 24 mL/min/1.73 sq m ESTIMATED GFR IS NOT egrn=2609) ACCURATE CREATININE CLEARANCE IN PREDICTING GLOMERULAR FILTRATION RATE. ESTIMATED GFR IS NOT APPLICABLE FOR DIALYSIS PATIENTS. ALKALINE [id number] 17:18:00 Test Item Value Reference Range Comments ALKALINE PHOSPHATASE (BEAKER) (test fnbw=716) 102 U/L 40-150 [id number] 17:18:00 Test Item Value Reference Range Comments LIPASE (BEAKER) (test bflo=076) 97 U/L 8-78 ALT (SGPT)2018-11-09 17:18:00 Test Item Value Reference Range Comments ALT (SGPT) (BEAKER) (test 17 U/L 6-55 Specimen moderately hemolyzed ezae=119) AST (SGOT)2018-11-09 17:18:00 Test Item Value Reference Range Comments AST (SGOT) (BEAKER) (test 30 U/L 5-34 Specimen moderately hemolyzed tapq=466) BILIRUBIN, ADULT [id number] 17:18:00 Test Item Value Reference Range Comments BILIRUBIN TOTAL (BEAKER) 0.4 mg/dL 0.2-1.2 Specimen moderately hemolyzed (test dfpt=925) CBC W/PLT COUNT & AUTO [id number] 17:15:00 Test Item Value Reference Range Comments WHITE BLOOD CELL COUNT (BEAKER) (test ratf=150) 15.5 K/ L 3.5-10.5 RED BLOOD CELL COUNT (BEAKER) (test olsn=103) 4.69 M/ L 3.93-5.22 HEMOGLOBIN (BEAKER) (test wmqa=281) 13.6 GM/DL 11.2-15.7 HEMATOCRIT (BEAKER) (test ggtw=739) 39.4 % 34.1-44.9 MEAN CORPUSCULAR VOLUME (BEAKER) (test mdij=726) 84.0 fL 79.4-94.8 MEAN CORPUSCULAR HEMOGLOBIN (BEAKER) (test 29.0 pg 25.6-32.2 lpil=866) MEAN CORPUSCULAR HEMOGLOBIN CONC (BEAKER) (test 34.5 GM/DL 32.2-35.5 onlf=466) RED CELL DISTRIBUTION WIDTH (BEAKER) (test 15.2 % 11.7-14.4 xznb=115) PLATELET COUNT (BEAKER) (test izhp=200) 349 K/CU MM 150-450 MEAN PLATELET VOLUME (BEAKER) (test dyrb=374) 10.9 fL 9.4-12.3 NUCLEATED RED BLOOD CELLS (BEAKER) (test 0 /100 WBC 0-0 nwra=498) NEUTROPHILS RELATIVE PERCENT (BEAKER) (test 79 % dcgu=152) LYMPHOCYTES RELATIVE PERCENT (BEAKER) (test 13 % gymv=377) MONOCYTES RELATIVE PERCENT (BEAKER) (test 6 % swtf=634) EOSINOPHILS RELATIVE PERCENT (BEAKER) (test 0 % tley=260) BASOPHILS RELATIVE PERCENT (BEAKER) (test 0 % xwfm=950) NEUTROPHILS ABSOLUTE COUNT (BEAKER) (test 12.27 K/ L 1.56-6.13 opof=546) LYMPHOCYTES ABSOLUTE COUNT (BEAKER) (test 2.03 K/ L 1.18-3.74 qxzc=196) MONOCYTES ABSOLUTE COUNT (BEAKER) (test 0.99 K/ L 0.24-0.36 mjum=198) EOSINOPHILS ABSOLUTE COUNT (BEAKER) (test 0.03 K/ L 0.04-0.36 aeat=261) BASOPHILS ABSOLUTE COUNT (BEAKER) (test 0.04 K/ L 0.01-0.08 mcoa=381) IMMATURE GRANULOCYTES-RELATIVE PERCENT (BEAKER) 1 % 0-1 (test kbkl=0178) POCT-LACTIC ACID, [id number] 17:03:00 Test Item Value Reference Range Comments POC-LACTIC ACID, VENOUS 1.9 mmol/L 0.9-1.[address] [facility] [address] [facility] (BEAKER) (test yxim=2940) [facility] [address] RAD, CHEST, 1 VIEW, NON [id number] 16:19:00Reason for exam:->CHEST PAINShould this be performed at the bedside?->YesFINAL REPORT Chest, semiupright frontal chest radiograph. History provided: Chest pain. Comparison: 10/06/2018. Findings: The lungs are clear without evidence of focal consolidation. No pneumothorax or significant pleural fluid is identified. The cardiomediastinal silhouette is within normal limits for size. There is atherosclerotic calcification of the aorta. No acute osseous abnormality is identified. IMPRESSION: No acute cardiopulmonary disease. Signed : Silverio Soneport Verified Date/Time: 11/09/2018 16:19:51 Reading Location: [facility] Women Electronically signed by: SILVERIO SON on 02/2018 04:19 [id number] 04:39:00 Test Item Value Reference Range Comments MAGNESIUM (BEAKER) (test 1.7 mg/dL 1.6-2.6 Specimen moderately hemolyzed nxvm=140) [id number] 04:39:00 Test Item Value Reference Range Comments PHOSPHORUS (BEAKER) (test 3.4 mg/dL 2.3-4.7 Specimen moderately hemolyzed obdq=142) BASIC METABOLIC [id number] 04:39:00 Test Item Value Reference Range Comments SODIUM (BEAKER) (test 136 meq/L 136-145 uvah=537) POTASSIUM (BEAKER) (test 4.3 meq/L 3.5-5.1 Specimen moderately ipfq=446) hemolyzed CHLORIDE (BEAKER) (test 106 meq/L 98-107 loej=787) CO2 (BEAKER) (test 23 meq/L 22-29 febv=734) BLOOD UREA NITROGEN 11 mg/dL 7-21 (BEAKER) (test dxge=797) CREATININE (BEAKER) (test 0.79 mg/dL 0.57-1.25 Specimen moderately lqtb=750) hemolyzed GLUCOSE RANDOM (BEAKER) 89 mg/dL 70-105 (test fgat=660) CALCIUM (BEAKER) (test 8.9 mg/dL 8.4-10.2 emqc=692) EGFR (BEAKER) (test 72 mL/min/1.73 sq m ESTIMATED GFR IS NOT hpma=8638) ACCURATE CREATININE CLEARANCE IN PREDICTING GLOMERULAR FILTRATION RATE. ESTIMATED GFR IS NOT APPLICABLE FOR DIALYSIS PATIENTS. HEPATIC FUNCTION [id number] 04:39:00 Test Item Value Reference Range Comments TOTAL PROTEIN (BEAKER) (test 7.2 gm/dL 6.0-8.3 Specimen moderately hemolyzed agfl=570) ALBUMIN (BEAKER) (test 2.9 g/dL 3.5-5.0 Specimen moderately hemolyzed dblb=5091) BILIRUBIN TOTAL (BEAKER) (test 0.5 mg/dL 0.2-1.2 Specimen moderately hemolyzed olwv=668) BILIRUBIN DIRECT (BEAKER) 0.2 mg/dL 0.1-0.5 Specimen moderately hemolyzed (test ywdu=329) ALKALINE PHOSPHATASE (BEAKER) 109 U/L 40-150 (test jxpt=250) AST (SGOT) (BEAKER) (test 29 U/L 5-34 Specimen moderately hemolyzed tjik=946) ALT (SGPT) (BEAKER) (test 28 U/L 6-55 Specimen moderately hemolyzed qejl=173) CBC W/PLT COUNT & AUTO [id number] 04:00:00 Test Item Value Reference Range Comments WHITE BLOOD CELL COUNT (BEAKER) (test gyzh=004) 9.1 K/ L 3.5-10.5 RED BLOOD CELL COUNT (BEAKER) (test whds=056) 4.16 M/ L 3.93-5.22 HEMOGLOBIN (BEAKER) (test mmpp=123) 11.8 GM/DL 11.2-15.7 HEMATOCRIT (BEAKER) (test qumg=451) 38.0 % 34.1-44.9 MEAN CORPUSCULAR VOLUME (BEAKER) (test nols=207) 91.3 fL 79.4-94.8 MEAN CORPUSCULAR HEMOGLOBIN (BEAKER) (test 28.4 pg 25.6-32.2 eihi=902) MEAN CORPUSCULAR HEMOGLOBIN CONC (BEAKER) (test 31.1 GM/DL 32.2-35.5 rzxi=887) RED CELL DISTRIBUTION WIDTH (BEAKER) (test 17.0 % 11.7-14.4 tegc=452) PLATELET COUNT (BEAKER) (test viyg=515) 235 K/CU MM 150-450 MEAN PLATELET VOLUME (BEAKER) (test vwav=730) 10.0 fL 9.4-12.3 NUCLEATED RED BLOOD CELLS (BEAKER) (test 0 /100 WBC 0-0 gndv=238) NEUTROPHILS RELATIVE PERCENT (BEAKER) (test 49 % dcqx=240) LYMPHOCYTES RELATIVE PERCENT (BEAKER) (test 35 % zxrw=300) MONOCYTES RELATIVE PERCENT (BEAKER) (test 7 % oqpp=764) EOSINOPHILS RELATIVE PERCENT (BEAKER) (test 8 % zjsu=772) BASOPHILS RELATIVE PERCENT (BEAKER) (test 1 % qgwi=190) NEUTROPHILS ABSOLUTE COUNT (BEAKER) (test 4.47 K/ L 1.56-6.13 fvii=103) LYMPHOCYTES ABSOLUTE COUNT (BEAKER) (test 3.15 K/ L 1.18-3.74 urzl=675) MONOCYTES ABSOLUTE COUNT (BEAKER) (test 0.61 K/ L 0.24-0.36 hady=700) EOSINOPHILS ABSOLUTE COUNT (BEAKER) (test 0.74 K/ L 0.04-0.36 qvkc=424) BASOPHILS ABSOLUTE COUNT (BEAKER) (test 0.07 K/ L 0.01-0.08 drwo=353) IMMATURE GRANULOCYTES-RELATIVE PERCENT (BEAKER) 0 % 0-1 (test sqhs=0777) CALCIUM, [id number] 03:59:00 Test Item Value Reference Range Comments CALCIUM IONIZED (BEAKER) (test kbxn=418) 1.15 mmol/L 1.12-1.27 PH, BLOOD (BEAKER) (test rdjh=8908) 7.31 [id number] 06:13:00 Test Item Value Reference Range Comments MAGNESIUM (BEAKER) (test 1.4 mg/dL 1.6-2.6 Specimen slightly hemolyzed ooqt=238) [id number] 06:13:00 Test Item Value Reference Range Comments PHOSPHORUS (BEAKER) (test 2.5 mg/dL 2.3-4.7 Specimen slightly hemolyzed yrby=974) BASIC METABOLIC [id number] 06:13:00 Test Item Value Reference Range Comments SODIUM (BEAKER) (test 134 meq/L 136-145 enuw=800) POTASSIUM (BEAKER) (test 4.0 meq/L 3.5-5.1 Specimen slightly dqtg=455) hemolyzed CHLORIDE (BEAKER) (test 107 meq/L 98-107 kmvl=863) CO2 (BEAKER) (test 24 meq/L 22-29 ziop=440) BLOOD UREA NITROGEN 13 mg/dL 7-21 (BEAKER) (test czeh=647) CREATININE (BEAKER) (test 0.71 mg/dL 0.57-1.25 Specimen slightly dsoa=368) hemolyzed GLUCOSE RANDOM (BEAKER) 78 mg/dL 70-105 (test qgak=572) CALCIUM (BEAKER) (test 8.1 mg/dL 8.4-10.2 cvtx=593) EGFR (BEAKER) (test 82 mL/min/1.73 sq m ESTIMATED GFR IS NOT swxw=0001) ACCURATE CREATININE CLEARANCE IN PREDICTING GLOMERULAR FILTRATION RATE. ESTIMATED GFR IS NOT APPLICABLE FOR DIALYSIS PATIENTS. HEPATIC FUNCTION [id number] 06:13:00 Test Item Value Reference Range Comments TOTAL PROTEIN (BEAKER) (test 6.1 gm/dL 6.0-8.3 Specimen slightly hemolyzed udks=921) ALBUMIN (BEAKER) (test 2.6 g/dL 3.5-5.0 Specimen slightly hemolyzed csax=6496) BILIRUBIN TOTAL (BEAKER) (test 0.4 mg/dL 0.2-1.2 Specimen slightly hemolyzed qsyp=570) BILIRUBIN DIRECT (BEAKER) (test 0.3 mg/dL 0.1-0.5 Specimen slightly hemolyzed pcyl=497) ALKALINE PHOSPHATASE (BEAKER) 102 U/L 40-150 (test xwpb=464) AST (SGOT) (BEAKER) (test 24 U/L 5-34 Specimen slightly hemolyzed bhry=920) ALT (SGPT) (BEAKER) (test 28 U/L 6-55 Specimen slightly hemolyzed mald=561) CBC W/PLT COUNT & AUTO [id number] 05:21:00 Test Item Value Reference Range Comments WHITE BLOOD CELL COUNT (BEAKER) (test xuam=090) 9.9 K/ L 3.5-10.5 RED BLOOD CELL COUNT (BEAKER) (test inpu=998) 3.70 M/ L 3.93-5.22 HEMOGLOBIN (BEAKER) (test xrqp=234) 10.5 GM/DL 11.2-15.7 HEMATOCRIT (BEAKER) (test ufjl=854) 33.6 % 34.1-44.9 MEAN CORPUSCULAR VOLUME (BEAKER) (test btmt=542) 90.8 fL 79.4-94.8 MEAN CORPUSCULAR HEMOGLOBIN (BEAKER) (test 28.4 pg 25.6-32.2 uctk=711) MEAN CORPUSCULAR HEMOGLOBIN CONC (BEAKER) (test 31.3 GM/DL 32.2-35.5 dicl=405) RED CELL DISTRIBUTION WIDTH (BEAKER) (test 17.0 % 11.7-14.4 yark=813) PLATELET COUNT (BEAKER) (test dggn=240) 203 K/CU MM 150-450 MEAN PLATELET VOLUME (BEAKER) (test xoqs=847) 10.4 fL 9.4-12.3 NUCLEATED RED BLOOD CELLS (BEAKER) (test 0 /100 WBC 0-0 ssud=515) NEUTROPHILS RELATIVE PERCENT (BEAKER) (test 48 % qnay=236) LYMPHOCYTES RELATIVE PERCENT (BEAKER) (test 36 % nkor=981) MONOCYTES RELATIVE PERCENT (BEAKER) (test 7 % fdnc=394) EOSINOPHILS RELATIVE PERCENT (BEAKER) (test 9 % cxqm=258) BASOPHILS RELATIVE PERCENT (BEAKER) (test 1 % nbdg=149) NEUTROPHILS ABSOLUTE COUNT (BEAKER) (test 4.72 K/ L 1.56-6.13 bpwa=171) LYMPHOCYTES ABSOLUTE COUNT (BEAKER) (test 3.54 K/ L 1.18-3.74 qqyh=908) MONOCYTES ABSOLUTE COUNT (BEAKER) (test 0.66 K/ L 0.24-0.36 fkbl=046) EOSINOPHILS ABSOLUTE COUNT (BEAKER) (test 0.88 K/ L 0.04-0.36 ltjh=056) BASOPHILS ABSOLUTE COUNT (BEAKER) (test 0.05 K/ L 0.01-0.08 fpsh=152) IMMATURE GRANULOCYTES-RELATIVE PERCENT (BEAKER) 1 % 0-1 (test fbom=1817) CALCIUM, [id number] 05:11:00 Test Item Value Reference Range Comments CALCIUM IONIZED (BEAKER) (test vrwl=230) 1.10 mmol/L 1.12-1.27 PH, BLOOD (BEAKER) (test yktt=8498) 7.40 [id number] 05:22:00 Test Item Value Reference Range Comments PHOSPHORUS (BEAKER) (test mrrv=555) 2.5 mg/dL 2.3-4.7 [id number] 05:22:00 Test Item Value Reference Range Comments MAGNESIUM (BEAKER) (test vkur=249) 1.6 mg/dL 1.6-2.6 BASIC METABOLIC [id number] 05:22:00 Test Item Value Reference Range Comments SODIUM (BEAKER) (test 137 meq/L 136-145 hkcz=981) POTASSIUM (BEAKER) (test 3.9 meq/L 3.5-5.1 iwzn=994) CHLORIDE (BEAKER) (test 107 meq/L 98-107 xpsr=316) CO2 (BEAKER) (test 24 meq/L 22-29 gyvx=830) BLOOD UREA NITROGEN 11 mg/dL 7-21 (BEAKER) (test jvba=029) CREATININE (BEAKER) (test 0.71 mg/dL 0.57-1.25 ksre=799) GLUCOSE RANDOM (BEAKER) 80 mg/dL 70-105 (test ojwx=759) CALCIUM (BEAKER) (test 8.3 mg/dL 8.4-10.2 hryk=662) EGFR (BEAKER) (test 82 mL/min/1.73 sq m ESTIMATED GFR IS NOT eotc=6508) ACCURATE CREATININE CLEARANCE IN PREDICTING GLOMERULAR FILTRATION RATE. ESTIMATED GFR IS NOT APPLICABLE FOR DIALYSIS PATIENTS. HEPATIC FUNCTION [id number] 05:22:00 Test Item Value Reference Range Comments TOTAL PROTEIN (BEAKER) (test fiqq=310) 5.9 gm/dL 6.0-8.3 ALBUMIN (BEAKER) (test efqw=1843) 2.5 g/dL 3.5-5.0 BILIRUBIN TOTAL (BEAKER) (test meac=747) 0.5 mg/dL 0.2-1.2 BILIRUBIN DIRECT (BEAKER) (test thfd=166) 0.3 mg/dL 0.1-0.5 ALKALINE PHOSPHATASE (BEAKER) (test czqw=618) 120 U/L 40-150 AST (SGOT) (BEAKER) (test bxtv=155) 35 U/L 5-34 ALT (SGPT) (BEAKER) (test mglp=844) 40 U/L 6-55 CBC W/PLT COUNT & AUTO [id number] 05:08:00 Test Item Value Reference Range Comments WHITE BLOOD CELL COUNT (BEAKER) (test zejr=329) 9.8 K/ L 3.5-10.5 RED BLOOD CELL COUNT (BEAKER) (test ergt=896) 3.57 M/ L 3.93-5.22 HEMOGLOBIN (BEAKER) (test pitt=600) 10.2 GM/DL 11.2-15.7 HEMATOCRIT (BEAKER) (test jmrl=148) 32.5 % 34.1-44.9 MEAN CORPUSCULAR VOLUME (BEAKER) (test ujat=948) 91.0 fL 79.4-94.8 MEAN CORPUSCULAR HEMOGLOBIN (BEAKER) (test 28.6 pg 25.6-32.2 ymyj=861) MEAN CORPUSCULAR HEMOGLOBIN CONC (BEAKER) (test 31.4 GM/DL 32.2-35.5 noxd=657) RED CELL DISTRIBUTION WIDTH (BEAKER) (test 17.2 % 11.7-14.4 imka=545) PLATELET COUNT (BEAKER) (test dhjg=421) 180 K/CU MM 150-450 MEAN PLATELET VOLUME (BEAKER) (test knhk=813) 11.4 fL 9.4-12.3 NUCLEATED RED BLOOD CELLS (BEAKER) (test 0 /100 WBC 0-0 ozbi=270) NEUTROPHILS RELATIVE PERCENT (BEAKER) (test 47 % pipu=754) LYMPHOCYTES RELATIVE PERCENT (BEAKER) (test 36 % yxhv=789) MONOCYTES RELATIVE PERCENT (BEAKER) (test 7 % pfne=189) EOSINOPHILS RELATIVE PERCENT (BEAKER) (test 9 % ddlm=745) BASOPHILS RELATIVE PERCENT (BEAKER) (test 1 % bidy=284) NEUTROPHILS ABSOLUTE COUNT (BEAKER) (test 4.60 K/ L 1.56-6.13 ubve=927) LYMPHOCYTES ABSOLUTE COUNT (BEAKER) (test 3.48 K/ L 1.18-3.74 eskc=041) MONOCYTES ABSOLUTE COUNT (BEAKER) (test 0.70 K/ L 0.24-0.36 ehmk=522) EOSINOPHILS ABSOLUTE COUNT (BEAKER) (test 0.88 K/ L 0.04-0.36 bnib=090) BASOPHILS ABSOLUTE COUNT (BEAKER) (test 0.08 K/ L 0.01-0.08 luxp=270) IMMATURE GRANULOCYTES-RELATIVE PERCENT (BEAKER) 1 % 0-1 (test xbpe=1871) CALCIUM, [id number] 04:58:00 Test Item Value Reference Range Comments CALCIUM IONIZED (BEAKER) (test cltn=638) 0.98 mmol/L 1.12-1.27 PH, BLOOD (BEAKER) (test cqui=0089) 7.40 BLOOD [id number] 20:01:00 Test Item Value Reference Range Comments CULTURE (BEAKER) (test ojoz=2709) No growth in 5 days BLOOD [id number] 12:01:00 Test Item Value Reference Range Comments CULTURE (BEAKER) (test ttkp=8224) No growth in 5 days [id number] 05:39:00 Test Item Value Reference Range Comments PHOSPHORUS (BEAKER) (test hpdi=224) 2.4 mg/dL 2.3-4.7 [id number] 05:39:00 Test Item Value Reference Range Comments MAGNESIUM (BEAKER) (test qdja=540) 2.0 mg/dL 1.6-2.6 BASIC METABOLIC [id number] 05:39:00 Test Item Value Reference Range Comments SODIUM (BEAKER) (test 138 meq/L 136-145 qafz=731) POTASSIUM (BEAKER) (test 3.5 meq/L 3.5-5.1 lfvk=835) CHLORIDE (BEAKER) (test 107 meq/L 98-107 eooo=574) CO2 (BEAKER) (test 26 meq/L 22-29 dfqw=763) BLOOD UREA NITROGEN 10 mg/dL 7-21 (BEAKER) (test ejmo=273) CREATININE (BEAKER) (test 0.70 mg/dL 0.57-1.25 eobn=613) GLUCOSE RANDOM (BEAKER) 82 mg/dL 70-105 (test uhlx=209) CALCIUM (BEAKER) (test 8.1 mg/dL 8.4-10.2 jwlm=524) EGFR (BEAKER) (test 83 mL/min/1.73 sq m ESTIMATED GFR IS NOT lvrn=5583) ACCURATE CREATININE CLEARANCE IN PREDICTING GLOMERULAR FILTRATION RATE. ESTIMATED GFR IS NOT APPLICABLE FOR DIALYSIS PATIENTS. HEPATIC FUNCTION [id number] 05:39:00 Test Item Value Reference Range Comments TOTAL PROTEIN (BEAKER) (test dhav=404) 5.6 gm/dL 6.0-8.3 ALBUMIN (BEAKER) (test nnoo=6552) 2.4 g/dL 3.5-5.0 BILIRUBIN TOTAL (BEAKER) (test bxjt=106) 0.5 mg/dL 0.2-1.2 BILIRUBIN DIRECT (BEAKER) (test fnou=558) 0.4 mg/dL 0.1-0.5 ALKALINE PHOSPHATASE (BEAKER) (test dxlr=892) 131 U/L 40-150 AST (SGOT) (BEAKER) (test kntr=076) 48 U/L 5-34 ALT (SGPT) (BEAKER) (test stfd=574) 53 U/L 6-55 CBC (HEMOGRAM ONLY)[id number] 05:03:00 Test Item Value Reference Range Comments WHITE BLOOD CELL COUNT (BEAKER) (test dnkv=869) 10.5 K/ L 3.5-10.5 RED BLOOD CELL COUNT (BEAKER) (test rhcz=901) 3.67 M/ L 3.93-5.22 HEMOGLOBIN (BEAKER) (test kkdm=158) 10.4 GM/DL 11.2-15.7 HEMATOCRIT (BEAKER) (test szal=487) 32.9 % 34.1-44.9 MEAN CORPUSCULAR VOLUME (BEAKER) (test kqfs=005) 89.6 fL 79.4-94.8 MEAN CORPUSCULAR HEMOGLOBIN (BEAKER) (test 28.3 pg 25.6-32.2 qnrm=367) MEAN CORPUSCULAR HEMOGLOBIN CONC (BEAKER) (test 31.6 GM/DL 32.2-35.5 sqjn=690) RED CELL DISTRIBUTION WIDTH (BEAKER) (test 17.0 % 11.7-14.4 swcx=510) PLATELET COUNT (BEAKER) (test qmtd=258) 175 K/CU MM 150-450 MEAN PLATELET VOLUME (BEAKER) (test yqjm=580) 10.3 fL 9.4-12.3 NUCLEATED RED BLOOD CELLS (BEAKER) (test 0 /100 WBC 0-0 nuew=136) POCT-GLUCOSE [id number] 23:48:00 Test Item Value Reference Range Comments POC-GLUCOSE METER (BEAKER) 159 mg/dL 70-110 TESTED AT [address] (test okyx=7398) [facility] [address] POCT-GLUCOSE [id number] 12:11:00 Test Item Value Reference Range Comments POC-GLUCOSE METER (BEAKER) 109 mg/dL 70-110 TESTED AT [address] (test vgja=0792) [facility] [address] POCT-GLUCOSE [id number] 08:02:00 Test Item Value Reference Range Comments POC-GLUCOSE METER (BEAKER) 113 mg/dL 70-[address] [facility] [address] (test tver=7936) [facility] [address] BASIC METABOLIC [id number] 05:49:00 Test Item Value Reference Range Comments SODIUM (BEAKER) (test 139 meq/L 136-145 toxb=056) POTASSIUM (BEAKER) (test 3.8 meq/L 3.5-5.1 wnla=413) CHLORIDE (BEAKER) (test 105 meq/L 98-107 lplm=311) CO2 (BEAKER) (test 29 meq/L 22-29 llvy=032) BLOOD UREA NITROGEN 12 mg/dL 7-21 (BEAKER) (test xetj=175) CREATININE (BEAKER) (test 0.80 mg/dL 0.57-1.25 wasf=128) GLUCOSE RANDOM (BEAKER) 115 mg/dL 70-105 (test kbno=175) CALCIUM (BEAKER) (test 7.9 mg/dL 8.4-10.2 mwtg=724) EGFR (BEAKER) (test 71 mL/min/1.73 sq m ESTIMATED GFR IS NOT yxkj=6951) ACCURATE CREATININE CLEARANCE IN PREDICTING GLOMERULAR FILTRATION RATE. ESTIMATED GFR IS NOT APPLICABLE FOR DIALYSIS PATIENTS. [id number] 05:47:00 Test Item Value Reference Range Comments PREALBUMIN (BEAKER) (test johi=031) 9 mg/dL 14-45 [id number] 05:46:00 Test Item Value Reference Range Comments PHOSPHORUS (BEAKER) (test btzu=865) 2.4 mg/dL 2.3-4.7 [id number] 05:46:00 Test Item Value Reference Range Comments MAGNESIUM (BEAKER) (test dlci=012) 1.8 mg/dL 1.6-2.6 HEPATIC FUNCTION [id number] 05:46:00 Test Item Value Reference Range Comments TOTAL PROTEIN (BEAKER) (test klbs=193) 5.7 gm/dL 6.0-8.3 ALBUMIN (BEAKER) (test inuu=4597) 2.5 g/dL 3.5-5.0 BILIRUBIN TOTAL (BEAKER) (test sbpf=536) 0.6 mg/dL 0.2-1.2 BILIRUBIN DIRECT (BEAKER) (test bnka=631) 0.5 mg/dL 0.1-0.5 ALKALINE PHOSPHATASE (BEAKER) (test vdjj=978) 136 U/L 40-150 AST (SGOT) (BEAKER) (test uxpj=858) 79 U/L 5-34 ALT (SGPT) (BEAKER) (test sbsc=529) 72 U/L 6-55 CBC (HEMOGRAM ONLY)[id number] 05:15:00 Test Item Value Reference Range Comments WHITE BLOOD CELL COUNT (BEAKER) (test sqga=518) 9.3 K/ L 3.5-10.5 RED BLOOD CELL COUNT (BEAKER) (test qzoe=275) 3.78 M/ L 3.93-5.22 HEMOGLOBIN (BEAKER) (test rpns=550) 10.8 GM/DL 11.2-15.7 HEMATOCRIT (BEAKER) (test ohjb=459) 33.6 % 34.1-44.9 MEAN CORPUSCULAR VOLUME (BEAKER) (test utgd=379) 88.9 fL 79.4-94.8 MEAN CORPUSCULAR HEMOGLOBIN (BEAKER) (test 28.6 pg 25.6-32.2 avbu=018) MEAN CORPUSCULAR HEMOGLOBIN CONC (BEAKER) (test 32.1 GM/DL 32.2-35.5 wmwn=569) RED CELL DISTRIBUTION WIDTH (BEAKER) (test 16.9 % 11.7-14.4 bqdb=823) PLATELET COUNT (BEAKER) (test tupq=262) 178 K/CU MM 150-450 MEAN PLATELET VOLUME (BEAKER) (test jcvk=691) 10.9 fL 9.4-12.3 NUCLEATED RED BLOOD CELLS (BEAKER) (test 0 /100 WBC 0-0 jsja=099) URINALYSIS W/ [id number] 01:50:00 Test Item Value Reference Range Comments COLOR (BEAKER) (test foow=330) [place] CLARITY (BEAKER) (test iofr=205) Cloudy SPECIFIC GRAVITY UA (BEAKER) (test lbiy=669) 1.012 1.001-1.035 PH UA (BEAKER) (test ffew=113) 6.0 5.0-8.0 PROTEIN UA (BEAKER) (test tcnr=973) 100 mg/dL Negative GLUCOSE UA (BEAKER) (test xfls=951) 200 mg/dL Negative KETONES UA (BEAKER) (test jnpd=467) 10 mg/dL Negative BILIRUBIN UA (BEAKER) (test mxvf=621) Negative Negative BLOOD UA (BEAKER) (test kczh=995) Large Negative NITRITE UA (BEAKER) (test obcu=895) Negative Negative LEUKOCYTE ESTERASE UA (BEAKER) (test kfqo=002) Large Negative UROBILINOGEN UA (BEAKER) (test frnm=759) 0.2 mg/dL 0.2-1.0 RBC UA (BEAKER) (test xhqk=184) 735 /HPF WBC UA (BEAKER) (test ekyy=616) 2551 /HPF YEAST (BEAKER) (test hpev=6016) Many SOURCE(BEAKER) (test hovm=0399) CREATININE, RANDOM [id number] 01:38:00 Test Item Value Reference Range Comments CREATININE URINE (BEAKER) (test mynp=150) 43.6 mg/dL Reference Range: No NormalsPROTEIN, RANDOM [id number] 01:38:00 Test Item Value Reference Range Comments PROTEIN, URINE (BEAKER) (test swnp=8827) 96 mg/dL 0-14 BASIC METABOLIC [id number] 20:49:00 Test Item Value Reference Range Comments SODIUM (BEAKER) (test 134 meq/L 136-145 zhip=208) POTASSIUM (BEAKER) (test 3.7 meq/L 3.5-5.1 Specimen slightly ukrl=170) hemolyzed CHLORIDE (BEAKER) (test 102 meq/L 98-107 pflr=019) CO2 (BEAKER) (test 29 meq/L 22-29 nvdn=913) BLOOD UREA NITROGEN 15 mg/dL 7-21 (BEAKER) (test bazr=610) CREATININE (BEAKER) (test 0.79 mg/dL 0.57-1.25 Specimen slightly qrrh=191) hemolyzed GLUCOSE RANDOM (BEAKER) 132 mg/dL 70-105 (test rmow=147) CALCIUM (BEAKER) (test 7.7 mg/dL 8.4-10.2 qpvg=135) EGFR (BEAKER) (test 72 mL/min/1.73 sq m ESTIMATED GFR IS NOT cktv=5631) ACCURATE CREATININE CLEARANCE IN PREDICTING GLOMERULAR FILTRATION RATE. ESTIMATED GFR IS NOT APPLICABLE FOR DIALYSIS PATIENTS. POCT-GLUCOSE [id number] 20:21:00 Test Item Value Reference Range Comments POC-GLUCOSE METER (BEAKER) 145 mg/dL 70-[address] [facility] [address] [facility] (test wqmw=4195) [facility] [address] POCT-GLUCOSE [id number] 17:12:00 Test Item Value Reference Range Comments POC-GLUCOSE METER (BEAKER) 139 mg/dL 70-110 TESTED AT [place] [id number] [facility] (test uosi=7368) [facility] [address] POCT-GLUCOSE [id number] 11:45:00 Test Item Value Reference Range Comments POC-GLUCOSE METER (BEAKER) 113 mg/dL 70-110 TESTED AT [address] (test jhxu=2160) [facility] [address] U/S, ABDOMINAL, [id number] 09:13:00Reason for exam:->nausea, vomitingFINAL REPORT Abdominal ultrasound dated 2018 Clinical information:nausea, vomiting Comment: Real-time transabdominal ultrasound was performed. Liver is normal in size and measures 12 cm in length. The echogenicity of the liver is heterogeneous with the indirect margins. No focal lesion is noted in the liver. Spleen is normal in size. Gallbladder is surgically absent. No biliary dilatation is seen. Common bile duct measures 4 mm in diameter. Main portal vein measures7 mm in diameter. Pancreas is visualized and unremarkable. Right kidney measures 11.8 x 4.8 x 5.1 cm. Left kidney measures 11.8 x 5.8 x 5.0 cm. Echogenicity of both kidney is normal. There is mild left hydronephrosis. No cyst is seen in the either kidney. No ascites is present in the abdomen. Abdominal aorta is normal in caliber. IVC and Hepatic veins are patent. Impression: 1. Heterogeneous appearing liver without focal hepatic mass.2. Status post cholecystectomy without biliary dilatation.3. Mild left hydronephrosis. Signed: Zoran Harper Verified Date/Time: 10/09/2018 09:13:57 Reading Location: [facility] C013Y CT Body Reading Room POCT-GLUCOSE [id number] 08:56:00 Test Item Value Reference Range Comments POC-GLUCOSE METER (BEAKER) 106 mg/dL 70-[address] [facility] [address] (test iysp=5478) [facility] [address] BASIC METABOLIC [id number] 08:20:00 Test Item Value Reference Range Comments SODIUM (BEAKER) (test 137 meq/L 136-145 zpds=343) POTASSIUM (BEAKER) (test 2.6 meq/L 3.5-5.1 xnbt=610) CHLORIDE (BEAKER) (test 89 meq/L 98-107 lgpk=862) CO2 (BEAKER) (test 41 meq/L 22-29 lmfj=377) BLOOD UREA NITROGEN 19 mg/dL 7-21 (BEAKER) (test mcqk=157) CREATININE (BEAKER) (test 0.77 mg/dL 0.57-1.25 gstp=224) GLUCOSE RANDOM (BEAKER) 80 mg/dL 70-105 (test uvsz=807) CALCIUM (BEAKER) (test 6.8 mg/dL 8.4-10.2 uhnt=224) EGFR (BEAKER) (test 75 mL/min/1.73 sq m ESTIMATED GFR IS NOT mrkw=6959) ACCURATE CREATININE CLEARANCE IN PREDICTING GLOMERULAR FILTRATION RATE. ESTIMATED GFR IS NOT APPLICABLE FOR DIALYSIS PATIENTS. URIC [id number] 08:17:00 Test Item Value Reference Range Comments URIC ACID (BEAKER) (test yeez=160) 5.7 mg/dL 2.6-7.2 [id number] 08:17:00 Test Item Value Reference Range Comments MAGNESIUM (BEAKER) (test isum=087) 1.5 mg/dL 1.6-2.6 [id number] 08:17:00 Test Item Value Reference Range Comments PHOSPHORUS (BEAKER) (test isst=310) 1.6 mg/dL 2.3-4.7 HEPATIC FUNCTION [id number] 08:17:00 Test Item Value Reference Range Comments TOTAL PROTEIN (BEAKER) (test gifk=551) 4.9 gm/dL 6.0-8.3 ALBUMIN (BEAKER) (test tnuu=9801) 2.2 g/dL 3.5-5.0 BILIRUBIN TOTAL (BEAKER) (test kcsp=466) 0.6 mg/dL 0.2-1.2 BILIRUBIN DIRECT (BEAKER) (test rdxa=617) 0.4 mg/dL 0.1-0.5 ALKALINE PHOSPHATASE (BEAKER) (test yxqz=446) 97 U/L 40-150 AST (SGOT) (BEAKER) (test vsuo=966) 94 U/L 5-34 ALT (SGPT) (BEAKER) (test ihei=527) 78 U/L 6-55 [id number] 08:17:00 Test Item Value Reference Range Comments LIPASE (BEAKER) (test olmq=730) 42 U/L 8-78 B-TYPE NATRIURETIC FACTOR (BNP)2018-10-09 07:14:00 Test Item Value Reference Range Comments B-TYPE NATRIURETIC PEPTIDE (BEAKER) (test nefh=624) 63 pg/mL 0-100 POCT-GLUCOSE [id number] 06:40:00 Test Item Value Reference Range Comments POC-GLUCOSE METER (BEAKER) 98 mg/dL 70-[address] [facility] [address] [facility] (test ppxs=6173) [facility] [address] CBC (HEMOGRAM ONLY)2018-10-09 06:38:00 Test Item Value Reference Range Comments WHITE BLOOD CELL COUNT (BEAKER) (test zyrk=774) 8.4 K/ L 3.5-10.5 RED BLOOD CELL COUNT (BEAKER) (test ejmk=481) 3.32 M/ L 3.93-5.22 HEMOGLOBIN (BEAKER) (test owry=575) 9.3 GM/DL 11.2-15.7 HEMATOCRIT (BEAKER) (test nusf=412) 28.7 % 34.1-44.9 MEAN CORPUSCULAR VOLUME (BEAKER) (test dxho=588) 86.4 fL 79.4-94.8 MEAN CORPUSCULAR HEMOGLOBIN (BEAKER) (test 28.0 pg 25.6-32.2 swzc=877) MEAN CORPUSCULAR HEMOGLOBIN CONC (BEAKER) (test 32.4 GM/DL 32.2-35.5 qots=335) RED CELL DISTRIBUTION WIDTH (BEAKER) (test 16.3 % 11.7-14.4 rgqi=428) PLATELET COUNT (BEAKER) (test uuib=794) 166 K/CU MM 150-450 MEAN PLATELET VOLUME (BEAKER) (test srgr=699) 10.6 fL 9.4-12.3 NUCLEATED RED BLOOD CELLS (BEAKER) (test 0 /100 WBC 0-0 mefw=984) POCT-GLUCOSE [id number] 00:11:00 Test Item Value Reference Range Comments POC-GLUCOSE METER (BEAKER) 104 mg/dL 70-110 TESTED AT [address] (test ofrt=7820) [facility] [address] POCT-GLUCOSE [id number] 17:58:00 Test Item Value Reference Range Comments POC-GLUCOSE METER (BEAKER) 114 mg/dL 70-110 TESTED AT [address] (test vdma=5202) [facility] [address] URINALYSIS W/ REFLEX URINE [id number] 15:19:00 Test Item Value Reference Range Comments COLOR (BEAKER) (test viha=174) Yellow CLARITY (BEAKER) (test dqlb=071) Hazy SPECIFIC GRAVITY UA (BEAKER) (test fjdd=239) 1.015 1.001-1.035 PH UA (BEAKER) (test lean=726) 6.0 5.0-8.0 PROTEIN UA (BEAKER) (test knfr=977) 200 mg/dL Negative GLUCOSE UA (BEAKER) (test cafb=181) 70 mg/dL Negative KETONES UA (BEAKER) (test ixhx=439) 10 mg/dL Negative BILIRUBIN UA (BEAKER) (test ohtc=163) Negative Negative BLOOD UA (BEAKER) (test zkmr=206) Large Negative NITRITE UA (BEAKER) (test cbjm=790) Negative Negative LEUKOCYTE ESTERASE UA (BEAKER) (test ehzb=215) Large Negative UROBILINOGEN UA (BEAKER) (test qikc=833) 0.2 mg/dL 0.2-1.0 RBC UA (BEAKER) (test bdmj=287) > /HPF WBC UA (BEAKER) (test zwiw=890) 95 /HPF HYALINE CASTS (BEAKER) (test lxdx=634) 5 /LPF YEAST (BEAKER) (test dumz=1819) Many SOURCE(BEAKER) (test qbxw=6501) PROTEIN, RANDOM [id number] 13:23:00 Test Item Value Reference Range Comments PROTEIN, URINE (BEAKER) (test jjij=6570) 383 mg/dL 0-14 POCT-GLUCOSE [id number] 12:29:00 Test Item Value Reference Range Comments POC-GLUCOSE METER (BEAKER) 139 mg/dL 70-[address] [facility] [address] (test lcsk=1841) [facility] [address] SODIUM, RANDOM [id number] 12:13:00 Test Item Value Reference Range Comments SODIUM URINE (BEAKER) (test svhw=626) 33 meq/L Reference Range: No NormalsEOSINOPHIL SMEAR, [id number] 10:18:00 Test Item Value Reference Range Comments EOSINOPHIL SMEAR, URINE (BEAKER) (test No EOS seen No EOS seen hmyc=1026) URINALYSIS W/ [id number] 10:16:00 Test Item Value Reference Range Comments COLOR (BEAKER) (test gugm=012) Red CLARITY (BEAKER) (test ctmv=654) Cloudy SPECIFIC GRAVITY UA (BEAKER) (test gvmv=462) 1.015 1.001-1.035 PH UA (BEAKER) (test znsc=636) 6.0 5.0-8.0 PROTEIN UA (BEAKER) (test pqej=516) 300 mg/dL Negative GLUCOSE UA (BEAKER) (test rcrp=752) 30 mg/dL Negative KETONES UA (BEAKER) (test sjch=474) 10 mg/dL Negative BILIRUBIN UA (BEAKER) (test fdwf=993) Negative Negative BLOOD UA (BEAKER) (test lctp=124) Large Negative NITRITE UA (BEAKER) (test uakb=698) Negative Negative LEUKOCYTE ESTERASE UA (BEAKER) (test ydji=938) Large Negative UROBILINOGEN UA (BEAKER) (test odfa=478) 0.2 mg/dL 0.2-1.0 RBC UA (BEAKER) (test yskq=772) 623 /HPF WBC UA (BEAKER) (test koms=662) 395 /HPF MUCUS (BEAKER) (test dqzh=4920) Rare HYALINE CASTS (BEAKER) (test gzcj=264) 35 /LPF YEAST (BEAKER) (test aawu=4096) Many SOURCE(BEAKER) (test qcox=6658) POCT-GLUCOSE [id number] 06:17:00 Test Item Value Reference Range Comments POC-GLUCOSE METER (BEAKER) 105 mg/dL 70-[address] [facility] [address] (test lgbv=1487) [place] [address] [id number] 05:31:00 Test Item Value Reference Range Comments PHOSPHORUS (BEAKER) (test duxd=334) 3.1 mg/dL 2.3-4.7 [id number] 05:31:00 Test Item Value Reference Range Comments MAGNESIUM (BEAKER) (test eaep=368) 2.7 mg/dL 1.6-2.6 BASIC METABOLIC [id number] 05:31:00 Test Item Value Reference Range Comments SODIUM (BEAKER) (test 134 meq/L 136-145 orcx=086) POTASSIUM (BEAKER) (test 3.0 meq/L 3.5-5.1 kdam=276) CHLORIDE (BEAKER) (test 107 meq/L 98-107 heij=845) CO2 (BEAKER) (test 17 meq/L 22-29 wyfu=380) BLOOD UREA NITROGEN 33 mg/dL 7-21 (BEAKER) (test ltpp=241) CREATININE (BEAKER) (test 1.58 mg/dL 0.57-1.25 lnqi=646) GLUCOSE RANDOM (BEAKER) 104 mg/dL 70-105 (test iqmx=681) CALCIUM (BEAKER) (test 8.1 mg/dL 8.4-10.2 dbnh=561) EGFR (BEAKER) (test 33 mL/min/1.73 sq m ESTIMATED GFR IS NOT bakx=9859) ACCURATE CREATININE CLEARANCE IN PREDICTING GLOMERULAR FILTRATION RATE. ESTIMATED GFR IS NOT APPLICABLE FOR DIALYSIS PATIENTS. HEPATIC FUNCTION [id number] 05:31:00 Test Item Value Reference Range Comments TOTAL PROTEIN (BEAKER) (test zvcw=474) 6.6 gm/dL 6.0-8.3 ALBUMIN (BEAKER) (test jfwe=6190) 2.9 g/dL 3.5-5.0 BILIRUBIN TOTAL (BEAKER) (test nbok=283) 0.6 mg/dL 0.2-1.2 BILIRUBIN DIRECT (BEAKER) (test qhsn=511) 0.5 mg/dL 0.1-0.5 ALKALINE PHOSPHATASE (BEAKER) (test abjc=949) 108 U/L 40-150 AST (SGOT) (BEAKER) (test gzuy=144) 161 U/L 5-34 ALT (SGPT) (BEAKER) (test zedf=701) 110 U/L 6-55 CBC (HEMOGRAM ONLY)2018-10-08 04:45:00 Test Item Value Reference Range Comments WHITE BLOOD CELL COUNT (BEAKER) (test zizm=924) 10.0 K/ L 3.5-10.5 RED BLOOD CELL COUNT (BEAKER) (test pbyo=382) 3.79 M/ L 3.93-5.22 HEMOGLOBIN (BEAKER) (test syis=332) 10.8 GM/DL 11.2-15.7 HEMATOCRIT (BEAKER) (test ufvt=137) 33.5 % 34.1-44.9 MEAN CORPUSCULAR VOLUME (BEAKER) (test hekp=334) 88.4 fL 79.4-94.8 MEAN CORPUSCULAR HEMOGLOBIN (BEAKER) (test 28.5 pg 25.6-32.2 fhgj=479) MEAN CORPUSCULAR HEMOGLOBIN CONC (BEAKER) (test 32.2 GM/DL 32.2-35.5 vnwh=942) RED CELL DISTRIBUTION WIDTH (BEAKER) (test 16.5 % 11.7-14.4 pqwy=856) PLATELET COUNT (BEAKER) (test qvcf=962) 199 K/CU MM 150-450 MEAN PLATELET VOLUME (BEAKER) (test lxud=689) 10.8 fL 9.4-12.3 NUCLEATED RED BLOOD CELLS (BEAKER) (test 0 /100 WBC 0-0 ryeo=876) POCT-GLUCOSE [id number] 00:31:00 Test Item Value Reference Range Comments POC-GLUCOSE METER (BEAKER) 114 mg/dL 70-110 TESTED AT [address] (test tnaq=8167) [place] [id number] POCT-GLUCOSE [id number] 18:13:00 Test Item Value Reference Range Comments POC-GLUCOSE METER (BEAKER) 109 mg/dL 70-110 TESTED AT [address] (test vfui=5141) [place] [id number] POCT-GLUCOSE [id number] 11:51:00 Test Item Value Reference Range Comments POC-GLUCOSE METER (BEAKER) 98 mg/dL 70-110 TESTED AT [address] (test gvrc=5076) [place] [address] VANCOMYCIN LEVEL, [id number] 09:21:00 Test Item Value Reference Range Comments VANCOMYCIN RANDOM (BEAKER) (test lwkb=300) 10.4 ug/mL Reference Range: No NormalsLACTIC ACID, [id number] 07:14:00 Test Item Value Reference Range Comments LACTATE BLOOD VENOUS (2) 0.6 mmol/L 0.5-2.2 Specimen slightly hemolyzed (BEAKER) (test hqul=6343) BLOOD GAS, [id number] 06:58:00 Test Item Value Reference Range Comments PH ARTERIAL (BEAKER) (test pdjs=828) 7.34 7.35-7.45 PCO2 ARTERIAL (BEAKER) (test kmpz=497) 28 mmHg 35-45 PO2 ARTERIAL (BEAKER) (test iimz=339) 129 mmHg 80-90 O2 SATURATION ARTERIAL (BEAKER) (test clye=830) 98.5 % 96.0-97.0 HCO3 ARTERIAL (BEAKER) (test fidt=859) 15 mmol/L 21-29 BASE EXCESS ARTERIAL (BEAKER) (test hmti=545) -9.6 mmol/L -2.0-3.0 PATIENT TEMPERATURE (BEAKER) (test jzkf=1843) 36.5 C FIO2 (BEAKER) (test fxjp=3009) 21.0 % POCT-GLUCOSE [id number] 06:34:00 Test Item Value Reference Range Comments POC-GLUCOSE METER (BEAKER) 96 mg/dL 70-110 TESTED AT [address] (test tlhd=0300) [facility] [address] POCT-GLUCOSE [id number] 05:42:00 Test Item Value Reference Range Comments POC-GLUCOSE METER (BEAKER) 61 mg/dL 70-110 Will Repeat Test/TESTED AT (test njgh=9328) [address] [address] BASIC METABOLIC [id number] 04:27:00 Test Item Value Reference Range Comments SODIUM (BEAKER) (test 136 meq/L 136-145 mjoq=174) POTASSIUM (BEAKER) (test 3.8 meq/L 3.5-5.1 zgfo=442) CHLORIDE (BEAKER) (test 108 meq/L 98-107 mame=896) CO2 (BEAKER) (test 14 meq/L 22-29 sevj=683) BLOOD UREA NITROGEN 44 mg/dL 7-21 (BEAKER) (test lwsw=336) CREATININE (BEAKER) (test 2.84 mg/dL 0.57-1.25 osae=667) GLUCOSE RANDOM (BEAKER) 61 mg/dL 70-105 (test yjsk=679) CALCIUM (BEAKER) (test 8.2 mg/dL 8.4-10.2 lidk=150) EGFR (BEAKER) (test 17 mL/min/1.73 sq m ESTIMATED GFR IS NOT dqcw=4787) ACCURATE CREATININE CLEARANCE IN PREDICTING GLOMERULAR FILTRATION RATE. ESTIMATED GFR IS NOT APPLICABLE FOR DIALYSIS PATIENTS. [id number] 04:25:00 Test Item Value Reference Range Comments PHOSPHORUS (BEAKER) (test mwzr=152) 5.7 mg/dL 2.3-4.7 [id number] 04:25:00 Test Item Value Reference Range Comments MAGNESIUM (BEAKER) (test rvyf=766) 1.6 mg/dL 1.6-2.6 HEPATIC FUNCTION [id number] 04:25:00 Test Item Value Reference Range Comments TOTAL PROTEIN (BEAKER) (test mjaf=321) 6.4 gm/dL 6.0-8.3 ALBUMIN (BEAKER) (test ygeq=2196) 2.8 g/dL 3.5-5.0 BILIRUBIN TOTAL (BEAKER) (test rswm=306) 0.7 mg/dL 0.2-1.2 BILIRUBIN DIRECT (BEAKER) (test ring=705) 0.5 mg/dL 0.1-0.5 ALKALINE PHOSPHATASE (BEAKER) (test tucu=938) 94 U/L 40-150 AST (SGOT) (BEAKER) (test svqd=841) 111 U/L 5-34 ALT (SGPT) (BEAKER) (test bcej=498) 67 U/L 6-55 CBC (HEMOGRAM ONLY)2018-10-07 03:23:00 Test Item Value Reference Range Comments WHITE BLOOD CELL COUNT (BEAKER) (test rplf=693) 10.2 K/ L 3.5-10.5 RED BLOOD CELL COUNT (BEAKER) (test xypv=787) 3.73 M/ L 3.93-5.22 HEMOGLOBIN (BEAKER) (test yxaf=780) 10.9 GM/DL 11.2-15.7 HEMATOCRIT (BEAKER) (test cjdk=586) 33.0 % 34.1-44.9 MEAN CORPUSCULAR VOLUME (BEAKER) (test ghgo=127) 88.5 fL 79.4-94.8 MEAN CORPUSCULAR HEMOGLOBIN (BEAKER) (test 29.2 pg 25.6-32.2 faaa=452) MEAN CORPUSCULAR HEMOGLOBIN CONC (BEAKER) (test 33.0 GM/DL 32.2-35.5 fhhl=657) RED CELL DISTRIBUTION WIDTH (BEAKER) (test 16.5 % 11.7-14.4 ufdf=241) PLATELET COUNT (BEAKER) (test vnxx=880) 171 K/CU MM 150-450 MEAN PLATELET VOLUME (BEAKER) (test gmir=292) 10.5 fL 9.4-12.3 NUCLEATED RED BLOOD CELLS (BEAKER) (test 0 /100 WBC 0-0 nasj=311) POCT-GLUCOSE [id number] 23:38:00 Test Item Value Reference Range Comments POC-GLUCOSE METER (BEAKER) 70 mg/dL 70-110 TESTED AT [place] [id number] [facility] (test uqsp=3272) [facility] [address] POCT-GLUCOSE [id number] 17:51:00 Test Item Value Reference Range Comments POC-GLUCOSE METER (BEAKER) 75 mg/dL 70-110 TESTED AT [address] (test wckl=9810) [facility] [address] U/S, RENAL, [id number] 16:16:00Reason for exam:->Concern for hydronephrosisFINAL REPORT TECHNIQUE: Grayscale ultrasound of the kidneys and bladder. INDICATION: 67-year-old woman with hydronephrosis. COMPARISON: Abdomen and pelvis CT 09/10/2018. FINDINGS:RIGHT KIDNEY: The right kidney measures 12.2 x 4 x 4.6 cm. Cortical thickness measures 1.1 cm. No solid mass lesions. Mild pelviectasis without hydronephrosis. Renal artery and vein are patent. LEFT KIDNEY: The left kidney measures 11.7 x 5.1 x 4.4 cm. Cortical thickness measures 1.6 cm. No solid masslesions. Mild hydronephrosis. Partially visualized stent within the renal pelvis. Renal artery and vein are patent. BLADDER: Chandler catheter terminates in the urinary bladder. IMPRESSION:Mild hydronephrosis on the left. Signed: Emmy Ireland MDReport Verified Date/Time: 10/06/2018 16:16:12 Reading Location: [address] Radiology Reading Room CREATININE, RANDOM [id number] 12:47:00 Test Item Value Reference Range Comments CREATININE URINE (BEAKER) (test xbbm=596) 141.8 mg/dL Reference Range: No NormalsSODIUM, RANDOM [id number] 12:47:00 Test Item Value Reference Range Comments SODIUM URINE (BEAKER) (test pufd=658) 56 meq/L Reference Range: No NormalsPOCT-GLUCOSE [id number] 11:50:00 Test Item Value Reference Range Comments POC-GLUCOSE METER (BEAKER) 88 mg/dL 70-110 TESTED AT [address] (test qxpo=1485) [facility] [address] URINALYSIS W/ REFLEX URINE [id number] 10:46:00 Test Item Value Reference Range Comments COLOR (BEAKER) (test yqaz=270) Red CLARITY (BEAKER) (test bogc=741) Cloudy SPECIFIC GRAVITY UA (BEAKER) (test lngi=127) 1.014 1.001-1.035 PH UA (BEAKER) (test hxao=518) 6.0 5.0-8.0 PROTEIN UA (BEAKER) (test tzwn=616) 300 mg/dL Negative GLUCOSE UA (BEAKER) (test ptet=558) Negative Negative KETONES UA (BEAKER) (test mbph=804) Trace Negative BILIRUBIN UA (BEAKER) (test pakg=825) Negative Negative BLOOD UA (BEAKER) (test cbtj=186) Large Negative NITRITE UA (BEAKER) (test odkz=322) Negative Negative LEUKOCYTE ESTERASE UA (BEAKER) (test rykm=441) Large Negative UROBILINOGEN UA (BEAKER) (test gzvf=978) 0.2 mg/dL 0.2-1.0 RBC UA (BEAKER) (test bcam=509) 700 /HPF WBC UA (BEAKER) (test zsxw=627) 77 /HPF MUCUS (BEAKER) (test bnxk=0312) Rare SQUAMOUS EPITHELIAL (BEAKER) (test uhyr=712) 1 /HPF CRYSTALS, URINE (BEAKER) (test jlfg=5563) Few YEAST (BEAKER) (test asnj=5614) Moderate SOURCE(BEAKER) (test jqnd=0823) RAD, CHEST, 1 VIEW, NON [id number] 09:31:00Reason for exam:->new admit- eval for effusionShould this be performed at the bedside?->YesFINAL REPORT INDICATION: new admit- eval for effusion COMPARISON: None TECHNIQUE: Single frontal view of the chest. FINDINGS: Lungs and pleura: Clear lungs. No effusion.Heart andmediastinum: Normal heart size. Unremarkable mediastinal contours.Osseous structures: No acute abnormality.Other: None. IMPRESSION: No acute intrathoracic abnormality. Signed: Ezekiel Lott MDReportVerified Date/Time: 10/06/2018 09:31:20 Reading Location: [facility] Radiology Reading Room COMPREHENSIVE METABOLIC [id number] 09:19:00 Test Item Value Reference Range Comments TOTAL PROTEIN (BEAKER) 7.2 gm/dL 6.0-8.3 (test jfba=660) ALBUMIN (BEAKER) (test 3.1 g/dL 3.5-5.0 qvzt=6350) ALKALINE PHOSPHATASE 104 U/L 40-150 (BEAKER) (test wyjw=932) BILIRUBIN TOTAL (BEAKER) 0.7 mg/dL 0.2-1.2 (test kbog=005) SODIUM (BEAKER) (test 132 meq/L 136-145 yltc=618) POTASSIUM (BEAKER) (test 4.1 meq/L 3.5-5.1 whdt=356) CHLORIDE (BEAKER) (test 102 meq/L 98-107 rkbp=426) CO2 (BEAKER) (test 18 meq/L 22-29 wafb=195) BLOOD UREA NITROGEN 48 mg/dL 7-21 (BEAKER) (test icwv=549) CREATININE (BEAKER) (test 3.84 mg/dL 0.57-1.25 shgm=951) GLUCOSE RANDOM (BEAKER) 85 mg/dL 70-105 (test nscy=766) CALCIUM (BEAKER) (test 8.2 mg/dL 8.4-10.2 evsw=763) AST (SGOT) (BEAKER) (test 34 U/L 5-34 dnzx=600) ALT (SGPT) (BEAKER) (test 26 U/L 6-55 fbwn=402) EGFR (BEAKER) (test 12 mL/min/1.73 sq m ESTIMATED GFR IS NOT ewtc=2535) ACCURATE CREATININE CLEARANCE IN PREDICTING GLOMERULAR FILTRATION RATE. ESTIMATED GFR IS NOT APPLICABLE FOR DIALYSIS PATIENTS. HEPATIC FUNCTION [id number] 09:00:00 Test Item Value Reference Range Comments TOTAL PROTEIN (BEAKER) (test jpfq=108) 7.2 gm/dL 6.0-8.3 ALBUMIN (BEAKER) (test oahz=1202) 3.1 g/dL 3.5-5.0 BILIRUBIN TOTAL (BEAKER) (test yfel=094) 0.7 mg/dL 0.2-1.2 BILIRUBIN DIRECT (BEAKER) (test brig=622) 0.5 mg/dL 0.1-0.5 ALKALINE PHOSPHATASE (BEAKER) (test vine=133) 104 U/L 40-150 AST (SGOT) (BEAKER) (test dcom=095) 34 U/L 5-34 ALT (SGPT) (BEAKER) (test mqxb=136) 26 U/L 6-55 [id number] 09:00:00 Test Item Value Reference Range Comments MAGNESIUM (BEAKER) (test lclx=488) 1.7 mg/dL 1.6-2.6 [id number] 09:00:00 Test Item Value Reference Range Comments PHOSPHORUS (BEAKER) (test qvdp=543) 6.1 mg/dL 2.3-4.7 CBC W/PLT COUNT & AUTO [id number] 08:59:00 Test Item Value Reference Range Comments WHITE BLOOD CELL COUNT (BEAKER) (test gpnk=307) 13.9 K/ L 3.5-10.5 RED BLOOD CELL COUNT (BEAKER) (test gedd=334) 4.02 M/ L 3.93-5.22 HEMOGLOBIN (BEAKER) (test iepl=094) 11.3 GM/DL 11.2-15.7 HEMATOCRIT (BEAKER) (test hubj=528) 35.8 % 34.1-44.9 MEAN CORPUSCULAR VOLUME (BEAKER) (test zkvt=340) 89.1 fL 79.4-94.8 MEAN CORPUSCULAR HEMOGLOBIN (BEAKER) (test 28.1 pg 25.6-32.2 ypjk=953) MEAN CORPUSCULAR HEMOGLOBIN CONC (BEAKER) (test 31.6 GM/DL 32.2-35.5 xlyu=468) RED CELL DISTRIBUTION WIDTH (BEAKER) (test 16.4 % 11.7-14.4 mffo=573) PLATELET COUNT (BEAKER) (test nada=375) 277 K/CU MM 150-450 MEAN PLATELET VOLUME (BEAKER) (test boxs=394) 10.5 fL 9.4-12.3 NUCLEATED RED BLOOD CELLS (BEAKER) (test 0 /100 WBC 0-0 trea=736) NEUTROPHILS RELATIVE PERCENT (BEAKER) (test 85 % uvpi=155) LYMPHOCYTES RELATIVE PERCENT (BEAKER) (test 7 % ncbf=350) MONOCYTES RELATIVE PERCENT (BEAKER) (test 7 % gudf=565) EOSINOPHILS RELATIVE PERCENT (BEAKER) (test 1 % aeoz=278) BASOPHILS RELATIVE PERCENT (BEAKER) (test 0 % icdc=726) NEUTROPHILS ABSOLUTE COUNT (BEAKER) (test 11.73 K/ L 1.56-6.13 vddr=411) LYMPHOCYTES ABSOLUTE COUNT (BEAKER) (test 0.90 K/ L 1.18-3.74 odef=521) MONOCYTES ABSOLUTE COUNT (BEAKER) (test 0.94 K/ L 0.24-0.36 gram=458) EOSINOPHILS ABSOLUTE COUNT (BEAKER) (test 0.17 K/ L 0.04-0.36 iffy=787) BASOPHILS ABSOLUTE COUNT (BEAKER) (test 0.05 K/ L 0.01-0.08 ghhp=785) IMMATURE GRANULOCYTES-RELATIVE PERCENT (BEAKER) 1 % 0-1 (test anrz=0530) LACTIC ACID, [id number] 08:54:00 Test Item Value Reference Range Comments LACTATE BLOOD ARTERIAL (2) 1.0 mmol/L 0.5-2.2 Specimen slightly hemolyzed (BEAKER) (test dhsx=5000) [id number] 08:48:00 Test Item Value Reference Range Comments PROTIME (BEAKER) (test wqvb=363) 14.4 seconds 11.9-14.2 INR (BEAKER) (test wouw=403) 1.2 <=5.9 PARTIAL THROMBOPLASTIN TIME (BEAKER) (test 28.6 seconds 22.5-36.0 vinm=049) Effective 07/07/2018: PT Reference Range ChangeNew: 11.9-14.2 Previous: 11.7- 14.7RECOMMENDED COUMADIN/WARFARIN INR THERAPY RANGESSTANDARD DOSE: 2.0-3.0 Includes: PROPHYLAXIS for venous thrombosis, systemic embolization; TREATMENT for venous thrombosis and/or pulmonary embolus.HIGH RISK: Target INR is2.5-3.5 for patients wiht mechanical heart valves.CALCIUM, [id number] 08:29:00 Test Item Value Reference Range Comments CALCIUM IONIZED (BEAKER) (test yavq=905) 1.12 mmol/L 1.12-1.27 PH, BLOOD (BEAKER) (test djvj=0182) 7.27 FUNGUS CULTURE + [id number] 17:45:00 Test Item Value Reference Range Comments CULTURE (BEAKER) (test dfjb=0681) <1+ [place] albicans FUNGUS SMEAR (BEAKER) (test No fungi seen gkwf=0084) POCT-GLUCOSE [id number] 12:40:00 Test Item Value Reference Range Comments POC-GLUCOSE METER (BEAKER) 102 mg/dL 70-[address] [facility] [address] [facility] (test qbyd=2644) [facility] [address] POCT-GLUCOSE [id number] 08:37:00 Test Item Value Reference Range Comments POC-GLUCOSE METER (BEAKER) 112 mg/dL 70-[address] [facility] [address] [facility] (test ljwd=1210) [facility] [address] HEPATIC FUNCTION [id number] 06:49:00 Test Item Value Reference Range Comments TOTAL PROTEIN (BEAKER) (test ojia=275) 5.4 gm/dL 6.0-8.3 ALBUMIN (BEAKER) (test hqtr=3535) 1.9 g/dL 3.5-5.0 BILIRUBIN TOTAL (BEAKER) (test tyke=082) 1.0 mg/dL 0.2-1.2 BILIRUBIN DIRECT (BEAKER) (test cccy=823) 0.7 mg/dL 0.1-0.5 ALKALINE PHOSPHATASE (BEAKER) (test txsu=233) 201 U/L 40-150 AST (SGOT) (BEAKER) (test ryvq=849) 142 U/L 5-34 ALT (SGPT) (BEAKER) (test liho=006) 70 U/L 6-55 BASIC METABOLIC [id number] 06:49:00 Test Item Value Reference Range Comments SODIUM (BEAKER) (test 136 meq/L 136-145 tlrc=090) POTASSIUM (BEAKER) (test 3.9 meq/L 3.5-5.1 viui=654) CHLORIDE (BEAKER) (test 107 meq/L 98-107 dauh=444) CO2 (BEAKER) (test 27 meq/L 22-29 ifps=982) BLOOD UREA NITROGEN 3 mg/dL 7-21 (BEAKER) (test cdva=738) CREATININE (BEAKER) (test 0.49 mg/dL 0.57-1.25 brde=887) GLUCOSE RANDOM (BEAKER) 105 mg/dL 70-105 (test aqfa=597) CALCIUM (BEAKER) (test 7.3 mg/dL 8.4-10.2 jfej=714) EGFR (BEAKER) (test 126 mL/min/1.73 sq m ESTIMATED GFR IS NOT dpip=1109) ACCURATE CREATININE CLEARANCE IN PREDICTING GLOMERULAR FILTRATION RATE. ESTIMATED GFR IS NOT APPLICABLE FOR DIALYSIS PATIENTS. [id number] 06:48:00 Test Item Value Reference Range Comments PHOSPHORUS (BEAKER) (test jbdy=279) 2.3 mg/dL 2.3-4.7 [id number] 06:48:00 Test Item Value Reference Range Comments MAGNESIUM (BEAKER) (test siif=456) 1.7 mg/dL 1.6-2.6 CBC W/PLT COUNT & AUTO [id number] 05:46:00 Test Item Value Reference Range Comments WHITE BLOOD CELL COUNT (BEAKER) (test wpsg=101) 7.7 K/ L 3.5-10.5 RED BLOOD CELL COUNT (BEAKER) (test rigy=952) 3.44 M/ L 3.93-5.22 HEMOGLOBIN (BEAKER) (test otdx=836) 9.6 GM/DL 11.2-15.7 HEMATOCRIT (BEAKER) (test ltwc=609) 31.5 % 34.1-44.9 MEAN CORPUSCULAR VOLUME (BEAKER) (test fljr=752) 91.6 fL 79.4-94.8 MEAN CORPUSCULAR HEMOGLOBIN (BEAKER) (test 27.9 pg 25.6-32.2 ihcw=845) MEAN CORPUSCULAR HEMOGLOBIN CONC (BEAKER) (test 30.5 GM/DL 32.2-35.5 mxzl=759) RED CELL DISTRIBUTION WIDTH (BEAKER) (test 18.3 % 11.7-14.4 ydwo=711) PLATELET COUNT (BEAKER) (test zenc=000) 270 K/CU MM 150-450 MEAN PLATELET VOLUME (BEAKER) (test aepk=885) 9.8 fL 9.4-12.3 NUCLEATED RED BLOOD CELLS (BEAKER) (test 0 /100 WBC 0-0 tlce=904) NEUTROPHILS RELATIVE PERCENT (BEAKER) (test 55 % tvgq=893) LYMPHOCYTES RELATIVE PERCENT (BEAKER) (test 30 % ktcr=009) MONOCYTES RELATIVE PERCENT (BEAKER) (test 9 % empz=907) EOSINOPHILS RELATIVE PERCENT (BEAKER) (test 4 % flhm=346) BASOPHILS RELATIVE PERCENT (BEAKER) (test 1 % ispm=128) NEUTROPHILS ABSOLUTE COUNT (BEAKER) (test 4.26 K/ L 1.56-6.13 xjxk=032) LYMPHOCYTES ABSOLUTE COUNT (BEAKER) (test 2.30 K/ L 1.18-3.74 pvgs=460) MONOCYTES ABSOLUTE COUNT (BEAKER) (test 0.66 K/ L 0.24-0.36 cisa=503) EOSINOPHILS ABSOLUTE COUNT (BEAKER) (test 0.34 K/ L 0.04-0.36 bpig=808) BASOPHILS ABSOLUTE COUNT (BEAKER) (test 0.08 K/ L 0.01-0.08 ltds=661) IMMATURE GRANULOCYTES-RELATIVE PERCENT (BEAKER) 1 % 0-1 (test jjbf=8581) POCT-GLUCOSE [id number] 21:37:00 Test Item Value Reference Range Comments POC-GLUCOSE METER (BEAKER) 101 mg/dL 70-[address] [facility] [address] [facility] (test yigu=3075) [facility] [address] POCT-GLUCOSE [id number] 16:58:00 Test Item Value Reference Range Comments POC-GLUCOSE METER (BEAKER) 107 mg/dL 70-110 TESTED AT [place] [id number] [facility] (test grzi=7537) [facility] [address] POCT-GLUCOSE [id number] 13:05:00 Test Item Value Reference Range Comments POC-GLUCOSE METER (BEAKER) 99 mg/dL 70-110 TESTED AT [place] [id number] [facility] (test gtrn=5482) [place] [id number] BASIC METABOLIC [id number] 07:40:00 Test Item Value Reference Range Comments SODIUM (BEAKER) (test 135 meq/L 136-145 ahtk=899) POTASSIUM (BEAKER) (test 3.7 meq/L 3.5-5.1 mnye=981) CHLORIDE (BEAKER) (test 107 meq/L 98-107 litr=568) CO2 (BEAKER) (test 25 meq/L 22-29 fcln=016) BLOOD UREA NITROGEN 4 mg/dL 7-21 (BEAKER) (test axyg=487) CREATININE (BEAKER) (test 0.50 mg/dL 0.57-1.25 zpco=606) GLUCOSE RANDOM (BEAKER) 105 mg/dL 70-105 (test jrue=425) CALCIUM (BEAKER) (test 7.2 mg/dL 8.4-10.2 hrsl=126) EGFR (BEAKER) (test 123 mL/min/1.73 sq m ESTIMATED GFR IS NOT dkqe=6685) ACCURATE CREATININE CLEARANCE IN PREDICTING GLOMERULAR FILTRATION RATE. ESTIMATED GFR IS NOT APPLICABLE FOR DIALYSIS PATIENTS. HEPATIC FUNCTION [id number] 07:40:00 Test Item Value Reference Range Comments TOTAL PROTEIN (BEAKER) (test yvqs=561) 5.3 gm/dL 6.0-8.3 ALBUMIN (BEAKER) (test jypy=1732) 1.9 g/dL 3.5-5.0 BILIRUBIN TOTAL (BEAKER) (test zchl=103) 1.0 mg/dL 0.2-1.2 BILIRUBIN DIRECT (BEAKER) (test hdhq=362) 0.8 mg/dL 0.1-0.5 ALKALINE PHOSPHATASE (BEAKER) (test gavk=814) 184 U/L 40-150 AST (SGOT) (BEAKER) (test zmcv=169) 135 U/L 5-34 ALT (SGPT) (BEAKER) (test jsux=986) 69 U/L 6-55 [id number] 07:39:00 Test Item Value Reference Range Comments PHOSPHORUS (BEAKER) (test csst=217) 2.4 mg/dL 2.3-4.7 [id number] 07:39:00 Test Item Value Reference Range Comments MAGNESIUM (BEAKER) (test ljwn=456) 1.8 mg/dL 1.6-2.6 POCT-GLUCOSE [id number] 07:13:00 Test Item Value Reference Range Comments POC-GLUCOSE METER (BEAKER) 109 mg/dL 70-[address] [facility] [address] [place] [address] (test okmc=2832) [place] [address] CBC W/PLT COUNT & AUTO [id number] 06:45:00 Test Item Value Reference Range Comments WHITE BLOOD CELL COUNT (BEAKER) (test emcu=074) 8.1 K/ L 3.5-10.5 RED BLOOD CELL COUNT (BEAKER) (test ratc=619) 3.34 M/ L 3.93-5.22 HEMOGLOBIN (BEAKER) (test endw=652) 9.4 GM/DL 11.2-15.7 HEMATOCRIT (BEAKER) (test lzli=368) 30.3 % 34.1-44.9 MEAN CORPUSCULAR VOLUME (BEAKER) (test kmhc=014) 90.7 fL 79.4-94.8 MEAN CORPUSCULAR HEMOGLOBIN (BEAKER) (test 28.1 pg 25.6-32.2 kopd=955) MEAN CORPUSCULAR HEMOGLOBIN CONC (BEAKER) (test 31.0 GM/DL 32.2-35.5 qede=754) RED CELL DISTRIBUTION WIDTH (BEAKER) (test 18.6 % 11.7-14.4 qvbw=941) PLATELET COUNT (BEAKER) (test wnds=460) 267 K/CU MM 150-450 MEAN PLATELET VOLUME (BEAKER) (test ivgo=733) 9.5 fL 9.4-12.3 NUCLEATED RED BLOOD CELLS (BEAKER) (test 0 /100 WBC 0-0 mmyu=952) NEUTROPHILS RELATIVE PERCENT (BEAKER) (test 56 % axpq=216) LYMPHOCYTES RELATIVE PERCENT (BEAKER) (test 30 % mghx=617) MONOCYTES RELATIVE PERCENT (BEAKER) (test 8 % xrej=138) EOSINOPHILS RELATIVE PERCENT (BEAKER) (test 5 % sfxe=098) BASOPHILS RELATIVE PERCENT (BEAKER) (test 1 % nmtf=385) NEUTROPHILS ABSOLUTE COUNT (BEAKER) (test 4.49 K/ L 1.56-6.13 usjd=278) LYMPHOCYTES ABSOLUTE COUNT (BEAKER) (test 2.39 K/ L 1.18-3.74 lklf=061) MONOCYTES ABSOLUTE COUNT (BEAKER) (test 0.67 K/ L 0.24-0.36 ohmo=394) EOSINOPHILS ABSOLUTE COUNT (BEAKER) (test 0.38 K/ L 0.04-0.36 wjgn=797) BASOPHILS ABSOLUTE COUNT (BEAKER) (test 0.07 K/ L 0.01-0.08 fsfq=607) IMMATURE GRANULOCYTES-RELATIVE PERCENT (BEAKER) 1 % 0-1 (test paua=9327) POCT-GLUCOSE [id number] 23:36:00 Test Item Value Reference Range Comments POC-GLUCOSE METER (BEAKER) 109 mg/dL 70-110 TESTED AT [address] (test eptg=1031) [place] [address] POCT-GLUCOSE [id number] 17:11:00 Test Item Value Reference Range Comments POC-GLUCOSE METER (BEAKER) 126 mg/dL 70-110 TESTED AT [address] (test feav=0847) [place] [address] POCT-GLUCOSE [id number] 12:17:00 Test Item Value Reference Range Comments POC-GLUCOSE METER (BEAKER) 119 mg/dL 70-110 TESTED AT [address] (test pfnf=1563) [place] [address] BASIC METABOLIC [id number] 08:25:00 Test Item Value Reference Range Comments SODIUM (BEAKER) (test 139 meq/L 136-145 jhil=384) POTASSIUM (BEAKER) (test 4.0 meq/L 3.5-5.1 Specimen slightly odtz=278) hemolyzed CHLORIDE (BEAKER) (test 111 meq/L 98-107 jmpc=559) CO2 (BEAKER) (test 25 meq/L 22-29 lqde=238) BLOOD UREA NITROGEN 3 mg/dL 7-21 (BEAKER) (test ikdf=673) CREATININE (BEAKER) (test 0.46 mg/dL 0.57-1.25 Specimen slightly kucv=638) hemolyzed GLUCOSE RANDOM (BEAKER) 98 mg/dL 70-105 (test yhcj=636) CALCIUM (BEAKER) (test 7.4 mg/dL 8.4-10.2 bres=280) EGFR (BEAKER) (test 135 mL/min/1.73 sq m ESTIMATED GFR IS NOT rwmt=2104) ACCURATE CREATININE CLEARANCE IN PREDICTING GLOMERULAR FILTRATION RATE. ESTIMATED GFR IS NOT APPLICABLE FOR DIALYSIS PATIENTS. HEPATIC FUNCTION [id number] 08:25:00 Test Item Value Reference Range Comments TOTAL PROTEIN (BEAKER) (test 5.5 gm/dL 6.0-8.3 Specimen slightly hemolyzed fkqt=733) ALBUMIN (BEAKER) (test 1.9 g/dL 3.5-5.0 Specimen slightly hemolyzed zwah=4720) BILIRUBIN TOTAL (BEAKER) (test 1.1 mg/dL 0.2-1.2 Specimen slightly hemolyzed tnwz=212) BILIRUBIN DIRECT (BEAKER) (test 0.6 mg/dL 0.1-0.5 Specimen slightly hemolyzed zryo=415) ALKALINE PHOSPHATASE (BEAKER) 156 U/L 40-150 (test mvno=528) AST (SGOT) (BEAKER) (test 111 U/L 5-34 Specimen slightly hemolyzed wszt=747) ALT (SGPT) (BEAKER) (test 71 U/L 6-55 Specimen slightly hemolyzed tggj=313) [id number] 08:22:00 Test Item Value Reference Range Comments MAGNESIUM (BEAKER) (test 2.2 mg/dL 1.6-2.6 Specimen slightly hemolyzed vpqy=914) [id number] 08:22:00 Test Item Value Reference Range Comments PHOSPHORUS (BEAKER) (test 2.7 mg/dL 2.3-4.7 Specimen slightly hemolyzed iztj=189) CBC W/PLT COUNT & AUTO [id number] 05:53:00 Test Item Value Reference Range Comments WHITE BLOOD CELL COUNT (BEAKER) (test uuhs=698) 7.9 K/ L 3.5-10.5 RED BLOOD CELL COUNT (BEAKER) (test cdlh=144) 3.50 M/ L 3.93-5.22 HEMOGLOBIN (BEAKER) (test fofk=582) 9.8 GM/DL 11.2-15.7 HEMATOCRIT (BEAKER) (test xldd=314) 31.8 % 34.1-44.9 MEAN CORPUSCULAR VOLUME (BEAKER) (test enge=104) 90.9 fL 79.4-94.8 MEAN CORPUSCULAR HEMOGLOBIN (BEAKER) (test 28.0 pg 25.6-32.2 rixi=393) MEAN CORPUSCULAR HEMOGLOBIN CONC (BEAKER) (test 30.8 GM/DL 32.2-35.5 elix=786) RED CELL DISTRIBUTION WIDTH (BEAKER) (test 18.9 % 11.7-14.4 ezgj=309) PLATELET COUNT (BEAKER) (test llgb=576) 179 K/CU MM 150-450 MEAN PLATELET VOLUME (BEAKER) (test tmfo=827) 11.1 fL 9.4-12.3 NUCLEATED RED BLOOD CELLS (BEAKER) (test 0 /100 WBC 0-0 vhuf=812) NEUTROPHILS RELATIVE PERCENT (BEAKER) (test 62 % rhww=700) LYMPHOCYTES RELATIVE PERCENT (BEAKER) (test 25 % nacx=418) MONOCYTES RELATIVE PERCENT (BEAKER) (test 9 % vqci=879) EOSINOPHILS RELATIVE PERCENT (BEAKER) (test 3 % sjbv=753) BASOPHILS RELATIVE PERCENT (BEAKER) (test 1 % uguy=326) NEUTROPHILS ABSOLUTE COUNT (BEAKER) (test 4.84 K/ L 1.56-6.13 qppt=331) LYMPHOCYTES ABSOLUTE COUNT (BEAKER) (test 1.93 K/ L 1.18-3.74 kpjf=530) MONOCYTES ABSOLUTE COUNT (BEAKER) (test 0.73 K/ L 0.24-0.36 wnrf=670) EOSINOPHILS ABSOLUTE COUNT (BEAKER) (test 0.22 K/ L 0.04-0.36 bzjk=575) BASOPHILS ABSOLUTE COUNT (BEAKER) (test 0.07 K/ L 0.01-0.08 lpxt=203) IMMATURE GRANULOCYTES-RELATIVE PERCENT (BEAKER) 1 % 0-1 (test keba=9866) POCT-GLUCOSE [id number] 17:47:00 Test Item Value Reference Range Comments POC-GLUCOSE METER (BEAKER) 120 mg/dL 70-[address] [facility] [address] [address] (test rfns=6231) [facility] [address] POCT-GLUCOSE [id number] 12:41:00 Test Item Value Reference Range Comments POC-GLUCOSE METER (BEAKER) 123 mg/dL 70-[address] [facility] [address] [facility] (test uytl=1655) [facility] [address] SURGICALLY OBTAINED CULTURE + GRAM [id number] 09:30:00 Test Item Value Reference Range Comments CULTURE (BEAKER) (test ESCHERICHIA COLI <1+ Escherichia coli jipo=7502) Amikacin (test code=1) Ampicillin + Sulbactam (test code=6) Aztreonam (test code=32) Cefepime (test code=51) Cefoxitin (test code=68) Ceftazidime (test code=27) Ceftriaxone (test code=52) Ertapenem (test code=38) Gentamicin (test code=18) Levofloxacin (test code=22) Meropenem (test code=34) Nitrofurantoin (test code=23) Piperacillin + Tazobactam (test code=29) Tetracycline (test code=2) Tobramycin (test code=25) Trimethoprim + Sulfamethoxazole (test code=47) CULTURE (BEAKER) (test <1+ Omaira albicans khnv=5105) CULTURE (BEAKER) (test <1+ Enterococcus avium pnnc=0162) CULTURE (BEAKER) (test 2+ Lactobacillus species edch=8302) GRAM STAIN RESULT (BEAKER) <1+ WBCs (test fjfg=1306) GRAM STAIN RESULT (BEAKER) No organisms seen (test unyy=636871) BASIC METABOLIC [id number] 06:19:00 Test Item Value Reference Range Comments SODIUM (BEAKER) (test 137 meq/L 136-145 rjlq=996) POTASSIUM (BEAKER) (test 3.6 meq/L 3.5-5.1 diwi=054) CHLORIDE (BEAKER) (test 107 meq/L 98-107 chlh=070) CO2 (BEAKER) (test 27 meq/L 22-29 qazm=294) BLOOD UREA NITROGEN 3 mg/dL 7-21 (BEAKER) (test dllk=691) CREATININE (BEAKER) (test 0.47 mg/dL 0.57-1.25 teai=074) GLUCOSE RANDOM (BEAKER) 123 mg/dL 70-105 (test ftqj=339) CALCIUM (BEAKER) (test 7.0 mg/dL 8.4-10.2 irnf=510) EGFR (BEAKER) (test 132 mL/min/1.73 sq m ESTIMATED GFR IS NOT opav=4794) ACCURATE CREATININE CLEARANCE IN PREDICTING GLOMERULAR FILTRATION RATE. ESTIMATED GFR IS NOT APPLICABLE FOR DIALYSIS PATIENTS. HEPATIC FUNCTION [id number] 06:19:00 Test Item Value Reference Range Comments TOTAL PROTEIN (BEAKER) (test kanv=444) 4.9 gm/dL 6.0-8.3 ALBUMIN (BEAKER) (test kwnu=7681) 1.8 g/dL 3.5-5.0 BILIRUBIN TOTAL (BEAKER) (test slnf=172) 0.9 mg/dL 0.2-1.2 BILIRUBIN DIRECT (BEAKER) (test cnjq=139) 0.6 mg/dL 0.1-0.5 ALKALINE PHOSPHATASE (BEAKER) (test pmou=246) 160 U/L 40-150 AST (SGOT) (BEAKER) (test feqx=420) 72 U/L 5-34 ALT (SGPT) (BEAKER) (test xgyp=336) 64 U/L 6-55 POCT-GLUCOSE [id number] 06:18:00 Test Item Value Reference Range Comments POC-GLUCOSE METER (BEAKER) 127 mg/dL 70-[address] [facility] [address] [facility] [address] (test ppqc=4991) [facility] [address] [id number] 06:12:00 Test Item Value Reference Range Comments PHOSPHORUS (BEAKER) (test cdhx=868) 2.0 mg/dL 2.3-4.7 [id number] 06:12:00 Test Item Value Reference Range Comments MAGNESIUM (BEAKER) (test nbgj=295) 1.7 mg/dL 1.6-2.6 CBC W/PLT COUNT & AUTO [id number] 04:53:00 Test Item Value Reference Range Comments WHITE BLOOD CELL COUNT (BEAKER) (test tolh=962) 8.2 K/ L 3.5-10.5 RED BLOOD CELL COUNT (BEAKER) (test qleb=615) 3.23 M/ L 3.93-5.22 HEMOGLOBIN (BEAKER) (test ixwd=811) 9.1 GM/DL 11.2-15.7 HEMATOCRIT (BEAKER) (test rdhk=102) 28.7 % 34.1-44.9 MEAN CORPUSCULAR VOLUME (BEAKER) (test pyvy=670) 88.9 fL 79.4-94.8 MEAN CORPUSCULAR HEMOGLOBIN (BEAKER) (test 28.2 pg 25.6-32.2 pdkf=055) MEAN CORPUSCULAR HEMOGLOBIN CONC (BEAKER) (test 31.7 GM/DL 32.2-35.5 tgez=167) RED CELL DISTRIBUTION WIDTH (BEAKER) (test 18.6 % 11.7-14.4 pcyz=976) PLATELET COUNT (BEAKER) (test ejym=132) 293 K/CU MM 150-450 MEAN PLATELET VOLUME (BEAKER) (test liqh=461) 9.5 fL 9.4-12.3 NUCLEATED RED BLOOD CELLS (BEAKER) (test 0 /100 WBC 0-0 auuh=899) NEUTROPHILS RELATIVE PERCENT (BEAKER) (test 60 % rlgo=657) LYMPHOCYTES RELATIVE PERCENT (BEAKER) (test 25 % jzcp=340) MONOCYTES RELATIVE PERCENT (BEAKER) (test 9 % hdoh=955) EOSINOPHILS RELATIVE PERCENT (BEAKER) (test 3 % zbrh=428) BASOPHILS RELATIVE PERCENT (BEAKER) (test 1 % zrwq=349) NEUTROPHILS ABSOLUTE COUNT (BEAKER) (test 4.91 K/ L 1.56-6.13 qkaq=372) LYMPHOCYTES ABSOLUTE COUNT (BEAKER) (test 2.06 K/ L 1.18-3.74 mmga=421) MONOCYTES ABSOLUTE COUNT (BEAKER) (test 0.77 K/ L 0.24-0.36 bpee=963) EOSINOPHILS ABSOLUTE COUNT (BEAKER) (test 0.24 K/ L 0.04-0.36 qydd=291) BASOPHILS ABSOLUTE COUNT (BEAKER) (test 0.08 K/ L 0.01-0.08 vdqi=115) IMMATURE GRANULOCYTES-RELATIVE PERCENT (BEAKER) 1 % 0-1 (test lfei=1835) POCT-GLUCOSE [id number] 00:46:00 Test Item Value Reference Range Comments POC-GLUCOSE METER (BEAKER) 130 mg/dL 70-110 TESTED AT [address] (test lxsx=2601) [place] [id number] URINALYSIS W/ REFLEX URINE [id number] 14:46:00 Test Item Value Reference Range Comments COLOR (BEAKER) (test qsfk=710) Yellow CLARITY (BEAKER) (test egjf=696) Clear SPECIFIC GRAVITY UA (BEAKER) (test tonq=891) 1.016 1.001-1.035 PH UA (BEAKER) (test upim=156) 8.0 5.0-8.0 PROTEIN UA (BEAKER) (test gqcp=777) 10 mg/dL Negative GLUCOSE UA (BEAKER) (test hdqk=797) Negative Negative KETONES UA (BEAKER) (test kdvb=672) Negative Negative BILIRUBIN UA (BEAKER) (test ardv=368) Negative Negative BLOOD UA (BEAKER) (test hxan=303) Small Negative NITRITE UA (BEAKER) (test uhtf=111) Negative Negative LEUKOCYTE ESTERASE UA (BEAKER) (test rukl=676) Negative Negative UROBILINOGEN UA (BEAKER) (test flgx=198) 0.2 mg/dL 0.2-1.0 RBC UA (BEAKER) (test blyl=365) 29 /HPF WBC UA (BEAKER) (test ylnz=633) 2 /HPF MUCUS (BEAKER) (test dqqf=2114) Rare SQUAMOUS EPITHELIAL (BEAKER) (test pbdd=196) 1 /HPF SOURCE(BEAKER) (test hdkf=5325) POCT-GLUCOSE [id number] 12:47:00 Test Item Value Reference Range Comments POC-GLUCOSE METER (BEAKER) 141 mg/dL 70-110 TESTED AT [address] (test fzrj=2070) [place] [id number] POCT-GLUCOSE [id number] 09:07:00 Test Item Value Reference Range Comments POC-GLUCOSE METER (BEAKER) 131 mg/dL 70-110 TESTED AT [address] (test ghjd=9123) [place] [id number] BASIC METABOLIC [id number] 06:19:00 Test Item Value Reference Range Comments SODIUM (BEAKER) (test 134 meq/L 136-145 omam=968) POTASSIUM (BEAKER) (test 3.3 meq/L 3.5-5.1 iswx=782) CHLORIDE (BEAKER) (test 102 meq/L 98-107 uytv=221) CO2 (BEAKER) (test 25 meq/L 22-29 vlyg=665) BLOOD UREA NITROGEN 3 mg/dL 7-21 (BEAKER) (test wxgt=512) CREATININE (BEAKER) (test 0.47 mg/dL 0.57-1.25 xbfq=477) GLUCOSE RANDOM (BEAKER) 132 mg/dL 70-105 (test txro=023) CALCIUM (BEAKER) (test 7.2 mg/dL 8.4-10.2 cysp=912) EGFR (BEAKER) (test 132 mL/min/1.73 sq m ESTIMATED GFR IS NOT rjwk=9206) ACCURATE CREATININE CLEARANCE IN PREDICTING GLOMERULAR FILTRATION RATE. ESTIMATED GFR IS NOT APPLICABLE FOR DIALYSIS PATIENTS. HEPATIC FUNCTION [id number] 06:19:00 Test Item Value Reference Range Comments TOTAL PROTEIN (BEAKER) (test xcdq=109) 5.1 gm/dL 6.0-8.3 ALBUMIN (BEAKER) (test hind=3049) 1.9 g/dL 3.5-5.0 BILIRUBIN TOTAL (BEAKER) (test zxhl=648) 1.1 mg/dL 0.2-1.2 BILIRUBIN DIRECT (BEAKER) (test erpu=956) 0.8 mg/dL 0.1-0.5 ALKALINE PHOSPHATASE (BEAKER) (test fbxx=864) 177 U/L 40-150 AST (SGOT) (BEAKER) (test atfs=432) 85 U/L 5-34 ALT (SGPT) (BEAKER) (test szzm=804) 75 U/L 6-55 [id number] 06:18:00 Test Item Value Reference Range Comments PHOSPHORUS (BEAKER) (test sbcc=979) 1.9 mg/dL 2.3-4.7 [id number] 06:18:00 Test Item Value Reference Range Comments MAGNESIUM (BEAKER) (test dfpl=489) 1.8 mg/dL 1.6-2.6 POCT-GLUCOSE [id number] 06:06:00 Test Item Value Reference Range Comments POC-GLUCOSE METER (BEAKER) 139 mg/dL 70-[address] [facility] [address] [facility] [address] (test cucp=6217) [facility] [address] CBC W/PLT COUNT & AUTO [id number] 03:40:00 Test Item Value Reference Range Comments WHITE BLOOD CELL COUNT (BEAKER) (test xord=479) 10.2 K/ L 3.5-10.5 RED BLOOD CELL COUNT (BEAKER) (test teys=716) 3.78 M/ L 3.93-5.22 HEMOGLOBIN (BEAKER) (test xlgz=363) 10.7 GM/DL 11.2-15.7 HEMATOCRIT (BEAKER) (test mfcv=912) 33.4 % 34.1-44.9 MEAN CORPUSCULAR VOLUME (BEAKER) (test mkya=526) 88.4 fL 79.4-94.8 MEAN CORPUSCULAR HEMOGLOBIN (BEAKER) (test 28.3 pg 25.6-32.2 xpcd=721) MEAN CORPUSCULAR HEMOGLOBIN CONC (BEAKER) (test 32.0 GM/DL 32.2-35.5 mfcj=609) RED CELL DISTRIBUTION WIDTH (BEAKER) (test 18.4 % 11.7-14.4 cvzw=601) PLATELET COUNT (BEAKER) (test dsin=476) 341 K/CU MM 150-450 MEAN PLATELET VOLUME (BEAKER) (test yujo=209) 9.1 fL 9.4-12.3 NUCLEATED RED BLOOD CELLS (BEAKER) (test 0 /100 WBC 0-0 rbjz=137) (CELLAVISION MANUAL DIFF)2018-09-10 03:40:00 Test Item Value Reference Range Comments NEUTROPHILS - REL (CELLAVISION)(BEAKER) (test 65 % pdpc=7487) LYMPHOCYTES - REL (CELLAVISION)(BEAKER) (test 6 % rvtv=0000) MONOCYTES - REL (CELLAVISION)(BEAKER) (test 6 % tslo=6505) EOSINOPHILS - REL (CELLAVISION)(BEAKER) (test 2 % hzwr=9372) MYELOCYTES - REL (CELLAVISION)(BEAKER) (test 1 % 0-0 swnh=0334) BANDS - REL (CELLAVISION)(BEAKER) (test 17 % 0-10 cily=1159) ATYPICAL LYMPHOCYTES - REL (CELLAVISION)(BEAKER) 2 % 0-0 (test gvpv=4226) NEUTROPHILS - ABS (CELLAVISION)(BEAKER) (test 6.63 K/ul 1.56-6.13 ftzq=7673) LYMPHOCYTES - ABS (CELLAVISION)(BEAKER) (test 0.61 K/ul 1.18-3.74 srfo=7938) MONOCYTES - ABS (CELLAVISION)(BEAKER) (test 0.61 K/uL 0.24-0.36 njwx=0215) EOSINOPHILS - ABS (CELLAVISION)(BEAKER) (test 0.20 K/uL 0.04-0.36 lptc=7289) MYELOCYTES-ABS (CELLAVISION)(BEAKER) (test 0.10 K/uL 0.00-0.00 cxfv=4169) BANDS - ABS (CELLAVISION)(BEAKER) (test 1.73 K/uL 0.00-0.80 shvu=0720) ATYPICAL LYMPHOCYTES - ABS (CELLAVISION)(BEAKER) 0.20 K/uL 0.00-0.00 (test vhpi=4581) TOTAL COUNTED (BEAKER) (test pyaj=4670) 100 SMUDGE CELLS (BEAKER) (test lmxr=5209) Present GIANT PLATELETS (BEAKER) (test jirv=060) Present POLYCHROMATOPHILLIC RBCS(BEAKER) (test wyau=237) 3+ many HYPOCHROMIA (BEAKER) (test ltma=563) 1+ few ANISOCYTOSIS (BEAKER) (test pyit=346) 1+ few POIKILOCYTES (BEAKER) (test ormc=369) 2+ moderate TARGET CELLS (BEAKER) (test sbbc=272) 1+ few ELLIPTOCYTES (BEAKER) (test xbwe=555) 1+ few TEAR DROP CELLS (BEAKER) (test dmvh=918) 1+ few STOMATOCYTES (BEAKER) (test wzos=149) 1+ few PLATELET CONCENTRATION (CELLAVISION)(BEAKER) Adequate (test zidt=5578) Received comment: User comments: Slide comments:CT, [id number] 03:30: 00FINAL REPORT TECHNIQUE: CT of the [...] likely arising from theleft adnexa. Signed: Zoran Chaseeport Verified Date/Time: 2018 03:30:03 Reading Location: [address] Transitional Reading Room POCT-GLUCOSE [id number] 23:32:00 Test Item Value Reference Range Comments POC-GLUCOSE METER (BEAKER) 123 mg/dL 70-110 TESTED AT [address] (test ojef=7426) [place] [id number] POCT-GLUCOSE [id number] 18:48:00 Test Item Value Reference Range Comments POC-GLUCOSE METER (BEAKER) 113 mg/dL 70-110 TESTED AT [address] (test izdu=9824) [place] [id number] POCT-GLUCOSE [id number] 16:18:00 Test Item Value Reference Range Comments POC-GLUCOSE METER (BEAKER) 99 mg/dL 70-110 TESTED AT [address] (test jlcp=9378) [place] [address] POCT-GLUCOSE [id number] 12:50:00 Test Item Value Reference Range Comments POC-GLUCOSE METER (BEAKER) 46 mg/dL 70-110 TESTED AT [address] (test pnsj=0323) [place] [id number] CBC W/PLT COUNT & AUTO [id number] 09:22:00 Test Item Value Reference Range Comments WHITE BLOOD CELL COUNT (BEAKER) (test uefe=902) 8.9 K/ L 3.5-10.5 RED BLOOD CELL COUNT (BEAKER) (test qpsb=810) 3.21 M/ L 3.93-5.22 HEMOGLOBIN (BEAKER) (test deba=876) 8.9 GM/DL 11.2-15.7 HEMATOCRIT (BEAKER) (test kndj=828) 30.0 % 34.1-44.9 MEAN CORPUSCULAR VOLUME (BEAKER) (test hmep=194) 93.5 fL 79.4-94.8 MEAN CORPUSCULAR HEMOGLOBIN (BEAKER) (test 27.7 pg 25.6-32.2 xqzb=967) MEAN CORPUSCULAR HEMOGLOBIN CONC (BEAKER) (test 29.7 GM/DL 32.2-35.5 wdbb=661) RED CELL DISTRIBUTION WIDTH (BEAKER) (test 18.2 % 11.7-14.4 leix=809) PLATELET COUNT (BEAKER) (test irzr=182) 235 K/CU MM 150-450 MEAN PLATELET VOLUME (BEAKER) (test oflk=009) 9.9 fL 9.4-12.3 NUCLEATED RED BLOOD CELLS (BEAKER) (test 0 /100 WBC 0-0 fflm=534) (MANUAL DIFFERENTIAL)2018-09-09 09:22:00 Test Item Value Reference Range Comments NEUTROPHILS - REL (DIFF) (BEAKER) (test ypte=2813) 68 % LYMPHOCYTES - REL (DIFF) (BEAKER) (test aisn=7985) 14 % MONOCYTES - REL (DIFF) (BEAKER) (test rzqf=4774) 9 % EOSINOPHILS - REL (DIFF) (BEAKER) (test cgga=6710) 1 % METAMYELOCYTES-REL (DIFF) (BEAKER) (test tjua=326) 2 % 0-0 MYELOCYTES-REL (DIFF) (BEAKER) (test xcaz=1324) 3 % 0-0 BANDS - REL (DIFF) (BEAKER) (test jkxw=4595) 3 % 0-10 NEUTROPHILS - ABS (DIFF) (BEAKER) (test tkok=3562) 6.05 K/ L 1.80-8.00 LYMPHOCYTES - ABS (DIFF) (BEAKER) (test udoj=1340) 1.25 K/ L 1.48-4.50 MONOCYTES - ABS (DIFF) (BEAKER) (test nkvo=0062) 0.80 K/ L 0.00-1.30 EOSINOPHILS - ABS (DIFF) (BEAKER) (test mwzx=2088) 0.09 K/ L 0.00-0.50 METAMYELOCTYES - ABS (DIFF) (BEAKER) (test 0.18 K/ L 0.00-0.00 rpuy=359) BANDS-ABS (DIFF) (BEAKER) (test cpku=4790) 0.3 K/ L 0.0-0.8 MYELOCYTES-ABS (DIFF) (BEAKER) (test gzof=5340) 0.27 K/ L 0.00-0.00 TOTAL COUNTED (BEAKER) (test bgzo=4256) 100 BANDS + SEGMENTED NEUTROPHILS (BEAKER) (test 6.32 uqdx=8713) WBC MORPHOLOGY (BEAKER) (test mzdj=641) Normal PLT MORPHOLOGY (BEAKER) (test jdfg=471) Normal RBC MORPHOLOGY (BEAKER) (test pytc=580) Normal HEPATIC FUNCTION [id number] 09:00:00 Test Item Value Reference Range Comments TOTAL PROTEIN (BEAKER) (test lnry=483) 4.9 gm/dL 6.0-8.3 ALBUMIN (BEAKER) (test sfjx=7705) 1.9 g/dL 3.5-5.0 BILIRUBIN TOTAL (BEAKER) (test zzzj=748) 1.2 mg/dL 0.2-1.2 BILIRUBIN DIRECT (BEAKER) (test bgxr=554) 0.8 mg/dL 0.1-0.5 ALKALINE PHOSPHATASE (BEAKER) (test tezm=409) 193 U/L 40-150 AST (SGOT) (BEAKER) (test mjac=651) 129 U/L 5-34 ALT (SGPT) (BEAKER) (test xyhf=202) 95 U/L 6-55 BASIC METABOLIC [id number] 09:00:00 Test Item Value Reference Range Comments SODIUM (BEAKER) (test 138 meq/L 136-145 omri=579) POTASSIUM (BEAKER) (test 3.4 meq/L 3.5-5.1 xknk=076) CHLORIDE (BEAKER) (test 101 meq/L 98-107 qpac=892) CO2 (BEAKER) (test 31 meq/L 22-29 dgop=104) BLOOD UREA NITROGEN 4 mg/dL 7-21 (BEAKER) (test cqns=621) CREATININE (BEAKER) (test 0.41 mg/dL 0.57-1.25 wpao=049) GLUCOSE RANDOM (BEAKER) 79 mg/dL 70-105 (test rwyi=227) CALCIUM (BEAKER) (test 7.3 mg/dL 8.4-10.2 apur=153) EGFR (BEAKER) (test 154 mL/min/1.73 sq m ESTIMATED GFR IS NOT otsb=4793) ACCURATE CREATININE CLEARANCE IN PREDICTING GLOMERULAR FILTRATION RATE. ESTIMATED GFR IS NOT APPLICABLE FOR DIALYSIS PATIENTS. [id number] 08:46:00 Test Item Value Reference Range Comments PHOSPHORUS (BEAKER) (test cfsl=449) 2.5 mg/dL 2.3-4.7 [id number] 08:46:00 Test Item Value Reference Range Comments MAGNESIUM (BEAKER) (test arxk=959) 1.5 mg/dL 1.6-2.6 POCT-GLUCOSE [id number] 21:21:00 Test Item Value Reference Range Comments POC-GLUCOSE METER (BEAKER) 90 mg/dL 70-110 TESTED AT [address] (test vgrq=1004) [place] [id number] POCT-GLUCOSE [id number] 18:45:00 Test Item Value Reference Range Comments POC-GLUCOSE METER (BEAKER) 97 mg/dL 70-110 TESTED AT [address] (test spae=0437) [place] [address] POCT-GLUCOSE [id number] 16:59:00 Test Item Value Reference Range Comments POC-GLUCOSE METER (BEAKER) 100 mg/dL 70-110 TESTED AT [address] (test kpaq=6564) [place] [id number] POCT-GLUCOSE [id number] 12:33:00 Test Item Value Reference Range Comments POC-GLUCOSE METER (BEAKER) 95 mg/dL 70-110 TESTED AT [address] (test hdlg=9150) [facility] [address] BASIC METABOLIC [id number] 09:41:00 Test Item Value Reference Range Comments SODIUM (BEAKER) (test 137 meq/L 136-145 qorb=229) POTASSIUM (BEAKER) (test 3.4 meq/L 3.5-5.1 zifr=269) CHLORIDE (BEAKER) (test 100 meq/L 98-107 ubpu=047) CO2 (BEAKER) (test 29 meq/L 22-29 utio=762) BLOOD UREA NITROGEN 4 mg/dL 7-21 (BEAKER) (test omzz=647) CREATININE (BEAKER) (test 0.48 mg/dL 0.57-1.25 jchx=249) GLUCOSE RANDOM (BEAKER) 114 mg/dL 70-105 (test wpyh=851) CALCIUM (BEAKER) (test 7.6 mg/dL 8.4-10.2 zxvn=669) EGFR (BEAKER) (test 129 mL/min/1.73 sq m ESTIMATED GFR IS NOT gnxz=2281) ACCURATE CREATININE CLEARANCE IN PREDICTING GLOMERULAR FILTRATION RATE. ESTIMATED GFR IS NOT APPLICABLE FOR DIALYSIS PATIENTS. POCT-GLUCOSE [id number] 08:58:00 Test Item Value Reference Range Comments POC-GLUCOSE METER (BEAKER) 102 mg/dL 70-[address] [facility] [address] [place] [address] (test uudo=8783) [facility] [address] RAD, ABDOMEN/KUB, 1 VIEW [id number] 08:46:00Include stomach \\T\\ rectumReason for exam:->abd distention, [...] Verified Date/Time: 09/08/2018 08:46 :30 Reading Location: [facility] Radiology Reading Room [id number] 07:53:00 Test Item Value Reference Range Comments MAGNESIUM (BEAKER) (test lqtp=920) 1.6 mg/dL 1.6-2.6 [id number] 07:53:00 Test Item Value Reference Range Comments PHOSPHORUS (BEAKER) (test lbcz=936) 2.6 mg/dL 2.3-4.7 CBC W/PLT COUNT & AUTO [id number] 07:05:00 Test Item Value Reference Range Comments WHITE BLOOD CELL COUNT 14.1 K/ L 3.5-10.5 (BEAKER) (test jmtd=281) RED BLOOD CELL COUNT (BEAKER) 3.87 M/ L 3.93-5.22 (test acyj=528) HEMOGLOBIN (BEAKER) (test 11.0 GM/DL 11.2-15.7 ngod=160) HEMATOCRIT (BEAKER) (test 34.3 % 34.1-44.9 ojer=205) MEAN CORPUSCULAR VOLUME 88.6 fL 79.4-94.8 (BEAKER) (test owgr=738) MEAN CORPUSCULAR HEMOGLOBIN 28.4 pg 25.6-32.2 (BEAKER) (test kyku=403) MEAN CORPUSCULAR HEMOGLOBIN 32.1 GM/DL 32.2-35.5 CONC (BEAKER) (test tvie=906) RED CELL DISTRIBUTION WIDTH 17.6 % 11.7-14.4 (BEAKER) (test zsse=179) PLATELET COUNT (BEAKER) (test 399 K/CU MM 150-450 Discordant PLT results wtoy=532) compared to previous results; clinical correlation required. MEAN PLATELET VOLUME (BEAKER) 9.8 fL 9.4-12.3 (test hwzm=805) NUCLEATED RED BLOOD CELLS 0 /100 WBC 0-0 (BEAKER) (test hgdu=750) (CELLAVISION MANUAL DIFF)2018-09-08 07:05:00 Test Item Value Reference Range Comments NEUTROPHILS - REL (CELLAVISION)(BEAKER) (test 87 % emfg=3209) LYMPHOCYTES - REL (CELLAVISION)(BEAKER) (test 6 % bhrq=4666) MONOCYTES - REL (CELLAVISION)(BEAKER) (test 4 % phyo=0615) EOSINOPHILS - REL (CELLAVISION)(BEAKER) (test 2 % rqzb=7786) ATYPICAL LYMPHOCYTES - REL (CELLAVISION)(BEAKER) 1 % 0-0 (test aagq=7639) NEUTROPHILS - ABS (CELLAVISION)(BEAKER) (test 12.27 K/ul 1.56-6.13 juqz=0992) LYMPHOCYTES - ABS (CELLAVISION)(BEAKER) (test 0.85 K/ul 1.18-3.74 mtnd=8158) MONOCYTES - ABS (CELLAVISION)(BEAKER) (test 0.56 K/uL 0.24-0.36 zska=7271) EOSINOPHILS - ABS (CELLAVISION)(BEAKER) (test 0.28 K/uL 0.04-0.36 qvlt=4064) ATYPICAL LYMPHOCYTES - ABS (CELLAVISION)(BEAKER) 0.14 K/uL 0.00-0.00 (test hwkt=1023) TOTAL COUNTED (BEAKER) (test sevf=9893) 100 MANUAL NRBC PER 100 CELLS (BEAKER) (test 1 /100 WBC 0-0 wrmf=2727) WBC MORPHOLOGY (BEAKER) (test jdry=249) Normal PLT MORPHOLOGY (BEAKER) (test ertb=963) Normal POLYCHROMATOPHILLIC RBCS(BEAKER) (test umgx=948) 1+ few ARTIFACT (CELLAVISION)(BEAKER) (test ejvg=3749) Present PLATELET CONCENTRATION (CELLAVISION)(BEAKER) Adequate (test gikp=8660) Received comment: User comments: Slide comments:POCT-GLUCOSE [id number] 22: 12:00 Test Item Value Reference Range Comments POC-GLUCOSE METER (BEAKER) 128 mg/dL 70-110 TESTED AT [address] (test iqtt=8510) [place] [address] POCT-GLUCOSE [id number] 17:32:00 Test Item Value Reference Range Comments POC-GLUCOSE METER (BEAKER) 154 mg/dL 70-110 TESTED AT [address] (test uvcs=4333) [place] [address] TISSUE [id number] 15:41:00Surgical Pathology Report Case: [id number] Authorizing Provider: Maicol Jimenez MD Collected: 09/03/2018 1347 Ordering Location: [facility] Received: 09/03/2018 1636 SERVICES Pathologist: Stella [...] OR MALIGNANCY Signing Pathologist Direct Phone Line: [phone] X 2DiverticulitisA. Small bowel. B. Large intestine, [...] measuring 0.4 x 0.3 x 0.3 cm. Operator sections are submitted.Section code:A1, margin closest to area of adhesion, en face, in its entirety A2, margin further away from area of adhesion, en face, in its entirety A3-A4, car sales representative of area of adhesionA5-A6, car sales representative of area of adhesion to mucosa [...] multiple pink-rogel lymph nodes ranging 0.3-0.8 cm. Operator sections are submitted.Ink code: Blue-area of adhesion closest to proximal margin, black-area of adhesion closest to distal margin.Section code :B1, car sales representative of proximal margin, en faceB2, car sales representative of distal margin, en faceB3-B4,car sales representative of diverticula with area of adhesion closest to proximal margin, full-thickness B5-B6, car sales representative of diverticula with area of adhesion closest to proximal margin, full-thickness B7-B8, car sales representative of diverticula with area of adhesion closest to distal margin, slzs-hdeccrtzkZ3-M23, car sales representative of diverticula with area of adhesion closest to distal margin, full-xeaffmjwxQ99, uninvolved vmxofiT69-O90, one lymph node bisected in each gohrmzslY45, four possible intact lymph smtetI38, two possible intact lymph nodes CG/ew performedPOCT-GLUCOSE [id number] 11: 57:00 Test Item Value Reference Range Comments POC-GLUCOSE METER ([employer] 110 mg/dL 70-110 TESTED AT [address] (test eapn=9495) [facility] [address] POCT-GLUCOSE [id number] 08:09:00 Test Item Value Reference Range Comments POC-GLUCOSE METER ([employer] 84 mg/dL 70-110 TESTED AT [address] (test nype=2802) [facility] [address] HERPES VIRUS ANTIBODY, [id number] 07:20:00 Test Item Value Reference Range Comments HERPES VIRUS IGM ([facility]) (test edro=3240) Negative [facility]T [facility] & AUTO [id number] 06:48:00 Test Item Value Reference Range Comments WHITE BLOOD CELL COUNT ([facility]) (test cune=860) 7.9 K/ L 3.5-10.5 RED BLOOD CELL COUNT ([facility]) (test uymj=883) 3.14 M/ L 3.93-5.22 HEMOGLOBIN (BEAKER) (test oqut=679) 8.8 GM/DL 11.2-15.7 HEMATOCRIT (BEAKER) (test eohi=388) 27.9 % 34.1-44.9 MEAN CORPUSCULAR VOLUME (BEAKER) (test axmz=301) 88.9 fL 79.4-94.8 MEAN CORPUSCULAR HEMOGLOBIN (BEAKER) (test 28.0 pg 25.6-32.2 sozr=995) MEAN CORPUSCULAR HEMOGLOBIN CONC (BEAKER) (test 31.5 GM/DL 32.2-35.5 dhrq=626) RED CELL DISTRIBUTION WIDTH (BEAKER) (test 17.3 % 11.7-14.4 dyhv=997) PLATELET COUNT (BEAKER) (test xelo=374) 246 K/CU MM 150-450 MEAN PLATELET VOLUME (BEAKER) (test tdyy=595) 9.7 fL 9.4-12.3 NUCLEATED RED BLOOD CELLS (BEAKER) (test 0 /100 WBC 0-0 wgas=695) (CELLAVISION MANUAL DIFF)2018-09-07 06:48:00 Test Item Value Reference Range Comments NEUTROPHILS - REL (CELLAVISION)(BEAKER) (test 67 % wwyt=0125) LYMPHOCYTES - REL (CELLAVISION)(BEAKER) (test 4 % xyyz=4896) EOSINOPHILS - REL (CELLAVISION)(BEAKER) (test 5 % ogjd=8011) METAMYELOCYTES - REL (CELLAVISION)(BEAKER) (test 5 % 0-0 asps=5137) MYELOCYTES - REL (CELLAVISION)(BEAKER) (test 1 % 0-0 lcju=9695) PROMYELOCYTES - REL (CELLAVSION)(BEAKER) (test 1 % 0-0 wgcj=7517) BANDS - REL (CELLAVISION)(BEAKER) (test xxwr=0320) 15 % 0-10 ATYPICAL LYMPHOCYTES - REL (CELLAVISION)(BEAKER) 1 % 0-0 (test nkwz=9834) NEUTROPHILS - ABS (CELLAVISION)(BEAKER) (test 5.29 K/ul 1.56-6.13 xzfv=8711) LYMPHOCYTES - ABS (CELLAVISION)(BEAKER) (test 0.32 K/ul 1.18-3.74 kveb=8694) EOSINOPHILS - ABS (CELLAVISION)(BEAKER) (test 0.40 K/uL 0.04-0.36 flnc=2362) METAMYELOCYTES - ABS (CELLAVISION)(BEAKER) (test 0.40 K/uL 0.00-0.00 zwri=7029) MYELOCYTES-ABS (CELLAVISION)(BEAKER) (test 0.08 K/uL 0.00-0.00 nqpo=7669) PROMYELOCYTES - ABS (CELLAVISION)(BEAKER) (test 0.08 K/uL 0.00-0.00 azvh=4256) BANDS - ABS (CELLAVISION)(BEAKER) (test afnd=4615) 1.19 K/uL 0.00-0.80 ATYPICAL LYMPHOCYTES - ABS (CELLAVISION)(BEAKER) 0.08 K/uL 0.00-0.00 (test fcke=7417) TOTAL COUNTED (BEAKER) (test aupe=2866) 100 SMUDGE CELLS (BEAKER) (test bjoj=2325) Present GIANT PLATELETS (BEAKER) (test sata=270) Present POLYCHROMATOPHILLIC RBCS(BEAKER) (test ppmu=914) 1+ few HYPOCHROMIA (BEAKER) (test gycq=906) 1+ few ANISOCYTOSIS (BEAKER) (test plty=073) 1+ few POIKILOCYTES (BEAKER) (test cwox=044) 1+ few ARTIFACT (CELLAVISION)(BEAKER) (test wxxf=1927) Present PLATELET CONCENTRATION (CELLAVISION)(BEAKER) (test Adequate icyp=8077) Received comment: User comments: Slide comments:[id number] 05:07:00 Test Item Value Reference Range Comments PHOSPHORUS (BEAKER) (test nnxc=603) 2.4 mg/dL 2.3-4.7 [id number] 05:07:00 Test Item Value Reference Range Comments MAGNESIUM (BEAKER) (test lmfh=351) 1.6 mg/dL 1.6-2.6 POCT-GLUCOSE [id number] 21:06:00 Test Item Value Reference Range Comments POC-GLUCOSE METER (BEAKER) 102 mg/dL 70-110 TESTED AT [address] (test ubbb=2185) [place] [address] TROPONIN [id number] 18:38:00 Test Item Value Reference Range Comments TROPONIN I (BEAKER) (test xkih=462) < ng/mL 0.00-0.03 Troponin I (TnI) levels [...] acidosis, acute neurological disease, and persistent tachyarrhythmia.ANAEROBIC [id number] 18:25:00 Test Item Value Reference Range Comments CULTURE ([facility]) (test ykxq=4728) No anaerobes isolated POCT-GLUCOSE [id number] 17:10:00 Test Item Value Reference Range Comments POC-GLUCOSE METER (BEAKER) 112 mg/dL 70-110 TESTED AT [address] (test cjbe=0258) [place] [address] POCT-GLUCOSE [id number] 12:00:00 Test Item Value Reference Range Comments POC-GLUCOSE METER (BEAKER) 112 mg/dL 70-110 TESTED AT [address] (test exdf=4253) [place] [address] MISCELLANEOUS LAB [id number] 11:54:00 Test Item Value Reference Range Comments SCAN RESULT (test szjr=[id number]) POCT-GLUCOSE [id number] 08:57:00 Test Item Value Reference Range Comments POC-GLUCOSE METER (BEAKER) 94 mg/dL 70-110 TESTED AT [address] (test mttx=6473) [place] [address] CBC W/PLT COUNT & AUTO [id number] 08:18:00 Test Item Value Reference Range Comments WHITE BLOOD CELL COUNT (BEAKER) (test mpyu=326) 8.6 K/ L 3.5-10.5 RED BLOOD CELL COUNT ([facility]) (test wtnv=500) 2.88 M/ L 3.93-5.22 HEMOGLOBIN (BEAKER) (test jflw=834) 8.1 GM/DL 11.2-15.7 HEMATOCRIT (BEAKER) (test jbiy=741) 25.6 % 34.1-44.9 MEAN CORPUSCULAR VOLUME (BEAKER) (test xylz=844) 88.9 fL 79.4-94.8 MEAN CORPUSCULAR HEMOGLOBIN (BEAKER) (test 28.1 pg 25.6-32.2 ugmb=811) MEAN CORPUSCULAR HEMOGLOBIN CONC (BEAKER) (test 31.6 GM/DL 32.2-35.5 exdu=103) RED CELL DISTRIBUTION WIDTH (BEAKER) (test 17.5 % 11.7-14.4 xfaw=905) PLATELET COUNT (BEAKER) (test hefn=757) 226 K/CU MM 150-450 MEAN PLATELET VOLUME (BEAKER) (test vhlp=076) 9.5 fL 9.4-12.3 NUCLEATED RED BLOOD CELLS (BEAKER) (test 0 /100 WBC 0-0 bctd=757) (MANUAL DIFFERENTIAL)2018-09-06 08:18:00 Test Item Value Reference Range Comments NEUTROPHILS - REL (DIFF) (BEAKER) (test zbpo=2151) 74 % LYMPHOCYTES - REL (DIFF) (BEAKER) (test odgj=9897) 10 % MONOCYTES - REL (DIFF) (BEAKER) (test kyha=4966) 7 % EOSINOPHILS - REL (DIFF) (BEAKER) (test xmck=6431) 4 % BASOPHILS - REL (DIFF) (BEAKER) (test rplb=2829) 0 % METAMYELOCYTES-REL (DIFF) (BEAKER) (test dfgd=120) 2 % 0-0 MYELOCYTES-REL (DIFF) (BEAKER) (test slel=3587) 2 % 0-0 BANDS - REL (DIFF) (BEAKER) (test jebi=2707) 1 % 0-10 NEUTROPHILS - ABS (DIFF) (BEAKER) (test vbea=5828) 6.36 K/ L 1.80-8.00 LYMPHOCYTES - ABS (DIFF) (BEAKER) (test hmtc=7623) 0.86 K/ L 1.48-4.50 MONOCYTES - ABS (DIFF) (BEAKER) (test xsiv=2502) 0.60 K/ L 0.00-1.30 EOSINOPHILS - ABS (DIFF) (BEAKER) (test ibym=1667) 0.34 K/ L 0.00-0.50 BASOPHILS - ABS (DIFF) (BEAKER) (test ocju=9081) 0.00 K/ L 0.00-0.20 METAMYELOCTYES - ABS (DIFF) (BEAKER) (test 0.17 K/ L 0.00-0.00 nrmg=730) BANDS-ABS (DIFF) (BEAKER) (test tsay=4397) 0.1 K/ L 0.0-0.8 MYELOCYTES-ABS (DIFF) (BEAKER) (test tdsv=2203) 0.17 K/ L 0.00-0.00 TOTAL COUNTED (BEAKER) (test ycnc=9437) 100 BANDS + SEGMENTED NEUTROPHILS (BEAKER) (test 6.45 vlpj=6080) WBC MORPHOLOGY (BEAKER) (test uokn=638) Normal PLT MORPHOLOGY (BEAKER) (test kcvh=625) Normal ANISOCYTOSIS (BEAKER) (test ufsq=948) 1+ few HYPOCHROMIA (BEAKER) (test nxfc=122) 1+ few POLYCHROMATOPHILLIC RBCS(BEAKER) (test fugs=326) 1+ few BLOOD [id number] 08:01:00 Test Item Value Reference Range Comments CULTURE (BEAKER) (test lsyr=5675) No growth in 5 days BLOOD [id number] 08:01:00 Test Item Value Reference Range Comments CULTURE (BEAKER) (test unij=5039) No growth in 5 days COMPREHENSIVE METABOLIC [id number] 05:56:00 Test Item Value Reference Range Comments TOTAL PROTEIN (BEAKER) 4.7 gm/dL 6.0-8.3 (test tmes=041) ALBUMIN (BEAKER) (test 2.1 g/dL 3.5-5.0 xtnm=5743) ALKALINE PHOSPHATASE 197 U/L 40-150 (BEAKER) (test psjr=233) BILIRUBIN TOTAL (BEAKER) 1.1 mg/dL 0.2-1.2 (test zhjv=637) SODIUM (BEAKER) (test 135 meq/L 136-145 xtkv=138) POTASSIUM (BEAKER) (test 3.4 meq/L 3.5-5.1 beus=821) CHLORIDE (BEAKER) (test 106 meq/L 98-107 iwod=241) CO2 (BEAKER) (test 25 meq/L 22-29 wukp=729) BLOOD UREA NITROGEN 6 mg/dL 7-21 (BEAKER) (test fugc=671) CREATININE (BEAKER) (test 0.44 mg/dL 0.57-1.25 miyu=637) GLUCOSE RANDOM (BEAKER) 78 mg/dL 70-105 (test rata=631) CALCIUM (BEAKER) (test 7.4 mg/dL 8.4-10.2 vuav=396) AST (SGOT) (BEAKER) (test 258 U/L 5-34 zukq=141) ALT (SGPT) (BEAKER) (test 150 U/L 6-55 npxb=301) EGFR (BEAKER) (test 142 mL/min/1.73 sq ESTIMATED GFR IS NOT tlvw=1150) m ACCURATE CREATININE CLEARANCE IN PREDICTING GLOMERULAR FILTRATION RATE. ESTIMATED GFR IS NOT APPLICABLE FOR DIALYSIS PATIENTS. [id number] 05:44:00 Test Item Value Reference Range Comments PHOSPHORUS (BEAKER) (test cjeg=047) 2.5 mg/dL 2.3-4.7 [id number] 05:44:00 Test Item Value Reference Range Comments MAGNESIUM (BEAKER) (test arpr=569) 2.0 mg/dL 1.6-2.6 POCT-GLUCOSE [id number] 21:24:00 Test Item Value Reference Range Comments POC-GLUCOSE METER (BEAKER) 102 mg/dL 70-110 TESTED AT [address] (test okml=5495) [facility] [address] [id number] 19:00:00 Test Item Value Reference Range Comments PHOSPHORUS (BEAKER) (test gvnc=936) 2.6 mg/dL 2.3-4.7 [id number] 19:00:00 Test Item Value Reference Range Comments MAGNESIUM (BEAKER) (test weqq=366) 1.4 mg/dL 1.6-2.6 POCT-GLUCOSE [id number] 16:29:00 Test Item Value Reference Range Comments POC-GLUCOSE METER (BEAKER) 113 mg/dL 70-110 TESTED AT [address] (test eitg=2809) [facility] [address] POCT-GLUCOSE [id number] 12:57:00 Test Item Value Reference Range Comments POC-GLUCOSE METER (BEAKER) 97 mg/dL 70-[address] [facility] [address] [facility] (test sulm=2198) [facility] [address] POCT-GLUCOSE [id number] 11:08:00 Test Item Value Reference Range Comments POC-GLUCOSE METER (BEAKER) 104 mg/dL 70-[address] [facility] [address] [facility] (test ilnb=4960) [facility] [address] COMPREHENSIVE METABOLIC [id number] 09:16:00 Test Item Value Reference Range Comments TOTAL PROTEIN (BEAKER) 4.8 gm/dL 6.0-8.3 (test xwxi=666) ALBUMIN (BEAKER) (test 2.4 g/dL 3.5-5.0 ezxe=6277) ALKALINE PHOSPHATASE 137 U/L 40-150 (BEAKER) (test ygtj=546) BILIRUBIN TOTAL (BEAKER) 1.2 mg/dL 0.2-1.2 (test zauf=501) SODIUM (BEAKER) (test 136 meq/L 136-145 bxio=581) POTASSIUM (BEAKER) (test 3.8 meq/L 3.5-5.1 rohy=307) CHLORIDE (BEAKER) (test 107 meq/L 98-107 vkpb=543) CO2 (BEAKER) (test 23 meq/L 22-29 vkja=554) BLOOD UREA NITROGEN 7 mg/dL 7-21 (BEAKER) (test vntx=503) CREATININE (BEAKER) (test 0.53 mg/dL 0.57-1.25 uism=403) GLUCOSE RANDOM (BEAKER) 101 mg/dL 70-105 (test uugu=504) CALCIUM (BEAKER) (test 7.6 mg/dL 8.4-10.2 uwsj=301) AST (SGOT) (BEAKER) (test 186 U/L 5-34 xcqe=910) ALT (SGPT) (BEAKER) (test 148 U/L 6-55 qzxb=063) EGFR (BEAKER) (test 115 mL/min/1.73 sq ESTIMATED GFR IS NOT jovu=3324) m ACCURATE CREATININE CLEARANCE IN PREDICTING GLOMERULAR FILTRATION RATE. ESTIMATED GFR IS NOT APPLICABLE FOR DIALYSIS PATIENTS. CBC W/PLT COUNT & AUTO [id number] 07:17:00 Test Item Value Reference Range Comments WHITE BLOOD CELL COUNT (BEAKER) (test suvz=357) 10.0 K/ L 3.5-10.5 RED BLOOD CELL COUNT (BEAKER) (test ktjh=194) 3.16 M/ L 3.93-5.22 HEMOGLOBIN (BEAKER) (test nwya=635) 8.8 GM/DL 11.2-15.7 HEMATOCRIT (BEAKER) (test jecl=396) 27.8 % 34.1-44.9 MEAN CORPUSCULAR VOLUME (BEAKER) (test nxxz=902) 88.0 fL 79.4-94.8 MEAN CORPUSCULAR HEMOGLOBIN (BEAKER) (test 27.8 pg 25.6-32.2 hflp=956) MEAN CORPUSCULAR HEMOGLOBIN CONC (BEAKER) (test 31.7 GM/DL 32.2-35.5 smyn=288) RED CELL DISTRIBUTION WIDTH (BEAKER) (test 17.8 % 11.7-14.4 nwza=787) PLATELET COUNT (BEAKER) (test xjfc=350) 248 K/CU MM 150-450 MEAN PLATELET VOLUME (BEAKER) (test hgyh=546) 9.4 fL 9.4-12.3 NUCLEATED RED BLOOD CELLS (BEAKER) (test 0 /100 WBC 0-0 epmk=063) (CELLAVISION MANUAL DIFF)2018-09-05 07:17:00 Test Item Value Reference Range Comments NEUTROPHILS - REL (CELLAVISION)(BEAKER) (test 81 % fobn=8514) LYMPHOCYTES - REL (CELLAVISION)(BEAKER) (test 7 % mwkh=9209) MONOCYTES - REL (CELLAVISION)(BEAKER) (test 4 % fngk=4569) EOSINOPHILS - REL (CELLAVISION)(BEAKER) (test 2 % tuuy=5181) BASOPHILS - REL (CELLAVISION)(BEAKER) (test 2 % uitv=0206) BANDS - REL (CELLAVISION)(BEAKER) (test daty=9833) 3 % 0-10 NEUTROPHILS - ABS (CELLAVISION)(BEAKER) (test 8.10 K/ul 1.56-6.13 sbid=9757) LYMPHOCYTES - ABS (CELLAVISION)(BEAKER) (test 0.70 K/ul 1.18-3.74 kicb=5869) MONOCYTES - ABS (CELLAVISION)(BEAKER) (test 0.40 K/uL 0.24-0.36 rjxl=1568) EOSINOPHILS - ABS (CELLAVISION)(BEAKER) (test 0.20 K/uL 0.04-0.36 dhbt=6617) BASOPHILS - ABS (CELLAVISION)(BEAKER) (test 0.20 K/uL 0.01-0.08 iloy=0425) BANDS - ABS (CELLAVISION)(BEAKER) (test zwop=8665) 0.30 K/uL 0.00-0.80 TOTAL COUNTED (BEAKER) (test hgie=2387) 100 RBC MORPHOLOGY (BEAKER) (test fpzj=947) Normal WBC MORPHOLOGY (BEAKER) (test ucsm=753) Normal PLT MORPHOLOGY (BEAKER) (test xmgk=277) Normal ARTIFACT (CELLAVISION)(BEAKER) (test zcca=3072) Present PLATELET CONCENTRATION (CELLAVISION)(BEAKER) (test Adequate edxt=5153) Received comment: User comments: Slide comments:POCT-GLUCOSE [id number] 00: 17:00 Test Item Value Reference Range Comments POC-GLUCOSE METER (BEAKER) 120 mg/dL 70-110 TESTED AT [address] (test hmms=1421) [place] [id number] POCT-GLUCOSE [id number] 18:46:00 Test Item Value Reference Range Comments POC-GLUCOSE METER (BEAKER) 139 mg/dL 70-110 TESTED AT [address] (test ekcr=1104) [place] [id number] POCT-GLUCOSE [id number] 13:25:00 Test Item Value Reference Range Comments POC-GLUCOSE METER (BEAKER) 157 mg/dL 70-110 TESTED AT [address] (test odvx=3311) [place] [address] POCT-GLUCOSE [id number] 05:55:00 Test Item Value Reference Range Comments POC-GLUCOSE METER (BEAKER) 162 mg/dL 70-110 TESTED AT [address] (test uuda=5412) [place] [id number] CBC W/PLT COUNT & AUTO [id number] 05:17:00 Test Item Value Reference Range Comments WHITE BLOOD CELL COUNT (BEAKER) (test vhrs=427) 8.7 K/ L 3.5-10.5 RED BLOOD CELL COUNT (BEAKER) (test iugb=395) 3.89 M/ L 3.93-5.22 HEMOGLOBIN (BEAKER) (test daep=177) 10.8 GM/DL 11.2-15.7 HEMATOCRIT (BEAKER) (test auos=963) 33.7 % 34.1-44.9 MEAN CORPUSCULAR VOLUME (BEAKER) (test fpub=577) 86.6 fL 79.4-94.8 MEAN CORPUSCULAR HEMOGLOBIN (BEAKER) (test 27.8 pg 25.6-32.2 odzq=814) MEAN CORPUSCULAR HEMOGLOBIN CONC (BEAKER) (test 32.0 GM/DL 32.2-35.5 injx=373) RED CELL DISTRIBUTION WIDTH (BEAKER) (test 17.0 % 11.7-14.4 igpb=575) PLATELET COUNT (BEAKER) (test iwmy=724) 293 K/CU MM 150-450 MEAN PLATELET VOLUME (BEAKER) (test ovut=229) 9.5 fL 9.4-12.3 NUCLEATED RED BLOOD CELLS (BEAKER) (test 0 /100 WBC 0-0 diva=024) (CELLAVISION MANUAL DIFF)2018-09-04 05:17:00 Test Item Value Reference Range Comments NEUTROPHILS - REL (CELLAVISION)(BEAKER) (test 57 % hags=9018) LYMPHOCYTES - REL (CELLAVISION)(BEAKER) (test 6 % fqol=3858) MONOCYTES - REL (CELLAVISION)(BEAKER) (test 14 % qrmo=7681) METAMYELOCYTES - REL (CELLAVISION)(BEAKER) (test 2 % 0-0 zltg=9987) PROMYELOCYTES - REL (CELLAVSION)(BEAKER) (test 2 % 0-0 hxpr=1349) BANDS - REL (CELLAVISION)(BEAKER) (test 19 % 0-10 mgzp=8036) NEUTROPHILS - ABS (CELLAVISION)(BEAKER) (test 4.96 K/ul 1.56-6.13 gnuj=2307) LYMPHOCYTES - ABS (CELLAVISION)(BEAKER) (test 0.52 K/ul 1.18-3.74 zelh=3547) MONOCYTES - ABS (CELLAVISION)(BEAKER) (test 1.22 K/uL 0.24-0.36 qicu=6072) METAMYELOCYTES - ABS (CELLAVISION)(BEAKER) (test 0.17 K/uL 0.00-0.00 dgga=6807) PROMYELOCYTES - ABS (CELLAVISION)(BEAKER) (test 0.17 K/uL 0.00-0.00 rsem=0488) BANDS - ABS (CELLAVISION)(BEAKER) (test 1.65 K/uL 0.00-0.80 osim=5044) TOTAL COUNTED (BEAKER) (test brxe=4634) 100 PLT MORPHOLOGY (BEAKER) (test tkih=141) Normal SMUDGE CELLS (BEAKER) (test olct=2080) Present POIKILOCYTES (BEAKER) (test uxwx=122) 2+ moderate SCHISTOCYTES (BEAKER) (test skza=565) 1+ few SPHEROCYTES (BEAKER) (test laes=415) 1+ few ELLIPTOCYTES (BEAKER) (test hjrx=212) 1+ few OVALOCYTES (BEAKER) (test mxjz=704) 1+ few STOMATOCYTES (BEAKER) (test slle=207) 1+ few ACANTHOCYTES (BEAKER) (test dltu=466) 1+ few JACK CELLS (BEAKER) (test jtez=987) 1+ few PLATELET CONCENTRATION (CELLAVISION)(BEAKER) Adequate (test uyai=5950) Received comment: User comments: Slide comments:COMPREHENSIVE METABOLIC [id number] 04:54:00 Test Item Value Reference Range Comments TOTAL PROTEIN (BEAKER) 5.1 gm/dL 6.0-8.3 (test ezow=839) ALBUMIN (BEAKER) (test 2.7 g/dL 3.5-5.0 vmok=0963) ALKALINE PHOSPHATASE 116 U/L 40-150 (BEAKER) (test lxgu=676) BILIRUBIN TOTAL (BEAKER) 1.5 mg/dL 0.2-1.2 (test qryc=336) SODIUM (BEAKER) (test 137 meq/L 136-145 guqq=798) POTASSIUM (BEAKER) (test 4.0 meq/L 3.5-5.1 idkv=259) CHLORIDE (BEAKER) (test 109 meq/L 98-107 annx=498) CO2 (BEAKER) (test 20 meq/L 22-29 mcnw=151) BLOOD UREA NITROGEN 5 mg/dL 7-21 (BEAKER) (test mwim=809) CREATININE (BEAKER) (test 0.51 mg/dL 0.57-1.25 gvwl=479) GLUCOSE RANDOM (BEAKER) 176 mg/dL 70-105 (test udxz=977) CALCIUM (BEAKER) (test 8.0 mg/dL 8.4-10.2 ijkk=894) AST (SGOT) (BEAKER) (test 142 U/L 5-34 zvcp=641) ALT (SGPT) (BEAKER) (test 164 U/L 6-55 kdpg=018) EGFR (BEAKER) (test 120 mL/min/1.73 sq ESTIMATED GFR IS NOT iljh=8887) m ACCURATE CREATININE CLEARANCE IN PREDICTING GLOMERULAR FILTRATION RATE. ESTIMATED GFR IS NOT APPLICABLE FOR DIALYSIS PATIENTS. POCT-GLUCOSE [id number] 00:04:00 Test Item Value Reference Range Comments POC-GLUCOSE METER (BEAKER) 185 mg/dL 70-[address] [facility] [address] [facility] (test gimw=9568) [facility] [address] BLOOD GAS, [id number] 18:05:00 Test Item Value Reference Range Comments PH ARTERIAL (BEAKER) (test eood=945) 7.40 7.35-7.45 PCO2 ARTERIAL (BEAKER) (test uzmz=662) 37 mmHg 35-45 PO2 ARTERIAL (BEAKER) (test oyvp=697) 280 mmHg 80-90 O2 SATURATION ARTERIAL (BEAKER) (test pahu=604) 99.7 % 96.0-97.0 HCO3 ARTERIAL (BEAKER) (test ihgp=464) 23 mmol/L 21-29 BASE EXCESS ARTERIAL (BEAKER) (test avkr=433) -2.1 mmol/L -2.0-3.0 PATIENT TEMPERATURE (BEAKER) (test zbhy=0876) 36.6 C FIO2 (BEAKER) (test jeuf=1616) 44.0 % HEMOGLOBIN AND [id number] 18:02:00 Test Item Value Reference Range Comments HEMOGLOBIN (BEAKER) (test ozcs=403) 10.4 GM/DL 11.2-15.7 HEMATOCRIT (BEAKER) (test kmbz=716) 32.3 % 34.1-44.9 SODIUM NA-STAT [id number] 16:28:00 Test Item Value Reference Range Comments SODIUM (BEAKER) (test tebl=226) 134 meq/L 135-148 36.6GLUCOSE-STAT [id number] 16:28:00 Test Item Value Reference Range Comments GLUCOSE RANDOM (BEAKER) (test iuah=849) 151 mg/dL 70-110 36.6HGB/HCT (H&H) - STAT [id number] 16:28:00 Test Item Value Reference Range Comments HEMOGLOBIN (BEAKER) (test zjxv=011) 10.1 g/dL 12.0-15.0 HEMATOCRIT (BEAKER) (test byxw=531) 30.0 % 36.0-45.0 36.6BLOOD GAS, [id number] 16:28:00 Test Item Value Reference Range Comments PH ARTERIAL (BEAKER) (test relg=288) 7.23 7.35-7.45 PCO2 ARTERIAL (BEAKER) (test lmvv=906) 46 mmHg 35-45 PO2 ARTERIAL (BEAKER) (test tlwz=896) 205 mmHg 80-90 O2 SATURATION ARTERIAL (BEAKER) (test xmwf=511) 99.2 % 96.0-97.0 HCO3 ARTERIAL (BEAKER) (test yjmp=580) 19 mmol/L 21-29 BASE EXCESS ARTERIAL (BEAKER) (test bykm=791) -8.6 mmol/L -2.0-3.0 PATIENT TEMPERATURE (BEAKER) (test nccl=9243) 36.6 C FIO2 (BEAKER) (test zzwj=2022) 50.0 % 36.6CALCIUM, [id number] 16:26:00 Test Item Value Reference Range Comments CALCIUM IONIZED (BEAKER) (test tipl=856) 1.26 mmol/L 1.12-1.27 PH, BLOOD (BEAKER) (test pcqc=3745) 7.22 POTASSIUM-STAT [id number] 16:25:00 Test Item Value Reference Range Comments POTASSIUM (BEAKER) (test wium=279) 3.9 meq/L 3.6-5.5 36.6CALCIUM, [id number] 15:12:00 Test Item Value Reference Range Comments CALCIUM IONIZED (BEAKER) (test saln=026) 1.09 mmol/L 1.12-1.27 PH, BLOOD (BEAKER) (test ddrp=9708) 7.37 BLOOD GAS, [id number] 15:12:00 Test Item Value Reference Range Comments PH ARTERIAL (BEAKER) (test haod=463) 7.38 7.35-7.45 PCO2 ARTERIAL (BEAKER) (test krpf=479) 34 mmHg 35-45 PO2 ARTERIAL (BEAKER) (test wpin=742) 238 mmHg 80-90 O2 SATURATION ARTERIAL (BEAKER) (test rtrl=113) 99.5 % 96.0-97.0 HCO3 ARTERIAL (BEAKER) (test bzoj=366) 20 mmol/L 21-29 BASE EXCESS ARTERIAL (BEAKER) (test etiw=829) -5.2 mmol/L -2.0-3.0 PATIENT TEMPERATURE (BEAKER) (test mhyd=4676) 36.7 C FIO2 (BEAKER) (test mubw=1867) 55.0 % SODIUM NA-STAT [id number] 15:12:00 Test Item Value Reference Range Comments SODIUM (BEAKER) (test qnfn=089) 133 meq/L 135-148 GLUCOSE-STAT [id number] 15:12:00 Test Item Value Reference Range Comments GLUCOSE RANDOM (BEAKER) (test kzgp=468) 130 mg/dL 70-110 HGB/HCT (H&H) - STAT [id number] 15:12:00 Test Item Value Reference Range Comments HEMOGLOBIN (BEAKER) (test rxeb=170) 7.3 g/dL 12.0-15.0 HEMATOCRIT (BEAKER) (test lrxu=424) 21.0 % 36.0-45.0 POTASSIUM-STAT [id number] 15:10:00 Test Item Value Reference Range Comments POTASSIUM (BEAKER) (test wzus=625) 3.9 meq/L 3.6-5.5 POCT-GLUCOSE [id number] 13:09:00 Test Item Value Reference Range Comments POC-GLUCOSE METER (BEAKER) 98 mg/dL 70-[address] [facility] [address] (test riju=0390) [facility] [address] POCT-GLUCOSE [id number] 11:06:00 Test Item Value Reference Range Comments POC-GLUCOSE METER (BEAKER) 143 mg/dL 70-[address] [facility] [address] [facility] (test eber=9406) [facility] [address] POCT-GLUCOSE [id number] 09:43:00 Test Item Value Reference Range Comments POC-GLUCOSE METER (BEAKER) 68 mg/dL 70-110 TESTED AT [address] (test qsvp=8687) [facility] [address] URINE [id number] 09:10:00 Test Item Value Reference Range Comments CULTURE (BEAKER) (test gmdm=5341) No growth GRAM STAIN RESULT (BEAKER) (test No White blood cells seen qfeo=5458) GRAM STAIN RESULT (BEAKER) (test No organisms seen rrcr=49516) CBC W/PLT COUNT & AUTO [id number] 07:07:00 Test Item Value Reference Range Comments WHITE BLOOD CELL COUNT (BEAKER) (test fcon=275) 6.1 K/ L 3.5-10.5 RED BLOOD CELL COUNT (BEAKER) (test qkky=612) 3.53 M/ L 3.93-5.22 HEMOGLOBIN (BEAKER) (test rvut=302) 9.2 GM/DL 11.2-15.7 HEMATOCRIT (BEAKER) (test ujla=057) 30.0 % 34.1-44.9 MEAN CORPUSCULAR VOLUME (BEAKER) (test xwxw=715) 85.0 fL 79.4-94.8 MEAN CORPUSCULAR HEMOGLOBIN (BEAKER) (test 26.1 pg 25.6-32.2 dyjv=084) MEAN CORPUSCULAR HEMOGLOBIN CONC (BEAKER) (test 30.7 GM/DL 32.2-35.5 hqfl=865) RED CELL DISTRIBUTION WIDTH (BEAKER) (test 17.5 % 11.7-14.4 dqbb=048) PLATELET COUNT (BEAKER) (test ygql=037) 298 K/CU MM 150-450 MEAN PLATELET VOLUME (BEAKER) (test hixp=892) 9.8 fL 9.4-12.3 NUCLEATED RED BLOOD CELLS (BEAKER) (test 0 /100 WBC 0-0 kbhx=674) (CELLAVISION MANUAL DIFF)2018-09-03 07:07:00 Test Item Value Reference Range Comments NEUTROPHILS - REL (CELLAVISION)(BEAKER) (test 65 % liqv=3062) LYMPHOCYTES - REL (CELLAVISION)(BEAKER) (test 15 % epnf=8821) MONOCYTES - REL (CELLAVISION)(BEAKER) (test 10 % qxkr=1463) BANDS - REL (CELLAVISION)(BEAKER) (test evvl=4883) 9 % 0-10 ATYPICAL LYMPHOCYTES - REL (CELLAVISION)(BEAKER) 1 % 0-0 (test utur=9660) NEUTROPHILS - ABS (CELLAVISION)(BEAKER) (test 3.97 K/ul 1.56-6.13 ygcg=8331) LYMPHOCYTES - ABS (CELLAVISION)(BEAKER) (test 0.92 K/ul 1.18-3.74 lhjv=9683) MONOCYTES - ABS (CELLAVISION)(BEAKER) (test 0.61 K/uL 0.24-0.36 bzvj=5708) BANDS - ABS (CELLAVISION)(BEAKER) (test ivhz=9509) 0.55 K/uL 0.00-0.80 ATYPICAL LYMPHOCYTES - ABS (CELLAVISION)(BEAKER) 0.06 K/uL 0.00-0.00 (test jlrz=8323) TOTAL COUNTED (BEAKER) (test kucy=9801) 100 WBC MORPHOLOGY (BEAKER) (test uzjg=798) Normal PLT MORPHOLOGY (BEAKER) (test btbm=503) Normal POLYCHROMATOPHILLIC RBCS(BEAKER) (test tmfh=236) 1+ few ANISOCYTOSIS (BEAKER) (test bvlb=915) 1+ few POIKILOCYTES (BEAKER) (test ofhn=433) 1+ few OVALOCYTES (BEAKER) (test qanb=107) 1+ few TEAR DROP CELLS (BEAKER) (test ccjq=725) 1+ few ARTIFACT (CELLAVISION)(BEAKER) (test nqdc=0584) Present PLATELET CONCENTRATION (CELLAVISION)(BEAKER) (test Adequate toff=2839) Received comment: User comments: Slide comments: WBC: SEGMENTED WITH TOXIC GRANULATIONS PRESENTCOMPREHENSIVE METABOLIC [id number] 06:21:00 Test Item Value Reference Range Comments TOTAL PROTEIN (BEAKER) 6.1 gm/dL 6.0-8.3 (test uvgj=152) ALBUMIN (BEAKER) (test 2.5 g/dL 3.5-5.0 syla=3192) ALKALINE PHOSPHATASE 236 U/L 40-150 (BEAKER) (test pgdd=866) BILIRUBIN TOTAL (BEAKER) 1.5 mg/dL 0.2-1.2 (test uipe=492) SODIUM (BEAKER) (test 131 meq/L 136-145 igri=995) POTASSIUM (BEAKER) (test 3.9 meq/L 3.5-5.1 apfu=430) CHLORIDE (BEAKER) (test 100 meq/L 98-107 nlzj=659) CO2 (BEAKER) (test 23 meq/L 22-29 fezo=325) BLOOD UREA NITROGEN 3 mg/dL 7-21 (BEAKER) (test wfjg=082) CREATININE (BEAKER) (test 0.49 mg/dL 0.57-1.25 ncul=953) GLUCOSE RANDOM (BEAKER) 73 mg/dL 70-105 (test ruzy=454) CALCIUM (BEAKER) (test 7.9 mg/dL 8.4-10.2 cjai=865) AST (SGOT) (BEAKER) (test 412 U/L 5-34 bect=685) ALT (SGPT) (BEAKER) (test 342 U/L 6-55 acuo=534) EGFR (BEAKER) (test 126 mL/min/1.73 sq ESTIMATED GFR IS NOT otph=7164) m ACCURATE CREATININE CLEARANCE IN PREDICTING GLOMERULAR FILTRATION RATE. ESTIMATED GFR IS NOT APPLICABLE FOR DIALYSIS PATIENTS. POCT-GLUCOSE [id number] 21:43:00 Test Item Value Reference Range Comments POC-GLUCOSE METER (BEAKER) 88 mg/dL 70-110 TESTED AT [address] (test mlsq=0571) [facility] [address] POCT-GLUCOSE [id number] 16:33:00 Test Item Value Reference Range Comments POC-GLUCOSE METER (BEAKER) 77 mg/dL 70-110 TESTED AT [address] (test krqp=0902) [place] [id number] POCT-GLUCOSE [id number] 12:44:00 Test Item Value Reference Range Comments POC-GLUCOSE METER (BEAKER) 88 mg/dL 70-[address] [facility] [address] [facility] (test xyvd=5660) [facility] [address] POCT-GLUCOSE [id number] 09:34:00 Test Item Value Reference Range Comments POC-GLUCOSE METER (BEAKER) 96 mg/dL 70-110 TESTED AT [address] (test fvck=9465) [facility] [address] CBC W/PLT COUNT & AUTO [id number] 08:20:00 Test Item Value Reference Range Comments WHITE BLOOD CELL COUNT (BEAKER) (test jrpu=167) 5.3 K/ L 3.5-10.5 RED BLOOD CELL COUNT (BEAKER) (test otpg=446) 3.47 M/ L 3.93-5.22 HEMOGLOBIN (BEAKER) (test lhon=981) 9.2 GM/DL 11.2-15.7 HEMATOCRIT (BEAKER) (test inwn=271) 29.8 % 34.1-44.9 MEAN CORPUSCULAR VOLUME (BEAKER) (test vdvz=113) 85.9 fL 79.4-94.8 MEAN CORPUSCULAR HEMOGLOBIN (BEAKER) (test 26.5 pg 25.6-32.2 yrlk=953) MEAN CORPUSCULAR HEMOGLOBIN CONC (BEAKER) (test 30.9 GM/DL 32.2-35.5 zhhj=881) RED CELL DISTRIBUTION WIDTH (BEAKER) (test 17.7 % 11.7-14.4 ptvd=938) PLATELET COUNT (BEAKER) (test afia=547) 259 K/CU MM 150-450 MEAN PLATELET VOLUME (BEAKER) (test jabq=865) 10.1 fL 9.4-12.3 NUCLEATED RED BLOOD CELLS (BEAKER) (test 0 /100 WBC 0-0 lbbu=798) (CELLAVISION MANUAL DIFF)2018-09-02 08:20:00 Test Item Value Reference Range Comments NEUTROPHILS - REL (CELLAVISION)(BEAKER) (test 71 % lnlz=1714) LYMPHOCYTES - REL (CELLAVISION)(BEAKER) (test 11 % ezgh=4490) MONOCYTES - REL (CELLAVISION)(BEAKER) (test 6 % bvqz=6002) EOSINOPHILS - REL (CELLAVISION)(BEAKER) (test 3 % qcfg=0639) BASOPHILS - REL (CELLAVISION)(BEAKER) (test 4 % jamu=1523) PROMYELOCYTES - REL (CELLAVSION)(BEAKER) (test 1 % 0-0 gzda=4912) BANDS - REL (CELLAVISION)(BEAKER) (test 1 % 0-10 yuti=2709) ATYPICAL LYMPHOCYTES - REL (CELLAVISION)(BEAKER) 2 % 0-0 (test vtiv=8096) NEUTROPHILS - ABS (CELLAVISION)(BEAKER) (test 3.76 K/ul 1.56-6.13 zuml=7862) LYMPHOCYTES - ABS (CELLAVISION)(BEAKER) (test 0.58 K/ul 1.18-3.74 sbus=0468) MONOCYTES - ABS (CELLAVISION)(BEAKER) (test 0.32 K/uL 0.24-0.36 ezxs=9058) EOSINOPHILS - ABS (CELLAVISION)(BEAKER) (test 0.16 K/uL 0.04-0.36 rhtj=1867) BASOPHILS - ABS (CELLAVISION)(BEAKER) (test 0.21 K/uL 0.01-0.08 ewbz=5528) PROMYELOCYTES - ABS (CELLAVISION)(BEAKER) (test 0.05 K/uL 0.00-0.00 qltq=8656) BANDS - ABS (CELLAVISION)(BEAKER) (test 0.05 K/uL 0.00-0.80 ypwk=8102) ATYPICAL LYMPHOCYTES - ABS (CELLAVISION)(BEAKER) 0.11 K/uL 0.00-0.00 (test lbuu=8324) TOTAL COUNTED (BEAKER) (test basw=8642) 100 MANUAL NRBC PER 100 CELLS (BEAKER) (test 2 /100 WBC 0-0 hten=5967) PLT MORPHOLOGY (BEAKER) (test uskg=088) Normal SMUDGE CELLS (BEAKER) (test icew=9981) Present HYPOCHROMIA (BEAKER) (test ottq=373) 1+ few ANISOCYTOSIS (BEAKER) (test yvdv=155) 1+ few SCHISTOCYTES (BEAKER) (test dudv=937) 1+ few PLATELET CONCENTRATION (CELLAVISION)(BEAKER) Adequate (test swqb=4460) Received comment: User comments: Slide comments:COMPREHENSIVE METABOLIC [id number] 06:19:00 Test Item Value Reference Range Comments TOTAL PROTEIN (BEAKER) 5.6 gm/dL 6.0-8.3 (test vqsk=845) ALBUMIN (BEAKER) (test 2.4 g/dL 3.5-5.0 nstq=7832) ALKALINE PHOSPHATASE 194 U/L 40-150 (BEAKER) (test rics=500) BILIRUBIN TOTAL (BEAKER) 1.4 mg/dL 0.2-1.2 (test rpna=644) SODIUM (BEAKER) (test 136 meq/L 136-145 ndhd=424) POTASSIUM (BEAKER) (test 4.2 meq/L 3.5-5.1 wded=173) CHLORIDE (BEAKER) (test 103 meq/L 98-107 cyyr=800) CO2 (BEAKER) (test 28 meq/L 22-29 bzcp=923) BLOOD UREA NITROGEN 3 mg/dL 7-21 (BEAKER) (test dakp=942) CREATININE (BEAKER) (test 0.48 mg/dL 0.57-1.25 prcv=791) GLUCOSE RANDOM (BEAKER) 79 mg/dL 70-105 (test uvjr=369) CALCIUM (BEAKER) (test 8.1 mg/dL 8.4-10.2 zahk=994) AST (SGOT) (BEAKER) (test 595 U/L 5-34 uyzi=753) ALT (SGPT) (BEAKER) (test 403 U/L 6-55 uqyv=411) EGFR (BEAKER) (test 129 mL/min/1.73 sq ESTIMATED GFR IS NOT jucr=5368) m ACCURATE CREATININE CLEARANCE IN PREDICTING GLOMERULAR FILTRATION RATE. ESTIMATED GFR IS NOT APPLICABLE FOR DIALYSIS PATIENTS. POCT-GLUCOSE [id number] 22:05:00 Test Item Value Reference Range Comments POC-GLUCOSE METER (BEAKER) 96 mg/dL 70-[address] [facility] [address] [facility] (test ovtn=6677) [facility] [address] CMV PCR, [id number] 15:13:00 Test Item Value Reference Range Comments CMV VIRAL LOAD - NEGATIVE Negative or below the linear (BEAKER) (test oxgd=1947) range of the assay (<375 copies/mL) Cytomegalovirus [...] and its performance characteristics determined by the [facility]ology Department, Section of Molecular Pathology. It has not been cleared or approved by the U.S. Food and Drug Administration (FDA), since FDA approval is not required for clinical use of the test. Validation was done as required by The Clinical Laboratory Improvement Amendments of 1988.EBV VIRAL [id number] 14:46:00 Test Item Value Reference Range Comments EBV VIRAL LOAD - NEGATIVE Negative or below the linear (BEAKER) (test lrka=1815) range of the assay (<500 copies/mL) "The [...] (2) real-time PCR amplification and detection with QNUR-4-wuadhxst primers and probes. A well- conserved region of the EBNA-1 gene is targeted, along with an internal control sequence used to confirm PCR amplification. Asymptomatic carriers and viral genetic variation, among other factors, can affect the accuracy of nucleic acidtesting; therefore, results should be interpreted in light of clinical data.This test was developed and its performance characteristics determined by the [facility] Pathology Department,Section of Molecular Pathology. It has [...] (2) real-time PCR amplification and detection with CUSN-1-wvuscgwf primers and probes. A well- conserved region of the EBNA-1 gene is targeted, along with an internal control sequence used to confirm PCR amplification. Asymptomatic carriers and viral genetic variation, among other factors, can affect the accuracy of nucleic acid testing; therefore, results should be interpreted in light of clinical data.This test was developed and its performance characteristics determined by the [facility]ology Department, Section of Molecular Pathology. It has not been cleared or approved by the U.S. Food and Drug Administration (FDA), since FDA approval is not required for clinical use of the test. Validation was done as required by The Clinical Laboratory Improvement Amendments of 1988.POCT-GLUCOSE [id number] 08:56:00 Test Item Value Reference Range Comments POC-GLUCOSE METER ([employer] 144 mg/dL 70-[address] [facility] [address] [place] [address] (test gcrn=7961) [facility] [address] HSV 1 AND 2 [id number] 08:52:00 Test Item Value Reference Range Comments HERPES SIMPLEX VIRUS-1 IGG ([employer] (test ygpl=8842) > Al <0.9 HERPES SIMPLES VIRUS-2 IGG ([employer] Fairy Tales[employer]ER) (test suwb=5102) 5.9 Al <0.9 Herpes Simplex Virus 1 IgG Result Interpretation: <0.9 Al Normal 0.9- 1.0 Al Equivocal >/=1.1 Al PositiveHerpes Simplex Virus 2 IgG Result Interpretation <0.9 Al Normal 0.9-1.0 Al Equivocal >/=1.1 Al PositiveCYTOMEGALOVIRUS ANTIBODY, [id number] 08:49:00 Test Item Value Reference Range Comments CYTOMEGALOVIRUS, IGG ([employer] (test kogb=9876) Positive Negative, Equivocal CMV IgG Result Interpretation: </=0.8 Al Negative 0.9-1.0 Al Equivocal &gt ;/=1.1 Al PositiveCYTOMEGALOVIRUS ANTIBODY, [id number] 08:49:00 Test Item Value Reference Range Comments CYTOMEGALOVIRUS IGM ANTIBODY (BEAKER) (test Negative Negative, Equivocal uujs=0146) CMV IgM Result Interpretation: </=0.8 Al Negative 0.9-1.0 Al Equivocal >/=1.1 Al PositiveEBV ANTIBODY, [id number] 08:49:00 Test Item Value Reference Range Comments KATARINA STOKES VIRAL CAPSID ANTIGEN IGG (BEAKER) Positive Negative, Equivocal (test tnrl=2647) Katarina Stokes Viral Capsid Antigen IgG Result Interpretation: </=0.8 Al Negative 0.9-1.0 Al Equivocal >/=1.1 Al PositiveEBV ANTIBODY, [id number] 08:49:00 Test Item Value Reference Range Comments KATARINA STOKES VIRAL CAPSID ANTIGEN IGM (BEAKER) Negative Negative, Equivocal (test kldl=4511) Katarina Stokes Viral Capsid Antigen IgM Result Interpretation: </=0.8 Al Negative 0.9-1.0 Al Equivocal >/=1.1 Al PositiveURINALYSIS W/ REFLEX URINE [id number] 07:10:00 Test Item Value Reference Range Comments COLOR (BEAKER) (test zdnn=330) Yellow CLARITY (BEAKER) (test zayp=472) Clear SPECIFIC GRAVITY UA (BEAKER) (test bvcb=797) 1.004 1.001-1.035 PH UA (BEAKER) (test tvkd=290) 7.0 5.0-8.0 PROTEIN UA (BEAKER) (test zini=357) Negative Negative GLUCOSE UA (BEAKER) (test xrbl=397) Negative Negative KETONES UA (BEAKER) (test dvoc=675) 10 mg/dL Negative BILIRUBIN UA (BEAKER) (test elkw=671) Negative Negative BLOOD UA (BEAKER) (test gado=325) Trace Negative NITRITE UA (BEAKER) (test zhxz=789) Negative Negative LEUKOCYTE ESTERASE UA (BEAKER) (test pmmw=287) Negative Negative UROBILINOGEN UA (BEAKER) (test ianx=319) 6.0 mg/dL 0.2-1.0 RBC UA (BEAKER) (test ldsb=217) 1 /HPF WBC UA (BEAKER) (test jgan=579) 2 /HPF MUCUS (BEAKER) (test krgx=0354) Rare SQUAMOUS EPITHELIAL (BEAKER) (test zerr=438) 1 /HPF SOURCE(BEAKER) (test cpwj=0897) CBC W/PLT COUNT & AUTO [id number] 04:52:00 Test Item Value Reference Range Comments WHITE BLOOD CELL COUNT (BEAKER) (test oqsm=552) 6.7 K/ L 3.5-10.5 RED BLOOD CELL COUNT (BEAKER) (test yqoq=318) 3.34 M/ L 3.93-5.22 HEMOGLOBIN (BEAKER) (test keju=280) 9.0 GM/DL 11.2-15.7 HEMATOCRIT (BEAKER) (test gryv=406) 28.3 % 34.1-44.9 MEAN CORPUSCULAR VOLUME (BEAKER) (test remb=108) 84.7 fL 79.4-94.8 MEAN CORPUSCULAR HEMOGLOBIN (BEAKER) (test 26.9 pg 25.6-32.2 zsji=799) MEAN CORPUSCULAR HEMOGLOBIN CONC (BEAKER) (test 31.8 GM/DL 32.2-35.5 msfv=641) RED CELL DISTRIBUTION WIDTH (BEAKER) (test 17.3 % 11.7-14.4 qbhe=339) PLATELET COUNT (BEAKER) (test qgmr=409) 248 K/CU MM 150-450 MEAN PLATELET VOLUME (BEAKER) (test dyvs=733) 9.8 fL 9.4-12.3 NUCLEATED RED BLOOD CELLS (BEAKER) (test 0 /100 WBC 0-0 ykar=356) (CELLAVISION MANUAL DIFF)2018-09-01 04:52:00 Test Item Value Reference Range Comments NEUTROPHILS - REL (CELLAVISION)(BEAKER) (test 49 % wpjn=2954) LYMPHOCYTES - REL (CELLAVISION)(BEAKER) (test 12 % wcat=6839) MONOCYTES - REL (CELLAVISION)(BEAKER) (test 6 % honf=0374) EOSINOPHILS - REL (CELLAVISION)(BEAKER) (test 1 % ofng=9624) PROMYELOCYTES - REL (CELLAVSION)(BEAKER) (test 1 % 0-0 yvzv=3863) BANDS - REL (CELLAVISION)(BEAKER) (test spki=3376) 27 % 0-10 ATYPICAL LYMPHOCYTES - REL (CELLAVISION)(BEAKER) 4 % 0-0 (test fdmc=8363) NEUTROPHILS - ABS (CELLAVISION)(BEAKER) (test 3.28 K/ul 1.56-6.13 dhyw=3014) LYMPHOCYTES - ABS (CELLAVISION)(BEAKER) (test 0.80 K/ul 1.18-3.74 xzru=8627) MONOCYTES - ABS (CELLAVISION)(BEAKER) (test 0.40 K/uL 0.24-0.36 dfiu=6303) EOSINOPHILS - ABS (CELLAVISION)(BEAKER) (test 0.07 K/uL 0.04-0.36 lzel=1770) PROMYELOCYTES - ABS (CELLAVISION)(BEAKER) (test 0.07 K/uL 0.00-0.00 zyya=0965) BANDS - ABS (CELLAVISION)(BEAKER) (test vusx=6101) 1.81 K/uL 0.00-0.80 ATYPICAL LYMPHOCYTES - ABS (CELLAVISION)(BEAKER) 0.27 K/uL 0.00-0.00 (test hfcl=1080) TOTAL COUNTED (BEAKER) (test ummy=4792) 100 SMUDGE CELLS (BEAKER) (test ychl=4606) Present GIANT PLATELETS (BEAKER) (test tcrw=250) Present HYPOCHROMIA (BEAKER) (test eorb=978) 1+ few ANISOCYTOSIS (BEAKER) (test tsbj=062) 1+ few PLATELET CONCENTRATION (CELLAVISION)(BEAKER) (test Adequate nbiy=7796) Received comment: User comments: Slide comments:COMPREHENSIVE METABOLIC [id number] 04:43:00 Test Item Value Reference Range Comments TOTAL PROTEIN (BEAKER) 6.1 gm/dL 6.0-8.3 (test wsbk=165) ALBUMIN (BEAKER) (test 2.5 g/dL 3.5-5.0 kkob=7544) ALKALINE PHOSPHATASE 199 U/L 40-150 (BEAKER) (test uvis=428) BILIRUBIN TOTAL (BEAKER) 1.3 mg/dL 0.2-1.2 (test vswf=281) SODIUM (BEAKER) (test 135 meq/L 136-145 omve=615) POTASSIUM (BEAKER) (test 3.8 meq/L 3.5-5.1 ydhr=088) CHLORIDE (BEAKER) (test 103 meq/L 98-107 mzwh=433) CO2 (BEAKER) (test 28 meq/L 22-29 hvuw=061) BLOOD UREA NITROGEN 5 mg/dL 7-21 (BEAKER) (test ssrw=074) CREATININE (BEAKER) (test 0.49 mg/dL 0.57-1.25 wgxk=530) GLUCOSE RANDOM (BEAKER) 99 mg/dL 70-105 (test mqqk=674) CALCIUM (BEAKER) (test 7.9 mg/dL 8.4-10.2 tmay=159) AST (SGOT) (BEAKER) (test 368 U/L 5-34 ndqq=566) ALT (SGPT) (BEAKER) (test 349 U/L 6-55 vzbj=712) EGFR (BEAKER) (test 126 mL/min/1.73 sq ESTIMATED GFR IS NOT zesc=7062) m ACCURATE CREATININE CLEARANCE IN PREDICTING GLOMERULAR FILTRATION RATE. ESTIMATED GFR IS NOT APPLICABLE FOR DIALYSIS PATIENTS. POCT-GLUCOSE [id number] 23:17:00 Test Item Value Reference Range Comments POC-GLUCOSE METER (BEAKER) 94 mg/dL 70-110 TESTED AT [address] (test vuty=2174) [facility] [address] POCT-GLUCOSE [id number] 17:38:00 Test Item Value Reference Range Comments POC-GLUCOSE METER (BEAKER) 99 mg/dL 70-110 TESTED AT [address] (test sugl=1776) [facility] [address] POCT-GLUCOSE [id number] 12:40:00 Test Item Value Reference Range Comments POC-GLUCOSE METER (BEAKER) 116 mg/dL 70-110 TESTED AT [address] (test ivhp=9065) [facility] [address] POCT-GLUCOSE [id number] 09:05:00 Test Item Value Reference Range Comments POC-GLUCOSE METER (BEAKER) 124 mg/dL 70-110 TESTED AT [address] (test tvxe=2917) [facility] [address] CT, [id number] 08:51:00FINAL REPORT CT abdomen and pelvis with [...] MDReport Verified Date/Time: 08/31/2018 08:51:21 Reading Location: [facility] Diagnostic Imaging Reading Room - [place] [address] COMPREHENSIVE METABOLIC [id number] 05:47:00 Test Item Value Reference Range Comments TOTAL PROTEIN (BEAKER) 6.2 gm/dL 6.0-8.3 (test deca=913) ALBUMIN (BEAKER) (test 2.6 g/dL 3.5-5.0 xxim=1230) ALKALINE PHOSPHATASE 223 U/L 40-150 (BEAKER) (test zctw=571) BILIRUBIN TOTAL (BEAKER) 1.4 mg/dL 0.2-1.2 (test bmxl=211) SODIUM (BEAKER) (test 131 meq/L 136-145 dxbq=245) POTASSIUM (BEAKER) (test 4.1 meq/L 3.5-5.1 veuy=352) CHLORIDE (BEAKER) (test 101 meq/L 98-107 ljuk=424) CO2 (BEAKER) (test 27 meq/L 22-29 tyyh=551) BLOOD UREA NITROGEN 5 mg/dL 7-21 (BEAKER) (test lupd=145) CREATININE (BEAKER) (test 0.47 mg/dL 0.57-1.25 xkyr=734) GLUCOSE RANDOM (BEAKER) 100 mg/dL 70-105 (test qjzs=054) CALCIUM (BEAKER) (test 8.0 mg/dL 8.4-10.2 emgq=789) AST (SGOT) (BEAKER) (test 446 U/L 5-34 amjh=778) ALT (SGPT) (BEAKER) (test 451 U/L 6-55 kpux=924) EGFR (BEAKER) (test 132 mL/min/1.73 sq ESTIMATED GFR IS NOT czbb=1393) m ACCURATE CREATININE CLEARANCE IN PREDICTING GLOMERULAR FILTRATION RATE. ESTIMATED GFR IS NOT APPLICABLE FOR DIALYSIS PATIENTS. CBC W/PLT COUNT & AUTO [id number] 05:07:00 Test Item Value Reference Range Comments WHITE BLOOD CELL COUNT (BEAKER) (test ihud=085) 8.8 K/ L 3.5-10.5 RED BLOOD CELL COUNT (BEAKER) (test fpwd=976) 3.59 M/ L 3.93-5.22 HEMOGLOBIN (BEAKER) (test zhrf=043) 9.5 GM/DL 11.2-15.7 HEMATOCRIT (BEAKER) (test kgdk=420) 30.4 % 34.1-44.9 MEAN CORPUSCULAR VOLUME (BEAKER) (test jhse=861) 84.7 fL 79.4-94.8 MEAN CORPUSCULAR HEMOGLOBIN (BEAKER) (test 26.5 pg 25.6-32.2 sefo=800) MEAN CORPUSCULAR HEMOGLOBIN CONC (BEAKER) (test 31.3 GM/DL 32.2-35.5 kjla=099) RED CELL DISTRIBUTION WIDTH (BEAKER) (test 17.0 % 11.7-14.4 pwpd=624) PLATELET COUNT (BEAKER) (test rrzq=554) 255 K/CU MM 150-450 MEAN PLATELET VOLUME (BEAKER) (test muuu=819) 10.2 fL 9.4-12.3 NUCLEATED RED BLOOD CELLS (BEAKER) (test 0 /100 WBC 0-0 beyj=416) NEUTROPHILS RELATIVE PERCENT (BEAKER) (test 58 % xpvu=081) LYMPHOCYTES RELATIVE PERCENT (BEAKER) (test 26 % ydii=060) MONOCYTES RELATIVE PERCENT (BEAKER) (test 13 % rfke=980) EOSINOPHILS RELATIVE PERCENT (BEAKER) (test 2 % bnqa=671) BASOPHILS RELATIVE PERCENT (BEAKER) (test 1 % xcky=711) NEUTROPHILS ABSOLUTE COUNT (BEAKER) (test 5.09 K/ L 1.56-6.13 zgzk=550) LYMPHOCYTES ABSOLUTE COUNT (BEAKER) (test 2.27 K/ L 1.18-3.74 jcnv=961) MONOCYTES ABSOLUTE COUNT (BEAKER) (test 1.15 K/ L 0.24-0.36 blsw=706) EOSINOPHILS ABSOLUTE COUNT (BEAKER) (test 0.16 K/ L 0.04-0.36 nori=670) BASOPHILS ABSOLUTE COUNT (BEAKER) (test 0.04 K/ L 0.01-0.08 zrmb=228) IMMATURE GRANULOCYTES-RELATIVE PERCENT (BEAKER) 1 % 0-1 (test gatp=2130) POCT-GLUCOSE [id number] 21:17:00 Test Item Value Reference Range Comments POC-GLUCOSE METER (BEAKER) 154 mg/dL 70-[address] [facility] [address] [facility] (test qouw=6521) [facility] [address] POCT-GLUCOSE [id number] 16:44:00 Test Item Value Reference Range Comments POC-GLUCOSE METER (BEAKER) 122 mg/dL 70-[address] [facility] [address] [facility] (test tfbi=7921) [facility] [address] TISSUE [id number] 15:12:00Surgical Pathology Report Case: [id number] Authorizing Provider: Chiquita Liu MD Collected: 08/26/2018 1225 Ordering Location: [facility] Received: 08/26/2018 1449 SERVICES Pathologist: Reid Haq MD Specimens: A) - Biopsy, Liver B) -Gallbladder A. LIVER, INTRAOPERATIVE NEEDLE BIOPSIES- SEVERE ACTIVE HEPATITIS- see commentB. GALLBLADDER, CHOLECYSTECTOMY- CHRONIC CHOLECYSTITIS WITH FOCAL CHOLESTEROLOSIS- CHOLELITHIASIS Signing Pathologist Direct Phone Line: A. The histological features suggest an active viral hepatitis or a drug induced liver injury. [id number], [address]25 X4, [id number] A. Biopsy, liver; B. Gallbladder A. The [...] a calculus lodged in the cystic duct. Operator sections are submitted. Ink code: Black, hepatic bed margin; Blue, cystic duct margin. Section code: B1-B2 car sales representative sections with B1 to includecystic duct [...] evaluated Immunohistochemistry technical testing was performed at [facility], Pathology Laboratory where it was [...] to perform high complexity clinical laboratory testing.POCT-GLUCOSE [id number] 11:55:00 Test Item Value Reference Range Comments POC-GLUCOSE METER (BEAKER) 130 mg/dL 70-[address] [facility] [address] [facility] (test kvfx=0562) [facility] [address] POCT-GLUCOSE [id number] 08:12:00 Test Item Value Reference Range Comments POC-GLUCOSE METER (BEAKER) 135 mg/dL 70-110 TESTED AT [place] [id number] [facility] (test tosv=8427) [facility] [address] CBC W/PLT COUNT & AUTO [id number] 06:37:00 Test Item Value Reference Range Comments WHITE BLOOD CELL COUNT (BEAKER) (test gkaa=181) 11.9 K/ L 3.5-10.5 RED BLOOD CELL COUNT (BEAKER) (test fugx=279) 4.45 M/ L 3.93-5.22 HEMOGLOBIN (BEAKER) (test rmri=041) 11.6 GM/DL 11.2-15.7 HEMATOCRIT (BEAKER) (test ruyf=127) 37.5 % 34.1-44.9 MEAN CORPUSCULAR VOLUME (BEAKER) (test mmvb=504) 84.3 fL 79.4-94.8 MEAN CORPUSCULAR HEMOGLOBIN (BEAKER) (test 26.1 pg 25.6-32.2 xrqm=677) MEAN CORPUSCULAR HEMOGLOBIN CONC (BEAKER) (test 30.9 GM/DL 32.2-35.5 cawz=736) RED CELL DISTRIBUTION WIDTH (BEAKER) (test 17.3 % 11.7-14.4 nkys=209) PLATELET COUNT (BEAKER) (test vkbt=071) 340 K/CU MM 150-450 MEAN PLATELET VOLUME (BEAKER) (test ybrr=513) 11.1 fL 9.4-12.3 NUCLEATED RED BLOOD CELLS (BEAKER) (test 0 /100 WBC 0-0 rflw=667) NEUTROPHILS RELATIVE PERCENT (BEAKER) (test 65 % inkf=155) LYMPHOCYTES RELATIVE PERCENT (BEAKER) (test 22 % zsuf=529) MONOCYTES RELATIVE PERCENT (BEAKER) (test 12 % mqcs=580) EOSINOPHILS RELATIVE PERCENT (BEAKER) (test 0 % ndba=683) BASOPHILS RELATIVE PERCENT (BEAKER) (test 0 % xnyk=202) NEUTROPHILS ABSOLUTE COUNT (BEAKER) (test 7.66 K/ L 1.56-6.13 tupl=384) LYMPHOCYTES ABSOLUTE COUNT (BEAKER) (test 2.58 K/ L 1.18-3.74 tgxg=819) MONOCYTES ABSOLUTE COUNT (BEAKER) (test 1.45 K/ L 0.24-0.36 fyrk=410) EOSINOPHILS ABSOLUTE COUNT (BEAKER) (test 0.04 K/ L 0.04-0.36 bvzc=946) BASOPHILS ABSOLUTE COUNT (BEAKER) (test 0.05 K/ L 0.01-0.08 yxyv=610) IMMATURE GRANULOCYTES-RELATIVE PERCENT (BEAKER) 1 % 0-1 (test rhey=2851) COMPREHENSIVE METABOLIC [id number] 04:47:00 Test Item Value Reference Range Comments TOTAL PROTEIN (BEAKER) 7.5 gm/dL 6.0-8.3 (test ftbf=000) ALBUMIN (BEAKER) (test 3.2 g/dL 3.5-5.0 ibio=9696) ALKALINE PHOSPHATASE 339 U/L 40-150 (BEAKER) (test azoj=535) BILIRUBIN TOTAL (BEAKER) 1.6 mg/dL 0.2-1.2 (test nxpt=655) SODIUM (BEAKER) (test 134 meq/L 136-145 rjef=415) POTASSIUM (BEAKER) (test 4.3 meq/L 3.5-5.1 axnp=017) CHLORIDE (BEAKER) (test 102 meq/L 98-107 zsdn=597) CO2 (BEAKER) (test 25 meq/L 22-29 qybe=499) BLOOD UREA NITROGEN 8 mg/dL 7-21 (BEAKER) (test fjaj=365) CREATININE (BEAKER) (test 0.56 mg/dL 0.57-1.25 xegb=451) GLUCOSE RANDOM (BEAKER) 125 mg/dL 70-105 (test yfan=855) CALCIUM (BEAKER) (test 8.8 mg/dL 8.4-10.2 yegh=227) AST (SGOT) (BEAKER) (test 730 U/L 5-34 gzan=089) ALT (SGPT) (BEAKER) (test 652 U/L 6-55 layo=695) EGFR (BEAKER) (test 108 mL/min/1.73 sq ESTIMATED GFR IS NOT lzls=2244) m ACCURATE CREATININE CLEARANCE IN PREDICTING GLOMERULAR FILTRATION RATE. ESTIMATED GFR IS NOT APPLICABLE FOR DIALYSIS PATIENTS. POCT-GLUCOSE [id number] 20:54:00 Test Item Value Reference Range Comments POC-GLUCOSE METER (BEAKER) 129 mg/dL 70-110 TESTED AT [address] (test ktud=5780) [place] [id number] POCT-GLUCOSE [id number] 17:38:00 Test Item Value Reference Range Comments POC-GLUCOSE METER (BEAKER) 107 mg/dL 70-110 TESTED AT [address] (test ojln=5889) [place] [id number] POCT-GLUCOSE [id number] 13:00:00 Test Item Value Reference Range Comments POC-GLUCOSE METER (BEAKER) 99 mg/dL 70-110 TESTED AT [address] (test rpym=3814) [place] [id number] POCT-GLUCOSE [id number] 08:59:00 Test Item Value Reference Range Comments POC-GLUCOSE METER (BEAKER) 126 mg/dL 70-110 TESTED AT [address] (test yxfg=0985) [facility] [address] CBC (HEMOGRAM ONLY)2018-08-29 08:11:00 Test Item Value Reference Range Comments WHITE BLOOD CELL COUNT (BEAKER) (test uoks=171) 6.5 K/ L 3.5-10.5 RED BLOOD CELL COUNT (BEAKER) (test uxwk=133) 4.11 M/ L 3.93-5.22 HEMOGLOBIN (BEAKER) (test sexf=791) 10.8 GM/DL 11.2-15.7 HEMATOCRIT (BEAKER) (test suxe=595) 34.5 % 34.1-44.9 MEAN CORPUSCULAR VOLUME (BEAKER) (test moya=439) 83.9 fL 79.4-94.8 MEAN CORPUSCULAR HEMOGLOBIN (BEAKER) (test 26.3 pg 25.6-32.2 hlix=533) MEAN CORPUSCULAR HEMOGLOBIN CONC (BEAKER) (test 31.3 GM/DL 32.2-35.5 ewvg=637) RED CELL DISTRIBUTION WIDTH (BEAKER) (test 16.5 % 11.7-14.4 gnlg=689) PLATELET COUNT (BEAKER) (test xmni=169) 263 K/CU MM 150-450 MEAN PLATELET VOLUME (BEAKER) (test msmc=844) 9.5 fL 9.4-12.3 NUCLEATED RED BLOOD CELLS (BEAKER) (test 0 /100 WBC 0-0 gdna=643) [id number] 08:01:00 Test Item Value Reference Range Comments PHOSPHORUS (BEAKER) (test xbhk=545) 3.9 mg/dL 2.3-4.7 [id number] 08:01:00 Test Item Value Reference Range Comments MAGNESIUM (BEAKER) (test ntyo=603) 2.1 mg/dL 1.6-2.6 COMPREHENSIVE METABOLIC [id number] 08:01:00 Test Item Value Reference Range Comments TOTAL PROTEIN (BEAKER) 7.4 gm/dL 6.0-8.3 (test grwl=707) ALBUMIN (BEAKER) (test 3.0 g/dL 3.5-5.0 dkyp=2440) ALKALINE PHOSPHATASE 337 U/L 40-150 (BEAKER) (test xjyi=236) BILIRUBIN TOTAL (BEAKER) 1.3 mg/dL 0.2-1.2 (test gbvm=999) SODIUM (BEAKER) (test 133 meq/L 136-145 fhyu=534) POTASSIUM (BEAKER) (test 4.6 meq/L 3.5-5.1 xxpi=028) CHLORIDE (BEAKER) (test 102 meq/L 98-107 kadd=640) CO2 (BEAKER) (test 26 meq/L 22-29 meeq=572) BLOOD UREA NITROGEN 7 mg/dL 7-21 (BEAKER) (test kixf=973) CREATININE (BEAKER) (test 0.52 mg/dL 0.57-1.25 dkvq=021) GLUCOSE RANDOM (BEAKER) 92 mg/dL 70-105 (test gfin=828) CALCIUM (BEAKER) (test 8.9 mg/dL 8.4-10.2 gngf=259) AST (SGOT) (BEAKER) (test 959 U/L 5-34 qort=696) ALT (SGPT) (BEAKER) (test 706 U/L 6-55 yoch=331) EGFR (BEAKER) (test 117 mL/min/1.73 sq ESTIMATED GFR IS NOT wmdi=3707) m ACCURATE CREATININE CLEARANCE IN PREDICTING GLOMERULAR FILTRATION RATE. ESTIMATED GFR IS NOT APPLICABLE FOR DIALYSIS PATIENTS. POCT-GLUCOSE [id number] 21:31:00 Test Item Value Reference Range Comments POC-GLUCOSE METER (BEAKER) 89 mg/dL 70-110 TESTED AT [address] (test axdh=9291) [facility] [address] POCT-GLUCOSE [id number] 17:30:00 Test Item Value Reference Range Comments POC-GLUCOSE METER (BEAKER) 88 mg/dL 70-110 TESTED AT [address] (test fjvq=6763) [facility] [address] POCT-GLUCOSE [id number] 12:42:00 Test Item Value Reference Range Comments POC-GLUCOSE METER (BEAKER) 104 mg/dL 70-110 TESTED AT [address] (test vbkw=8519) [facility] [address] POCT-GLUCOSE [id number] 09:00:00 Test Item Value Reference Range Comments POC-GLUCOSE METER (BEAKER) 103 mg/dL 70-110 TESTED AT [address] (test xhvz=8874) [facility] [address] [id number] 06:34:00 Test Item Value Reference Range Comments PHOSPHORUS (BEAKER) (test mnnv=794) 3.1 mg/dL 2.3-4.7 [id number] 06:34:00 Test Item Value Reference Range Comments MAGNESIUM (BEAKER) (test jhuh=541) 2.1 mg/dL 1.6-2.6 COMPREHENSIVE METABOLIC [id number] 06:34:00 Test Item Value Reference Range Comments TOTAL PROTEIN (BEAKER) 6.4 gm/dL 6.0-8.3 (test ridm=309) ALBUMIN (BEAKER) (test 2.7 g/dL 3.5-5.0 fucw=1271) ALKALINE PHOSPHATASE 271 U/L 40-150 (BEAKER) (test qwyr=988) BILIRUBIN TOTAL (BEAKER) 0.9 mg/dL 0.2-1.2 (test otpg=361) SODIUM (BEAKER) (test 132 meq/L 136-145 tnzf=471) POTASSIUM (BEAKER) (test 4.3 meq/L 3.5-5.1 uakm=797) CHLORIDE (BEAKER) (test 102 meq/L 98-107 xwul=476) CO2 (BEAKER) (test 25 meq/L 22-29 vpok=421) BLOOD UREA NITROGEN 9 mg/dL 7-21 (BEAKER) (test iqku=262) CREATININE (BEAKER) (test 0.48 mg/dL 0.57-1.25 cclf=635) GLUCOSE RANDOM (BEAKER) 85 mg/dL 70-105 (test rfnr=440) CALCIUM (BEAKER) (test 7.8 mg/dL 8.4-10.2 tsgr=402) AST (SGOT) (BEAKER) (test 853 U/L 5-34 pwwf=281) ALT (SGPT) (BEAKER) (test 579 U/L 6-55 zwqy=658) EGFR (BEAKER) (test 129 mL/min/1.73 sq ESTIMATED GFR IS NOT lfcz=2513) m ACCURATE CREATININE CLEARANCE IN PREDICTING GLOMERULAR FILTRATION RATE. ESTIMATED GFR IS NOT APPLICABLE FOR DIALYSIS PATIENTS. POCT-GLUCOSE [id number] 00:38:00 Test Item Value Reference Range Comments POC-GLUCOSE METER (BEAKER) 91 mg/dL 70-110 TESTED AT [address] (test ckii=7406) [facility] [address] POCT-GLUCOSE [id number] 17:19:00 Test Item Value Reference Range Comments POC-GLUCOSE METER (BEAKER) 127 mg/dL 70-110 TESTED AT [address] (test aotj=0921) [place] [id number] CBC W/PLT COUNT & AUTO [id number] 14:19:00 Test Item Value Reference Range Comments WHITE BLOOD CELL COUNT (BEAKER) (test qgwn=157) 7.1 K/ L 3.5-10.5 RED BLOOD CELL COUNT (BEAKER) (test fxqm=743) 3.55 M/ L 3.93-5.22 HEMOGLOBIN (BEAKER) (test epsx=289) 9.2 GM/DL 11.2-15.7 HEMATOCRIT (BEAKER) (test dsco=565) 30.0 % 34.1-44.9 MEAN CORPUSCULAR VOLUME (BEAKER) (test bvig=931) 84.5 fL 79.4-94.8 MEAN CORPUSCULAR HEMOGLOBIN (BEAKER) (test 25.9 pg 25.6-32.2 mymf=554) MEAN CORPUSCULAR HEMOGLOBIN CONC (BEAKER) (test 30.7 GM/DL 32.2-35.5 enyd=897) RED CELL DISTRIBUTION WIDTH (BEAKER) (test 15.5 % 11.7-14.4 ptym=988) PLATELET COUNT (BEAKER) (test qmxn=012) 190 K/CU MM 150-450 MEAN PLATELET VOLUME (BEAKER) (test oyvn=842) 10.2 fL 9.4-12.3 NUCLEATED RED BLOOD CELLS (BEAKER) (test 0 /100 WBC 0-0 cwkb=888) (CELLAVISION MANUAL DIFF)2018-08-27 14:19:00 Test Item Value Reference Range Comments NEUTROPHILS - REL (CELLAVISION)(BEAKER) (test 67 % ladz=5988) LYMPHOCYTES - REL (CELLAVISION)(BEAKER) (test 28 % miav=2749) MONOCYTES - REL (CELLAVISION)(BEAKER) (test 4 % njkk=2977) ATYPICAL LYMPHOCYTES - REL (CELLAVISION)(BEAKER) 1 % 0-0 (test pgea=2887) NEUTROPHILS - ABS (CELLAVISION)(BEAKER) (test 4.76 K/ul 1.56-6.13 urjw=8489) LYMPHOCYTES - ABS (CELLAVISION)(BEAKER) (test 1.99 K/ul 1.18-3.74 bouz=3123) MONOCYTES - ABS (CELLAVISION)(BEAKER) (test 0.28 K/uL 0.24-0.36 noda=9011) ATYPICAL LYMPHOCYTES - ABS (CELLAVISION)(BEAKER) 0.07 K/uL 0.00-0.00 (test zjxd=5513) TOTAL COUNTED (BEAKER) (test npdh=0505) 100 WBC MORPHOLOGY (BEAKER) (test jkch=790) Normal PLT MORPHOLOGY (BEAKER) (test usfx=927) Normal ANISOCYTOSIS (BEAKER) (test nubw=709) 1+ few POIKILOCYTES (BEAKER) (test lyzf=656) 1+ few OVALOCYTES (BEAKER) (test fncs=112) 1+ few JACK CELLS (BEAKER) (test dniz=392) 1+ few ARTIFACT (CELLAVISION)(BEAKER) (test tmie=2857) Present PLATELET CONCENTRATION (CELLAVISION)(BEAKER) (test Adequate tjln=3519) Received comment: User comments: Slide comments: WBC: SEGMENTED WITH TOXIC GRANULATIONS PRESENTPOCT-GLUCOSE [id number] 12:24:00 Test Item Value Reference Range Comments POC-GLUCOSE METER (BEAKER) 147 mg/dL 70-[address] [facility] [address] [facility] [facility] (test rzgz=1764) [facility] [address] COMPREHENSIVE METABOLIC [id number] 06:55:00 Test Item Value Reference Range Comments TOTAL PROTEIN (BEAKER) 5.8 gm/dL 6.0-8.3 (test xqvq=710) ALBUMIN (BEAKER) (test 2.6 g/dL 3.5-5.0 lgqq=4009) ALKALINE PHOSPHATASE 230 U/L 40-150 (BEAKER) (test ncqy=508) BILIRUBIN TOTAL (BEAKER) 0.9 mg/dL 0.2-1.2 (test nbqz=729) SODIUM (BEAKER) (test 136 meq/L 136-145 ykbm=070) POTASSIUM (BEAKER) (test 4.3 meq/L 3.5-5.1 pawd=206) CHLORIDE (BEAKER) (test 107 meq/L 98-107 nzwj=982) CO2 (BEAKER) (test 25 meq/L 22-29 hjsy=001) BLOOD UREA NITROGEN 7 mg/dL 7-21 (BEAKER) (test okir=550) CREATININE (BEAKER) (test 0.46 mg/dL 0.57-1.25 jlyf=496) GLUCOSE RANDOM (BEAKER) 125 mg/dL 70-105 (test paqe=895) CALCIUM (BEAKER) (test 7.8 mg/dL 8.4-10.2 hldm=722) AST (SGOT) (BEAKER) (test 991 U/L 5-34 fcmg=051) ALT (SGPT) (BEAKER) (test 596 U/L 6-55 nkge=239) EGFR (BEAKER) (test 135 mL/min/1.73 sq ESTIMATED GFR IS NOT tyvz=9315) m ACCURATE CREATININE CLEARANCE IN PREDICTING GLOMERULAR FILTRATION RATE. ESTIMATED GFR IS NOT APPLICABLE FOR DIALYSIS PATIENTS. [id number] 05:44:00 Test Item Value Reference Range Comments PHOSPHORUS (BEAKER) (test mzqr=522) 1.6 mg/dL 2.3-4.7 [id number] 05:44:00 Test Item Value Reference Range Comments MAGNESIUM (BEAKER) (test fpkb=147) 2.2 mg/dL 1.6-2.6 POCT-GLUCOSE [id number] 23:04:00 Test Item Value Reference Range Comments POC-GLUCOSE METER (BEAKER) 111 mg/dL 70-110 TESTED AT [address] (test kulh=2317) [facility] [address] POCT-GLUCOSE [id number] 13:16:00 Test Item Value Reference Range Comments POC-GLUCOSE METER (BEAKER) 213 mg/dL 70-110 TESTED AT [address] (test lqnj=3407) [place] [id number] ANTI-NUCLEAR ANTIBODY (ALINE)2018-08-26 09:14:00 Test Item Value Reference Range Comments ANTI-NUCLEAR ANTIBODY (ALINE) (BEAKER) (test Negative Negative sipk=428) Test performed by IFA method.CBC W/PLT COUNT & AUTO [id number] 08:01:00 Test Item Value Reference Range Comments WHITE BLOOD CELL COUNT (BEAKER) (test ycoj=413) 6.0 K/ L 3.5-10.5 RED BLOOD CELL COUNT (BEAKER) (test oxms=734) 3.48 M/ L 3.93-5.22 HEMOGLOBIN (BEAKER) (test djxu=849) 9.1 GM/DL 11.2-15.7 HEMATOCRIT (BEAKER) (test xgvr=467) 29.0 % 34.1-44.9 MEAN CORPUSCULAR VOLUME (BEAKER) (test sdgg=773) 83.3 fL 79.4-94.8 MEAN CORPUSCULAR HEMOGLOBIN (BEAKER) (test 26.1 pg 25.6-32.2 xglo=317) MEAN CORPUSCULAR HEMOGLOBIN CONC (BEAKER) (test 31.4 GM/DL 32.2-35.5 cskx=371) RED CELL DISTRIBUTION WIDTH (BEAKER) (test 15.6 % 11.7-14.4 hdgd=179) PLATELET COUNT (BEAKER) (test gktw=880) 185 K/CU MM 150-450 MEAN PLATELET VOLUME (BEAKER) (test jmek=726) 9.9 fL 9.4-12.3 NUCLEATED RED BLOOD CELLS (BEAKER) (test 0 /100 WBC 0-0 jaoi=540) (CELLAVISION MANUAL DIFF)2018-08-26 08:01:00 Test Item Value Reference Range Comments NEUTROPHILS - REL (CELLAVISION)(BEAKER) (test 70 % bils=4213) LYMPHOCYTES - REL (CELLAVISION)(BEAKER) (test 17 % fhcd=2633) MONOCYTES - REL (CELLAVISION)(BEAKER) (test 9 % uaxw=1023) ATYPICAL LYMPHOCYTES - REL (CELLAVISION)(BEAKER) 4 % 0-0 (test teea=1668) NEUTROPHILS - ABS (CELLAVISION)(BEAKER) (test 4.20 K/ul 1.56-6.13 tnuh=2326) LYMPHOCYTES - ABS (CELLAVISION)(BEAKER) (test 1.02 K/ul 1.18-3.74 ifnb=3667) MONOCYTES - ABS (CELLAVISION)(BEAKER) (test 0.54 K/uL 0.24-0.36 brmf=2115) ATYPICAL LYMPHOCYTES - ABS (CELLAVISION)(BEAKER) 0.24 K/uL 0.00-0.00 (test lhyp=9495) TOTAL COUNTED (BEAKER) (test gcmr=1635) 100 WBC MORPHOLOGY (BEAKER) (test bsgj=858) Normal PLT MORPHOLOGY (BEAKER) (test bwfr=139) Normal POLYCHROMATOPHILLIC RBCS(BEAKER) (test efjj=545) 1+ few HYPOCHROMIA (BEAKER) (test nvdl=136) 1+ few ARTIFACT (CELLAVISION)(BEAKER) (test ajrr=5153) Present PLATELET CONCENTRATION (CELLAVISION)(BEAKER) (test Adequate jzia=5621) Received comment: User comments: Slide comments:POCT-GLUCOSE [id number] 06: 05:00 Test Item Value Reference Range Comments POC-GLUCOSE METER (BEAKER) 131 mg/dL 70-[address] [facility] [address] [facility] (test dofk=9560) [facility] [address] COMPREHENSIVE METABOLIC [id number] 05:18:00 Test Item Value Reference Range Comments TOTAL PROTEIN (BEAKER) 5.5 gm/dL 6.0-8.3 (test fhqk=552) ALBUMIN (BEAKER) (test 2.2 g/dL 3.5-5.0 dkfy=3605) ALKALINE PHOSPHATASE 268 U/L 40-150 (BEAKER) (test rcdk=709) BILIRUBIN TOTAL (BEAKER) 0.9 mg/dL 0.2-1.2 (test mkaa=385) SODIUM (BEAKER) (test 133 meq/L 136-145 efba=002) POTASSIUM (BEAKER) (test 3.7 meq/L 3.5-5.1 qlgl=058) CHLORIDE (BEAKER) (test 103 meq/L 98-107 qmxi=691) CO2 (BEAKER) (test 28 meq/L 22-29 prac=324) BLOOD UREA NITROGEN 7 mg/dL 7-21 (BEAKER) (test dcvs=789) CREATININE (BEAKER) (test 0.48 mg/dL 0.57-1.25 ndfr=412) GLUCOSE RANDOM (BEAKER) 128 mg/dL 70-105 (test nhnu=231) CALCIUM (BEAKER) (test 7.3 mg/dL 8.4-10.2 srug=108) AST (SGOT) (BEAKER) (test 1104 U/L 5-34 zspt=558) ALT (SGPT) (BEAKER) (test 601 U/L 6-55 duce=521) EGFR (BEAKER) (test 129 mL/min/1.73 sq ESTIMATED GFR IS NOT arnl=4245) m ACCURATE CREATININE CLEARANCE IN PREDICTING GLOMERULAR FILTRATION RATE. ESTIMATED GFR IS NOT APPLICABLE FOR DIALYSIS PATIENTS. U/S, ABDOMINAL, [id number] 02:54:00Abdomen limited area? Add comment if clarification [...] identified as clinically queried. Signed: Ronna Le MDReport Verified Date/Time: 08/26/2018 02:54:13 POCT-GLUCOSE [id number] 23:47:00 Test Item Value Reference Range Comments POC-GLUCOSE METER (BEAKER) 118 mg/dL 70-110 TESTED AT [address] (test klct=0122) [facility] [address] POCT-GLUCOSE [id number] 18:13:00 Test Item Value Reference Range Comments POC-GLUCOSE METER (BEAKER) 115 mg/dL 70-110 TESTED AT [address] (test vlmf=6106) [facility] [address] POCT-GLUCOSE [id number] 12:21:00 Test Item Value Reference Range Comments POC-GLUCOSE METER (BEAKER) 175 mg/dL 70-[address] [facility] [address] (test eblh=4366) [facility] [address] BLOOD [id number] 08:01:00 Test Item Value Reference Range Comments CULTURE (BEAKER) (test xozf=0406) No growth in 5 days BLOOD [id number] 08:01:00 Test Item Value Reference Range Comments CULTURE (BEAKER) (test szzf=5704) No growth in 5 days [id number] 06:45:00 Test Item Value Reference Range Comments PHOSPHORUS (BEAKER) (test geyi=271) 1.4 mg/dL 2.3-4.7 COMPREHENSIVE METABOLIC [id number] 06:44:00 Test Item Value Reference Range Comments TOTAL PROTEIN (BEAKER) 6.1 gm/dL 6.0-8.3 (test nxde=191) ALBUMIN (BEAKER) (test 2.5 g/dL 3.5-5.0 hvhj=1105) ALKALINE PHOSPHATASE 298 U/L 40-150 (BEAKER) (test uktl=645) BILIRUBIN TOTAL (BEAKER) 1.1 mg/dL 0.2-1.2 (test rrke=382) SODIUM (BEAKER) (test 134 meq/L 136-145 upoq=760) POTASSIUM (BEAKER) (test 3.9 meq/L 3.5-5.1 cgsx=591) CHLORIDE (BEAKER) (test 101 meq/L 98-107 ocwb=256) CO2 (BEAKER) (test 28 meq/L 22-29 tbkq=109) BLOOD UREA NITROGEN 7 mg/dL 7-21 (BEAKER) (test mdnm=147) CREATININE (BEAKER) (test 0.51 mg/dL 0.57-1.25 bjhi=242) GLUCOSE RANDOM (BEAKER) 116 mg/dL 70-105 (test opit=557) CALCIUM (BEAKER) (test 7.7 mg/dL 8.4-10.2 dunk=674) AST (SGOT) (BEAKER) (test 1213 U/L 5-34 gghs=859) ALT (SGPT) (BEAKER) (test 623 U/L 6-55 wfsr=951) EGFR (BEAKER) (test 120 mL/min/1.73 sq ESTIMATED GFR IS NOT dfeg=7634) m ACCURATE CREATININE CLEARANCE IN PREDICTING GLOMERULAR FILTRATION RATE. ESTIMATED GFR IS NOT APPLICABLE FOR DIALYSIS PATIENTS. [id number] 06:41:00 Test Item Value Reference Range Comments TRIGLYCERIDES (BEAKER) (test hzpt=845) 169 mg/dL TRIGLYCERIDE REFERENCE RANGELow Risk <150Borderline Risk 150-199High Risk 200-499Very High Risk>=[id number] 06:41:00 Test Item Value Reference Range Comments MAGNESIUM (BEAKER) (test mjbk=081) 1.9 mg/dL 1.6-2.6 POCT-GLUCOSE [id number] 06:14:00 Test Item Value Reference Range Comments POC-GLUCOSE METER (BEAKER) 146 mg/dL 70-[address] [facility] [address] [place] [address] (test uspj=7425) [facility] [address] CBC W/PLT COUNT & AUTO [id number] 05:35:00 Test Item Value Reference Range Comments WHITE BLOOD CELL COUNT (BEAKER) (test vibo=145) 7.0 K/ L 3.5-10.5 RED BLOOD CELL COUNT (BEAKER) (test afbs=077) 3.94 M/ L 3.93-5.22 HEMOGLOBIN (BEAKER) (test bwsy=170) 10.1 GM/DL 11.2-15.7 HEMATOCRIT (BEAKER) (test igrw=984) 33.0 % 34.1-44.9 MEAN CORPUSCULAR VOLUME (BEAKER) (test wfks=671) 83.8 fL 79.4-94.8 MEAN CORPUSCULAR HEMOGLOBIN (BEAKER) (test 25.6 pg 25.6-32.2 efuc=897) MEAN CORPUSCULAR HEMOGLOBIN CONC (BEAKER) (test 30.6 GM/DL 32.2-35.5 djcf=853) RED CELL DISTRIBUTION WIDTH (BEAKER) (test 15.1 % 11.7-14.4 kbkz=655) PLATELET COUNT (BEAKER) (test ogwr=075) 205 K/CU MM 150-450 MEAN PLATELET VOLUME (BEAKER) (test lwyw=029) 10.8 fL 9.4-12.3 NUCLEATED RED BLOOD CELLS (BEAKER) (test 0 /100 WBC 0-0 kdhe=725) NEUTROPHILS RELATIVE PERCENT (BEAKER) (test 43 % htaz=885) LYMPHOCYTES RELATIVE PERCENT (BEAKER) (test 42 % ngcw=695) MONOCYTES RELATIVE PERCENT (BEAKER) (test 14 % azwy=090) EOSINOPHILS RELATIVE PERCENT (BEAKER) (test 1 % eitk=228) BASOPHILS RELATIVE PERCENT (BEAKER) (test 1 % dujr=731) NEUTROPHILS ABSOLUTE COUNT (BEAKER) (test 2.98 K/ L 1.56-6.13 whsz=932) LYMPHOCYTES ABSOLUTE COUNT (BEAKER) (test 2.91 K/ L 1.18-3.74 yjjr=320) MONOCYTES ABSOLUTE COUNT (BEAKER) (test 0.94 K/ L 0.24-0.36 dtrz=132) EOSINOPHILS ABSOLUTE COUNT (BEAKER) (test 0.06 K/ L 0.04-0.36 mrio=480) BASOPHILS ABSOLUTE COUNT (BEAKER) (test 0.04 K/ L 0.01-0.08 vfup=524) IMMATURE GRANULOCYTES-RELATIVE PERCENT (BEAKER) 1 % 0-1 (test ihgf=0287) CALCIUM, [id number] 04:03:00 Test Item Value Reference Range Comments CALCIUM IONIZED (BEAKER) (test ltty=447) 1.03 mmol/L 1.12-1.27 PH, BLOOD (BEAKER) (test xhcg=3606) 7.50 POCT-GLUCOSE [id number] 23:54:00 Test Item Value Reference Range Comments POC-GLUCOSE METER (BEAKER) 74 mg/dL 70-[address] [facility] [address] [facility] (test mkxt=5349) [facility] [address] [id number] 20:43:00 Test Item Value Reference Range Comments FERRITIN (BEAKER) (test orli=297) 8721 ng/mL 5-275 HEPATITIS A ANTIBODY, [id number] 19:56:00 Test Item Value Reference Range Comments HEPATITIS A IGG ANTIBODY (BEAKER) (test zuqu=3186) Reactive Nonreactive ALPHA FETOPROTEIN (AFP), TUMOR [id number] 19:52:00 Test Item Value Reference Range Comments ALPHA-FETOPROTEIN (BEAKER) (test hkod=8423) 3.0 ng/mL <10.0 HEPATITIS B CORE ANTIBODY, [id number] 19:52:00 Test Item Value Reference Range Comments HEPATITIS B CORE IGM ANTIBODY (BEAKER) (test Nonreactive Nonreactive txyo=675) HEPATITIS A ANTIBODY, [id number] 19:52:00 Test Item Value Reference Range Comments HEPATITIS A IGM ANTIBODY (BEAKER) (test Nonreactive Nonreactive jipi=254) HEPATITIS B SURFACE [id number] 19:42:00 Test Item Value Reference Range Comments HEPATITIS B SURFACE ANTIBODY (BEAKER) (test < mIU/mL <8.0 drxv=002) HEPATITIS B SURFACE [id number] 19:41:00 Test Item Value Reference Range Comments HEPATITIS B SURFACE ANTIGEN (2) (BEAKER) (test Nonreactive Nonreactive yich=7460) HEPATITIS C [id number] 19:41:00 Test Item Value Reference Range Comments HEPATITIS C ANTIBODY (BEAKER) (test aujw=515) Nonreactive Nonreactive [id number] 19:21:00 Test Item Value Reference Range Comments ALPHA-1 ANTITRYPSIN (BEAKER) (test ijli=584) 211.10 mg/dL 90.00-200.00 IMMUNOGLOBULIN G (IGG)2018-08-24 19:19:00 Test Item Value Reference Range Comments IMMUNOGLOBULIN G (IGG) (BEAKER) (test iule=991) 1722 mg/dL 540-1,822 IRON, TIBC, % SAT. (WITHOUT FERRITIN)2018-08-24 19:19:00 Test Item Value Reference Range Comments IRON (BEAKER) (test tzzt=780) 33.0 ug/dL 40.0-160.0 TOTAL IRON BINDING CAPACITY (BEAKER) (test 153 ug/dL 250-450 gmse=991) IRON % SATURATION (2) (BEAKER) (test wwgr=7784) 22 % 20-55 CBC W/PLT COUNT & AUTO [id number] 09:40:00 Test Item Value Reference Range Comments WHITE BLOOD CELL COUNT (BEAKER) (test ijhv=104) 6.8 K/ L 3.5-10.5 RED BLOOD CELL COUNT (BEAKER) (test yguu=536) 3.61 M/ L 3.93-5.22 HEMOGLOBIN (BEAKER) (test qatc=814) 9.5 GM/DL 11.2-15.7 HEMATOCRIT (BEAKER) (test oomd=445) 30.3 % 34.1-44.9 MEAN CORPUSCULAR VOLUME (BEAKER) (test qbyt=828) 83.9 fL 79.4-94.8 MEAN CORPUSCULAR HEMOGLOBIN (BEAKER) (test 26.3 pg 25.6-32.2 zpua=134) MEAN CORPUSCULAR HEMOGLOBIN CONC (BEAKER) (test 31.4 GM/DL 32.2-35.5 yntv=015) RED CELL DISTRIBUTION WIDTH (BEAKER) (test 14.9 % 11.7-14.4 tcfr=884) PLATELET COUNT (BEAKER) (test ccwq=599) 167 K/CU MM 150-450 MEAN PLATELET VOLUME (BEAKER) (test ihdp=801) 10.2 fL 9.4-12.3 NUCLEATED RED BLOOD CELLS (BEAKER) (test 0 /100 WBC 0-0 dcqn=023) (CELLAVISION MANUAL DIFF)2018-08-24 09:40:00 Test Item Value Reference Range Comments NEUTROPHILS - REL (CELLAVISION)(BEAKER) (test 73 % ctyz=5745) LYMPHOCYTES - REL (CELLAVISION)(BEAKER) (test 12 % nuiu=9891) MONOCYTES - REL (CELLAVISION)(BEAKER) (test 5 % wwho=6572) EOSINOPHILS - REL (CELLAVISION)(BEAKER) (test 2 % ohvf=8379) BANDS - REL (CELLAVISION)(BEAKER) (test olug=1688) 6 % 0-10 ATYPICAL LYMPHOCYTES - REL (CELLAVISION)(BEAKER) 2 % 0-0 (test gzpf=3260) NEUTROPHILS - ABS (CELLAVISION)(BEAKER) (test 4.96 K/ul 1.56-6.13 cdyq=4202) LYMPHOCYTES - ABS (CELLAVISION)(BEAKER) (test 0.82 K/ul 1.18-3.74 pmnj=6162) MONOCYTES - ABS (CELLAVISION)(BEAKER) (test 0.34 K/uL 0.24-0.36 jfqg=4429) EOSINOPHILS - ABS (CELLAVISION)(BEAKER) (test 0.14 K/uL 0.04-0.36 sknp=1495) BANDS - ABS (CELLAVISION)(BEAKER) (test oipf=1908) 0.41 K/uL 0.00-0.80 ATYPICAL LYMPHOCYTES - ABS (CELLAVISION)(BEAKER) 0.14 K/uL 0.00-0.00 (test njbv=6174) TOTAL COUNTED (BEAKER) (test qkru=4818) 100 RBC MORPHOLOGY (BEAKER) (test vjca=922) Normal PLT MORPHOLOGY (BEAKER) (test unlq=445) Normal SMUDGE CELLS (BEAKER) (test wssr=4927) Present ARTIFACT (CELLAVISION)(BEAKER) (test snqk=7359) Present PLATELET CONCENTRATION (CELLAVISION)(BEAKER) (test Adequate hood=0321) Received comment: User comments: Slide comments:[id number] 09:23:00 Test Item Value Reference Range Comments LIPASE (BEAKER) (test gxum=740) 12 U/L 8-78 Run on blood drawn this [id number] 09:23:00 Test Item Value Reference Range Comments AMYLASE (BEAKER) (test ouuy=237) 35 U/L 25-125 Run on blood drawn this amCOMPREHENSIVE METABOLIC [id number] 07:49:00 Test Item Value Reference Range Comments TOTAL PROTEIN (BEAKER) 5.2 gm/dL 6.0-8.3 (test tdqi=604) ALBUMIN (BEAKER) (test 2.2 g/dL 3.5-5.0 seyo=3490) ALKALINE PHOSPHATASE 219 U/L 40-150 (BEAKER) (test pjfq=379) BILIRUBIN TOTAL (BEAKER) 1.1 mg/dL 0.2-1.2 (test htio=648) SODIUM (BEAKER) (test 137 meq/L 136-145 jgdf=126) POTASSIUM (BEAKER) (test 3.5 meq/L 3.5-5.1 xair=248) CHLORIDE (BEAKER) (test 102 meq/L 98-107 gbid=993) CO2 (BEAKER) (test 28 meq/L 22-29 bnjs=636) BLOOD UREA NITROGEN 5 mg/dL 7-21 (BEAKER) (test lxsb=169) CREATININE (BEAKER) (test 0.47 mg/dL 0.57-1.25 lhib=999) GLUCOSE RANDOM (BEAKER) 62 mg/dL 70-105 (test kgcj=114) CALCIUM (BEAKER) (test 7.7 mg/dL 8.4-10.2 pgvl=733) AST (SGOT) (KARLIE) (test 1177 U/L 5-34 tuxa=422) ALT (SGPT) (KARLIE) (test 579 U/L 6-55 pgyj=016) EGFR (MARQUITAAKER) (test 132 mL/min/1.73 sq ESTIMATED GFR IS NOT qiru=7438) m ACCURATE CREATININE CLEARANCE IN PREDICTING GLOMERULAR FILTRATION RATE. ESTIMATED GFR IS NOT APPLICABLE FOR DIALYSIS PATIENTS. C. DIFFICILE GDH [id number] 19:18:00 Test Item Value Reference Range Comments CDT TOXIN (test Negative Negative fsoy=[id number]) CDT GDH ANTIGEN (test Positive Negative C. difficile present but toxin axwo=[id number]) not detected. Indicates colonization with non-toxigenic strain or level of toxin below detectable levels. No need for enteric isolation. Treatment is rarely needed (only when strong clinical suspicion for Clostridium difficile infection) Testing performed by [employer] Rapid Cassette Assay. For GDH, published sensitivity of the assay is 98.7% compared to cytotoxicity testing. For Toxin AB, published sensitivity is 87.8% and specificity 99.4% compared to cytotoxicity testing.Verification of kit performance was done by the [facility] Microbiology Lab prior to clinical use.CT, [id number] 17:25:00FINAL REPORT ABDOMINAL AND PELVIS CT DATED [...] MDReport Verified Date/Time: 08/22/2018 17:25:49 Reading Location: [address] Body Reading Room URINALYSIS W/ REFLEX URINE [id number] 14:54:00 Test Item Value Reference Range Comments COLOR (BEAKER) (test ahwe=839) Yellow CLARITY (BEAKER) (test mixg=019) Clear SPECIFIC GRAVITY UA (BEAKER) (test cema=405) 1.008 1.001-1.035 PH UA (BEAKER) (test hesb=970) 7.5 5.0-8.0 PROTEIN UA (BEAKER) (test asxb=619) 10 mg/dL Negative GLUCOSE UA (BEAKER) (test ewoe=517) Negative Negative KETONES UA (BEAKER) (test ggtg=376) 10 mg/dL Negative BILIRUBIN UA (BEAKER) (test bgwt=406) Negative Negative BLOOD UA (BEAKER) (test arpi=021) Small Negative NITRITE UA (BEAKER) (test bqde=082) Negative Negative LEUKOCYTE ESTERASE UA (BEAKER) (test amzb=818) Large Negative UROBILINOGEN UA (BEAKER) (test mece=824) 6.0 mg/dL 0.2-1.0 RBC UA (BEAKER) (test rsis=503) 2 /HPF WBC UA (BEAKER) (test bulm=063) 8 /HPF BACTERIA (BEAKER) (test uzja=214) Rare MUCUS (BEAKER) (test yjnz=9634) Rare SQUAMOUS EPITHELIAL (BEAKER) (test cifl=747) 1 /HPF SOURCE(BEAKER) (test rgzz=0147) CBC W/PLT COUNT & AUTO [id number] 10:13:00 Test Item Value Reference Range Comments WHITE BLOOD CELL COUNT (BEAKER) (test mcpk=576) 6.5 K/ L 3.5-10.5 RED BLOOD CELL COUNT (BEAKER) (test qgnw=527) 4.09 M/ L 3.93-5.22 HEMOGLOBIN (BEAKER) (test egfz=488) 10.7 GM/DL 11.2-15.7 HEMATOCRIT (BEAKER) (test vmkc=205) 34.2 % 34.1-44.9 MEAN CORPUSCULAR VOLUME (BEAKER) (test wavq=251) 83.6 fL 79.4-94.8 MEAN CORPUSCULAR HEMOGLOBIN (BEAKER) (test 26.2 pg 25.6-32.2 pqyn=776) MEAN CORPUSCULAR HEMOGLOBIN CONC (BEAKER) (test 31.3 GM/DL 32.2-35.5 azmj=127) RED CELL DISTRIBUTION WIDTH (BEAKER) (test 14.6 % 11.7-14.4 lguj=651) PLATELET COUNT (BEAKER) (test xfad=147) 189 K/CU MM 150-450 MEAN PLATELET VOLUME (BEAKER) (test ajap=476) 10.9 fL 9.4-12.3 NUCLEATED RED BLOOD CELLS (BEAKER) (test 0 /100 WBC 0-0 clsm=879) (CELLAVISION MANUAL DIFF)2018-08-22 10:13:00 Test Item Value Reference Range Comments NEUTROPHILS - REL (CELLAVISION)(BEAKER) (test 78 % fmax=1897) LYMPHOCYTES - REL (CELLAVISION)(BEAKER) (test 9 % uyvl=9929) MONOCYTES - REL (CELLAVISION)(BEAKER) (test 8 % sbqb=1510) BANDS - REL (CELLAVISION)(BEAKER) (test eplz=0682) 5 % 0-10 NEUTROPHILS - ABS (CELLAVISION)(BEAKER) (test 5.07 K/ul 1.56-6.13 nllq=1812) LYMPHOCYTES - ABS (CELLAVISION)(BEAKER) (test 0.59 K/ul 1.18-3.74 ppvp=0636) MONOCYTES - ABS (CELLAVISION)(BEAKER) (test 0.52 K/uL 0.24-0.36 isjo=7524) BANDS - ABS (CELLAVISION)(BEAKER) (test xqan=5553) 0.33 K/uL 0.00-0.80 TOTAL COUNTED (BEAKER) (test nyuo=5123) 100 WBC MORPHOLOGY (BEAKER) (test fljr=243) Normal PLT MORPHOLOGY (BEAKER) (test nczd=240) Normal POLYCHROMATOPHILLIC RBCS(BEAKER) (test wcyq=125) 1+ few ARTIFACT (CELLAVISION)(BEAKER) (test jgqh=9555) Present PLATELET CONCENTRATION (CELLAVISION)(BEAKER) (test Adequate xicu=9605) Received comment: User comments: Slide comments:BASIC METABOLIC [id number] 06:12:00 Test Item Value Reference Range Comments SODIUM (BEAKER) (test 134 meq/L 136-145 agub=976) POTASSIUM (BEAKER) (test 4.2 meq/L 3.5-5.1 wswb=801) CHLORIDE (BEAKER) (test 101 meq/L 98-107 fqfa=834) CO2 (BEAKER) (test 25 meq/L 22-29 uyqq=103) BLOOD UREA NITROGEN 6 mg/dL 7-21 (BEAKER) (test uiko=641) CREATININE (BEAKER) (test 0.60 mg/dL 0.57-1.25 npuo=735) GLUCOSE RANDOM (BEAKER) 89 mg/dL 70-105 (test wxwm=987) CALCIUM (BEAKER) (test 7.8 mg/dL 8.4-10.2 iuct=035) EGFR (BEAKER) (test 99 mL/min/1.73 sq m ESTIMATED GFR IS NOT olsm=1287) ACCURATE CREATININE CLEARANCE IN PREDICTING GLOMERULAR FILTRATION RATE. ESTIMATED GFR IS NOT APPLICABLE FOR DIALYSIS PATIENTS. HEPATIC FUNCTION [id number] 05:56:00 Test Item Value Reference Range Comments TOTAL PROTEIN (BEAKER) (test jazk=831) 6.2 gm/dL 6.0-8.3 ALBUMIN (BEAKER) (test sqzl=8826) 2.6 g/dL 3.5-5.0 BILIRUBIN TOTAL (BEAKER) (test emub=009) 0.8 mg/dL 0.2-1.2 BILIRUBIN DIRECT (BEAKER) (test cgrd=946) 0.6 mg/dL 0.1-0.5 ALKALINE PHOSPHATASE (BEAKER) (test obom=311) 253 U/L 40-150 AST (SGOT) (BEAKER) (test bnji=875) 753 U/L 5-34 ALT (SGPT) (BEAKER) (test xttr=119) 415 U/L 6-55 PROTHROMBIN [id number] 05:26:00 Test Item Value Reference Range Comments PROTIME (BEAKER) (test rxml=292) 15.9 seconds 11.9-14.2 INR (BEAKER) (test ydtj=027) 1.3 <=5.9 Effective 07/07/2018: PT Reference Range ChangeNew: 11.9-14.2 Previous: 11.7- 14.7RECOMMENDED COUMADIN/WARFARIN INR THERAPY RANGESSTANDARD DOSE: 2.0-3.0 Includes: PROPHYLAXIS for venous thrombosis, systemic embolization; TREATMENT for venous thrombosis and/or pulmonary embolus.HIGH RISK: Target INR is2.5-3.5 for patients wiht mechanical heart valves.CBC W/PLT COUNT & AUTO [id number] 10:00:00 Test Item Value Reference Range Comments WHITE BLOOD CELL COUNT (BEAKER) (test xmvq=210) 6.6 K/ L 3.5-10.5 RED BLOOD CELL COUNT (BEAKER) (test iyho=045) 3.79 M/ L 3.93-5.22 HEMOGLOBIN (BEAKER) (test aeii=900) 9.8 GM/DL 11.2-15.7 HEMATOCRIT (BEAKER) (test inui=396) 32.3 % 34.1-44.9 MEAN CORPUSCULAR VOLUME (BEAKER) (test zxxi=566) 85.2 fL 79.4-94.8 MEAN CORPUSCULAR HEMOGLOBIN (BEAKER) (test 25.9 pg 25.6-32.2 zcdz=753) MEAN CORPUSCULAR HEMOGLOBIN CONC (BEAKER) (test 30.3 GM/DL 32.2-35.5 xqla=943) RED CELL DISTRIBUTION WIDTH (BEAKER) (test 14.5 % 11.7-14.4 erck=802) PLATELET COUNT (BEAKER) (test ppek=872) 164 K/CU MM 150-450 MEAN PLATELET VOLUME (BEAKER) (test myaw=581) 10.9 fL 9.4-12.3 NUCLEATED RED BLOOD CELLS (BEAKER) (test 0 /100 WBC 0-0 zqin=168) (CELLAVISION MANUAL DIFF)2018-08-21 10:00:00 Test Item Value Reference Range Comments NEUTROPHILS - REL (CELLAVISION)(BEAKER) (test 77 % prjp=5569) LYMPHOCYTES - REL (CELLAVISION)(BEAKER) (test 8 % gvls=3837) MONOCYTES - REL (CELLAVISION)(BEAKER) (test 4 % yrwx=6345) BANDS - REL (CELLAVISION)(BEAKER) (test 10 % 0-10 sioo=9314) NEUTROPHILS - ABS (CELLAVISION)(BEAKER) (test 5.08 K/ul 1.56-6.13 yduo=3433) LYMPHOCYTES - ABS (CELLAVISION)(BEAKER) (test 0.53 K/ul 1.18-3.74 fvbw=4369) MONOCYTES - ABS (CELLAVISION)(BEAKER) (test 0.26 K/uL 0.24-0.36 nxey=7714) BANDS - ABS (CELLAVISION)(BEAKER) (test 0.66 K/uL 0.00-0.80 dvmf=3218) TOTAL COUNTED (BEAKER) (test xccf=4045) 100 WBC MORPHOLOGY (BEAKER) (test boui=484) Normal GIANT PLATELETS (BEAKER) (test wxke=324) Present POLYCHROMATOPHILLIC RBCS(BEAKER) (test kcfu=230) 1+ few HYPOCHROMIA (BEAKER) (test lpmf=198) 2+ moderate ANISOCYTOSIS (BEAKER) (test lzid=140) 1+ few MACROCYTES (BEAKER) (test irwn=498) 1+ few POIKILOCYTES (BEAKER) (test jzua=924) 1+ few ARTIFACT (CELLAVISION)(BEAKER) (test cxra=7196) Present PLATELET CONCENTRATION (CELLAVISION)(BEAKER) Adequate (test kyrz=9978) Received comment: User comments: Slide comments:[id number] 07:11:00 Test Item Value Reference Range Comments PHOSPHORUS (BEAKER) (test nfjo=605) 2.7 mg/dL 2.3-4.7 [id number] 07:11:00 Test Item Value Reference Range Comments MAGNESIUM (BEAKER) (test ujbg=681) 1.9 mg/dL 1.6-2.6 BASIC METABOLIC [id number] 07:11:00 Test Item Value Reference Range Comments SODIUM (BEAKER) (test 138 meq/L 136-145 lwpp=496) POTASSIUM (BEAKER) (test 4.6 meq/L 3.5-5.1 xbfz=952) CHLORIDE (BEAKER) (test 108 meq/L 98-107 wlcg=791) CO2 (BEAKER) (test 25 meq/L 22-29 smpp=528) BLOOD UREA NITROGEN 7 mg/dL 7-21 (BEAKER) (test cnvq=529) CREATININE (BEAKER) (test 0.48 mg/dL 0.57-1.25 ogog=840) GLUCOSE RANDOM (BEAKER) 114 mg/dL 70-105 (test rpqb=688) CALCIUM (BEAKER) (test 8.1 mg/dL 8.4-10.2 eish=094) EGFR (BEAKER) (test 129 mL/min/1.73 sq m ESTIMATED GFR IS NOT horo=1023) ACCURATE CREATININE CLEARANCE IN PREDICTING GLOMERULAR FILTRATION RATE. ESTIMATED GFR IS NOT APPLICABLE FOR DIALYSIS PATIENTS. HEPATIC FUNCTION [id number] 07:11:00 Test Item Value Reference Range Comments TOTAL PROTEIN (BEAKER) (test uuhe=962) 5.7 gm/dL 6.0-8.3 ALBUMIN (BEAKER) (test tzqt=3275) 2.4 g/dL 3.5-5.0 BILIRUBIN TOTAL (BEAKER) (test mvjx=364) 0.7 mg/dL 0.2-1.2 BILIRUBIN DIRECT (BEAKER) (test jceh=406) 0.5 mg/dL 0.1-0.5 ALKALINE PHOSPHATASE (BEAKER) (test qnsl=957) 203 U/L 40-150 AST (SGOT) (BEAKER) (test brif=655) 453 U/L 5-34 ALT (SGPT) (BEAKER) (test mewy=992) 362 U/L 6-55 PROTHROMBIN [id number] 05:52:00 Test Item Value Reference Range Comments PROTIME (BEAKER) (test nklh=022) 15.4 seconds 11.9-14.2 INR (BEAKER) (test yanb=875) 1.3 <=5.9 Effective 07/07/2018: PT Reference Range ChangeNew: 11.9-14.2 Previous: 11.7- 14.7RECOMMENDED COUMADIN/WARFARIN INR THERAPY RANGESSTANDARD DOSE: 2.0-3.0 Includes: PROPHYLAXIS for venous thrombosis, systemic embolization; TREATMENT for venous thrombosis and/or pulmonary embolus.HIGH RISK: Target INR is2.5-3.5 for patients wiht mechanical heart valves.JOSEPHINE, [id number] 18:02:00Reason for exam:->choledocholithiasisFINAL REPORT ERCP, 2018 Seven [...] MDReport Verified Date/Time: 08/20/2018 18:02:08 ReadingLocation : [facility] B1 [id number] Consult Reading Room CBC W/PLT COUNT & AUTO [id number] 10:15:00 Test Item Value Reference Range Comments WHITE BLOOD CELL COUNT (BEAKER) (test lhfa=218) 8.0 K/ L 3.5-10.5 RED BLOOD CELL COUNT (BEAKER) (test asuq=310) 3.75 M/ L 3.93-5.22 HEMOGLOBIN (BEAKER) (test hvul=626) 9.7 GM/DL 11.2-15.7 HEMATOCRIT (BEAKER) (test vmod=602) 32.3 % 34.1-44.9 MEAN CORPUSCULAR VOLUME (BEAKER) (test kelu=117) 86.1 fL 79.4-94.8 MEAN CORPUSCULAR HEMOGLOBIN (BEAKER) (test 25.9 pg 25.6-32.2 mqyb=192) MEAN CORPUSCULAR HEMOGLOBIN CONC (BEAKER) (test 30.0 GM/DL 32.2-35.5 apuy=394) RED CELL DISTRIBUTION WIDTH (BEAKER) (test 14.6 % 11.7-14.4 hpja=647) PLATELET COUNT (BEAKER) (test lvip=837) 167 K/CU MM 150-450 MEAN PLATELET VOLUME (BEAKER) (test hchc=964) 10.5 fL 9.4-12.3 NUCLEATED RED BLOOD CELLS (BEAKER) (test 0 /100 WBC 0-0 fwjh=439) (CELLAVISION MANUAL DIFF)2018-08-20 10:15:00 Test Item Value Reference Range Comments NEUTROPHILS - REL (CELLAVISION)(BEAKER) (test 62 % hsbu=0762) LYMPHOCYTES - REL (CELLAVISION)(BEAKER) (test 19 % xjxr=1773) MONOCYTES - REL (CELLAVISION)(BEAKER) (test 6 % uvyi=5564) EOSINOPHILS - REL (CELLAVISION)(BEAKER) (test 1 % vxqb=8192) BANDS - REL (CELLAVISION)(BEAKER) (test jmll=1134) 7 % 0-10 ATYPICAL LYMPHOCYTES - REL (CELLAVISION)(BEAKER) 4 % 0-0 (test fqsg=4308) NEUTROPHILS - ABS (CELLAVISION)(BEAKER) (test 4.96 K/ul 1.56-6.13 nusd=7842) LYMPHOCYTES - ABS (CELLAVISION)(BEAKER) (test 1.52 K/ul 1.18-3.74 sujo=7977) MONOCYTES - ABS (CELLAVISION)(BEAKER) (test 0.48 K/uL 0.24-0.36 fivg=7543) EOSINOPHILS - ABS (CELLAVISION)(BEAKER) (test 0.08 K/uL 0.04-0.36 ouyz=1486) BANDS - ABS (CELLAVISION)(BEAKER) (test oyiv=0254) 0.56 K/uL 0.00-0.80 ATYPICAL LYMPHOCYTES - ABS (CELLAVISION)(BEAKER) 0.32 K/uL 0.00-0.00 (test oqag=2022) TOTAL COUNTED (BEAKER) (test gcrl=6455) 100 RBC MORPHOLOGY (BEAKER) (test blqg=285) Normal WBC MORPHOLOGY (BEAKER) (test sfku=636) Normal PLT MORPHOLOGY (BEAKER) (test vwdw=461) Normal ARTIFACT (CELLAVISION)(BEAKER) (test zcfo=8764) Present PLATELET CONCENTRATION (CELLAVISION)(BEAKER) (test Adequate zkxv=9824) Received comment: User comments: Slide comments:BASIC METABOLIC [id number] 06:39:00 Test Item Value Reference Range Comments SODIUM (BEAKER) (test 134 meq/L 136-145 tntz=504) POTASSIUM (BEAKER) (test 3.9 meq/L 3.5-5.1 mice=707) CHLORIDE (BEAKER) (test 105 meq/L 98-107 pwnv=235) CO2 (BEAKER) (test 24 meq/L 22-29 javo=822) BLOOD UREA NITROGEN 7 mg/dL 7-21 (BEAKER) (test yosa=443) CREATININE (BEAKER) (test 0.54 mg/dL 0.57-1.25 oavd=301) GLUCOSE RANDOM (BEAKER) 139 mg/dL 70-105 (test jbxk=547) CALCIUM (BEAKER) (test 7.7 mg/dL 8.4-10.2 ighk=799) EGFR (BEAKER) (test 112 mL/min/1.73 sq m ESTIMATED GFR IS NOT wdbx=7020) ACCURATE CREATININE CLEARANCE IN PREDICTING GLOMERULAR FILTRATION RATE. ESTIMATED GFR IS NOT APPLICABLE FOR DIALYSIS PATIENTS. HEPATIC FUNCTION [id number] 06:07:00 Test Item Value Reference Range Comments TOTAL PROTEIN (BEAKER) (test cltc=805) 6.2 gm/dL 6.0-8.3 ALBUMIN (BEAKER) (test kpaq=9209) 2.6 g/dL 3.5-5.0 BILIRUBIN TOTAL (BEAKER) (test ilxn=013) 0.8 mg/dL 0.2-1.2 BILIRUBIN DIRECT (BEAKER) (test tiql=931) 0.6 mg/dL 0.1-0.5 ALKALINE PHOSPHATASE (BEAKER) (test ljpq=188) 205 U/L 40-150 AST (SGOT) (BEAKER) (test jacy=825) 831 U/L 5-34 ALT (SGPT) (BEAKER) (test uxxv=107) 453 U/L 6-55 PROTHROMBIN [id number] 04:56:00 Test Item Value Reference Range Comments PROTIME (BEAKER) (test snff=551) 16.4 seconds 11.9-14.2 INR (BEAKER) (test vmuy=534) 1.4 <=5.9 Effective 07/07/2018: PT Reference Range ChangeNew: 11.9-14.2 Previous: 11.7- 14.7RECOMMENDED COUMADIN/WARFARIN INR THERAPY RANGESSTANDARD DOSE: 2.0-3.0 Includes: PROPHYLAXIS for venous thrombosis, systemic embolization; TREATMENT for venous thrombosis and/or pulmonary embolus.HIGH RISK: Target INR is2.5-3.5 for patients wiht mechanical heart valves.
--- OUTSIDE RECORDS SUMMARY | 2019-03-05 12:34 | XMS REPORT ---
:1950 Author Organization [employer] Care Team Providers Name Role Phone Betsy Millan Provider Role Unavailable Allergies, Adverse Reactions, Alerts Substance Reaction Event Type Amoxicillin Info Not Available Drug Allergy Problems Problem Type Condition Code Onset Dates Condition Status Assessment 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 Active Assessment Generalized weakness R53.1 Active Problem Abscess of sigmoid colon due to K57.20 Active diverticulitis Assessment Peripheral edema R60.9 Active Problem Choledocholithiasis K80.50 Active Assessment Follow-up exam Z09 Active Problem Other specified postprocedural Z98.890 Active states Problem Follow-up exam Z09 Active Problem Nausea and vomiting, intractability R11.2 Active of vomiting not specified, unspecified vomiting type Problem Generalized weakness R53.1 Active Problem History of diverticulitis Z87.19 Active Problem Weight loss R63.4 Active Problem Hyponatremia E87.1 Active Assessment Hyponatremia E87.1 Active Problem 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 Active Problem Acquired absence of other specified Z90.49 Active parts of digestive tract Problem Elevated liver enzymes R74.8 Active Problem S/P cholecystectomy Z90.49 Active Problem Left lower quadrant pain R10.32 Active Problem Loss of appetite R63.0 Active Problem Osteoporosis M81.0 Active Problem Nausea R11.[address] scan, kidney R93.429 Active Problem Depression screening Z13.31 Active Problem Sigmoid diverticulosis K57.30 Active Problem Sigmoid diverticulitis K57.32 Active Medications Medication Code Code Instructions Start End Status Dosage System Date Date Melatonin ND 12745937669 5 MG Orally Once Active 1 tablet a day at bedtime as needed with food Ondansetron HCl ND 49569670399 4 MG Orally July 09, Active 1 tablet Every 4-6 hours 2019 as needed for nausea/vom iting Results No Known Results Summary Purpose [employer] Submission
--- OUTSIDE RECORDS SUMMARY | 2019-03-05 12:34 | XMS REPORT | Summary of Care ---
:1950 Author Organization [facility] [place] [address] Care Team Providers Name Role Phone Unavailable Primary Care Provider Unavailable Reason for Visit Reason Comments Post-op Follow-up Encounter Details Date Type Department Care Team Description 11/09/2018 Office Visit [facility] Elana Mccullough, Post-op Follow-up Medicine General Surgery [address] [address] [address] [place] [address] [place] [address] [phone] Allergies Not on Filedocumented as of this encounter (statuses as of 11/09/2018) Medications Not on filedocumented as of this encounter (statuses as of 11/09/2018) Active Problems Not on filedocumented as of this encounter (statuses as of 11/09/2018) Social History Tobacco Use Types Packs/Day Years Used Date Never Smoker Smokeless Tobacco: Never Used Sex Assigned at Date Recorded Not on file Job Start Date Occupation Industry Not on file Not on file Not on file Travel History Travel Start Travel End No recent travel history available. documented as of this encounter Last Filed Vital Signs Vital Sign Reading Time Taken Comments Blood Pressure 88/67 11/09/2018 1:44 PM CDT Pulse 116 11/09/2018 1:44 PM CDT Temperature - - Respiratory Rate - - Oxygen Saturation - - Inhaled Oxygen Concentration - - Weight - - Height - - Body Mass Index - - documented in this encounter Progress Notes Elana Mccullough PA-C - 11/09/2018 1:00 PM CDT Juancarlos Contreras Department of Surgery Division of Acute Care General Surgery Mailing Address: [address] [facility] [address] [facility] [address] Physical Address:[address] [facility] [address] [facility] [address] CHIEF COMPLAINT: Chief Complaint Patient presents with Post-op Follow-up SUBJECTIVE: Madeline Celaya is a 67 y.o. female who presents for post-operative follow-up. She was recently seen at [facility] where she underwent laparoscopic cholecystectomy followed by LAR with diverting loopileostomy Please see full hospital course below: 67 y.o. Hispanicfemalew/ past medical history osteoarthritis admitted to OSH for diverticulitis/abscessthentransferred here for further evaluation of choledocholithiasis -CT scan on admission showed no diverticular abscess. She was continued on antibiotics -08/20: ERCP with CBD stone removal -08/26: OR for lap miguel Postoperatively with persistent LLQ pain, feverrelated to a possible gas collection 2/2 diverticulitis. Decision made to proceed with operative intervention due to failure of medical therapy. -09/03: to OR, underwent LAR with diverting ileostomy, small bowel resection with primary anastomosis Postoperative course was slow but uncomplicated. She was discharged to home on . Office visit 09/21: Today, she presents for follow-up. She denies any fevers but has some dizziness. She has had some nausea in the morning and occasional after eating (has had this since July). She is taking zofran and also tramadol about twice daily. She has had the urge to have a BM and has had one mucous/bloody BM. She is emtying the bag 2-3 times daily. She denies feeling thirsty or dehydrated but feels tired. She has pain at her incision which is overall improving. -[place] removed Pt continued to have nausea with vomiting and required admission 10/06-10/14 for treatment of [place], highileostomy output, and persistent nausea. Today, she presents to clinic. Her son states she is drinking only about 1/2 bottle of fluid (water or gatorade) per day and eating about four bites of each meal. She is losing weight and now weights 101 (prevoiusly 150) She is constantly spitting up and nauseated, taking zofran around the clock. He thinks she is dehydrated again. Her empties the bag 2-3 times daily. She stopped taking the meclizine and the antidepressant but is taking the marinol BID. Her blood pressure has been low and herheart rate has been high. PHYSICAL EXAM: BP (!) 88/67 | Pulse 116 General: Alert, cooperative, mild distress Pulm Unlabored on room air Abdomen: Not examined Pathology/Microbiology: Surgical Pathology: 09/03 OR: DIAGNOSIS A. SMALL BOWEL, SEGMENTAL RESECTION: - ABSCESSES, GRANULATION TISSUE, CHRONIC INFLAMMATION AND FOREIGNJ BODY REACTION TO EXOGENOUS MATERIAL - FAT NECROSIS IN SUBSEROSAL FAT - [...] (0/15) - NEGATIVE FOR DYSPLASIA OR MALIGNANCY 08/26 OR: DIAGNOSIS A. LIVER, INTRAOPERATIVE NEEDLE BIOPSIES - SEVERE ACTIVE HEPATITIS - see comment B. GALLBLADDER, CHOLECYSTECTOMY - CHRONIC CHOLECYSTITIS WITH FOCAL CHOLESTEROLOSIS - CHOLELITHIASIS PLAN: 1. Admit to inpatient for dehydration, malnutrition, evaluation of nausea. Pt advised to proceed directly to direct admitting office. Discussed with Dr. Liu. Call or RTC with any surgical issues including fever >100.4, increasing abdominal pain, nausea, vomiting, or evidence of infection at the incision. Elana Mccullough PA-C General Surgery Physician Plan Coordinator documented in this encounter Plan of Treatment Health Maintenance Due Date Last Done Comments COLON CANCER SCREENING: COLONOSCOPY 1950 MAMMOGRAM ANNUAL 1950 TETANUS SHOT (ADULT) 1964 FALL SCREEN 2014 OSTEOPOROSIS SCREENING 2014 PNEUMOVAX >=65 (PPSV23) 2014 PREVNAR >=65 (PCV13) 2014 FLU VACCINE > 6 MONTHS 09/09/2018 HEPATITIS C SCREENING Completed 08/24/2018, 08/24/2018, 08/24/2018 documented as of this encounter Results Not on filedocumented in this encounter Visit Diagnoses Diagnosis Ileostomy in place (HCCode) - Primary Ileostomy status S/P partial colectomy Other postprocedural status documented in this encounter"
[2019-03-05] MEDS ORDERED: ONDANSETRON 4 MG/2 ML VIAL ONE ×2 (13:00→16:20)
[2019-03-05] MEDS ORDERED: NA CHLORIDE 0.9% 1,000 ML ONE ×2 (13:01→16:11)
[2019-03-05 13:25] LABS: Basophils % 0.5 % (0-1.3); Hematocrit 43.6 % (36.0-45.0); Lymphocytes % 19.6 % (15.3-44.8); MPV 9.1 fL (7.6-11.3); RBC Red Blood Cell Count 4.97 M/uL (3.86-4.86)
[2019-03-05 14:42] LABS: Albumin 3.7 g/dL (3.4-5.0); Bilirubin Direct 0.2 mg/dL (0-0.2); Bilirubin Total 0.4 mg/dL (0.2-1.0); Potassium 3.8 mmol/L (3.5-5.1); Protein, Total 7.9 g/dL (6.4-8.2)
--- NOTE | 2019-03-05 15:25 | RAD REPORT ---
EXAM DESCRIPTION: CT - Abdomen Pelvis Wo Contrast - 03/05/2019 3:14 pm CLINICAL HISTORY: Abdominal pain. Abd pain;Nausea / vomiting COMPARISON: Stone Protocol dated 10/05/2018; Abdomen Pelvis W Contrast dated 08/18/2018; Abdomen P lesa W Contrast dated 07/30/2018 TECHNIQUE: CT imaging of the abdomen and pelvis was performed without contrast. Solid organ and vasc ular assessment is limited due to lack of IV contrast. All CT scans are performed using dose optimization technique as appropriate and may include automated exposure control or mA/KV adjustment according to patient size. FINDINGS: The lower lung marcos are clear.Cholecystectomy clips. The liver, spleen, pancreas, adrenal glands and right kidney are within normal limits for a limited n on-contrast examination.Left double-J stent is in place. Positioning of the stent is within expected limits. Mild left hydronephrosis and hydroureter is present. No bowel obstruction, free air, free fluid or abscess. Right lower quadrant ostomy noted. The appendi x is not identified as a discrete structure, however, no secondary findings of appendicitis are ident ified. The osseous structures are within normal limits. IMPRESSION: A left double-J stent is in place. There is mild increased dilatation of the left renal pelvis and left ureter since the prior study. This could indicate diminished function of the left beatrice ble-J stent. Elsewhere, there is no acute process identified. A limited non-contrast examination was performed as detailed.
--- NOTE | 2019-03-05 15:42 | ER ---
Nurse's Notes [facility] Name: Madeline Celaya Age: 68 yrs Sex: Female : 1950 Arrival Date: 03/05/2019 Time: 12:19 Bed 6 Private MD: Betsy Millan Diagnosis: Acute pancreatitis;Dehydration;Acute kidney injury Presentation: 03/05 12:39 Presenting complaint: Nausea, diarrhea, and upper abdominal pain x 1 week. Transition hb of care: patient was not received from another setting of care. Onset of symptoms was March 08, 2019. Risk Assessment: Do you want to hurt yourself or someone else? Patient reports no desire to harm self or others. Care prior to arrival: None. 12:39 Method Of Arrival: Ambulatory hb 12:39 Acuity: RUBEN 2 hb 13:00 Initial Sepsis Screen: Does the patient meet any 2 criteria? HR > 90 bpm. No. Patient's ph initial sepsis screen is negative. Does the patient have a suspected source of infection? No. Patient's initial sepsis screen is negative. Historical: - Allergies: 12:42 Amoxicillin; hb 12:42 Cipro; hb - PMHx: 12:42 Diverticulitis; osteoarthritis; hb - PSHx: 12:42 Cholecystectomy; colon resection; ileostomy; hb - Immunization history:: Adult Immunizations up to date. - Coronavirus screen:: The patient has NOT traveled to [place], [place], or [place] in the past 14 days. Proceed with normal triage process as indicated. - Social history:: Smoking status: Patient denies any tobacco usage or history of. - Ebola Screening: : No symptoms or risks identified at this time. Screenin:54 Abuse screen: Denies threats or abuse. Denies injuries from another. Nutritional ph screening: No deficits noted. Tuberculosis screening: No symptoms or risk factors identified. Fall Risk None identified. Assessment: 13:00 General: Appears in no apparent distress. uncomfortable, slender, well groomed, ph Behavior is calm, cooperative, appropriate for age. Pain: Complains of pain in right upper quadrant and left upper quadrant. Neuro: Level of Consciousness is awake, alert, obeys commands, Oriented to person, place, time, situation. Cardiovascular: Capillary refill < 3 seconds in bilateral fingers Patient's skin is warm and dry. Respiratory: Airway is patent Respiratory effort is even, unlabored, Respiratory pattern is regular, symmetrical. GI: Abdomen is flat, non-distended, Ileostomy site is clean and dry. Ostomy appliance is intact. Bowel sounds present X 4 quads. Abd is soft X 4 quads Reports upper abdominal pain, nausea, vomiting. Derm: Skin is intact, Skin is pink, warm \T\ dry. Musculoskeletal: Circulation, motion, and sensation intact. Range of motion: intact in all extremities. 14:00 Reassessment: Patient appears in no apparent distress at this time. No changes from ph previously documented assessment. Patient and/or family updated on plan of care and expected duration. Pain level reassessed. Patient is alert, oriented x 3, equal unlabored respirations, skin warm/dry/pink. 15:00 Reassessment: Patient appears in no apparent distress at this time. No changes from ph previously documented assessment. Patient and/or family updated on plan of care and expected duration. Pain level reassessed. Patient is alert, oriented x 3, equal unlabored respirations, skin warm/dry/pink. 16:00 Reassessment: Patient appears in no apparent distress at this time. Patient and/or ph family updated on plan of care and expected duration. Pain level reassessed. Patient is alert, oriented x 3, equal unlabored respirations, skin warm/dry/pink. Pt c/o back pain and nausea, ERP notified, see MAR. 17:07 Reassessment: Patient appears in no apparent distress at this time. Patient and/or ph family updated on plan of care and expected duration. Pain level reassessed. Patient is alert, oriented x 3, equal unlabored respirations, skin warm/dry/pink. 17:35 Reassessment: Patient appears in no apparent distress at this time. Patient and/or ph family updated on plan of care and expected duration. Pain level reassessed. Patient is alert, oriented x 3, equal unlabored respirations, skin warm/dry/pink. Attempted to call report to second floor, receiving nurse unavailable, told that she would call back. 18:01 Reassessment: Patient appears in no apparent distress at this time. Patient and/or ph family updated on plan of care and expected duration. Pain level reassessed. Patient is alert, oriented x 3, equal unlabored respirations, skin warm/dry/pink. Report given to Prema COPE. Vital Signs: 12:39 BP 82 / 69; Pulse 116; Resp 16; Temp 97.2; Pulse Ox 100% on R/A; Weight 61.23 kg; hb Height 5 ft. 6 in. (167.64 cm); Pain 6/10; 13:30 BP 102 / 68; Pulse 89; Resp 16; Pulse Ox 100% on R/A; ph 14:38 BP 99 / 72; Pulse 79; Resp 18; Pulse Ox 100% on R/A; ph 16:23 BP 101 / 70; Pulse 80; Resp 18; Pulse Ox 99% on R/A; ph 17:08 BP 94 / 62; Pulse 85; Resp 18; Pulse Ox 100% on R/A; ph 18:02 BP 95 / 60; Pulse 81; Resp 18; Temp 97.4; Pulse Ox 100% on R/A; ph 12:39 Body Mass Index 21.79 (61.23 kg, 167.64 cm) hb ED Course: 12:19 Patient arrived in ED. es 12:22 Betsy Millan MD is Private Physician. es 12:33 Rodger Cartagena NP is PHCP. pm1 12:33 Jose Daniels MD is Attending Physician. pm1 12:34 Fabiola Myrick RN is Primary Nurse. ph 12:39 Arm band placed on. hb 12:41 Triage completed. hb 13:15 Inserted saline lock: 22 gauge in left antecubital area, using aseptic technique. Blood ph collected. Missed attempt(s): 22 gauge in right antecubital area. Bleeding controlled, band aid applied, catheter tip intact. 13:44 Radiology exam delayed due to lab results not completed at this time. (BUN/Creatinine). bq 14:55 Patient has correct armband on for positive identification. Placed in gown. Bed in low ph position. Call light in reach. Side rails up X 1. Pulse ox on. NIBP on. Door closed. Warm blanket given. Pillow given. 15:14 Abdomen In Process Unspecified. EDMS 15:41 Aidee Richmond MD is Hospitalizing Provider. pm1 17:07 No provider procedures requiring assistance completed. Patient admitted, IV remains in ph place. Administered Medications: 13:21 Drug: NS 0.9% 1000 ml Route: IV; Rate: 1000 ml; Site: left antecubital; ph 14:45 Follow up: Response: No adverse reaction; IV Status: Completed infusion ph 13:22 Drug: Zofran 4 mg Route: IVP; Site: left antecubital; ph 17:06 Follow up: Response: No adverse reaction; Nausea is decreased ph 16:21 Drug: NS 0.9% 1000 ml Route: IV; Rate: 1000 ml; Site: left antecubital; ph 18:02 Follow up: Response: No adverse reaction; IV Status: Completed infusion; IV Intake: ph 1000ml 16:22 Drug: morphine 1 mg Route: IVP; Site: left antecubital; ph 17:06 Follow up: Response: No adverse reaction; Pain is decreased; RASS: Alert and Calm (0) ph 16:22 Drug: Zofran 4 mg Route: IVP; Site: left antecubital; ph 17:06 Follow up: Response: No adverse reaction; Nausea is decreased ph 16:30 Drug: NS 0.9% 1000 ml Route: IV; Rate: 100 ml/hr; Site: left antecubital; ph 18:02 Follow up: Response: No adverse reaction; IV Status: Infusion continued upon admission ph Intake: 18:02 IV: 1000ml; Total: 1000ml. ph Outcome: 15:41 Decision to Hospitalize by Provider. pm1 18:01 Admitted to Med/surg accompanied by tech, family with patient, via wheelchair, room ph 210, with chart. 18:01 Condition: stable 18:01 Instructed on the need for admit. 18:15 Patient left the ED. ph Signatures: Dispatcher [employer] Carmen Martinez Betty bq Hall, Patricia, RN RN Rodger Cartagena, KYLE WEB MARKETING COORDINATOR pm1 Naheed Burns, ANATOLIY RN hb
--- NOTE | 2019-03-05 15:42 | EDPHYS ---
Physician Documentation [facility] Name: Madeline Celaya Age: 68 yrs Sex: Female : 1950 Arrival Date: 03/05/2019 Time: 12:19 Bed 6 Private MD: Betsy Millan ED Physician Jose Daniels HPI: 03/05 12:48 This 68 yrs old Female presents to ER via Ambulatory with complaints of pm1 Abdominal Pain, Nausea/Vomiting, Dehydration. 12:48 The patient presents with abdominal pain in the upper abdomen. The symptoms do not pm1 radiate. Associated signs and symptoms: Pertinent positives: nausea and vomiting, Pertinent negatives: chest pain, diarrhea, dysuria, fever, shortness of breath. The symptoms are described as achy. Modifying factors: The symptoms are alleviated by Zofran helps some. The patient has experienced similar episodes in the past, multiple times. Patient was seen by her colorectal surgeon about 2 weeks ago for evaluation and treatment. Patient had a small abdominal abscess that was not drainable so the plan was to treated with antibiotics, clindamycin and Flagyl. After treatment the plan was to reverse the patient's ileostomy. Patient took 1.5 days of antibiotics but started feeling increased depression with nausea and vomiting so she stopped taking them. However the nausea and vomiting have persisted. Patient reports vomiting 2-3 times per day. Patient's abdominal pain is in the upper epigastric area and left lower quadrant and it is the same pain that she has had since July 2018 with her diverticulitis. Historical: - Allergies: 12:42 Amoxicillin; hb 12:42 Cipro; hb - PMHx: 12:42 Diverticulitis; osteoarthritis; hb - PSHx: 12:42 Cholecystectomy; colon resection; ileostomy; hb - Immunization history:: Adult Immunizations up to date. - Coronavirus screen:: The patient has NOT traveled to [place], [place], or [place] in the past 14 days. Proceed with normal triage process as indicated. - Social history:: Smoking status: Patient denies any tobacco usage or history of. - Ebola Screening: : No symptoms or risks identified at this time. ROS: 12:48 Constitutional: Negative for fever, chills, and weight loss, Eyes: Negative for injury, pm1 pain, redness, and discharge, ENT: Negative for injury, pain, and discharge, Neck: Negative for injury, pain, and swelling, Cardiovascular: Negative for chest pain, palpitations, and edema, Respiratory: Negative for shortness of breath, cough, wheezing, and pleuritic chest pain. 12:48 Back: Negative for injury and pain, : Negative for injury, bleeding, discharge, and swelling, MS/Extremity: Negative for injury and deformity, Skin: Negative for injury, rash, and discoloration, Neuro: Negative for headache, weakness, numbness, tingling, and seizure. 12:48 Abdomen/GI: Positive for abdominal pain, nausea and vomiting, Negative for diarrhea, constipation. Exam: 12:48 Constitutional: This is a well developed, well nourished patient who is awake, alert, pm1 and in no acute distress. Head/Face: Normocephalic, atraumatic. Neck: Trachea midline, no thyromegaly or masses palpated, and no cervical lymphadenopathy. Supple, full range of motion without nuchal rigidity, or vertebral point tenderness. No Meningismus. Chest/axilla: Normal chest wall appearance and motion. Nontender with no deformity. No lesions are appreciated. Cardiovascular: Regular rate and rhythm with a normal S1 and S2. No gallops, murmurs, or rubs. No pulse deficits. Respiratory: Lungs have equal breath sounds bilaterally, clear to auscultation and percussion. No rales, rhonchi or wheezes noted. No increased work of breathing, no retractions or nasal flaring. Vital Signs: 12:39 BP 82 / 69; Pulse 116; Resp 16; Temp 97.2; Pulse Ox 100% on R/A; Weight 61.23 kg; hb Height 5 ft. 6 in. (167.64 cm); Pain 6/10; 13:30 BP 102 / 68; Pulse 89; Resp 16; Pulse Ox 100% on R/A; ph 14:38 BP 99 / 72; Pulse 79; Resp 18; Pulse Ox 100% on R/A; ph 16:23 BP 101 / 70; Pulse 80; Resp 18; Pulse Ox 99% on R/A; ph 17:08 BP 94 / 62; Pulse 85; Resp 18; Pulse Ox 100% on R/A; ph 18:02 BP 95 / 60; Pulse 81; Resp 18; Temp 97.4; Pulse Ox 100% on R/A; ph 12:39 Body Mass Index 21.79 (61.23 kg, 167.64 cm) hb MDM: 12:46 Patient medically screened. pm1 12:57 ED course: patient offered narcotics for pain medication. Patient refused. Would like pm1 Tylenol but informed her that for abdominal pain I keep the patient NPO until I get imaging results. 15:17 Data reviewed: vital signs. Data interpreted: Pulse oximetry: on room air is 100 %. pm1 Interpretation: normal. 15:17 ED course: Patient reports pain improved. Patient offered pain medications. Patient pm1 refused. 15:40 Counseling: I had a detailed discussion with the patient and/or guardian regarding: the pm1 historical points, exam findings, and any diagnostic results supporting the discharge/admit diagnosis, lab results, radiology results, the need for further work-up and treatment in the hospital. 15:59 Physician consultation: Aidee Richmond MD was called at 15:59, was contacted at 15:59, pm1 regarding admission, patient's condition, and will see patient. 03/05 12:44 Order name: Basic Metabolic Panel; Complete Time: 14:50 pm03/05 12:44 Order name: CBC with Diff; Complete Time: 14:08 pm1 03/05 12:44 Order name: Creatinine for Radiology; Complete Time: 15:01 pm03/05 12:44 Order name: Hepatic Function; Complete Time: 14:50 pm1 03/05 12:44 Order name: Lipase; Complete Time: 14:50 pm03/05 15:46 Order name: Urine Microscopic Only pm1 03/05 15:10 Order name: Abdomen ; Complete Time: 15:27 EDVT 03/05 12:44 Order name: IV Saline Lock; Complete Time: 13:22 pm03/05 12:44 Order name: Labs collected and sent; Complete Time: 13:22 pm03/05 13:29 Order name: Labs - recollect needed: recollect chemistries please; Complete Time: 13:55 eb Administered Medications: 13:21 Drug: NS 0.9% 1000 ml Route: IV; Rate: 1000 ml; Site: left antecubital; ph 14:45 Follow up: Response: No adverse reaction; IV Status: Completed infusion ph 13:22 Drug: Zofran 4 mg Route: IVP; Site: left antecubital; ph 17:06 Follow up: Response: No adverse reaction; Nausea is decreased ph 16:21 Drug: NS 0.9% 1000 ml Route: IV; Rate: 1000 ml; Site: left antecubital; ph 18:02 Follow up: Response: No adverse reaction; IV Status: Completed infusion; IV Intake: ph 1000ml 16:22 Drug: morphine 1 mg Route: IVP; Site: left antecubital; ph 17:06 Follow up: Response: No adverse reaction; Pain is decreased; RASS: Alert and Calm (0) ph 16:22 Drug: Zofran 4 mg Route: IVP; Site: left antecubital; ph 17:06 Follow up: Response: No adverse reaction; Nausea is decreased ph 16:30 Drug: NS 0.9% 1000 ml Route: IV; Rate: 100 ml/hr; Site: left antecubital; ph 18:02 Follow up: Response: No adverse reaction; IV Status: Infusion continued upon admission ph Disposition: 03/05/19 15:41 Hospitalization ordered by Aidee Richmond for Inpatient Admission. Preliminary diagnosis are Acute pancreatitis, Dehydration, Acute kidney injury. - Bed requested for Telemetry/MedSurg (Inpatient). - Status is Inpatient Admission. ph - Condition is Stable. - Problem is new. - Symptoms have improved. UTI on Admission? No Addendum: 03/06/2019 21:17 Co-signature as Attending Physician, Jose Daniels MD I agree with the assessment and k dr plan of care. Signatures: Dispatcher [employer] [facility] Jose Daniels MD MD [facility] Fabiola Myrick RN RN Rodger Cartagena, KYLE BLANKBOOK FORWARDER pm1 Naheed Burns RN RN Annalisa Curry Corrections: (The following items were deleted from the chart) 03/05 15:09 12:57 Abdomen Pelvis W Con+CT.RAD.BRZ ordered. [facility] 15:48 15:41 Hospitalization Ordered by Aidee Richmond MD for Inpatient Admission. Preliminary pm1 diagnosis is Acute pancreatitis. Bed requested for Telemetry/MedSurg (Inpatient). Status is Inpatient Admission. Condition is Stable. Problem is new. Symptoms have improved. UTI on Admission? No. pm1 16:35 15:48 03/05/2019 15:41 Hospitalization Ordered by Aidee Richmond MD for Inpatient eb Admission. Preliminary diagnosis is Acute pancreatitis; Dehydration; Acute kidney injury. Bed requested for Telemetry/MedSurg (Inpatient). Status is Inpatient Admission. Condition is Stable. Problem is new. Symptoms have improved. UTI on Admission? No. pm1 17:24 16:35 03/05/2019 15:41 Hospitalization Ordered by Aidee Richmond MD for Inpatient eb Admission. Preliminary diagnosis is Acute pancreatitis; Dehydration; Acute kidney injury. Bed requested for Telemetry/MedSurg (Inpatient). Status is Inpatient Admission. Condition is Stable. Problem is new. Symptoms have improved. UTI on Admission? No. eb 18:15 17:24 03/05/2019 15:41 Hospitalization Ordered by Aidee Richmond MD for Inpatient ph Admission. Preliminary diagnosis is Acute pancreatitis; Dehydration; Acute kidney injury. Bed requested for Telemetry/MedSurg (Inpatient). Status is Inpatient Admission. Condition is Stable. Problem is new. Symptoms have improved. UTI on Admission? No. eb
[2019-03-05] MEDS ORDERED: MORPHINE 2 MG/ML SYR ONE (16:20)
[2019-03-05] MEDS ORDERED: NA CHLORIDE 0.9% 1,000 ML IV SCH (18:31)
[2019-03-05] MEDS ORDERED: MORPHINE 2 MG/ML SYR IV PRN (18:31)
--- NOTE | 2019-03-05 18:37 | HP ---
Date of Admission: 03/05/2019 Chief Complaint: Generalized weakness, nausea, vomiting, abdominal pain. Code Status: Full. History Of Present Illness: Patient is a 68-year-old female with past medical history of diverticuli tis, status post partial small-bowel resection with ileostomy, osteoarthritis, who has been in and ou t of the hospital since July 2018. Patient since her last stay at this facility in April 19, 2018, w as transferred to [facility] for ERCP and according to son, he is unsure if she had an ERCP, but yakelin ent had her gallbladder removed and also had partial colon resection due to diverticular abscesses. Patient had an ileostomy and did well. Subsequently in October, she was to be readmitted for taked own of her ileostomy, however, was found to have a leak. Therefore, that was delayed. She was readm itted to [facility] on November 09 after being found that her kidneys have been shut down and was tra nsferred from this facility. She remained at [facility] for 3 weeks. She improved. She was found t o have a pelvic abscess and that was too small to be drained. She was then put on antibiotics with F lagyl and clindamycin. Since then, the patient has had a deterioration in her condition. She has no t been able to tolerate her diet, had nausea, no fevers but chills. Patient sees colorectal surgeon, Dr. Sosa at [facility]. Patient's symptoms are constant, moderate, progressively worsening. There fore, came into the ER for further evaluation. Upon arrival, she was somewhat hypotensive. Her lab showed a sodium level of 124. Her creatinine was elevated at 2.35. Lipase was elevated at 1678. Wh ite blood cell count was normal. CT scan of the abdomen did not show any pancreatitis, showed the le ft double-J stent that was placed last year. Mild increased dilatation of the left renal pelvis and left ureter since the previous study could indicate diminished function of the left double-J stent. Otherwise, no acute process identified. There was no bowel obstruction, free air, free fluid, or abs cess. Patient was then referred for admission. When seen in the ER, she was awake, alert, oriented x3, in some mild distress due to discomfort. Past Medical History: Osteoarthritis, diverticulitis with subsequent small-bowel resection and ileos monique. Past Surgical History: Partial small-bowel surgery and ileostomy, left double-J stent in the kidney, and cholecystectomy. Allergies: TO AMOXICILLIN WHICH CAUSES HIVES AND CIPRO. Medications: List reviewed. Social History: No tobacco use, alcohol use, or illicit drug use. Patient is , has a son, in dependent in her activities of daily living. Family History: No premature coronary artery disease runs in the family. Review of Systems: Ten-point system reviewed, negative except as per HPI. Patient has lost significant amount of weight approximately 60 pounds in the past 4 months. Physical Examination: Vital Signs: Blood pressure is 82/69, pulse 116, respirations 16, temperature 97.2, O2 of 100% on ro om air. General: Awake, alert, oriented x3, ill-appearing female, frail, cachectic, in some mild distress du e to pain. HEENT: Normocephalic, atraumatic. PERRLA. EOMI. Dry mucous membranes. Oropharynx is clear. Norm al dentition. Conjunctiva is anicteric. Neck: Supple. No JVD. Trachea midline. CV: S1, S2. Sinus tachycardia. Peripheral pulses present. Respiratory: Moving air well bilaterally. No wheezing or stridor. No use of accessory muscles. Gastrointestinal: Abdomen is soft. Tenderness to palpation in the epigastric region. No rebound or guarding. Positive bowel sounds. Ileostomy bag is present with significant amount of liquid stool. Extremities: No clubbing, cyanosis, or edema. No calf tenderness. Neuro: Cranial nerves 2 through 12 intact grossly. No focal neurological deficit. Speech is normal . Skin: No rashes. Normal skin turgor. Psych: Mood is depressed. Affect is congruent with mood. Insight and judgment are fair. Laboratory Data: UA is pending. Sodium 124, potassium 3.8, chloride 96, CO2 of 16, BUN 79, creatini ne 2.34, glucose 105, calcium 8.5, AST 18, ALT 26, direct bilirubin 0.2, total bilirubin 0.4, alkalin e phosphatase 80, albumin 3.7, lipase 1678. WBC 9.9, H and H 15.4 and 43.6, platelets 461, neutrophi ls 75%. CT scan of the abdomen and pelvis shows a left double-J stent in place. Mild decreased dila tation of the left renal pelvis and left ureter since prior study could indicate diminished function of the left double-J stent. Also, there is no acute process identified. Liver, spleen, pancreas, ad renal glands, and right kidney are within normal limits. Assessment: A 68-year-old female with: 1.Acute pancreatitis, unclear etiology. Patient is status post cholecystectomy. She does not have any hyperbilirubinemia or elevated liver enzymes. We will start on IV fluids. Keep n.p.o. No GI av ailable. No pseudocyst or necrosis seen on CT. We will continue to monitor lipase level. No alcoho l use. 2.Generalized weakness. Patient has decreased appetite, has lost significant amount of weight. 3.History of diverticulosis. No acute diverticulitis seen at this time. She is status post recent small-bowel resection and ileostomy in August of last year. 4.Generalized osteoarthritis, stable. 5.Hyponatremia. We will start on normal saline. Continue with monitoring sodium level. 6.Acute kidney injury likely secondary to prerenal azotemia, dehydration. Patient has had decreased p.o. intake. We will start on IV fluids. Monitor creatinine level. Avoid NSAIDs and consult Nephr ology. Patient denies any significant NSAID use. 7.Failure to thrive. Plan: Admit patient to Med-Surg, place as inpatient. Length of stay greater than 2 midnights. FABY Voice ID: [id number]
[2019-03-05 20:16] VITALS: BMI 15.6
[2019-03-05] MEDS: Ringers Lactate 1,000 ML IV SCH (20:41)
[2019-03-05] MEDS ORDERED: NA CHLORIDE 0.9% 1,000 ML IV ONE (22:21)
[2019-03-05] MEDS: Meropenem 1,000 MG in NA CHLORIDE 0.9% 100 ML IV SCH (22:25)
[2019-03-05 23:35] LABS: BUN Blood Urea Nitrogen 69 mg/dL (7-18); Bicarbonate 16 mmol/L (21-32); CKMB Creatine Kinase MB 2.5 ng/mL (0.3-3.6); Glucose Level 88 mg/dL (74-106); Potassium 3.5 mmol/L (3.5-5.1); Sodium Level 130 mmol/L (136-145); Troponin I < 0.02 ng/mL (0.0-0.045)
[2019-03-06] MEDS ORDERED: Meropenem 1000 MG/VIAL IV SCH (01:00)
[2019-03-06] MEDS ORDERED: Meropenem 1,000 MG in NA CHLORIDE 0.9% 100 ML IV SCH (01:00)
[2019-03-06] MEDS ORDERED: NOREPINEPHRINE 4 MG in D5W 250 ML IV PRN (01:32)
[2019-03-06] MEDS: Ringers Lactate 1,000 ML IV SCH ×2 (03:05→06:35)
[2019-03-06 06:54] LABS: Absolute Lymphocytes (CBC) 1.9 K/uL (0.7-4.9); Basophils % 0.5 % (0-1.3); Hematocrit 32.5 % (36.0-45.0); Lymphocytes % 17.2 % (15.3-44.8); MPV 8.7 fL (7.6-11.3); RBC Red Blood Cell Count 3.67 M/uL (3.86-4.86)
[2019-03-06 07:11] LABS: Albumin 2.8 g/dL (3.4-5.0); Bilirubin Total 0.6 mg/dL (0.2-1.0); Magnesium 2.1 mg/dL (1.8-2.4); Phosphorus 3.1 mg/dL (2.5-4.9); Potassium 3.8 mmol/L (3.5-5.1)
[2019-03-06] MEDS: ENOXAPARIN 30 MG/0.3 ML SQ SCH (08:32)
--- NOTE | 2019-03-06 08:55 | RAD REPORT ---
EXAM DESCRIPTION: Demar Single View03/05/2019 10:39 pm CLINICAL HISTORY: Hypotension COMPARISON: 2009 FINDINGS: The lungs are hyperaerated The lungs appear clear of acute infiltrate. The heart is normal size
[2019-03-06] MEDS: Meropenem 1,000 MG in NA CHLORIDE 0.9% 100 ML IV SCH ×2 (08:59→20:11)
[2019-03-06] MEDS ORDERED: D5W 1,000 ML with NA BICARB 8.4% 100 MEQ IV SCH ×4 (09:00→11:29)
[2019-03-06] MEDS ORDERED: ENOXAPARIN 40 MG/0.4 ML SQ SCH (09:00)
[2019-03-06] MEDS ORDERED: KETOROLAC 30 MG/ML INJ IV ONE (09:00)
--- NOTE | 2019-03-06 11:17 | PN ---
Date of Progress Note: 03/06/2019 Subjective: The patient seen and examined. Chart reviewed and case discussed with RN. Patient stat es she feels slightly better today. No nausea or vomiting. Asking for something to drink. Patient does report some headache. Medications list reviewed. Physical Examination: Vital Signs: Temperature 97.6, heart rate 75, blood pressure 94/57, respirations 18, O2 100% on room air. General: Awake, alert, oriented x3. Elderly female, frail, cachectic. BMI 15.6. Ill-appearing. CV: S1, S2. Regular rate and rhythm. Peripheral pulses present. Respiratory: Moving air well bilaterally. No wheezing or stridor. No use of accessory muscles. Gastrointestinal: Abdomen is tender in the epigastric region. No rebound or guarding. Hypoactive b owel sounds. Ileostomy in place with liquid stool. Extremities: No clubbing, cyanosis, or edema. Neurologic: Nonfocal. Speech is normal. Laboratory Data: Sodium 137, potassium 3.8, chloride 113, CO2 14, BUN 52, creatinine 1.34, glucose 7 6, calcium 8.2, phosphorus 3.1, magnesium 2.1, albumin 2.8. WBC 10.9, H and H 11.1 and 32.5, platele ts 264. Blood cultures pending. Chest x-ray is clear. Assessment And Plan: A 68-year-old female with. 1.Acute pancreatitis, unclear etiology, improving. Lipase down to 400. We will continue to trend. We will start on clear liquid diet and advance as tolerated. 2.Generalized weakness secondary to decreased p.o. intake. 3.History of diverticulosis, without any acute diverticulitis at this time. 4.Status post ileostomy. 5.Generalized osteoarthritis. 6.Hyponatremia, corrected. Continue on IV fluids. 7.Contraction alkalosis. We will start on bicarb drip. 8.Acute kidney injury secondary to prerenal azotemia and dehydration. We will continue with IV flui ds, improving. Nephrology has been consulted. We will avoid nonsteroidal anti-inflammatory drugs. 9.Failure to thrive. 10.Deep venous thrombosis prophylaxis. Sequential compression devices and Lovenox. 11.Headache. Disposition: Likely discharge in the next 24-48 hours depending on clinical response and if tolerati ng diet thank. SA/MODL Voice ID: [id number] Report ID: [id number]
[2019-03-06] MEDS ORDERED: D5W 1,000 ML with NA BICARB 8.4% 50 MEQ IV SCH ×2 (12:00)
[2019-03-06] MEDS ORDERED: D5W 1,000 ML IV SCH (12:00)
[2019-03-06] MEDS: D5W 1,000 ML IV SCH ×2 (12:20→21:28)
[2019-03-06 22:37] LABS: Potassium 2.7 mmol/L (3.5-5.1)
[2019-03-06] MEDS ORDERED: KCL 10 MEQ/100 ML IVPB 10 MEQ/100 ML BAG IV ONE (22:45)
[2019-03-06] MEDS ORDERED: KCL IV ONE (23:00)
[2019-03-06] MEDS ORDERED: KCL 20 MEQ/100 mL IVPB 20 MEQ/100 ML BAG IV SCH (23:00)
[2019-03-06] MEDS ORDERED: POTASSIUM CL SA 10 MEQ TAB PO ONE (23:05)
[2019-03-06] MEDS ORDERED: D5W 1,000 ML with POTASSIUM CL 20 MEQ IV SCH ×2 (23:45)
[2019-03-06] MEDS ORDERED: NACHLORIDE 0.45% 1,000 ML IV SCH (23:45)
--- NOTE | 2019-03-07 01:24 | CON ---
Date of Consultation: 03/06/2019 Chief Complaint: Acute kidney injury associated with renal hypoperfusion hypovolemia complicated by hyponatremia, metabolic acidosis. History Of Present Illness: Patient is started on IV fluids. Sodium level on admission was 124. Subsequently, this morning was 137 and IV fluids were changed to treat overcorrected hyponatremia and was started on D5W. Patient was found to have accelerated metabolic acidosis and anion gap is within normal limits. Patient has hyperchloremic metabolic acidosis and is started on IV bicarbonate infusion. Patient has multiple medical problems including history of diverticulitis, status post small bowel resection with ileostomy, osteoarthritis. Patient has history of multiple admission for partial colon resection, diverticular abscess. She underwent ERCP and gallbladder removal. She was found to have acute kidney injury in November 2018. Subsequently, she improved, did not require dialysis. Patient was found to have pelvic abscesses and this was drained. Patient was seen by Colorectal surgeon today. She came to ER for evaluation. She was found to have elevated creatinine up to 2.35 and sodium was 124, lipase was 1678 and white blood cell count was elevated. Patient had a CT scan done of the abdomen and pelvis which did not show pancreatitis. IV contrast was not used. The CT scan showed left double-J stent that was placed last year. Patient developed mild increased dilatation of the left renal pelvis and left ureter since previous study, which indicate diminished function of the left double-J stent. Review of Systems: Constitutional: Denies fever, chills. Eyes: Denies vision changes. Ears, Nose, Mouth, and throat: Denies sore throat, earache. Respiratory: Denies PND, orthopnea. Cardiovascular: Denies chest pain, palpitation. GI: Denies nausea, vomiting. : Denies hematuria. Musculoskeletal: Denies muscle aches or joint swelling. All other systems reviewed and all are negative. Past Medical History: Osteoarthritis, diverticulitis with resection, ileostomy , history of J-stent placement, obstructive uropathy. Past Surgical History: Partial small-bowel obstruction and ileostomy with left double-J stent in the kidney and cholecystectomy. Social History: Denies tobacco, alcohol, or illicit drugs. Family History: No kidney disease in the family. Physical Examination: General: The patient is awake, alert, follows commands Eyes: Anicteric sclerae. EOMI. Ears, nose, mouth and Throat: Oral mucosa moist. No pallor. Neck: Supple. No bruits. Lungs: Clear to auscultation bilaterally. No wheezing. No rhonchi. Heart: S1, S2. No pericardial friction, rub. Abdomen: Soft benign, nontender. No rebound. No guarding. Extremities: No edema. No clubbing. No cyanosis. Skin: Warm and dry. No skin rashes. Neurological: Moving extremities. Cranial nerves intact. Psychiatric: Alert, oriented x3. Normal affect. Laboratory Data: Sodium 124, potassium 3.8, chloride 96, CO2 16, BUN 79, creatinine 2.34, glucose 105, calcium 8.5. CT scan of the abdomen and pelvis showed a left double-J stent in place, mild decrease dilatation of the left renal pelvis and ureter since prior study. Impression And Plan: 1. Acute kidney injury associated with hyponatremia, metabolic acidosis treated with IV fluids to control hypovolemia and prevent renal hypoperfusion. Continue IV fluids. Patient although due to hyponatremia will have adjustment with IV fluids and plan is to evaluate renal function and electrolytes. 2. Acute pancreatitis, etiology not clear. CT scan did not show. 3. pseudocyst or necrosis. Continue to provide hydration with IV fluids. Monitor pancreatic enzymes. 4. History of diverticulitis, no evidence of acute exacerbation. 5. Hyponatremia, the patient was started on normal saline due over correction. IV fluids were changed to hypotonic fluids. 6. Metabolic acidosis. Continue bicarbonate replacement. CARTER/CRISTELA Voice ID: [id number] Report ID: [id number] MTDD
[2019-03-07] MEDS: ONDANSETRON 4 MG/2 ML VIAL IV PRN ×2 (03:19→08:25)
[2019-03-07] MEDS ORDERED: NA CHLORIDE 0.9% 1,000 ML IV ONE (04:17)
[2019-03-07 06:14] LABS: Absolute Lymphocytes (CBC) 1.2 K/uL (0.7-4.9); Basophils % 0.7 % (0-1.3); Hematocrit 34.6 % (36.0-45.0); Lymphocytes % 10.2 % (15.3-44.8); MPV 8.6 fL (7.6-11.3); RBC Red Blood Cell Count 3.86 M/uL (3.86-4.86)
[2019-03-07 06:39] LABS: Albumin 2.8 g/dL (3.4-5.0); Bilirubin Total 0.5 mg/dL (0.2-1.0); Magnesium 1.8 mg/dL (1.8-2.4); Potassium 3.1 mmol/L (3.5-5.1); Protein, Total 6.1 g/dL (6.4-8.2)
[2019-03-07] MEDS: Meropenem 1,000 MG in NA CHLORIDE 0.9% 100 ML IV SCH ×2 (09:17→21:38)
[2019-03-07] MEDS: ENOXAPARIN 30 MG/0.3 ML SQ SCH (09:18)
[2019-03-07] MEDS ORDERED: POTASSIUM CL SA 10 MEQ TAB PO ONE (10:14)
[2019-03-07] MEDS ORDERED: D5W 1,000 ML IV SCH (11:00)
[2019-03-07] MEDS ORDERED: POTASSIUM CL 40 MEQ in NA CHLORIDE 0.9% 500 ML IV ONE (11:00)
--- NOTE | 2019-03-07 17:57 | PN ---
Date of Progress Note: 03/07/2019 Subjective: Patient is seen and examined. Chart reviewed and case discussed with RN and Dr. Trino delgado. Patient states she feels better, however, became very much nauseated with oral potassium. Patien t asking for different type of food. Currently on clear liquids. Medications: List reviewed. Physical Examination: Vital Signs: Temperature 98.1, heart rate 74, blood pressure 90/56, respirations 18, O2 100% on room air. General: Awake, alert, oriented x3. Elderly female, ill-appearing, frail, cachectic. BMI 15.6. CV: S1, S2. Regular rate and rhythm. Peripheral pulses present. Respiratory: Moving air well bilaterally. No wheezing or stridor. Gastrointestinal: Abdomen is soft. Moderate tightness to palpation in the epigastric region. Patie nt has some voluntary guarding, but no rebound, no rigidity. Bowel sounds are hypoactive. Extremities: No clubbing, cyanosis, or edema. Neurologic: Nonfocal. Skin: Patient has ileostomy bag present with liquid stool. Laboratory Data: Sodium 134, potassium 3.1, chloride 107, CO2 of 21, BUN 27, creatinine 1.04, glucos e 80, calcium 7.9, magnesium 1.8, albumin 2.8, lipase 451. WBC 11.4, H and H 11.7 and 34.6, platelet s 267. Blood cultures, no growth to date. Assessment: A 68-year-old female with: 1.Acute pancreatitis, unclear etiology. Lipase levels trending down. We will consult GI. We will advance diet to full liquids. 2.Generalized weakness secondary to decreased p.o. intake, improving. Continue with PT. 3.Hypokalemia. We will replace and monitor. We will switch to IV as the patient unable to tolerate p.o. potassium. 4.Hyponatremia, improving. We will continue to monitor. 5.Acute kidney injury secondary to prerenal azotemia and dehydration. Creatinine levels trending do wn. Appreciate Nephrology input. Avoid NSAIDs. We will continue to monitor. 6.Generalized osteoarthritis, stable. 7.Status post ileostomy. 8.History of diverticulosis without acute diverticulitis. 9.Failure to thrive. 10.Deep venous thrombosis prophylaxis. Continue with SCDs, Lovenox. Plan: PT/OT. Advance diet. GI evaluation. Likely discharge in next 24 to 48 hours if response to treatment and clinically improved. SA/MODL Voice ID: [id number] Report ID: [id number]
[2019-03-07 20:34] LABS: Potassium 3.5 mmol/L (3.5-5.1)
[2019-03-07] MEDS: ENSURE CLEAR 200 ML CAN PO SCH (21:00)
[2019-03-08] MEDS ORDERED: NACHLORIDE 0.45% 1,000 ML IV SCH (01:00)
[2019-03-08 01:42] LABS: Urine Appearance CLOUDY; Urine Bilirubin NEGATIVE (NEG); Urine Blood 3+ (NEG); Urine Color YELLOW; Urine Glucose NEGATIVE (NEG); Urine Protein TRACE (NEG); Urine Specific Gravity <=1.005 (1.005-1.030); Urine Urobilinogen 0.2 mg/dL (0.2-1.0); Urine pH 6.5 (5.0-7.0)
[2019-03-08 02:13] LABS: Urine Microscopic Reflex ORDER UMIC
[2019-03-08 02:44] LABS: Urine Bacteria 20-50 /HPF (<20); Urine Culture Reflex Order NOT NEEDED; Urine Urothelial Cells <5 /HPF (NONE SEEN); Urine Yeast PRESENT (NONE SEEN); Urine Yeast with Hyphae PRESENT
--- NOTE | 2019-03-08 03:31 | PN ---
Date of Progress Note: 03/07/2019 Chief Complaint: Acute kidney injury associated with hyponatremia, metabolic acidosis, and hypokalemia. Subjective: Patient received IV fluids for hyponatremia. Subsequently the fluids were changed to hypotonic IV infusion due to fact that patient developed over corrected hyponatremia. Review of Systems: Denies fever or chills. Physical Examination: Lungs: Clear to auscultation bilaterally. Heart: S1-S2. Abdomen: Soft, benign. Extremities: No edema. Impression And Plan: 1. Acute kidney injury. Patient responding to IV fluids. Continue treatment. 2. Hypokalemia. Patient received replacement. 3. Hyponatremia. Gradual correction was achieved with adjustment of IV fluids. Continue to monitor. 4. Patient had previous procedures done with Urology and Dr. Daugherty will be consulted for previous stent Patient at some point may need to have that stent removed. I spent total 35 min including 25 min to coordinate care plan. CARTER/CRISTELA Voice ID: [id number] Report ID: [id number] KARYNA
[2019-03-08 05:48] LABS: Albumin 2.7 g/dL (3.4-5.0); Bilirubin Total 0.4 mg/dL (0.2-1.0); Potassium 3.3 mmol/L (3.5-5.1)
[2019-03-08 05:52] LABS: Absolute Lymphocytes (CBC) 1.9 K/uL (0.7-4.9); Basophils % 0.9 % (0-1.3); Hematocrit 33.2 % (36.0-45.0); Lymphocytes % 17.7 % (15.3-44.8); MPV 8.7 fL (7.6-11.3); RBC Red Blood Cell Count 3.72 M/uL (3.86-4.86)
[2019-03-08] MEDS ORDERED: KCL 20 MEQ/100 mL IVPB 20 MEQ/100 ML BAG IV SCH (09:00)
[2019-03-08] MEDS: ENSURE CLEAR 200 ML CAN PO SCH ×3 (09:00→20:13)
[2019-03-08] MEDS: Meropenem 1,000 MG in NA CHLORIDE 0.9% 100 ML IV SCH ×2 (09:00→20:13)
[2019-03-08] MEDS: ENOXAPARIN 30 MG/0.3 ML SQ SCH (09:29)
--- NOTE | 2019-03-08 13:01 | P.PN ---
Subjective Date of Service: 03/08/19 Patient states she is feeling much better today. No recorded fever. Her diet has been advanced to full liquid. She has watery ileostomy output. Physical Examination - Vital Signs Temperature: 97.1 F Blood Pressure: 82/54 Pulse: 82 Respirations: 16 Pulse Ox (%): 100 - Physical Exam General: Alert, In no apparent distress, Oriented x3 HEENT: Mucous membr. moist/pink Neck: Supple, JVD not distended Respiratory: Clear to auscultation bilaterally, Normal air movement Cardiovascular: No edema, Regular rate/rhythm, Normal S1 S2 Gastrointestinal: Normal bowel sounds, Soft and benign, Non-distended, Other ( Ileostomy) Musculoskeletal: No swelling Integumentary: No rashes Neurological: Normal speech, Normal strength at 5/5 x4 extr Assessment And Plan - Current Problems (Diagnosis) (1) Acute renal failure Current Visit: Yes Status: Acute (2) Acute pancreatitis Current Visit: Yes Status: Acute (3) Hyponatremia Current Visit: Yes Status: Acute (4) Generalized weakness Current Visit: Yes Status: Acute (5) Hypokalemia Current Visit: No Status: Resolved (6) Status post ileostomy Current Visit: Yes Status: Acute - Plan Lipase level has normalized. Continue supportive measures with IV hydration. Advanced diet as tolerated Monitor the ileostomy output. Monitor and Replete electrolytes as needed. Metabolic acidosis is improving. Acute renal failure has resolved. PT and OT. Disposition pending PT evaluation.
[2019-03-08] MEDS ORDERED: POTASSIUM CL SA 10 MEQ TAB PO ONE (13:22)
--- NOTE | 2019-03-08 14:06 | RAD REPORT ---
EXAM DESCRIPTION: US - Renal Ultrasound-Complete - 03/08/2019 1:53 pm CLINICAL HISTORY: arf Flank pain COMPARISON: Abdomen Pelvis Wo Contrast dated 03/05/2019 FINDINGS: Both kidneys are normal in size, shape and echotexture. The right kidney measures 11.4 x 3.8 x 3.7 cm. No hydronephrosis, focal mass or perinephric fluid. The left kidney measures 10.9 x 5.2 x 4.4 cm. Mild left hydronephrosis. The urinary bladder is incompletely distended without gross abnormality seen. IMPRESSION: Mild left hydronephrosis.
--- NOTE | 2019-03-08 14:40 | CON ---
History Of Present Illness: This is a 68-year-old unfortunate lady who had left obstructed ureter fr om diverticulitis and abscess back in July 2018. At that time, I had to place a 6-German by [address]. Findings included obstruction seen at lower ureter corresponding to the diverticulosis on mid u reter with a coiled ureter. She has subsequently received small bowel resection, ileostomy, and poss ible colectomy at [facility]. She has some complication from her ileostomy with leakage. S he is here with low sodium, elevated creatinine, has been improved with hydration. Elevated lipase, rule out pancreatitis. She subsequently had a CT scan showing double-J stent in good place, but ther e is mild increased dilation of the left renal pelvis and left ureter since the stent was placed, pos sible due to obstruction. I do not believe she needs a stent anymore. We will go ahead and remove i t tomorrow under some anesthesia as requested by the patient. At that time, retrograde pyelogram can be performed. Past Medical History: Osteoarthritis, diverticulitis, subsequent small bowel resection, ileostomy. Past Surgical History: Partial small bowel surgery, colostomy, ileostomy, double-J stent and cholecy stectomy. Allergies: TO AMOXICILLIN, CAUSES HIVES, AND ALSO ALLERGIES TO CIPRO. Medications: List was reviewed. Social History: No tobacco. No alcohol. No drug use. Family History: No coronary artery disease in family. Review of Systems: Otherwise negative. Physical Examination: General: She is afebrile, stable. Latest Vital Signs: 97.1 temperature, pulse 82, respirations 16, BP 84/54, pulse 100. HEENT: Atraumatic, normocephalic. Cardiovascular: S1, S2. Respiratory: Clear. Abdomen: Soft, nontender. Extremities: Normal range of motion. Lab Studies: Reviewed. Assessment: 68-year-old lady, history of previous perforated diverticulitis with abscess. Since the n, she has had resection of that area. It is now time to go ahead and remove her stent. She was giv en all the general information, alternatives, and risks and wishes to proceed. We will try to do it tomorrow. PB/MODL Voice ID: [id number] Report ID: [id number]
[2019-03-08] MEDS: Ringers Lactate 1,000 ML IV SCH (16:14)
--- NOTE | 2019-03-08 17:34 | PN ---
Date of Progress Note: 03/08/2019 Subjective: The patient was admitted with pancreatitis, abdominal pain, acute kidney injury, and hyp okalemia with acidosis. Patient's kidney function after hydration has been improved. Upon admission , creatinine 2.3, currently 0.8. Physical Examination: Vital Signs: When I saw the patient; blood pressure 82/54, pulse of 82. Patient had good urine outp ut of 1400 and has stool output of 1500, negative of 1200. Chest: Clear to auscultation. Heart: S1, S2. Regular. Abdomen: Soft, nontender. Extremities: No edema. Colostomy bag on the right side. Laboratory Data: Sodium 134, potassium 3.3, bicarb 21, BUN 13, creatinine 0.8, calcium 8.2. Assessment And Plan: 1.Acute kidney injury, non-obstructed secondary to prerenal, recovered, resolved. 2.Hypokalemia. We will supplement. 3.Acidosis, non anion gap secondary to gastrointestinal loss, recovered, resolved. 4.Hypotension, asymptomatic. Continue hydration. Keep holding all blood pressure medication. I am going to go ahead and increase normal saline to 100 and will follow up. We will change IV fluid to LR. NAVEEN/CRISTELA Voice ID: [id number] Report ID: [id number]
[2019-03-08] MEDS ORDERED: POTASSIUM CL 40 MEQ in NA CHLORIDE 0.9% 500 ML IV SCH (18:00)
[2019-03-08] MEDS: ONDANSETRON 4 MG/2 ML VIAL IV PRN (22:45)
[2019-03-09 06:19] LABS: Albumin 2.9 g/dL (3.4-5.0); Phosphorus 2.1 mg/dL (2.5-4.9); Potassium 4.5 mmol/L (3.5-5.1)
[2019-03-09] MEDS: ENOXAPARIN 30 MG/0.3 ML SQ SCH (08:57)
[2019-03-09] MEDS: ENSURE CLEAR 200 ML CAN PO SCH ×3 (08:57→21:00)
[2019-03-09] MEDS: ONDANSETRON 4 MG/2 ML VIAL IV PRN ×2 (09:05→15:14)
[2019-03-09] MEDS: Meropenem 1,000 MG in NA CHLORIDE 0.9% 100 ML IV SCH ×2 (09:06→22:03)
[2019-03-09] MEDS ORDERED: SODIUM CHLORIDE 0.9% 10ML INJ IV PRN (09:06)
[2019-03-09] MEDS: Ringers Lactate 1,000 ML IV SCH ×3 (10:00→15:13)
--- NOTE | 2019-03-09 10:49 | RAD REPORT ---
EXAM DESCRIPTION: RAD - Chest Single View - 03/09/2019 2:52 am CLINICAL HISTORY: PICC Placement COMPARISON: None. TECHNIQUE: XR CHEST 1 VIEW 03/09/2019 1:34 AM [employer]ILITY SALES AND ADMIN FINDINGS: Cardiac silhouette is normal in size. Lungs are clear without consolidation, atelectasis, mass or edema. There is no pleural effusion. There is no pneumothorax. There are no acute osseous fin dings. Right PICC line tip in in the mid SVC. IMPRESSION: Clear lungs. Electronically signed by: Rambo Mackey MD 03/09/2019 2:25 AM FACILITY SALES AND ADMIN Due to temporary technical issues with the PACS/Fluency reporting system, reports are being signed by the in house radiologist as a courtesy to ensure prompt reporting. The interpreting radiologist is f ully responsible for the content of the report.
[2019-03-09] MEDS ORDERED: Ringers Lactate 1,000 ML IV ONE (11:29)
[2019-03-09] MEDS ORDERED: FENTANYL CITR 100 MCG/2 ML ONE (11:50)
[2019-03-09] MEDS ORDERED: propofoL 200 MG/20 ML VIAL IV ONE (11:50)
[2019-03-09] MEDS ORDERED: LIDOCAINE 1% MPF 5 ML VIAL ONE (11:51)
--- NOTE | 2019-03-09 11:57 | P.PN ---
Subjective Date of Service: 03/09/19 Patient is complaining of nausea, abdominal pain and myalgia. She was kept NPO last for urethral stent removal today. No recorded fever. She has watery ileostomy output. Physical Examination - Vital Signs Temperature: 97.6 F Blood Pressure: 93/54 Pulse: 96 Respirations: 20 Pulse Ox (%): 100 - Physical Exam General: Alert, Oriented x3, Cachectic, Mild distress HEENT: Mucous membr. moist/pink, Sclerae nonicteric Neck: Supple, JVD not distended Respiratory: Clear to auscultation bilaterally, Normal air movement Cardiovascular: No edema, Regular rate/rhythm, Normal S1 S2 Gastrointestinal: Normal bowel sounds, Soft and benign, Other (Ileostomy bag with watery output) Musculoskeletal: No erythema, Tenderness (Point tenderness-Deltoid area of left arm.) Integumentary: No erythema Neurological: Normal speech, Other (Nonfocal.) Assessment And Plan - Current Problems (Diagnosis) (1) Acute renal failure Current Visit: Yes Status: Acute (2) Acute pancreatitis Current Visit: Yes Status: Acute (3) Hyponatremia Current Visit: Yes Status: Acute (4) Generalized weakness Current Visit: Yes Status: Acute (5) Hypokalemia Current Visit: No Status: Resolved (6) Status post ileostomy Current Visit: Yes Status: Acute - Plan Continue supportive measures with IV hydration. She is NPO for stent removal today. Dr. Daugherty input appreciated. Start IV Protonix for possible gastritis. Antiemetics as needed. Monitor the ileostomy output. Monitor and Replete electrolytes as needed. Metabolic acidosis has resolved. Acute renal failure has resolved. PT and OT. Disposition pending PT evaluation.
--- NOTE | 2019-03-09 13:45 | RAD REPORT ---
EXAM DESCRIPTION: RAD - Urethrocystogrphy Retrograde - 03/09/2019 1:27 pm CLINICAL HISTORY: ICD N 20.0 FINDINGS: Thirty-two spot images obtained. Fluoroscopy time 2.5 minutes Left ureter was cannulated and contrast administered. Subsequently a left ureteral stent was placed. Examination was performed by
[2019-03-09] MEDS: MORPHINE 4 MG/ML SYR ONE ×2 (13:59→14:05)
[2019-03-09] MEDS ORDERED: POTASSIUM PHOS 10 MM in NA CHLORIDE 0.9% 250 ML IV ONE (16:00)
--- NOTE | 2019-03-09 20:08 | PN ---
Date of Progress Note: 03/09/2019 Subjective: Patient was admitted with acute kidney injury. Patient planned for stent removal today. Ultrasound show mild left hydronephrosis. Physical Examination: General: When I saw the patient, patient lying in bed comfortable, not on any distress. Vital Signs: Blood pressure 81/55, pulse of 78, afebrile. : Patient had good urine output of 1100. Chest: Clear to auscultation. Heart: S1, S2. Regular. Abdomen: Soft, nontender. Extremities: No edema. Neurologic: Alert, nonfocal. Laboratory Data: WBC 10.6, H and H of 11.2/33.2, platelet 270. Sodium 132, potassium 4.5, bicarb 22 , BUN 11, creatinine 0.8, calcium 8.7, phosphorus 2.1, magnesium of 2. Medications: Current medications the patient on include: 1.Meropenem. 2.Lovenox. 3.Ensure. 4.LR at 100 per hour. 5.Pantoprazole. Assessment And Plan: 1.Acute kidney injury, multifactorial secondary to prerenal/obstructive uropathy, resolved. I am go ing to go ahead and decrease IV fluid to 50. Our plan to discontinue. 2.Hypophosphatemia. We will supplement. 3.Hypokalemia, resolved. 4.Acidosis secondary to gastrointestinal loss, resolved. We will start tapering IV fluid. NAVEEN/CRISTELA Voice ID: [id number] Report ID: [id number]
--- NOTE | 2019-03-09 20:23 | CON ---
Date of Consultation: 03/07/2019 Reason For Consultation: Suspected pancreatitis. History Of Present Illness: This is a 68-year-old woman with a very complicated surgical history wit h medical history of just osteoarthritis. Her history started at around April 2018 when she was in [place]. Apparently, she had a cholecystectomy, possibly ERCP and also diverticular abscess at aydee t time. Subsequently, she has been in and out of the hospital. She has had ileostomy, which from history appears to have leaked and that required a revision and had also had developed a pelvic abs cess. Additionally, the complications from diverticulitis resulted in ureteral obstruction and doubl e-J stent was placed by Dr. Daugherty. She came to the ER with nausea, vomiting, and diffuse abdominal p ain. Imaging did not reveal any evidence of pancreatitis, but lipase was elevated to 1600. She was admitted, started on fluids. When I saw her, she was already feeling significantly improved. Her li pase had trended down significantly and laboratories and her electrolytes have been corrected. Dr. Donavon kennedy was consulted for the dilation of the ureter, due for evaluation. Past Medical History: As above. Past Surgical History: As above. Allergies: TO AMOXICILLIN. Medications: Reviewed. Social History: No toxic habits. Review of Systems: GI, urological as in HPI, otherwise negative. Remainder of 10-point review of system is negative. Physical Examination: Vital Signs: On admission blood pressure was 82/69, pulse 116, respiratory rate 16, temperature 97.2 . Head: Atraumatic, normocephalic. Eyes: Pupils equally reactive. Neck: Supple. Chest: Clear to auscultation bilaterally. Abdomen: Soft, nontender, nondistended. There is an ileostomy there that is present. Extremities: No pedal edema. Laboratory Data: Reviewed. Of note, her liver enzymes are completely normal and her lipase is 400 t rell. Impression: A 68-year-old woman with a significant surgical history, requiring multiple abdominal sebastian rgeries, abscess formation, ileostomy, also cholecystectomy, now with ureteral dilation, and possible pancreatitis, etiology unclear. Plan: Continue current management. Patient has already improved with treatment. We will await Urol ogy input to see if she would require any surgery. Based on her condition, we may order an imaging l cat an MRCP if possible. GI will continue to follow as needed. US/MODL Voice ID: [id number] Report ID: [id number]
[2019-03-10] MEDS: ACETAMINOPHEN 325 MG TABLET PO PRN (04:23)
[2019-03-10] MEDS ORDERED: FUROSEMIDE 40 MG/4 ML VIAL ONE ×2 (05:16→07:27)
[2019-03-10 06:01] LABS: Absolute Lymphocytes (CBC) 2.3 K/uL (0.7-4.9); Basophils % 0.7 % (0-1.3); Hematocrit 34.6 % (36.0-45.0); Lymphocytes % 15.4 % (15.3-44.8); MPV 9.1 fL (7.6-11.3); RBC Red Blood Cell Count 3.81 M/uL (3.86-4.86)
[2019-03-10 06:17] LABS: Albumin 2.8 g/dL (3.4-5.0); Magnesium 1.9 mg/dL (1.8-2.4); Phosphorus 2.7 mg/dL (2.5-4.9); Potassium 4.3 mmol/L (3.5-5.1)
[2019-03-10] MEDS: ENSURE CLEAR 200 ML CAN PO SCH ×3 (09:00→20:27)
[2019-03-10] MEDS: ENOXAPARIN 30 MG/0.3 ML SQ SCH (09:00)
[2019-03-10] MEDS: PANTOPRAZOLE 40 MG INJ IVP SCH (09:18)
[2019-03-10] MEDS: Meropenem 1,000 MG in NA CHLORIDE 0.9% 100 ML IV SCH (09:18)
[2019-03-10] MEDS: ONDANSETRON 4 MG/2 ML VIAL IV PRN (09:23)
--- NOTE | 2019-03-10 09:53 | RAD REPORT ---
EXAM DESCRIPTION: MRICholangiogram03/10/2019 9:11 am CLINICAL HISTORY: Abdominal pain COMPARISON: August 2018 MRCP TECHNIQUE: Magnetic resonance cholangiogram was performed.3D MIP reconstruction performed FINDINGS: Cholecystectomy The biliary tree is normal caliber without a filling defect. Pancreatic duct is normal caliber IMPRESSION: Cholecystectomy. Unremarkable exam
--- NOTE | 2019-03-10 10:50 | RAD REPORT ---
EXAM DESCRIPTION: NM - Kidney Imag W/Flow F W - 03/10/2019 8:49 am CLINICAL HISTORY: Abdominal pain/hydronephrosis COMPARISON: MRCP March 10, 2019 TECHNIQUE: 10.5 millicuries technetium MAA G 3 administered intravenously. Images of the abdomen and pelvis obtained for 30 minutes. 10 minutes into the examination 22 milligrams Lasix administered int ravenously. FINDINGS: Peak activity left kidney 13 minutes right kidney 26 minutes Left half-time equals 15 minutes. Right half-time activity not obtained throughout the examination Left renal uptake at 20 minutes 60%, right kidney 99% Kidneys demonstrate symmetric perfusion on the arterial sequence. There is minimal left hydronephrosis which partially clears after the administration of Lasix. Moderate right hydronephrosis is present which does not resolve after the administration of Lasix. IMPRESSION: Mechanical obstruction involves the right genitourinary system. An MRCP on the same date confirms the right hydronephrosis. Mild partial mechanical obstruction involves the left genitourinary system.
[2019-03-10] MEDS: Ringers Lactate 1,000 ML IV SCH ×2 (12:00→20:27)
--- NOTE | 2019-03-10 12:39 | P.PN ---
Subjective Date of Service: 03/10/19 Patient states the nausea is better. She still complaining of abdominal pain and myalgia. She was kept NPO MRCP. MRCP has been performed. No recorded fever. She has watery ileostomy output. is concerned patient has not eating for several days. You dress stent was exchanged and Chandler catheter placed yesterday. Physical Examination - Vital Signs Temperature: 97.0 F Blood Pressure: 107/56 Pulse: 95 Respirations: 18 Pulse Ox (%): 94 - Physical Exam General: Alert, In no apparent distress, Cachectic HEENT: Mucous membr. moist/pink, Sclerae nonicteric Neck: Supple Respiratory: Clear to auscultation bilaterally, Normal air movement Cardiovascular: No edema Gastrointestinal: Normal bowel sounds, Soft and benign, Non-distended, No tenderness Musculoskeletal: No erythema Neurological: Normal speech, Normal strength at 5/5 x4 extr Assessment And Plan - Current Problems (Diagnosis) (1) Acute renal failure Current Visit: Yes Status: Resolved (2) Acute pancreatitis Current Visit: Yes Status: Acute (3) Hyponatremia Current Visit: Yes Status: Acute (4) Generalized weakness Current Visit: Yes Status: Acute (5) Hypokalemia Current Visit: No Status: Resolved (6) Status post ileostomy Current Visit: Yes Status: Acute (7) S/P ureteral stent placement Current Visit: Yes Status: Acute - Plan Continue supportive measures with IV hydration. Continue IV Protonix for possible gastritis. Antiemetics as needed. Start clear liquid diet and advance as tolerated. Nutritional supplementation. MRCP results reviewed: No duct dilatation. GI input appreciated. Monitor the ileostomy output. Monitor and Replete electrolytes as needed. Metabolic acidosis has resolved. Acute renal failure has resolved. PT and OT. Disposition pending PT evaluation.
--- NOTE | 2019-03-10 12:54 | PN ---
The patient had a nuclear renal scan ultrasound done this morning to evaluate the function of the left kidney, is almost 52%, in the right kidney 48%, but surprisingly in the right kidney showing some type of obstruction going on, possible the UPJ. On review of her previous renal ultrasounds and CAT scan done a few days ago, there is no hydronephrosis, no signs of obstruction on the right. This is not making sense with her clinical picture. So I am going to go ahead and reorder a plain CT to check the right side. She does not have a stone that is blocking the ureter. Also rule out hydronephrosis on the right and we can compare to these 2 CT scans together. The one done on the and the one that will be done today on the . Add. CT showed no hydronephrosis , Dr Dennis on Review of Nuc Renal Scan showed no obstruction on post void image. SIDNEY/CRISTELA Voice ID: [id number] Report ID: [id number] KARYNA
--- NOTE | 2019-03-10 13:34 | RAD REPORT ---
EXAM DESCRIPTION: CT - Abdomen Pelvis Wo Contrast - 03/10/2019 1:08 pm CLINICAL HISTORY: Abdominal pain hydronephrosis COMPARISON: MRCP and nuclear medicine renal scan March 10, 2019 TECHNIQUE: Computed axial tomography of the abdomen and pelvis was obtained. IV and oral contrast we re not requested. All CT scans are performed using dose optimization technique as appropriate and may include automated exposure control or mA/KV adjustment according to patient size. FINDINGS: The evaluation of solid organs, vessels and bowel is limited secondary to the lack of con trast administration. A Chandler catheter is present within the bladder. A left ureteral stent is in good position. No significant hydronephrosis The right hydronephrosis seen on the renal scan has resolved IMPRESSION: The right hydronephrosis has resolved. The hydronephrosis described on the renal scan wa s likely secondary to the Chandler catheter being clamped and is not significant
--- NOTE | 2019-03-11 00:25 | PN ---
Date of Progress Note: 03/10/2019 History: Patient was admitted with acute kidney injury secondary to prerenal/obstructive uropathy. Patient is status post stent placement and exchange. Physical Examination: Vital Signs: Blood pressure 107/56, pulse of 95, afebrile. Patient had good urine output. Patient s till has high cholestyramine output. Chest: Clear to auscultation. Heart: S1, S2. Systolic murmur. Abdomen: Colostomy, mild tenderness. Extremities: No edema. Laboratory Data: WBC 15.1, H and H 11.5 and 34.5, platelets 276. Sodium 135, potassium 4.2, bicarb 21, BUN 12, creatinine 0.8, calcium 8.7, phosphorus 2.7, magnesium 1.9. Current Medications: The patient on include Lovenox, Ensure, LR at 50 per hour, pantoprazole. Assessment And Plan: 1.Acute kidney injury secondary to obstructive uropathy/prerenal, recovered, resolved given the high GI output, I am going to continue IV fluid. 2.Hypertension, currently hypotension. Keep holding blood pressure medication. Continue hydration. 3.Urinary tract infection. Continue current antibiotic. 4.Obstructive uropathy status post stent. We will follow up with . NAVEEN/CRISTELA Voice ID: [id number] Report ID: [id number]
[2019-03-11 05:54] LABS: Albumin 2.5 g/dL (3.4-5.0); Magnesium 1.8 mg/dL (1.8-2.4); Phosphorus 1.9 mg/dL (2.5-4.9); Potassium 3.9 mmol/L (3.5-5.1)
[2019-03-11] MEDS ORDERED: MAGNESIUM SULFATE 1 gm IVPB 1 GM/100 ML BAG IV ONE (07:23)
[2019-03-11] MEDS ORDERED: POTASSIUM PHOS 20 MEQ in NA CHLORIDE 0.9% 250 ML IV ONE (09:00)
[2019-03-11] MEDS ORDERED: FLUCONAZOLE 100 MG TAB PO SCH (09:00)
[2019-03-11] MEDS: ENSURE CLEAR 200 ML CAN PO SCH ×3 (09:00→21:00)
[2019-03-11] MEDS: ENOXAPARIN 30 MG/0.3 ML SQ SCH (09:07)
[2019-03-11] MEDS: PANTOPRAZOLE 40 MG INJ IVP SCH (09:07)
--- NOTE | 2019-03-11 11:26 | P.PN ---
Subjective Date of Service: 03/11/19 Patient is doing much better today. She stated she is eating more, her abdominal pain has improved, and her left shoulder pain is much better. No recorded fever. Urine culture is growing yeast. Physical Examination - Vital Signs Temperature: 97.5 F Blood Pressure: 95/57 Pulse: 80 Respirations: 17 Pulse Ox (%): 99 - Physical Exam General: Alert, Cachectic HEENT: Mucous membr. moist/pink, Sclerae nonicteric Neck: Supple, JVD not distended Respiratory: Clear to auscultation bilaterally, Normal air movement Cardiovascular: No edema, Regular rate/rhythm, Normal S1 S2 Gastrointestinal: Normal bowel sounds, Soft and benign, Non-distended, No tenderness Musculoskeletal: No swelling, No erythema Integumentary: No rashes Neurological: Normal speech, Normal strength at 5/5 x4 extr Assessment And Plan - Current Problems (Diagnosis) (1) Acute renal failure Current Visit: Yes Status: Resolved (2) Acute pancreatitis Current Visit: Yes Status: Acute (3) Hyponatremia Current Visit: Yes Status: Acute (4) Generalized weakness Current Visit: Yes Status: Acute (5) Hypokalemia Current Visit: No Status: Resolved (6) Status post ileostomy Current Visit: Yes Status: Acute (7) S/P ureteral stent placement Current Visit: Yes Status: Acute (8) UTI (urinary tract infection) Current Visit: Yes Status: Acute - Plan Continue supportive measures with IV hydration. Continue IV Protonix. Advance as tolerated. Nutritional supplementation. Start Diflucan Monitor the ileostomy output. Monitor and Replete electrolytes as needed. PT and OT. Patient states she is ready for PT. Disposition pending PT evaluation.
[2019-03-11] MEDS: FLUCONAZOLE 200mg IVPB 200 MG/100 ML BAG IV SCH (12:00)
--- NOTE | 2019-03-11 13:39 | P.PN ---
Subjective Date of Service: 03/11/19 Subjective: Improving Subjective Pt admitted with abd pain, nausea and vomiting Today no overnight events started on solid diet, still have poor po intake WBC up to 15 Cont IVF Phos replaced Physical exam Physical exam general: AAOX3, NAD , very thin Neck; Supple, No elevated JVD hear: RRR, normal S1,2 no murmur or rub Chest: CTAB, no rlaes or wheezes Abdomen: Soft , Nt Extremities No edema or ulcer Assessment And Plan: Acute kidney injury Due to dehydration +/-obstructive uropathy Cr wnl now will cont IVF for now UTI cont abx diflucan added Lt hydronephrosis S/P stent placement Hypophosphatemia due to poor po intake replace prn cont supplement encourage po intake Physical Examination - Vital Signs Temperature: 97.5 F Blood Pressure: 95/57 Pulse: 80 Respirations: 17 Pulse Ox (%): 99
[2019-03-11] MEDS: Ringers Lactate 1,000 ML IV SCH (16:43)
[2019-03-12] MEDS: ACETAMINOPHEN 325 MG TABLET PO PRN (03:08)
[2019-03-12] MEDS: Ringers Lactate 1,000 ML IV SCH ×2 (04:00→13:34)
[2019-03-12] MEDS: ENOXAPARIN 30 MG/0.3 ML SQ SCH (08:10)
[2019-03-12] MEDS: PANTOPRAZOLE 40 MG INJ IVP SCH (08:10)
[2019-03-12] MEDS: ENSURE CLEAR 200 ML CAN PO SCH ×3 (08:11→20:22)
--- NOTE | 2019-03-12 11:55 | P.PN ---
Subjective Date of Service: 03/12/19 Patient states she feels much better today. She stated she is eating more, denies any abdominal pain. Physical Examination - Vital Signs Temperature: 97.3 F Blood Pressure: 100/56 Pulse: 73 Respirations: 16 Pulse Ox (%): 100 - Physical Exam General: Alert, In no apparent distress, Cachectic HEENT: Mucous membr. moist/pink, Sclerae nonicteric Neck: Supple, JVD not distended Respiratory: Clear to auscultation bilaterally, Normal air movement Cardiovascular: No edema, Regular rate/rhythm, Normal S1 S2 Gastrointestinal: Normal bowel sounds, Soft and benign, Non-distended Musculoskeletal: No swelling, No erythema Integumentary: No rashes Neurological: Normal speech, Normal strength at 5/5 x4 extr Assessment And Plan - Current Problems (Diagnosis) (1) Acute renal failure Current Visit: Yes Status: Resolved (2) Acute pancreatitis Current Visit: Yes Status: Acute (3) Hyponatremia Current Visit: Yes Status: Acute (4) Generalized weakness Current Visit: Yes Status: Acute (5) Hypokalemia Current Visit: No Status: Resolved (6) Status post ileostomy Current Visit: Yes Status: Acute (7) S/P ureteral stent placement Current Visit: Yes Status: Acute (8) UTI (urinary tract infection) Current Visit: Yes Status: Acute - Plan Continue IV fluid Continue IV Protonix. Advance diet as tolerated. Nutritional supplementation. Continue IV Diflucan Electrolytes have been stable. Replete electrolytes as needed. PT and OT.
[2019-03-12] MEDS ORDERED: POTASSIUM PHOS IN 0.9 % NACL 15 MMOL/250 ML BAG IV ONE ×2 (13:15→14:00)
[2019-03-12] MEDS: FLUCONAZOLE 200mg IVPB 200 MG/100 ML BAG IV SCH (13:33)
[2019-03-12] MEDS ORDERED: MAGNESIUM SULFATE 1 gm IVPB 1 GM/100 ML BAG IV ONE (14:00)
[2019-03-12 21:44] LABS: Magnesium 2.5 mg/dL (1.8-2.4); Phosphorus 3.1 mg/dL (2.5-4.9); Potassium 4.1 mmol/L (3.5-5.1)
[2019-03-12] MEDS: LOPERAMIDE HCL 2 MG CAPSULE PO PRN (23:00)
--- NOTE | 2019-03-13 01:11 | PN ---
Date of Progress Note: 03/12/2019 History: Patient was admitted with acute kidney injury secondary to prerenal/obstructive uropathy. Patient is status post stent placement and exchange. Patient is doing well. Kidney function normali zed. The patient is tolerating p.o., high colostomy output. Physical Examination: Vital Signs: Blood pressure 92/57, pulse 73. The patient had good urine output of 950, stool output 550 after urine. Chest: Clear to auscultation. HEART: S1, S2. Systolic murmur. Abdomen: Soft, nontender. Colostomy. Extremities: No edema. Laboratory Data: WBC 15.1, H and H 11.5 and 34.6, platelet 276. Sodium 136, potassium 3.9, bicarb 2 2, BUN 17, creatinine 0.8, calcium 8.3, magnesium 1.8, phosphorous 1.9. Current Medications: Include Ensure, Lovenox, LR at 50 per hour. Assessment And Plan: 1.Acute kidney injury, prerenal/obstructive uropathy, recovered, resolved. Follow up with Urology f or the stent. 2.Discontinue IV fluid. 3.Acidosis secondary to gastrointestinal loss, resolved. 4.Discontinue lactated Ringer's. 5.Hypokalemia, hypophosphatemia, hypomagnesemia. We will supplement. 6.Ileostomy output. We will follow up with Gastrointestinal. NAVEEN/CRISTELA Voice ID: [id number] Report ID: [id number]
[2019-03-13 04:29] LABS: Absolute Lymphocytes (CBC) 3.2 K/uL (0.7-4.9); Basophils % 1.1 % (0-1.3); Hematocrit 33.3 % (36.0-45.0); Lymphocytes % 37.5 % (15.3-44.8); MPV 8.3 fL (7.6-11.3); RBC Red Blood Cell Count 3.65 M/uL (3.86-4.86)
[2019-03-13 04:49] LABS: Potassium 4.2 mmol/L (3.5-5.1)
[2019-03-13] MEDS: ENOXAPARIN 30 MG/0.3 ML SQ SCH (09:00)
[2019-03-13] MEDS: ENSURE CLEAR 200 ML CAN PO SCH ×3 (09:27→20:44)
[2019-03-13] MEDS: PANTOPRAZOLE 40 MG INJ IVP SCH (09:28)
--- NOTE | 2019-03-13 10:54 | P.PN ---
Subjective Date of Service: 03/13/19 Patient states she is doing much better. She was asking if she can go home by Thursday. She denies any abdominal pain and states the Imodium is helping with the diarrhea. Physical Examination - Vital Signs Temperature: 97.3 F Blood Pressure: 90/58 Pulse: 74 Respirations: 15 Pulse Ox (%): 100 - Physical Exam General: Alert, In no apparent distress, Cachectic HEENT: Mucous membr. moist/pink Neck: Supple Respiratory: Clear to auscultation bilaterally, Normal air movement Cardiovascular: No edema, Regular rate/rhythm, Normal S1 S2 Gastrointestinal: Normal bowel sounds, Soft and benign, No tenderness Integumentary: No rashes Neurological: Normal strength at 5/5 x4 extr Assessment And Plan - Current Problems (Diagnosis) (1) Acute renal failure Current Visit: Yes Status: Resolved (2) Acute pancreatitis Current Visit: Yes Status: Acute (3) Hyponatremia Current Visit: Yes Status: Acute (4) Generalized weakness Current Visit: Yes Status: Acute (5) Hypokalemia Current Visit: No Status: Resolved (6) Status post ileostomy Current Visit: Yes Status: Acute (7) S/P ureteral stent placement Current Visit: Yes Status: Acute (8) UTI (urinary tract infection) Current Visit: Yes Status: Acute - Plan Off IV fluid Change Protonix to p.o. Advance diet as tolerated. Nutritional supplementation. Continue IV Diflucan Electrolytes have been stable. Replete electrolytes as needed. PT and OT.
[2019-03-13] MEDS: LOPERAMIDE HCL 2 MG CAPSULE PO PRN (12:28)
[2019-03-13] MEDS: FLUCONAZOLE 200mg IVPB 200 MG/100 ML BAG IV SCH (12:28)
--- NOTE | 2019-03-13 19:22 | PN ---
Date of Progress Note: 03/13/2019 History: Patient doing well. IV fluid has been discontinued yesterday. Patient had good urine outp ut. Still have significant GI loss from the colostomy. Physical Examination: Vital Signs: When I saw the patient; blood pressure 92/58, pulse of 77. Patient had urine output of 950. GI loss of 650. Chest: Clear to auscultation. Heart: S1 and S2 regular. Abdomen: Mild tenderness on the left quadrant. No guarding. Extremities: No edema. Laboratory Data: WBC 8.6, H and H 11/33.3, platelets 250. Sodium is 137, potassium 4.2, bicarb 21, BUN 13, creatinine 0.8, GFR of 70, calcium 8.5, magnesium 2.1. Current Medications: The patient on include fluconazole, Lovenox, Ensure, loperamide, and pantoprazo le. Assessment And Plan: 1.Acute kidney injury, multifactorial, secondary to prerenal superimposed with obstructive uropathy, status post stent placement. Continue current treatment of IV fluid. We will monitor. 2.Funguria. Patient was started on fluconazole. We will follow up. 3.Hypertension, currently hypo. Off all blood pressure medication. 4.Hypokalemia, hypomagnesemia, hypophosphatemia, resolved, status post supplement. 5.Obstructive uropathy, status post stent. We will follow up with Urology. NAVEEN/CRISTELA Voice ID: [id number] Report ID: [id number]
[2019-03-14] MEDS: PANTOPRAZOLE 40MG TABLET PO SCH (09:03)
[2019-03-14] MEDS: ENOXAPARIN 30 MG/0.3 ML SQ SCH (09:03)
[2019-03-14] MEDS: ENSURE CLEAR 200 ML CAN PO SCH ×3 (09:04→20:00)
[2019-03-14] MEDS: LOPERAMIDE HCL 2 MG CAPSULE PO PRN (09:10)
[2019-03-14] MEDS: FLUCONAZOLE 200mg IVPB 200 MG/100 ML BAG IV SCH (12:16)
--- NOTE | 2019-03-14 17:18 | P.PN ---
Subjective Date of Service: 03/14/19 Patient states she has no complain today looking forward to go home. She ambulated with a walker during physical therapy session today and was needing no of the assistance. She denies any abdominal pain. Physical Examination - Vital Signs Temperature: 98.1 F Blood Pressure: 95/59 Pulse: 80 Respirations: 18 Pulse Ox (%): 99 - Physical Exam General: Alert, In no apparent distress HEENT: Mucous membr. moist/pink Neck: Supple Respiratory: Clear to auscultation bilaterally, Normal air movement Cardiovascular: Regular rate/rhythm, Normal S1 S2 Gastrointestinal: Normal bowel sounds, Soft and benign, Non-distended, No tenderness Integumentary: No rashes Assessment And Plan - Current Problems (Diagnosis) (1) Acute renal failure Current Visit: Yes Status: Resolved (2) Acute pancreatitis Current Visit: Yes Status: Acute (3) Hyponatremia Current Visit: Yes Status: Acute (4) Generalized weakness Current Visit: Yes Status: Acute (5) Hypokalemia Current Visit: No Status: Resolved (6) Status post ileostomy Current Visit: Yes Status: Acute (7) S/P ureteral stent placement Current Visit: Yes Status: Acute (8) UTI (urinary tract infection) Current Visit: Yes Status: Acute - Plan Continue Protonix to p.o. Advance diet as tolerated. Nutritional supplementation. Continue IV Diflucan Discussed case with infectious disease. Dr. Mckeon recommend patient completed 5 days of IV Diflucan. She has completed 3 days and would need 2 more days. Electrolytes have been stable. Replete electrolytes as needed. Disposition to home once she completes IV Diflucan. She will need to follow up with urology at [facility] as an outpatient. Dr. Daugherty is assisting with the outpatient follow up.
--- NOTE | 2019-03-15 03:22 | PN ---
Date of Progress Note: 03/14/2019 Chief Complaint: History of obstructive uropathy. Patient was consulted by urologist for history of previous stent placement. Patient developed acute kidney injury secondary to prerenal azotemia supe rimposed with obstructive uropathy. We will continue IV fluids. Patient has funguria and is on fluc onazole. High blood pressure is controlled and was taken off blood pressure medication due to episod es of hypotension. Review of Systems: Denies fever, chills. Denies nausea, vomiting. Physical Examination: Lungs: Clear to auscultation bilaterally. Heart: S1-S2. Abdomen: Soft, benign. Extremities: No edema. Laboratory Data: Sodium 137, potassium 4.2, bicarbonate 21, BUN 13, creatinine 0.8, calcium 8.5, mag nesium 2.1. Impression And Plan: 1.Acute kidney injury, multifactorial. Continue IV fluids to prevent renal hypoperfusion. Patient is consulted by urologist for obstructive uropathy, previous stent placement. 2.Funguria. Patient is on fluconazole. Continue treatment. 3.Hypertension. Monitor blood pressure. Adjust medication as needed. 4.Hypokalemia, hypophosphatemia, hypomagnesemia, resolved, status post supplementation. Advance p.o . diet as needed. EB/MODL Voice ID: [id number] Report ID: [id number]
[2019-03-15 04:37] LABS: Absolute Lymphocytes (CBC) 3.8 K/uL (0.7-4.9); Basophils % 1.4 % (0-1.3); Hematocrit 33.6 % (36.0-45.0); Lymphocytes % 44.1 % (15.3-44.8); RBC Red Blood Cell Count 3.63 M/uL (3.86-4.86)
[2019-03-15 04:48] LABS: Potassium 4.5 mmol/L (3.5-5.1)
[2019-03-15] MEDS: ENSURE CLEAR 200 ML CAN PO SCH ×3 (08:21→20:34)
[2019-03-15] MEDS: PANTOPRAZOLE 40MG TABLET PO SCH (08:22)
[2019-03-15] MEDS: ENOXAPARIN 30 MG/0.3 ML SQ SCH (08:22)
[2019-03-15] MEDS: FLUCONAZOLE 200mg IVPB 200 MG/100 ML BAG IV SCH (12:53)
[2019-03-15 13:19] LABS: Urine Appearance CLOUDY; Urine Bilirubin NEGATIVE (NEG); Urine Blood 3+ (NEG); Urine Color YELLOW; Urine Glucose NEGATIVE (NEG); Urine Protein 3+ (NEG); Urine Urobilinogen 0.2 mg/dL (0.2-1.0); Urine pH 6.5 (5.0-7.0)
[2019-03-15 13:21] LABS: Urine Microscopic Reflex ORDER UMIC
[2019-03-15 13:46] LABS: Urine Bacteria 20-50 /HPF (<20); Urine Coarse Granular Casts 0-5 /LPF (NONE SEEN); Urine Culture Reflex Order NOT NEEDED; Urine RBC >50 /HPF (NONE SEEN)
--- NOTE | 2019-03-15 16:04 | PN ---
Date of Progress Note: 03/15/2019 Subjective: Patient was admitted with acute kidney injury, multifactorial, secondary to prerenal sup erimposed with obstructive uropathy, status post stent placement and exchange. Patient grow funguria . Physical Examination: Vital Signs: Blood pressure 96/60, pulse of 72, afebrile. The patient had good urine output. Still have some significant colostomy output. Chest: Clear to auscultation. Heart: S1, S2. Regular. Abdomen: Mild tenderness. No guarding or rebound. Colostomy. Extremities: No edema. Laboratory Data: WBC 8.6, H and H 11.2/33.6, platelet 260. Sodium 137, potassium 4.5, bicarb 21, BU N 15, creatinine 0.9, calcium 8.5, magnesium 2.5, phos 3.1. Current Medications: 1.Lovenox. 2.Fluconazole. 3.Ensure. 4.Loperamide. 5.Pantoprazole. Assessment And Plan: 1.Acute kidney injury, multifactorial, obstructive/prerenal, recovered, resolved. 2.Hypophosphatemia, hypomagnesemia/hypokalemia, status post supplement, recovered, resolved. 3.Acidosis secondary to high GI output, recovered. 4.Obstructive uropathy, status post stent. Follow up with Urology. 5.Funguria. Continue fluconazole. 6.Deconditioning. Continue PT/OT. NAVEEN/CRISTELA Voice ID: [id number] Report ID: [id number]
--- NOTE | 2019-03-15 17:04 | PN ---
Date of Progress Note: 03/15/2019 Subjective: Patient seen and examined. Chart reviewed and case discussed with RN and Dr. Moy. Patient still requiring IV Diflucan, will be done in a.m., otherwise states that she is doing well w [facility] physical therapy. I am familiar with her from when she was first admitted last week. Nausea has significantly improved, tolerating her diet. Medications: List reviewed. Code Status: Full code. Advance care directive discussed. Objective: Vital Signs: Temperature 97.5, heart rate 72, blood pressure 96/60, respirations 15, O2 saturation 99% on room air. General: Awake, alert, oriented x3. Elderly female, frail, cachectic. BMI 15.6. CV: S1, S2. Regular rate and rhythm. Peripheral pulses present. Respiratory: Moving air well bilaterally. No wheezing or stridor. No use of accessory muscles. Gastrointestinal: Abdomen is soft. Mild tenderness to palpation in the left lower quadrant. Ileost ricki bag is in place with liquid stool. Extremities: No clubbing, cyanosis, or edema. Neurologic: Nonfocal. Laboratory Data: Sodium 137, potassium 4.5, chloride 112, CO2 of 21, BUN 15, creatinine 0.94, glucos e 82, calcium 8.5. WBC 8.6, H and H 11.2 and 33.6, platelets 260. Blood culture x1. No growth to d ate. Urine culture growing out yeast. This is from 03/08/2019. Assessment And Plan: A 68-year-old female with: 1.Acute kidney injury. Creatinine has improved. We will continue to monitor, likely due to prerena l azotemia, dehydration. 2.Acute pancreatitis, resolved. Pain is significantly better. 3.Hyponatremia. Sodium back to normal. 4.Generalized weakness, improving. Working well with Physical Therapy. No need for home health or SNF. 5.Hypokalemia. Replaced. Continue to monitor. 6.Status post ileostomy. 7.Status post ureteral stent placement. Appreciate Dr. Daugherty's input. 8.Acute cystitis with hematuria. Urine culture growing out yeast. We will continue with IV Difluca n. We will repeat urine and culture. Anticipate discharge in a.m. after final dose of Diflucan. SA/MODL Voice ID: [id number] Report ID: [id number]
[2019-03-16] MEDS: PANTOPRAZOLE 40MG TABLET PO SCH (08:37)
[2019-03-16] MEDS: ENOXAPARIN 30 MG/0.3 ML SQ SCH (08:38)
[2019-03-16] MEDS: ENSURE CLEAR 200 ML CAN PO SCH (08:38)
[2019-03-16 10:20] VITALS: O2SAT 98
[2019-03-16] MEDS: FLUCONAZOLE 200mg IVPB 200 MG/100 ML BAG IV SCH (11:15)
[2019-03-16 13:18] VITALS: BP 103/60; TEMP 97.4
--- NOTE | 2019-03-16 21:19 | PN ---
Date of Progress Note: 03/16/2019 History: Patient was admitted with acute kidney injury secondary to obstructive uropathy, prerenal. Patient after hydration had stent placement. Kidney function has been normalized. Physical Examination: Vital Signs: Blood pressure of 103/60, pulse of 79. Chest: Clear to auscultation. Heart: S1, S2 regular. Abdomen: Mild tenderness in the abdominal area. No guarding or rebound. Colostomy, good output. Extremities: No edema. Neurologic: Alert and oriented x3. No focal. Laboratory Data: H and H 11.2 and 33.6. Sodium 137, potassium 4.5, bicarb 21, BUN 15, creatinine 0. 9, calcium 8.4. Current Medications: The patient on include Lovenox, loperamide, Zofran, pantoprazole. Assessment And Plan: 1.Acute kidney injury, multifactorial, secondary to prerenal, obstructive uropathy, recovered, resol pierre. Follow up with the Urology. 2.Hypokalemia, high acidosis, hypomagnesemia, hypophosphatemia, secondary to gastrointestinal loss, currently corrected. We will monitor. 3.Obstructive uropathy, status post stenting. Follow up with Urology. Patient cleared from the renal standpoint for discharge planning. NAVEEN/CRISTELA Voice ID: [id number] Report ID: [id number]
--- NOTE | 2019-03-17 02:53 | DS ---
Date of Discharge: 03/16/2019 Consultants: 1.Dr. Andersen, Dr. Moy, and Dr. Garcia with Nephrology. 2.Dr. Daugherty, with Urology. 3.Dr. Roa, with GI. Procedures: On 03/09/2019, cystoscopy, stent exchange, left ureter balloon dilatation, left retrogra de pyelograms, left ureteroscopy by Dr. Daugherty. Admitting Diagnoses: 1.Acute pancreatitis, unclear etiology. 2.Generalized weakness. 3.History of diverticulosis. 4.Generalized osteoarthritis. 5.Hyponatremia. 6.Acute kidney injury. 7.Failure to thrive. 8.Status post ileostomy. Discharge Diagnoses: 1.Acute pancreatitis, resolved, unclear etiology. MRCP negative. 2.Acute kidney injury, creatinine normalized, likely due to dehydration and prerenal azotemia. 3.Hyponatremia, corrected. 4.Generalized weakness, improved. 5.Hypokalemia, replaced. 6.Status post ileostomy. 7.Dilatation of the ureter, status post left ureteral stent replacement. 8.Acute cystitis with hematuria secondary to yeast, treated with Diflucan. 9.History of diverticulosis, status post partial small-bowel resection and ileostomy. Hospital Course: Patient is a 68-year-old female with complicated past medical history including div erticulosis with subsequent diverticulitis, status post partial small-bowel resection with ileostomy, osteoarthritis, who has been in and out of the hospital since April 2018, has had a cholecystectomy, partial small-bowel resection and an ileostomy. She has been having difficulty with tolerating her diet, has had nausea and vomiting multiple times. Failed outpatient treatment with antibiotics inclu ding Flagyl and clindamycin. Patient came into our facility with repeat episode of generalized weakn ess, nausea, vomiting, unable to tolerate her diet and abdominal pain. Workup revealed elevated lipa se level. She was admitted for acute pancreatitis. She was given IV fluids, kept n.p.o., GI was con sulted. MRCP was done, which was negative. CT scan of the abdomen and pelvis did not show any obstr uction, did show double J left stent and dilatation of the left renal pelvis. Patient was seen by [facility] urologist, Dr. Daugherty, and the procedure was done as mentioned above with replacement of the left ur eter stent. Overall, the patient did well. She did have a prolonged course in the hospital. Her bl ood cultures were negative. Her urine culture, however did grow out yeast and was treated with Diflu can. The patient's symptoms improved. Her white blood cell count normalized. Her electrolytes were also corrected. She was able to tolerate her diet, she continued with. She started working with ph ysical therapy and did well. She is able to ambulate with her walker. Overall, patient did well. S he was then cleared for discharge. She did not require any [facility]ci facility placement or [facility]. She will need to have close followup with her primary care physician in 2-3 days, follow u p with her surgeon, Dr. Sosa at [facility] in 2 weeks. Follow up with tissue recovery technician, Dr. Moy, sandy n 2 weeks. Follow up with urologist, Dr. Marquez in 2 weeks and follow up with GI, Dr. Roa in 2 weeks. Return to ER for worsening condition. Diet: [place]. Avoid greasy fatty food. Patient to supplement fat-soluble vitamins including D, E, A and K. Activity: As tolerated. Physical Examination: General awake alert oriented x3. Elderly female, no acute distress, frail, cachectic. CV: S1, S2. Respiratory: Moving air well bilaterally. Gastrointestinal: Abdomen is soft, mild tenderness to palpation in the left lower quadrant, but no r ebound or guarding. Ileostomy bag in place with liquid stool. Extremities: No clubbing, cyanosis, or edema. Neurologic: Nonfocal. Total time spent discharging patient was 39 minutes. FABY Voice ID: [id number] Report ID: [id number]
== END 2019-03-16 13:45 | disposition home or self-care (01) | DRG 988 ==
LOC: ER 12:18 → ERHOLD 16:27 → 2ND 18:02
PROVIDERS: ADMIT Family Medicine; ATTEND Family Medicine
PROC: 0T778DZ Dilation of Left Ureter with Intraluminal Device, Via Natural or Artificial Opening Endoscopic (ICD-10-PCS; 2019-03-09)
PROC: 0TP98DZ Removal of Intraluminal Device from Ureter, Via Natural or Artificial Opening Endoscopic (ICD-10-PCS; 2019-03-09)
PROC: 02HV33Z Insertion of Infusion Device into Superior Vena Cava, Percutaneous Approach (ICD-10-PCS; 2019-03-09)
PROC: BT1FZZZ Fluoroscopy of Left Kidney, Ureter and Bladder (ICD-10-PCS; principal; 2019-03-09 12:00)
DX: K85.90 Acute pancreatitis without necrosis or infection, unspecified (principal); N17.9 Acute kidney failure, unspecified; E87.1 Hypo-osmolality and hyponatremia; N30.01 Acute cystitis with hematuria; Z68.1 Body mass index [BMI] 19.9 or less, adult; R64 Cachexia; N13.1 Hydronephrosis with ureteral stricture, not elsewhere classified; E87.3 Alkalosis; E87.2 Acidosis; B37.49 Other urogenital candidiasis; E86.0 Dehydration; R79.89 Other specified abnormal findings of blood chemistry; R53.1 Weakness; E87.6 Hypokalemia; Z93.2 Ileostomy status; R62.7 Adult failure to thrive; B37.9 Candidiasis, unspecified; Z88.0 Allergy status to penicillin; K57.90 Diverticulosis of intestine, part unspecified, without perforation or abscess without bleeding; M15.9 Polyosteoarthritis, unspecified; R51 Headache; E86.1 Hypovolemia; I95.9 Hypotension, unspecified; E83.39 Other disorders of phosphorus metabolism; I10 Essential (primary) hypertension; E83.42 Hypomagnesemia
CPT/HCPCS: 36415; 51610; 71045; 74176; 74181; 74450; 76770; 78708; 80048; 80053; 80069; 80076; 81003; 81015; 82553; 83605; 83690; 83735; 84100; 84132; 84145; 84484; 85025; 87040; 87086; 87088; 94760; 96361; 96374; 96375; 97116; 97161; 99285; A9562; C9113; J1450; J1650; J1940; J2270; J2405; J2704; J3010; J3475; J3480; J7030; J7040; J7120

== ENCOUNTER 2020-11-20 06:18 | Day surgery (SDC) | payer SELFPAY ==
[2020-11-15 14:40] LABS: Absolute Lymphocytes (CBC) 1.5 K/uL (0.7-4.9); Basophils % 0.9 % (0-1.3); Hematocrit 32.6 % (36.0-45.0); MPV 8.2 fL (7.6-11.3); RBC Red Blood Cell Count 3.83 M/uL (3.86-4.86)
[2020-11-15 14:43] LABS: Protime INR 0.96
[2020-11-15 15:00] LABS: Potassium 4.2 mmol/L (3.5-5.1)
[2020-11-20] MEDS ORDERED: Ringers Lactate 1,000 ML IV ONE (06:51)
[2020-11-20] MEDS ORDERED: SCOPOLAMINE HYDROBROMIDE PATCH TD ONE ×2 (07:10→07:33)
[2020-11-20] MEDS ORDERED: dexAMETHasone 10 MG/ML VIAL ONE (07:15)
[2020-11-20] MEDS ORDERED: FENTANYL CITR 100 MCG/2 ML ONE (07:15)
[2020-11-20] MEDS ORDERED: MIDAZOLAM HCL 2 MG/2 ML INJ ONE (07:15)
[2020-11-20] MEDS ORDERED: ONDANSETRON 4 MG/2 ML VIAL ONE (07:15)
[2020-11-20] MEDS ORDERED: LIDOCAINE 1% MPF 5 ML VIAL ONE (07:15)
[2020-11-20] MEDS ORDERED: propofoL 200 MG/20 ML VIAL IV ONE (07:15)
[2020-11-20] MEDS ORDERED: FLUCONAZOLE 400 MG IVPB 400 MG/200 ML BAG IV ONE (07:15)
[2020-11-20] MEDS ORDERED: AMPICILLIN SODIUM 2 GM in NA CHLORIDE 0.9% 100 ML IVPB ONE (07:30)
[2020-11-20] MEDS ORDERED: ROCURONIUM 50 MG/5 ML VIAL IV ONE (07:46)
[2020-11-20] MEDS ORDERED: GENTAMICIN IV ONE (08:00)
[2020-11-20] MEDS ORDERED: NA CHLORIDE 0.9% IV ONE (08:00)
[2020-11-20] MEDS ORDERED: NEOSTIGMINE 1 MG/ML -5 ML ONE (08:29)
[2020-11-20] MEDS ORDERED: GLYCOPYRROLATE 0.2 MG/ML SYR ONE (08:29)
[2020-11-20] MEDS ORDERED: PHENAZOPYRIDINE 100MG TAB PO ONE (08:49)
--- NOTE | 2020-11-20 09:44 | RAD REPORT ---
EXAM DESCRIPTION: RAD - Urography Retrograde - 11/20/2020 9:27 am CLINICAL HISTORY: STENT COMPARISON: Urethrocystogrphy Retrograde dated 03/09/2019 FINDINGS: Total fluoro time: 0.14 minutes
[2020-11-20 12:34] VITALS: BP 121/67; TEMP 97.7; O2SAT 99
--- NOTE | 2020-11-20 15:05 | OP ---
Date of Procedure: 11/20/2020 Surgeon: JOANNE FAIR Preoperative Diagnoses: 1.Retained left ureteral stent. 2.History of colon resection with distal ureteral obstruction requiring stent placement. Postoperative Diagnoses: 1.Retained left ureteral stent. 2.History of colon resection with distal ureteral obstruction requiring stent placement. 3.Residual distal left ureteral strictured narrowing. Principal Procedures: 1.Cystoscopy. 2.Left ureteral stent extraction. 3.Left retrograde pyelography. 4.Left ureteral stent replacement. Indication For Procedure: Ms. Celaya presented to the Urology Clinic with the above history of prio r abdominopelvic surgery, likely resulting in ureteral obstruction and requiring the placement of ure teral stents. She was lost to followup for a period of time following those stents being placed and presented to me over a year later with the retained stent. A CT scan was obtained to assess the degr ee of encrustation of the stent, and since no significant encrustation was appreciated, we planned fo r operative stent extraction with the availability of ureteroscopy and laser lithotripsy if necessary . Of note, the patient had an enterococcus UTI, which was sensitive to ampicillin and gentamicin, bu t because she had a stated allergy of a rash to penicillin, she was treated as an outpatient with onc e daily extended dosing gentamicin. This improved her symptomatology of infection and essentially cl eared the infection seen on her preoperative urine culture. Beyond this, evidence of fungus was note d on the preoperative urine culture. Procedure In Detail: The patient was consented in the preoperative holding area before being transfe rred to the operative suite where general anesthesia was induced. I specifically discussed with her the plan to give her ampicillin along with the gentamicin to synergistically treat the enterococcus, which was previously identified in her urine. We did discuss the potential for an allergic reaction, but this was discussed with Anesthesia as well who is comfortable administering the ampicillin with the patient intubated associated with the administration of Decadron. As a result, under general ane sthesia, the patient had previously been given gentamicin in the preoperative holding area and was gi mary 2 g of ampicillin and fluconazole intraoperatively. She had no reaction to the administration of the ampicillin with no changes in her respiratory status or signs of a rash. As a result, she was p laced in the lithotomy position, padded and secured to the table appropriately. Her genitalia were p repped using Hibiclens and she was draped in standard fashion. Pneumoboots were provided for DVT pro phylaxis. The case was then begun using a 22-American rigid cystoscope to traverse the urethra and int o the bladder with ease. The bladder was decompressed of its urine and surveyed. The stent was note d to emanate from the left ureteral orifice and had fibrinous debris surrounding it. I grasped the t ip of the stent using an alligator grasper and under direct vision and using fluoroscopic guidance, s lowly removed the stent with ease from her left ureter. The stent came out without issue and so I pl aced a 5-American ureteral access catheter into the ureteral orifice to perform a retrograde pyelogram. Left retrograde pyelography: Using a 70:30 mixture of Omnipaque and saline, contrast was injected via the 5-American ureteral access catheter into the distal ureter where it propagated a few centimeters before meeting a point of obst ruction and causing the remainder of the contrast to simply efflux around the 5-American ureteral acces s catheter into the bladder. I thus advanced a 5-American ureteral access catheter further into the di stal ureter to the level of this point of evident obstruction and again injected a bolus of contrast. At this time, the contrast did propagate beyond an approximately 2 cm area of ureteral narrowing in the distal ureter within the pelvis before propagating up a moderately dilated ureter and significan tly dilated renal pelvis with moderate to severe caliectasis noted. I then removed the ureteral acce ss catheter allowing the contrast to efflux out of the ureter, which it did largely, but there was ev idence of retained contrast just superior to the point of distal ureteral obstruction. There was als o delayed drainage of contrast from the hydronephrotic kidney. As a result, I replaced a 5-American ur eteral access catheter and passed a Sensor wire with ease into the collecting system with a coil obse rved fluoroscopically. I then passed a 6-American x 24 cm double-J ureteral stent into the left kidney with a coil observed fluoroscopically within the renal pelvis and 1 cystoscopically formed within th e bladder. I then decompressed her bladder of fluid and urine and removed the cystoscope, completing the case. She was then taken out of the lithotomy position, awakened from general anesthesia, trans ferred to a stretcher, and then transferred to the recovery room in good condition. Complications: None. Estimated Blood Loss: Negligible. Discharge Disposition: Given the residual distal ureteral obstruction noted, as noted above, I repla ashley the left ureteral stent as opposed to simply extracting it. We will discuss with the patient on followup whether she wishes to undergo chronic ureteral stent exchanges scheduled at least every 6 mo nths, whether she simply wishes to have the stent removed and allow atrophy of the kidney, or if she really wishes to consider any attempt at surgical repair and ureteral reimplantation. The latter mirela schneider may be fraught with a degree of difficulty given her multiple prior abdominal and pelvic surger ies. We will reach a decision and then manage her indwelling left ureteral stent accordingly. JALIL/CRISTELA Voice ID: [id number] Report ID: [id number]
== END 2020-11-20 13:15 | disposition home or self-care (01) ==
LOC: OR 06:18
PROVIDERS: ATTEND Urology
PROC: 0T778DZ Dilation of Left Ureter with Intraluminal Device, Via Natural or Artificial Opening Endoscopic (ICD-10-PCS; principal; 2020-11-20 07:30)
DX: N13.5 Crossing vessel and stricture of ureter without hydronephrosis (principal); Z20.822 Contact with and (suspected) exposure to COVID-19; Z98.890 Other specified postprocedural states
CPT/HCPCS: 87088; 85025; 87086; 80048; 36415; 85610; 85730; 87077; 87186; 74420; 52332; U0003; J2704; J1580; J2250; J3010; J1100; J1450; J2710; J7120; J2405; J0290